=== PATIENT | female | born 1955 | race Caucasian/White ===

== ENCOUNTER 2023-04-08 14:35 | Outpatient (OUT) | payer MEDICARE, SELFPAY ==
--- NOTE | 2023-04-08 14:36 | MM_ITS ---
Patient Name: MARICEL GOODWIN MR#: [id number] : 1955 Exam Date: 04/08/2023 Ordering Doctor: DR FAZAL BONE D.O. RADIOLOGY REPORT PROCEDURE: MM TOMOSYNTHESIS SCREENING BI COMPARISON: MG MAMM SCREEN 3D WILLIE CAD, 03/31/2021. MG MAMM SCREEN 3D WILLIE CAD, 04/01/2022. INDICATIONS: Screening Calculator Name NCI Breast Cancer Risk Assessment Tool 5 Year Breast Cancer Risk 3.10% Lifetime Breast Cancer Risk 9.80% Personal Breast Cancer No Personal Ovarian Cancer No Treatments None Family Cancers Father with esophageal cancer at age 75; Mother with breast cancer at age 55. LOCATION: [facility] BREAST COMPOSITION: Heterogeneously dense,which may obscure small masses. FINDINGS: DIAGNOSTIC CATEGORY 2--BENIGN FINDING. NO CHANGE FROM COMPARISON. Scattered benign-appearing nodules are present. RIGHT BREAST: No significant suspicious finding. LEFT BREAST: No significant suspicious finding. RECOMMENDATIONS: ROUTINE MAMMOGRAM AND CLINICAL EVALUATION IN 12 MONTHS. PLEASE NOTE: A NORMAL MAMMOGRAM DOES NOT EXCLUDE THE POSSIBILITY OF BREAST CANCER. A CLINICALLY SUSPICIOUS PALPABLE LUMP SHOULD BE BIOPSIED. Dictated by: Samuel Emanuel MD on 04/08/2023 at 15:53 Approved by: Samuel Emanuel MD on 04/08/2023 at 15:56
--- OUTSIDE RECORDS SUMMARY | 2023-04-21 03:33 | XMS_ITS | CCD ---
Author Name Unknown Address [address] [place] [address] Organization [facility] Care Team Providers Care Industrial Painter Name Role Phone LIZANDRO, DR DIEHL Primary Care Unavailable LIZANDRO, DR DIEHL Admitting Unavailable LIZANDRO, DR DIEHL Attending Unavailable LIZANDRO, DR DIEHL Consulting Unavailable MEGAN, DR NESSA Stokes Consulting Unavailable LIZANDRO, DR DIEHL Primary Care Unavailable LIZANDRO, DR DIEHL Admitting Unavailable LIZANDRO, DR DIEHL Attending Unavailable Lavinia Moore Unavailable Allergies Allergy Classification Reported Allergen(s) Allergy Type Date of Onset Reaction(s) Facility (1 source) [facility] Drug allergy (disorder) 7 [facility] Repository (1 source) cyclobenzaprine Drug Allergy anaphylaxis [employer] Other Medications Current Medications Medication Drug Class(es) Dates Sig (Normalized) Sig (Original) aspirin 325 mg delayed release oral tablet (1 source) Platelet Aggregation Inhibitor, Nonsteroidal Anti-inflammatory Drug take 0.5 tablet by mouth once daily Aspirin 325 MG 1/2 tablet Orally Once a day Active doxycycline hyclate 100 mg oral capsule (1 source) Tetracycline-class Drug Start: 02-20-2023 take 1 capsule by mouth every twelve hours Doxycycline Hyclate 100 MG 1 capsule Orally Twice a day for 10 day(s) Jan, Active estradiol 0.1 mg/ml vaginal cream (1 source) Estrogen Estradiol 0.1 MG/GM _insert 1 (ONE) gram VAGINALLY weekly Vaginal for 90 Days Active levothyroxine sodium 0.025 mg oral tablet (1 source) l-Thyroxine Levothyroxine Sodium 25 MCG Oral for 90 Days Active methylPREDNISolone 4 mg oral tablet (1 source) Corticosteroid Start: 02-20-2023 Medrol (Sudheer) 4 MG as directed Orally for daily dose take half with breakfast half with dinner for 6 days Jan, Active metoprolol tartrate 25 mg oral tablet (1 source) beta-Adrenergic Twila take 1 tablet by mouth every twelve hours Metoprolol Tartrate 25 MG 1 tablet with food Orally Twice a day Active olmesartan medoxomil 20 mg oral tablet (1 source) Angiotensin 2 Receptor Twila take 1 tablet by mouth once daily Olmesartan Medoxomil 20 MG TAKE 1 TABLET BY MOUTH DAILY Oral for 90 Days Active ProAir HFA 108 (90 Base) MCG/ACT (1 source) Start: 02-20-2023 take 1 puff(s) by inhalation every four hours as needed ProAir HFA 108 (90 Base) MCG/ACT 1 puff as needed Inhalation every 4 hrs for 30 days Jan, Active Spacer/Aero-Holding Chambers - (1 source) Start: 02-20-2023 Spacer/Aero-Holdi ng Chambers - as directed for 30 days Jan, Active Problems Problem Classification Problem Date Documented Da te Episodic/Chronic Acute bronchitis (1 source) Acute bronchitis, unspecified Episodic Other lower respiratory disease (1 source) Other specified respiratory disorders Episodic Other screening for suspected conditions (not mental disorders or infectious disease) (4 sources) Encounter for screening mammogram for malignant neoplasm of breast; Translations: [ENC SCR MAMMO MALIG NEOPLASM BREAST] Onset: 04-01-2022 Episodic Other upper respiratory infections (1 source) Acute pansinusitis, unspecified Episodic Residual codes; unclassified (1 source) Family history of malignant neoplasm of digestive organs; Translations: [FAM HX MALIG NEOPLASM DIGESTIV ORGN] Onset: 04-04-2022 Episodic Residual codes; unclassified (1 source) Family history of malignant neoplasm of breast; Translations: [FAMILY HX MALIG NEOPLASM OF BREAST] Onset: 04-04-2022 Episodic Results Test Name Value Interpretation Reference Range Facil ity COVID + FLU Quick Testingon 02-20-2023 SARS-CoV-2 (COVID-19) RNA NA A+probe Ql (Unsp spec) Negative [employer] Other COVID + FLU Quick Testing Negative [employer] Other MG MAMM SCREEN 3D WILLIE CADon 04-01-2022 MG MAMM SCREEN 3D WILLIE CAD Patient: MARICEL GOODWIN Exam Date: 04/01/2022 : 1955 Gender:F Ordering : DR FAZAL BONE D.O. Admission #: [id number] Family : Order #: [id number] CLICK HERE TO VIEW EXAM RADIOLOGY REPORT PROCEDURE: MAMMOGRAM SCREENING 3D BILATERAL CAD COMPARISON: MG MAMM SCREEN 3D WILLIE CAD, 03/31/2021. MG MAMM SCREEN WILLIE W CAD, 03/27/2020. INDICATIONS: Screening mammography Calculator Name NCI Breast Cancer Risk Assessment Tool 5 Year Breast Cancer Risk 3.00% Lifetime Breast Cancer Risk 10.20% Personal Breast Cancer No Personal Ovarian Cancer No Treatments None Family Cancers Father with esophageal cancer at age 75; Mother with breast cancer at age 55. LOCATION: [facility] BREAST COMPOSITION: Heterogeneously dense,which may obscure small masses. FINDINGS: DIAGNOSTIC CATEGORY 1--NEGATIVE. RIGHT BREAST: No significant suspicious finding. No significant change has occurred. LEFT BREAST: No significant suspicious finding. No significant change has occurred. RECOMMENDATIONS: ROUTINE MAMMOGRAM AND CLINICAL EVALUATION IN 12 MONTHS. PLEASE NOTE: A NORMAL MAMMOGRAM DOES NOT EXCLUDE THE POSSIBILITY OF BREAST CANCER. A CLINICALLY SUSPICIOUS PALPABLE LUMP SHOULD BE BIOPSIED. Dictated by: Nessa Grove M.D. on 04/01/2022 at 15:36 Approved by: Nessa Grove M.D. 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 Note: Microscopic examination reveals a specimen that extends into the superficial dermis. There is a mild superficial interstitial lymphocytic infiltrate and there is mild basal layer melanin pigmentation. There is acantholysis in areas. Multiple step sections were performed. These findings could be seen in an acantholytic acanthoma if solitary or [place]'s disease. A lentigo cannot be excluded. Electronically Signed Out by DANYELL CHAN M.D. Electronically Signed Out By DANYELL CHAN MD/[facility] Clinical History: Morphology: 0.5cm pink papule DDX: Neoplasm of Uncertain Behavior vs. Basal Cell Carcinoma ([place]) ([id number]) Specimens Submitted As: A: SKIN, MIDDLE STERNUM, SHAVE BIOPSY ([id number]) Gross Description: Shave; 0.4x0.3x0.1 The gross evaluation was performed and the original slides were prepared at [facility] [address], [place] [address]. jks/07/03/2019 Normal [facility] Comment on above: Performed By: #### D #### Dermatopathology Vital Signs Date Time Vital Sign Value Performing Clinician Facility 02-20-2023 09:45-0400 Body height 172.72 cm Lavinia Moore Other [employer] Other 02-20-2023 09:45-0400 Body mass index (BMI) [Ratio] 22.44 kg/m2 Lavinia Moore Other [facility] Other 02-20-2023 09:45-0400 Body temperature 96.4 [degF] Lavinia Moore Other [facility] [employer] Other 02-20-2023 09:45-0400 Body weight 66.95 kg Lavinia Moore Other [facility] [employer] Other 02-20-2023 09:45-0400 Respiratory rate 18 /min Lavinia Moore Other [employer] Other 02-20-2023 09:45-0400 SaO2% (BldA) [Mass fraction] 91 % Lavinia Moore Other [facility] [employer] Other Encounters Encounter Date Encounter Type Care Provider Facility Start: 02-20-2023 End: 02-20-2023 ambulatory Lavinia Moore Other [facility] [employer] Other Start: 02-20-2023 Office outpatient ne w 20 minutes Lavinia Moore [facility] Start: 04-01-2022 End: 04-02-[address] FAZAL BONE Facility:[facility] Start: 09-01-[address] FAZAL BONE Facil ity:[facility] Start: 08-21-2021 End: 11-30-2021 Patient encounter procedure FAZAL BONE [facility] Payers Date Payer Category Payer Medicare [id number] 1960 Unknown [id number] 1955 Unknown [id number] 1955 Unknown [id number] Social History Date Type Detail Facility Tobacco smoking status No Smoking Status Entered [facility] Sex Assigned At Female [facility] Evaluation note 02-20-2023 Note Date & Type Note Facility 02-20-2023 Evaluation note Encounter Date Diagnosis Assessment Notes Jan, Acute pansinusitis (ICD-10 - J01.40) rx sent, take as directed. continue symptomatic tx as discussed. no NSAIDs while steroid therapy. advised pt to check with PCP regarding Aspirin for Afib prior to discontinuing. recommended hot steam baths and/or cool mist humidifier. push rest/fluids. continue otc meds prn. reinforced good hand and cough hygiene for infection control. immediate eval if warning s/s of respir distress, intractable fevers, or other emergent symptoms. otherwise f/u with PCP in 3-4 days if s/s persists or worsens despite treatment. Jan, Acute bronchitis (ICD-10 - J20.9) see above Jan, Congestion of respiratory tract (ICD-10 - J98.8) [place] [employer] Other Evaluation + Plan note Note Date & Type Note Facility Evaluation + Plan note No data available for this section [facility] History general Narrative - Reported Note Date & Type Note Facility History general Narrative - Reported Type Medical History HYPERTENSION Medical History HYPERTHYROIDISM [facility] Other Hospital Discharge instructions Note Date & Type Note Facility Hospital Discharge instructions No data available for this section [facility] Progress note Note Date & Type Note Facility Progress note No data available for this section [facility] Summary Purpose Family History No Family History Records FoundNo Family History Records Found Advance Directives No Advanced Directives Records FoundNo Advanced Directives Records Found Additional Source Comments INFORMATION SOURCE (unrecogn ized section and content) DATE CREATED AUTHOR 07/05/2019 [facility] [place] DATE CREATED AUTHOR AUTHOR'S ORGANIZ ATION 04/04/2022 [facility] REASON FOR VISIT (unrecogniz ed section and content) COUGH, CONGESTION FOR RECORDS PERTAINING TO PATIENTS WHO ARE OR HAVE BEEN ENROLLED IN A CHEMICAL DEPENDENCY/SUBSTANCEABUSE PROGRAM, SOME INFORMATION MAY BE OMITTED. This clinical summary was aggregated from multiple sources. Caution should be exercised in using it in the provision of clinical care. This summary normalizes information from multiple sources, and as a consequence, information in this document may materially change the coding, format and clinical context of patient data. In addition, data may be omitted in some cases. CLINICAL DECISIONS SHOULD BE BASED ON THE PRIMARY CLINICAL RECORDS. [employer] provides no warranty or guarantee of the accuracy or completeness of information in this document.
== END 2023-04-08 14:36 | disposition home or self-care (01) ==
LOC: MAMMO 14:35
PROVIDERS: PCP Internal Medicine; Visit Provider Internal Medicine
DX: Z12.31 Encounter for screening mammogram for malignant neoplasm of breast (principal); Z80.8 Family history of malignant neoplasm of other organs or systems; Z80.3 Family history of malignant neoplasm of breast
CPT/HCPCS: 77063; 77067

== ENCOUNTER 2023-04-12 13:30 | Outpatient (OUT) | payer MEDICARE, OTHER, SELFPAY ==
--- NOTE | 2023-04-12 13:33 | XR_ITS ---
[place] [id number] Patient Name: MARICEL GOODWIN MRN: [id number] date: 1955 Sex: F Assigned Patient Location: [facility] Current Patient Location: [facility] Accession/Order Number: [id number] Exam Date: 04/12/2023 13:38 Report Date: 04/12/2023 23:05 At the request of: FAZAL BONE Procedure: XR DEXA axial skeleton EXAMINATION: XR DEXA axial skeleton HISTORY: Asymptomatic Menopause COMPARISON: DEXA bone densitometry 03/31/2021 TECHNIQUE: Dual-energy X-ray absorptiometry (DXA) was performed. FINDINGS: SPINE ANALYSIS: Average bone mineral density is 1.255 g/cm2. T-score (standard deviation relative to young adult mean): 0.5 . +7.7% change since prior study. HIP ANALYSIS: Lowest bone mineral density is within the left femoral trochanter, 0.606 g/cm2. T-score (standard deviation relative to young adult mean): -2.1 . +7.5% change since prior study. XR/XR DEXA axial skeleton IMPRESSION: World [employer] Classification: Osteopenia - Moderate Fracture Risk Electronically authenticated by: NESSA GUZMAN Date: 04/12/2023 23:05
== END 2023-04-12 13:31 | disposition home or self-care (01) ==
LOC: RAD 13:30
PROVIDERS: PCP Internal Medicine; Visit Provider Internal Medicine
DX: M85.80 Other specified disorders of bone density and structure, unspecified site (principal); Z78.0 Asymptomatic menopausal state
CPT/HCPCS: 77080

== ENCOUNTER 2024-04-24 08:57 | Outpatient (OUT) | payer MEDICARE, OTHER, SELFPAY ==
--- NOTE | 2024-04-24 08:59 | MM_ITS ---
Patient Name: MARICEL GOODWIN MR#: [id number] : 1955 Exam Date: 04/24/2024 Ordering Doctor: DR FAZAL BONE D.O. RADIOLOGY REPORT PROCEDURE: MM TOMOSYNTHESIS SCREENING BI COMPARISON: MM TOMOSYNTHESIS SCREENING BI, 04/08/2023. MG MAMM SCREEN 3D WILLIE CAD, 04/01/2022. INDICATIONS: Screening Calculator Name NCI Breast Cancer Risk Assessment Tool 5 Year Breast Cancer Risk 3.10% Lifetime Breast Cancer Risk 9.30% Personal Breast Cancer No Personal Ovarian Cancer No Treatments None Family Cancers Father with esophageal cancer at age 75; Mother with breast cancer at age 55. LOCATION: [facility] BREAST COMPOSITION: The breasts are heterogeneously dense,which may obscure small masses. FINDINGS: DIAGNOSTIC CATEGORY 2--BENIGN FINDING. NO CHANGE FROM COMPARISON. Scattered benign-appearing calcifications are present. RIGHT BREAST: No significant suspicious finding. LEFT BREAST: No significant suspicious finding. RECOMMENDATIONS: ROUTINE MAMMOGRAM AND CLINICAL EVALUATION IN 12 MONTHS. PLEASE NOTE: A NORMAL MAMMOGRAM DOES NOT EXCLUDE THE POSSIBILITY OF BREAST CANCER. A CLINICALLY SUSPICIOUS PALPABLE LUMP SHOULD BE BIOPSIED. Dictated by: Samuel Emanuel MD on 04/24/2024 at 12:58 Approved by: Samuel Emanuel MD on 04/24/2024 at 13:00
--- OUTSIDE RECORDS SUMMARY | 2024-04-24 09:17 | XMS_ITS | CCD ---
Author Organization [facility] Care Team Providers Care Front Desk Receptionist Name Role Phone LIZANDRO, DR DIEHL Primary Care Unavailable VALONE, DR DIEHL Admitting Unavailable VALONE, DR DIEHL Attending Unavailable VALONE, DR DIEHL Consulting Unavailable ZIEBER, DR SANDIP Stokes Consulting Unavailable VALONE, DR DIEHL Primary Care Unavailable VALONE, DR DIEHL Admitting Unavailable VALONE, DR DIEHL Attending Unavailable Lavinia Moore Unavailable Unavailable Primary Care Provider Francisco Javier Mcintyre MD Primary Care Provider Lizandro Adler DO, Charles L Primary Care Provider FRANCISCO JAVIER BONE JR Referring Unavailable RFANCISCO JAVIER BONE JR Primary Care Unavailable ELMIRA NEFF JR Attending UnavailELMIRA Guerrero JR Referring UnavailFRANCISCO JAVIER Berrios JR Primary Care Unavailable FRANCISCO JAVIER BONE JR Referring Unavailable FRANCISCO JAVIER BONE JR Primary Care Unavailable ELMIRA NEFF JR Attending UnavailELMIRA Guerrero JR Referring Unavailabl FRANCISCO JAVIER Blum JR Primary Care Unavailable ELMIRA NEFF JR Attending UnavailFRANCISCO JAVIER Berrios JR Referring Unavailable FRANCISCO JAVIER BONE JR Primary Care Unavailable ELMIRA NEFF JR Admitting UnavailELMIRA Guerrero JR Attending UnavailELMIRA Guerrero JR Referring Unavailabl FRANCISCO JAVIER Blum JR Primary Care Unavailable Allergies Allergy Classification Reported Allergen(s) Allergy Type Date of Onset Reaction(s) Facility (1 source) [facility] [place] Drug allergy (disorder) 02-10-20 17 [facility] Repository (1 source) cyclobenzaprine Drug Allergy anaphylaxis opinions.h Other (18 sources) Other; Translations: [OTHER] Propensity to adverse reactions 04-16-20 21 Anaphylaxis [facility] (1 source) cyclobenzaprine; Translations: [CYCLOBENZAPRINE] Drug Allergy 03-28-20 24 [facility] Repository Medications Current Medications Medication Drug Class(es) Dates Sig (Normalized) Sig (Original) acetaminophen 325 mg oral tablet (1 source) take 2 tablets by mouth every six hours as needed for pain acetaminophen (TYLENOL) 325 mg tablet Take 2 tablets (650 mg total) by mouth every 6 (six) hours as needed for pain. Active acetaminophen 325 mg / oxyCODONE hydrochloride 5 mg oral tablet (3 sources) Opioid Agonist Start: 04-11-2024 End: 04-16-2024 take 1 tablet by mouth every six hours for pain oxyCODONE-acetamino phen (Percocet) 5-325 MG tablet Indications: Status post right knee replacement Take 1 tablet by mouth every 6 (six) hours if needed for severe pain for up to 5 days 20 tablet 04/11/2024 04/16/2024 Active Start: 03-27-2024 End: 04-01-2024 take 1 tablet by mouth every six hours for pain oxyCODONE-acetaminophen (Percocet) 5-325 MG tablet Indications: Post-operative pain Take 1 tablet by mouth every 6 (six) hours if needed for moderate pain for up to 5 days 20 tablet 03/27/2024 04/01/2024 Active ascorbic acid/collagen hydr (COLLAGEN SKIN RENEWAL ORAL) (1 source) ascorbic acid/co llagen hydr (COLLAGEN SKIN RENEWAL ORAL) Take by mouth daily. Active aspirin 325 mg delayed release oral tablet (1 source) Platelet Aggregation Inhibitor, Nonsteroidal Anti-inflammatory Drug take 0.5 tablet by mouth once daily Aspirin 325 MG 1/2 tablet Orally Once a day Active Biotin (14 sources) biotin 1 mg caps ule Take by mouth daily. Active BIOTIN PO Take b y mouth Active Calcium Carb-Cholecalciferol (CALTRATE BONE HEALTH PO) (13 sources) Calcium Carb-Cho lecalciferol (CALTRATE BONE HEALTH PO) Take by mouth Active calcium carbonate 1250 mg / cholecalciferol 200 unt oral tablet (1 source) Vitamin D take 1 tablet by mouth once daily in the morning calcium carbonate-vitamin D3 (CALCIUM 500 + D) 500 mg(1,250mg) -200 units per tablet Take 1 tablet by mouth in the morning. Active Chondroitin Sulfates / Glucosamine (14 sources) take 1 tablet by mouth three times daily glucosamine-chondroitin 500-400 mg tablet Take 1 tablet by mouth 3 (three) times a day. Active Glucosamine-Bassam droitin (GLUCOSAMINE CHONDR COMPLEX PO) Take by mouth Active Collagen (13 sources) COLLAGEN PO Take by mouth Active doxycycline hyclate 100 mg oral capsule (1 source) Tetracycline-class Drug Start: 02-20-2023 take 1 capsule by mouth every twelve hours Doxycycline Hyclate 100 MG 1 capsule Orally Twice a day for 10 day(s) Jan, Active estradiol 0.1 mg/ml vaginal cream (15 sources) Estrogen Start: 04-21-2023 estradioL (ESTRACE) 0.01 % (0.1 mg/gram) vaginal cream Indications: Vaginal atrophy Insert 1 g into the vagina once a week. 42.5 g 2 04/21/2023 Active Estradiol 0.1 MG /GM _insert 1 (ONE) gram VAGINALLY weekly Vaginal for 90 Days Active folic acid 1 mg / polysaccharide iron complex 150 mg / vitamin b12 0.025 mg oral capsule (10 sources) Vitamin B12 Start: 02-29-2024 End: 03-30-2024 take 1 tablet by mouth once daily Iron Polysacch Uyvll-P32-MY (Poly-Iron 150 Forte) 150-0.025-1 MG capsule Indications: Primary osteoarthritis of right knee , Pre-op examination Take 1 tablet by mouth Daily 30 capsule 1 02/29/2024 03/30/2024 Active ibuprofen 200 mg oral tablet (1 source) Nonsteroidal Anti-inflammatory Drug take 1 tablet by mouth every six hours as needed for pain ibuprofen (ADVIL,MOTRIN) 200 mg tablet Take 1 tablet (200 mg total) by mouth every 6 (six) hours as needed for pain. Active levothyroxine sodium 0.05 mg oral tablet (20 sources) l-Thyroxine Start: 05-03-2014 levothyroxine (Synthroid, Levoxyl) 50 MCG tablet 05/03/2014 Active take 2 tablets by mo ut in the morning levothyroxine (SYNTHROID, LEVOTHROID) 25 MCG tablet Take 2 tablets (50 mcg total) by mouth in the morning. Active End: 02-29-2024 take 1 tablet by mouth in the morning levothyroxine (Synthroid, Levoxyl) 25 MCG tablet Take 25 mcg by mouth in the morning. 02/29/2024 Discontinued Levothyroxine So dium 25 MCG Oral for 90 Days Active methylPREDNISolone 4 mg oral tablet (1 source) Corticosteroid Start: 02-20-2023 Medrol (Sudheer) 4 MG as directed Orally for daily dose take half with breakfast half with dinner for 6 days Jan, Active metoprolol tartrate 50 mg oral tablet (20 sources) beta-Adrenergic Twila Start: 10-02-2023 metoprolol tartrate (Lopressor) 50 MG tablet 10/02/2023 Active take 2 tablets by mo uth in the morning, then take 2 tablets by mouth at bedtime metoprolol tartrate (LOPRESSOR) 25 mg tablet Take 2 tablets (50 mg total) by mouth in the morning and 2 tablets (50 mg total) before bedtime. Active End: 02-29-2024 take 1 tablet by mouth in the morning metoprolol tartrate (Lopressor) 25 MG tablet Take 25 mg by mouth in the morning and 25 mg in the evening. 02/29/2024 Discontinued dejyrsqa-kaxu-DH-calcium &mins (THERAGRAN-M) 9 mg iron-400 mcg tablet (1 source) pewvccig-uhjr-UJ -calcium &mins (THERAGRAN-M) 9 mg iron-400 mcg tablet Take 1 tablet by mouth in the morning. Active ondansetron 4 mg oral tablet (1 source) Serotonin-3 Receptor Antagonist Sta rt: 4 End : 4 take 1 tablet by mouth every six hours as needed for nausea and vomiting and nausea and nausea ondansetron (Zofran) 4 MG tablet Indications: Nausea Take 1 tablet (4 mg) by mouth every 6 (six) hours if needed for nausea or vomiting for up to 5 days 20 tablet 03/27/2024 04/01/2024 Active ProAir HFA 108 (90 Base) MCG/ACT (1 source) Sta rt: 3 take 1 puff(s) by inhalation every four hours as needed ProAir HFA 108 (90 Base) MCG/ACT 1 puff as needed Inhalation every 4 hrs for 30 days Jan, Active Spacer/Aero-Holding Chambers - (1 source) Sta rt: 3 Spacer/Aero-Holding Chambers - as directed for 30 days Jan, Active valACYclovir 1000 mg oral tablet (1 source) Herpesvirus Nucleoside Analog DNA Polymerase Inhibitor, Herpes Simplex Virus Nucleoside Analog DNA Polymerase Inhibitor, Herpes Zoster Virus Nucleoside Analog DNA Polymerase Inhibitor valACYclovir (VALTRE X) 1000 mg tablet Take 1 tablet (1,000 mg total) by mouth in the morning and 1 tablet (1,000 mg total) before bedtime. One tablet by mouth for 5 days as needed . Active Completed/Discontinued Medications Medication Drug Class(es) Dates Sig (Normalized) Sig (Original) olmesartan medoxomil 20 mg oral tablet (2 sources) Angiotensin 2 Receptor Twila End: 02-29-2024 take 1 tablet by mouth in the morning olmesartan (BENICAR) 20 mg tablet Take 1 tablet (20 mg total) by mouth in the morning. 02/29/2024 Discontinued (Therapy completed) Problems Active Problems Problem Classification Problem Date Documented Date Episodic/Chronic Acute bronchitis (1 source) Acute bronchitis, unspecified Episodic Cardiac dysrhythmias (3 sources) Atrial fibrillation; Translations: [Unspecified atrial fibrillation] Onset: 02-29-2024 02-29-2024 Chronic Essential hypertension (3 sources) Hypertensive disorder; Translations: [Essential (primary) hypertension] Onset: 02-29-2024 02-29-2024 Chronic Genitourinary symptoms and ill-defined conditions (2 sources) Increased frequency of urination; Translations: [Frequency of micturition] Onset: 02-29-2024 02-24-2024 Episodic Nausea and vomiting (1 source) Nausea; Translations: [Nausea] 03-27-2024 Episodic Osteoarthritis (20 sources) Osteoarthritis of right knee joint; Translations: [Unilateral primary osteoarthritis, right knee] Onset: 03-14-2024 02-18-2024 Chronic Other connective tissue disease (4 sources) History of total knee arthroplasty; Translations: [Presence of right artificial knee joint] 03-14-2024 Chronic Other lower respiratory disease (1 source) Other specified respiratory disorders Episodic Other nervous system disorders (1 source) Postoperative pain ; Translations: [Other acute postprocedural pain] 03-27-2024 Episodic Other non-traumatic joint disorders (5 sources) Pain in right knee; Translations: [Pain in joint, lower leg] Onset: 03-27-2024 02-18-2024 Episodic Other screening for suspected conditions (not [...] MALIG NEOPLASM OF BREAST] Onset: 04-04-2022 Episodic Unclassified (1 source) Acute pain of right knee 03-14-2024 Unclassified (1 source) right knee degenerative joint disease Onset: 03-28-2024 Past or Other Problems Problem Classification Problem Date Documented Date Episodic/Chronic Mood disorders (1 source) Mood disorders Onset: 04-21-2023 04-21-2023 Unclassified (5 sources) Preprocedural examination done 02-29-2024 Results Test Name Value Interpretation Reference Range Facility XR KNEE RT 1 OR 2 VWSon 03-04 XR KNEE RT 1 OR 2 VWS XR KNEE RT 1 OR 2 VWS Clinical History: Status post knee arthroplasty. Right knee: 03/28/2024 Comparison: None Findings: Two views of the knee were obtained portably. The patient is status post total knee arthroplasty. Hardware components have expected configuration with no gross evidence of complication. Soft tissue gas and irregularity are compatible with the postoperative status. Impression: Status post total knee arthroplasty. 1 Finalized by Mesfin Reed MD on 03/28/2024 11:05 AM Normal [facility] Bacteria identified Cx Nom ( U)on 03-01-2024 Service comment (Unsp spec) [Interp] <10,000 ORGANISMS/ML NORMAL URO GENITAL PROSPER [facility] BASIC METABOLIC PANLon 02-28 Anion gap [Moles/Vol] 9 mmol/L Normal 5-15 [facility] Comment on above: Performed By: #### B MP, CBCA #### [facility] ([id number]) [address], [address] [place] [address] Calcium [Mass/Vol] 9.6 mg/dL Normal 8.5-10.5 [facility] Comment on above: Performed By: #### LEON Jones MP #### [facility] ([id number]) [address], [address] [place] [address] Chloride [Moles/Vol] 100 mmol/L Normal 98-109 [facility] Comment on above: Performed By: #### B MISTI, CBCA #### [facility] ([id number]) [address], [address] [place] [address] CO2 [Moles/Vol] 30 mmol/L Normal 22-32 [facility] Comment on above: Performed By: #### LEON Jones MP #### [facility] ([id number]) [address], [address] [place] [address] Creatinine [Mass/Vol] 0.95 mg/dL Normal 0.40-1.00 [facility] Comment on above: Result Comment: METH OD TRACEABLE TO IDMS STANDARD Performed By: #### B MISTI CBCMireya #### [facility] ([id number]) [address], [address] [place] [address] GFR/1.73 sq M.predicted among non-blacks MDRD (S/P/Bld) [Vol rate/Area] 65 mL/min/{1.73_m2} Normal >59 [facility] Comment on above: Result Comment: Reported eGFR is based on the CKD-EPI 2020 equation that does not use a race coefficient. Performed By: #### B MISTI CBCMireya #### [facility] ([id number]) [address], [address] [place] [address] Glucose [Mass/Vol] 84 mg/dL Normal 65-99 [facility] Comment on above: Performed By: #### Robert CHAPPELL, CBCA #### [facility] ([id number]) [address] [place] [address] Potassium [Moles/Vol] 3.7 mmol/L Normal 3.5-5.0 [facility] Comment on above: Performed By: #### B MISTI, CBCA #### [facility] ([id number]) [address], [address] [place] [address] Sodium [Moles/Vol] 139 mmol/L Normal 134-146 [facility] Comment on above: Performed By: #### B MISTI, CBCA #### [facility] ([id number]) [address], [address] [place] [address] Urea nitrogen [Mass/Vol] 24 mg/dL Normal 5-27 [facility] Comment on above: Performed By: #### B MISTI, CBCA #### [facility] ([id number]) [address], [address] [place] [address] Basic Metabolic Panelon 10-2 Anion gap [Moles/Vol] 9 mmol/L 5 - 15 mmol/L [facility] Calcium [Mass/Vol] 9.6 mg/dL 8.5 - 10. 5 mg/dL [facility] Chloride [Moles/Vol] 100 mmol/L 98 - 10 9 mmol/L [facility] CO2 [Moles/Vol] 30 mmol/L 22 - 32 mmol/L [facility] Creatinine [Mass/Vol] 0.95 mg/dL 0.40 - 1.00 mg/dL [facility] Comment on above: METHOD TRACEABLE TO IDMS STANDARD eGFR (CKD-EPI)non-race dependent 65 - PINF [facility] Comment on above: Reported eGFR is based on the CKD-EPI 2020 equation that does not use a race coefficient. Glucose [Mass/Vol] 84 mg/dL 65 - 99 mg/dL [facility] Potassium [Moles/Vol] 3.7 mmol/L 3.5 - 5.0 mmol/L [facility] Sodium [Moles/Vol] 139 mmol/L 134 - 146 mmol/L [facility] Urea nitrogen [Mass/Vol] 24 mg/dL 5 - 27 mg/dL [facility] CBC AND AUTO DIFFon 02-29-20 24 ABSOLUTE BASOPHIL 0.1 X10E9/L Normal 0.0-0.2 [facility] Comment on above: Performed By: #### B MISTI, CBCA #### [facility] ([id number]) [address], [address] [place] [address] ABSOLUTE NEUTROPHIL 2.6 X10E9/L Normal 1.5-6.6 [facility] Comment on above: Performed By: #### B MISTI, CBCA #### [facility] ([id number]) [address], [address] [place] [address] Basophils/100 WBC (Bld) 1.3 % Normal [facility] Comment on above: Performed By: #### B MISTI, CBCA #### [facility] ([id number]) [address], [address] [place] [address] Eosinophils (Bld) [#/Vol] 0.2 10*3/uL Normal 0.0-0.4 [facility] Comment on above: Performed By: #### B MISTI CBCA #### [facility] ([id number]) [address], [address] [place] [address] Eosinophils/100 WBC (Bld) 3.3 % Normal [facility] Comment on above: Performed By: #### B MISTI, CBCA #### [facility] ([id number]) [address], [address] [place] [address] Erythrocyte distribution width (RBC) [Ratio] 14.4 % Normal 11.5-15.0 [facility] Comment on above: Performed By: #### B MISTI, CBCA #### [facility] ([id number]) [address], [address] [place] [address] Hematocrit (Bld) [Volume fraction] 37.6 % Normal 35-47 [facility] Comment on above: Performed By: #### B MP, CBCA #### [facility] ([id number]) [address], [address] [place] [address] Hemoglobin (Bld) [Mass/Vol] 12.4 g/dL Normal 11.7-15.5 [facility] Comment on above: Performed By: #### B MP, CBCA #### [facility] ([id number]) [address], [address] [place] [address] Lymphocytes (Bld) [#/Vol] 1.2 10*3/uL Normal 1.0-3.5 [facility] Comment on above: Performed By: #### B MP, CBCA #### [facility] ([id number]) [address], [address] [place] [address] Lymphocytes/100 WBC (Bld) 24.2 % Normal [facility] Comment on above: Performed By: #### B MP, CBCA #### [facility] ([id number]) [address], [address] [place] [address] MCH (RBC) [Entitic mass] 29.2 pg Normal 27-34 [facility] Comment on above: Performed By: #### B MP, CBCA #### [facility] ([id number]) [address], [address] [place] [address] MCHC (RBC) [Mass/Vol] 32.9 g/dL Normal 32-36 [facility] Comment on above: Performed By: #### B MP, CBCA #### [facility] ([id number]) [address], [address] [place] [address] MCV (RBC) [Entitic vol] 89 fL Normal 80-100 [facility] Comment on above: Performed By: #### B MP, CBCA #### [facility] ([id number]) [address], [address] [place] [address] Monocytes (Bld) [#/Vol] 0.8 10*3/uL Normal 0-0.9 [facility] Comment on above: Performed By: #### B MP, CBCA #### [facility] ([id number]) [address], [address] [place] [address] Monocytes/100 WBC (Bld) 16.4 % Normal [facility] Comment on above: Performed By: #### B MP, CBCA #### [facility] ([id number]) [address], [facility] [address] [place] [address] Neutrophils/100 WBC (Bld) 54.8 % Normal [facility] Comment on above: Performed By: #### B MP, CBCA #### [facility] ([id number]) [address], [address] [place] [address] Platelet mean volume (Bld) [Entitic vol] 8.5 fL Normal 7-12 [facility] Comment on above: Performed By: #### B MP, CBCA #### [facility] ([id number]) [address] [place] [address] Platelets (Bld) [#/Vol] 225 10*3/uL Normal 150-450 [facility] Comment on above: Performed By: #### B MP, CBCA #### [facility] ([id number]) [address], [address] [place] [address] RBC COUNT 4.25 X10E12/L Normal 3.80-5.20 [facility] Comment on above: Performed By: #### B MP, CBCA #### [facility] ([id number]) [address] [place] [address] WBC (Bld) [#/Vol] 4.7 10*3/uL Normal 4.0-11.0 [facility] Comment on above: Performed By: #### B MP, CBCA #### [facility] [place] [facility] ([id number]) [address], [address] [place] [address] CBC W Auto Differential pane l (Bld)on 02-29-2024 ABSOLUTE BASOPHIL 0.1 [facility] Comment on above: PERFORMED AT [facility] [address],[place] [address] Basophils/100 WBC (Bld) 1.3 % [facility] Eosinophils (Bld) [#/Vol] 0.2 10*3/uL [facility] Eosinophils/100 WBC (Bld) 3.3 % [facility] Erythrocyte distribution width (RBC) [Ratio] 14.4 % 11.5 - 15.0 % [facility] Hematocrit (Bld) [Volume fraction] 37.6 % 35 - 47 % [facility] Hemoglobin (Bld) [Mass/Vol] 12.4 g/dL 11.7 - 15.5 g/dL [facility] Lymphocytes (Bld) [#/Vol] 1.2 10*3/uL [facility] Lymphocytes/100 WBC (Bld) 24.2 % [facility] MCH (RBC) [Entitic mass] 29.2 pg 27 - 34 pg [facility] MCHC (RBC) [Mass/Vol] 32.9 g/dL 32 - 36 g/dL [facility] MCV (RBC) [Entitic vol] 89 fL 80 - 100 fL [facility] Monocytes (Bld) [#/Vol] 0.8 10*3/uL [facility] Monocytes/100 WBC (Bld) 16.4 % [facility] Neutrophils (Bld) [#/Vol] 2.6 10*3/uL [facility] Neutrophils/100 WBC (Bld) 54.8 % [facility] Platelet mean volume (Bld) [Entitic vol] 8.5 fL 7 - 12 [facility]L [facility] ([facility]ld[facility] [#/Vol] 225 10*3/uL [facility] RBC (Bld) [#/Vol] 4.25 10*6/uL [facility] WBC corrected for nucl RBC Auto (Bld) [#/Vol] 4.7 [facility] CBC auto differentialon 02-01 Basophils (Bld) [#/Vol] 0.1 10*3/uL [facility] Basophils/100 WBC (Bld) 1.3 % [facility] Eosinophils (Bld) [#/Vol] 0.2 10*3/uL [facility] Eosinophils/100 WBC (Bld) 3.3 % [facility] Erythrocyte distribution width (RBC) [Ratio] 14.4 % 11.5 - 15.0 % [facility] Hematocrit (Bld) [Volume fraction] 37.6 % 35 - 47 % [facility] Hemoglobin (Bld) [Mass/Vol] 12.4 g/dL 11.7 - 15.5 g/dL [facility] Lymphocytes (Bld) [#/Vol] 1.2 10*3/uL [facility] Lymphocytes/100 WBC (Bld) 24.2 % [facility] MCH (RBC) [Entitic mass] 29.2 pg 27 - 34 pg [facility] MCHC (RBC) [Mass/Vol] 32.9 g/dL 32 - 36 g/dL [facility] MCV (RBC) [Entitic vol] 89 fL 80 - 100 fL [facility] Monocytes (Bld) [#/Vol] 0.8 10*3/uL [facility] Monocytes/100 WBC (Bld) 16.4 % [facility] Neutrophils (Bld) [#/Vol] 2.6 10*3/uL [facility] Neutrophils/100 WBC (Bld) 54.8 % [facility] Platelet mean volume (Bld) [Entitic vol] 8.5 fL 7 - 12 fL [facility] Platelets (Bld) [#/Vol] 225 10*3/uL [facility] RBC (Bld) [#/Vol] 4.25 10*6/uL [facility] WBC corrected for nucl RBC Auto (Bld) [#/Vol] 4.7 [facility] ECG 12 leadon 02-29-2024 TRACEMASTERVUE [facility] URINALYSISon 02-29-2024 Bilirubin Ql (U) Negative Normal [facility]G [facility] Comment on above: Performed By: #### U A #### [facility] ([id number]) [address], [address] [place] [address] BLOOD/HGB Negative Normal NEG [facility] Comment on above: Performed By: #### U A #### [facility] ([id number]) [address], [address] [place] [address] Color (U) YELLOW Normal YELLOW [facility] Comment on above: Performed By: #### U A #### [facility] ([id number]) [address], [address] [place] [address] Glucose Ql (U) Negative Normal NEG [facility] Comment on above: Performed By: #### U A #### [facility] ([id number]) [address], [address] [place] [address] Hyaline casts LM Ql (Urine sed) 10 /lpf High 0-2 [facility] Comment on above: Performed By: #### U A #### [facility] ([id number]) [address], [address] [place] [address] Ketones Ql (U) Negative Normal NEG [facility] Comment on above: Performed By: #### U A #### [facility] ([id number]) [address], [address] [place] [address] Leukocyte esterase Test strip Ql (U) MODERATE Abnormal NEG [facility] Comment on above: Performed By: #### U A #### [facility] ([id number]) [address], [address] [place] [address] MUCOUS PRESENT Abnormal NONE [facility] Comment on above: Performed By: #### U A #### [facility] ([id number]) [address], [address] [place] [address] Nitrite Ql (U) Negative Normal NEG [facility] Comment on above: Performed By: #### U A #### [facility] ([id number]) [address] [place] [address] pH (U) 6.0 [pH] Normal 5.0-8.5 [facility] Comment on above: Performed By: #### U A #### [facility] ([id number]) [address] [facility] [address] [place] [address] Protein Ql (U) Trace Abnormal NEG [facility] Comment on above: Performed By: #### U A #### [facility] ([id number]) [address] [facility] [address] [place] [address] R.B.CELLS 0 /hpf Normal 0-5 [facility] Comment on above: Performed By: #### U A #### [facility] ([id number]) [address] [facility] [address] [place] [address] Specific gravity (U) [Rel density] 1.017 Normal 1.003-1.035 [facility] Comment on above: Performed By: #### U A #### [facility] ([id number]) [address] [place] [address] [address] [place] [address] SQUAMOUS EPITHELIUM 14 /hpf High 0-5 [facility] Comment on above: Performed By: #### U A #### [facility] ([id number]) [address] [facility] [address] [place] [address] TURBIDITY CLOUDY Abnormal CLEAR [facility] Comment on above: Performed By: #### U A #### [facility] ([id number]) [address] [place] [address] [address] [place] [address] Urobilinogen (U) [Mass/Vol] mg/dL Normal <1.1 [facility] Comment on above: Performed By: #### U A #### [facility] ([id number]) [address] [facility] [address] [place] [address] W.B.CELLS 20 /hpf High 0-5 [facility] Comment on above: Performed By: #### U A #### [facility] ([id number]) [address] [place] [address] URINE CULTUREon 02-29-2024 Bacteria identified Cx Nom (U) CULTURE RESULTS <10,000 ORGANISMS/ML NORMAL URO GENITAL PROSPER Normal [facility] Comment on above: Performed By: #### 6 30-4 #### [facility] ([id number]) [address] [place] [address] Urinalysison 02-29-2024 Bilirubin Ql (U) Negative Negative^Ne g ative [facility] Color (U) YELLOW YELLOW^YELLO W [facility] Epithelial cells Auto (Urine sed) [#/Area] 14 High [facility] Glucose (U) [Mass/Vol] Negative Negat kayleigh^Neg ative mg/dL [facility] Hemoglobin Auto test strip Ql (U) Negative Negative^Neg ative [facility] Hyaline casts (Urine sed) [#/Area] 10 /[LPF] High [facility] Interpretation and review of laboratory results Abnormal [facility] Ketones (U) [Mass/Vol] Negative Negat kayleigh^Neg ative mg/dL [facility] Leukocyte esterase Auto test strip Ql (U) MODERATE Abnormal Negative^Neg ative [facility] Mucus Ql (Urine sed) PRESENT Abnormal NONE^NONE [facility] Nitrite Auto test strip Ql (U) Negative Negative^Neg ative [facility] pH (U) 6 [pH] 5.0 - 8.5 [facility] Protein (U) [Mass/Vol] Trace Abnormal Negat kayleigh^Neg ative mg/dL [facility] RBC Auto (Urine sed) [#/Area] 0 [facility] Specific gravity Refractometry automated (U) [Rel density] 1.017 1.003 - 1.035 [facility] Turbidity Ql (U) CLOUDY Abnormal CLEAR^CLEAR [facility] Urobilinogen Qn (U) NINF [facility] WBC Auto (Urine sed) [#/Area] 20 High [facility] XR CHEST 2 VWSon 02-29-2024 XR CHEST 2 VWS XR CHEST 2 VWS History: Preop. A. fib. Chest Xray Two-view study. Findings: Lungs are clear. Cardiac silhouette and pulmonary vasculature are unremarkable. No focal consolidative airspace disease, pneumothorax, or pleural effusion is appreciated. No free air beneath the diaphragm is noted. Scoliosis is appreciated. Tortuous descending aorta is appreciated. Impression: * No acute process. 8 Finalized by Kendal Dean MD on 02/29/2024 2:42 PM Normal [facility] XR Chest PA and Lateralon History: Preop. A. fib. Chest Xray Two-view study. Findings: Lungs are clear. Cardiac silhouette and pulmonary vasculature are unremarkable. No focal consolidative airspace disease, pneumothorax, or pleural effusion is appreciated. No free air beneath the diaphragm is noted. Scoliosis is appreciated. Tortuous descending aorta is appreciated. Impression: * No acute process. 8 Finalized by Kendal Dean MD on 02/29/2024 2:42 PM [facility]al Dean MD - 02/29/2024 History: Preop. A. fib. Chest Xray Two-view study. Findings: Lungs are clear. Cardiac silhouette and pulmonary vasculature are unremarkable. No focal consolidative airspace disease, pneumothorax, or pleural effusion is appreciated. No free air beneath the diaphragm is noted. Scoliosis is appreciated. Tortuous descending aorta is appreciated. Impression: * No acute process. 8 Finalized by Kendal Dean MD on 02/29/2024 2:42 PM [facility] Radiology Study observation (narrative) [facility] XR Chest PA and LateralOrder ed By: Kendal Dean on 02-29-2024 [facility] Work Phone: XR Femur and Tibia Views for leg lengthon 02-29-2024 Rory Huang MD - 02/29/2024 Bone length evaluation History: Osteoarthritis, limb length and alignment, knee pain Findings: Standing frontal view of the bilateral lower extremities obtained from the iliac crest through the feet for limb length and alignment without marker device. Impression: Severe Arthritis, osteophytes, joint space narrowing Right medial compartment narrowing with femoral tibial angle 1 degree of varus on the right and neutral alignment with 0 degrees of varus on the left 0 Finalized by Rory Huang MD on 02/29/2024 2:49 PM [facility] Study observation (narrative) [facility] XR Femur and Tibia Views for leg lengthOrdered By: Rory Huang on 02-29-2024 [employer] [facility] Work Phone: XR Knee - right 1 or 2 Views on 02-18-2024 Imaging Result: X-rays AP and lateral of right knee showed severe varus deformity with oxwo-ku-apfo articulation to the medial joint line. There is flattening of the articular surfaces medially to the tibia plateau and femoral condyle. There is marginal osteophytic formation and subchondral sclerosis noted medially and the patellofemoral joint. There is no evidence of fracture or dislocation. Bony structures viewed showed appropriate ossification. [employer] Radiology Study observation (narrative) [employer] COVID + FLU Quick Testingon 02-20-2023 SARS-CoV-2 (COVID-19) RNA EUGENIO+probe Ql (Unsp spec) Negative opinions.h Other COVID + FLU Quick Testing Negative opinions.h Other MG MAMM SCREEN 3D WILLIE CADon 04-01-2022 MG MAMM SCREEN 3D WILLIE CAD Patient: PERLA GOODWIN Exam Date: 04/01/2022 : 1955 Gender:F Ordering : DR FRANCISCO JAVIER BONE D.O. Admission #: [id number] Family : Order #: [id number] CLICK HERE TO VIEW EXAM RADIOLOGY REPORT [...] breast cancer at age 54. LOCATION: [facility] BREAST COMPOSITION: Heterogeneously dense,which may obscure small [...] PALPABLE LUMP SHOULD BE BIOPSIED. Dictated by: Sandip Grove M.D. on 04/01/2022 at 15:36 Approved by: Sandip Grove M.D. 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 Note: Microscopic examination reveals a specimen that extends into the superficial dermis. There is a mild superficial interstitial lymphocytic infiltrate and there is mild basal layer melanin pigmentation. There is acantholysis in areas. Multiple step sections were performed. These findings could be seen in an acantholytic acanthoma if solitary or Comins's disease. A lentigo cannot be excluded. Electronically Signed Out by DANYELL CHAN M.D. Electronically Signed Out By DANYELL CHAN MD/[facility] Clinical History: Morphology: 0.5cm pink papule DDX: Neoplasm of Uncertain Behavior vs. Basal Cell Carcinoma (Estelita) ([id number]) Specimens Submitted As: A: SKIN, MIDDLE STERNUM, SHAVE BIOPSY ([id number]) Gross Description: Shave; 0.4x0.3x0.1 The gross evaluation was performed and the original slides were prepared at [facility] [address], [place] [address]. jks/07/03/2019 Normal [facility] Comment on above: Performed By: #### D #### Dermatopathology Vital Signs Date Time Vital Sign Value Performing Clinician Facility 02-29-2024 10:24-0400 Body height 171.5 cm Pavel WARNER Work Phone: [facility] 02-29-2024 10:24-0400 Body mass index (BMI) [Ratio] 22.9 kg/m2 Pavel WARNER Work Phone: [facility] 02-29-2024 10:24-0400 Body weight 67.31 kg Pavel WARNER Work Phone: [facility] 02-29-2024 08:37-0400 Body height 172.7 cm Pmh 2 [facility] 02-29-2024 08:37-0400 Body mass index (BMI) [Ratio] 21.29 kg/m2 Pmh 2 [facility] 02-29-2024 08:37-0400 Body weight 63.5 kg Pmh 2 [facility] 02-18-2024 10:56-0400 Body height 171.5 cm Jr. Stepanic DO Work Phone: [facility] 02-18-2024 10:56-0400 Body mass index (BMI) [Ratio] 21.6 kg/m2 Jr. Stepanic DO Work Phone: [facility] 02-18-2024 10:56-0400 Body weight 63.5 kg Jr. Stepanic DO Work Phone: [facility] 02-20-2023 09:45-0400 Body height 172.72 cm Lavinia Moore Other opinions[facility]h Other 02-20-2023 09:45-0400 Body mass index (BMI) [Ratio] 22.44 kg/m2 [employer] Other opinions[facility]h Other 10-21-2023 09:45-0400 Body temperature 96.4 [degF] Lavinia Moore Other [facility] Other 02-20-2023 09:45-0400 Body weight 66.95 kg Lavinia Moore Other [facility] Other 02-20-2023 09:45-0400 Respiratory rate 18 /min Lavinia Moore Other [facility] Other 02-20-2023 09:45-0400 SaO2% (BldA) [Mass fraction] 91 % Lavinia Moore Other opinions[facility]h Other Encounters Encounter Date Encounter Type Care Provider Facility Start: 04-11-2024 End: 04-11-2024 Bamboo flowsheet Pavel WARNER Work Phone: [facility] Start: 04-11-2024 End: 04-11-2024 Bamboo flowsheet Pavel WARNER Work Phone: [facility] Start: 04-11-2024 End: 04-11-2024 Postop follow up visit related to original px Pavel WARNER Work Phone: [facility] Comment on above: Status post right kn ee replacement (Primary Dx) Start: 03-28-2024 End: 03-28-2024 ambulatory ELMIRA NEFF [facility] Start: 03-27-2024 End: 03-27-2024 Telephone encounter Jr. Elmira Neff DO Work Phone: [facility] Comment on above: surgery PO scripts Post-operative pain (Primary Dx); Nausea Start: 03-22-2024 End: 03-22-2024 ambulatory ELMIRA NEFF [facility] Start: 03-16-2024 End: 03-16-2024 Telephone encounter Pavel WARNER Work Phone: [facility] Start: 03-14-2024 End: 03-14-2024 Bamboo flowsheet Jordy Queen Eduard PT Work Phone: [facility] Start: 03-14-2024 End: 03-14-2024 Bamboo flowsheet Jordy Queen Eduard PT Work Phone: [facility] Start: 03-14-2024 End: 03-14-2024 Telephone encounter Pavel WARNER Work Phone: [facility] Start: 03-14-2024 End: 03-14-2024 ambulatory Jordy Queen Eduard PT Work Phone: [facility] Comment on above: Primary osteoarthrit is of right knee (Primary Dx) Start: 02-29-2024 End: 02-29-2024 Bamboo flowsheet Pavel WARNER Work Phone: [facility] Start: 02-29-2024 End: 02-29-2024 Bamboo flowsheet Pavel WARNER Work Phone: [facility] Start: 02-29-2024 End: 02-29-2024 External Result Encounter Jr. Elmira Neff DO Work Phone: [facility] External Department Unsolicited Start: 02-29-2024 End: 02-29-2024 Patient encounter procedure Pavel WARNER Work Phone: [facility] Comment on above: Primary osteoarthrit is of right knee (Primary Dx); Pre-op examination Start: 02-29-2024 End: 02-29-2024 Preprocedural examination done Pavel WARNER Work Phone: [facility] Healthcare Start: 02-29-2024 End: 02-29-2024 ambulatory ELMIRA NEFF [facility] Start: 02-29-2024 Encounter for other preprocedural examination FRANCISCO JAVIER BONE JR [facility] Start: 02-29-2024 End: 02-29-2024 Patient encounter procedure [facility] Pre-Admission Testing 2 [facility] - Pre Admit Comment on above: Preop examination (P rimary Dx); Atrial fibrillation, unspecified type ([facility]); Hypertension, unspecified type; Urinary frequency Start: 02-29-2024 End: 02-29-2024 Preprocedural examination done Pmh 2 [facility] Start: 02-18-2024 End: 02-18-2024 Bamboo flowsheet Jr. Elmira Neff DO Work Phone: [facility] Start: 02-18-2024 End: 02-18-2024 Bamboo flowsheet Jr. Elmira Monte Stepabelardo DO Work Phone: [facility] Start: 02-18-2024 End: 02-18-2024 Office outpatient new 45 minutes Jr. Elmira Neff DO Work Phone: [facility] Comment on above: Primary osteoarthrit is of right knee (Primary Dx); Acute pain of right knee Start: 02-20-2023 End: 02-20-2023 ambulatory Lavinia Moore Other opinions[facility]h Other Start: 02-20-2023 Office outpatient ne w 20 minutes Lavinia Moore [facility] Start: 04-01-2022 End: 04-02-[address] FRANCISCO JAVIER BONE Facility:[facility] Start: 09-01-[address] FRANCISCO JAVIER BONE Facil ity:[facility] Start: 08-21-2021 End: 11-30-2021 Patient encounter procedure FRANCISCO JAVIER BONE JR [facility] Procedures Date Procedure Procedure Detail Performing Clinician Start: 02-29-2024 Complete blood count with white cell differential, automated Jr. Elmira Neff DO Work Phone: Start: 02-18-2024 Radiologic examinati on knee 1/2 views Jr. Elmira Neff DO Work Phone: Start: 04-21-2023 Adult depression scr eening assessment Pmh 2 Plan of Treatment Date Care Activity Detail Author Start: 08-06-2031 DTaP,Tdap and Td Vaccines (2 - Td or Tdap) DTaP,Tdap and Td Vaccines (2 - Td or Tdap) [facility] Start: 02-28-2025 Adult BMI Screening Adult BMI Screen ing [facility] Start: 02-28-2025 Tobacco Screening Tobacco Screening [facility] Start: 05-09-2024 End: 05-09-2024 Patient encounter procedure 05/09/2024 1:15 PM EST Office Visit [facility] [address] [place] [address] Pavel Friend, PA [address] [place] [address] [facility] Start: 04-21-2024 [facility] Start: 04-11-2024 End: 04-11-2024 Patient encounter procedure [facility] Comment on above: Status post right kn ee replacement (Primary Dx) Start: 03-28-2024 End: 03-28-2024 Admission to same day surgery center 03/28/2024 7:45 AM EST - 03/28/2024 10:45 AM EST Surgery [facility] - Surgery [address] [place] [id number] Elmira Neff Jr., DO [address] [place] [address] REPLACEMENT TOTAL JOINT KNEE [81266 (CPT )] [facility] Comment on above: REPLACEMENT TOTAL CARIDAD INT KNEE [45514 (CPT )] Start: 03-28-2024 End: 03-28-2024 Arthrp kne condyle&platu medial&lat compartments REPLACEMENT TOTAL JOINT KNEE right knee degenerative joint disease 03/28/2024 7:45 AM EST [facility] Start: 03-28-2024 Subsequent hospital visit by physician 03/28/2024 7:45 AM EST Hospital Encounter [facility] - Surgery [address] [place] [address] Elmira Neff Jr., DO [address] [place] [address] [facility] Start: 03-20-2024 End: 02-23-2025 Crossmatch RBC Crossmatch RBC Blood Bank Routine Preop examination Atrial fibrillation, unspecified type (CMS-HCC) Hypertension, unspecified type Expected: 03/20/2024, Expires: 02/23/2025 [facility] Comment on above: Expected: 03/20/2024 , Expires: 02/23/2025 Start: 03-20-2024 End: 02-23-2025 Type and screen(includes indirect jesi) Type and screen(includes indirect jesi) Blood Bank Routine Preop examination Atrial fibrillation, unspecified type (CMS-HCC) Hypertension, unspecified type Expected: 03/20/2024, Expires: 02/23/2025 [facility] Work Phone: Comment on above: Expected: 03/20/2024 , Expires: 02/23/2025 Start: 01-02-2024 COVID-19 Vaccine ( season) COVID-19 Vaccine ( season) [facility] Start: 01-02-2024 Influenza vaccination Influenza Vacc ine (#1) [facility] Start: 2019 Fall Risk Screening Fall Risk Screen ing [facility] Start: 2019 Pneumococcal Vaccine : 65+ Years (1 of 1 - PCV) Pneumococcal Vaccine: 65+ Years (1 of 1 - PCV) [facility] Start: 2004 Administration of varicella zoster vaccine Zoster (Shingles) Vaccine (1 of 2) [facility] Start: 1994 Screening for malign ant neoplasm of breast Mammogram [facility] Start: 1955 Screening for malign ant neoplasm of colon [facility] Immunizations Immunization Date Immunization Notes Care Provider Fa cility 02-12-2024 influenza virus vacc ine, unspecified formulation Jr. Tawanda NGUYEN Work Phone: [facility] Payers Date Payer Category Payer Private Health Insurance [employer] [id number] 2020 Commercial Indemnity [employer] [id number] 2019 Medicare [id number] 1959 Medicare [id number] 1959 Unknown [id number] 1955 Unknown [id number] 593 1955 Unknown [id number] [id number]. 593 1954 Unknown [id number]. 1286 1954 Unknown [id number]. 1286 1954 Unknown [id number]. 1286 1954 Unknown [id number] [id number]. 1286 1954 Unknown [id number] [id number]. 1286 1954 Unknown [id number]. 1286 1954 Unknown [id number]. 1286 Social History Date Type Detail Facility Tobacco smoking status No Smokin g Status Entered [facility] Start: 02-18-2024 End: 04-11-2024 Sex Assigned At Female [facility] Tobacco smoking stat [facility] Tobacco smoking consumption unknown [facility] Start: 1955 Sex assigned at Not on file [facility] Start: 02-12-2024 Gender identity Identifies as female gender (finding) [facility] Start: 04-21-2023 End: 02-18-2024 Tobacco smoking status MEIS Never smoked tobacco [facility] Start: 04-21-2023 End: 02-18-2024 Tobacco use and exposure Smokeless tobacco non-user [facility] Start: 02-18-2024 End: 04-11-2024 History of Social function [facility] Start: 02-29-2024 Alcoholic beverage intake Current drinker of alcohol (finding) [facility] Adolescent depressio n screening assessment 0 [facility] Start: 04-16-2021 Alcohol Comment socially [facility] Start: 04-15-2021 Sex Female (finding) [facility] Clinical Notes 02-20-2023 to 04-11-2024 TIMMY Liu - 04/11/2024 9:00 AM ESTPatient InstructionsTelephone Encounter - Lila Ray - 03/27/2024 2:37 PM ESTTelephone Encounter - Lila Ray - 03/27/2024 2:37 PM ESTPatient Instructions Note Date & Type Note Facility 04-11-2024 History of Presen t illness Narrative Images from the original note were not included. HISTORY OF PRESENT ILLNESS: POST OP PT Perla Goodwin is an 68 y.o. @ female. 1ST PO 14 DAYS S/P RT TKA (03/28/24). PHYSICAL THERAPY @ [facility] [place] [facility] WELL WITH WALKER. PAIN DIFFUSE IN KNEE. TAKING TYL AND TAKES 1/2 PERCOCET WITH PHYSICAL THERAPY. DOING OP PT AT [facility]. USING ICE. ADMITS N/T IN THE AM. ADMITS SWELLING. NOT SLEEPING WELL, TAKING TYL PM. TAKING ASA 81MG. WEARING LIZETTE HOSE. DENIES DRAINAGE. DENIES FEVER. ISAMAR INTACT, REMOVED TODAY. INCISION HEALING WELL. STERI STRIPS APPLIED. REVIEW OF SYSTEMS: General: Denies fever, fatigue or weight loss Lungs: Denies SOB Cardio: Denies chest pain GI: Denies indigestion or abdominal pain Neuro: Denies numbness or tingling, denies new onset paralysis Musculoskeletal: ( see note) PHYSICAL EXAM: Right Ankle Exam Range of Motion Dorsiflexion: normal Plantar flexion: normal Muscle Strength Dorsiflexion: 5/5 Plantar flexion: 5/5 Right Knee Exam Muscle Strength The patient has normal right knee strength. Tenderness Right knee tenderness location: Compartments soft, expected soreness medial and lateral knee. Range of Motion Right knee extension: 13. Flexion: 100 (tightness on terminal flexion) Tests Varus: negative Valgus: negative Other Erythema: absent Scars: present ([place] present, removed, no dehiscence or drainage) Sensation: normal Pulse: present Swelling: mild Effusion: effusion (consistent with surgery) present Comments: Operative lower extremity was noted to be neurovascularly intact. Patient was able to motor feet, toes and ankles in all anatomic planes bilaterally with 5 out of 5 strength. Operative knee's patellar tracking was optimal and quad/ham strength was 5 out of 5 to operative lower extremity. There was no varus valgus, anterior-posterior, or rotatory instability noted to the operative knee. Swelling was well controlled, patella was not ballotable and compartments were soft to the operative lower extremity. Dorsalis pedis and posterior tibial pulses were present and equal bilaterally. There was no evidence of infection or ascending lymphangitis to operative lower extremity. Sensation to light touch was intact to all dermatomes to bilateral lower extremities. Negative Homans and negative Sacha were noted bilaterally to lower extremities. Incision was healing without evidence of infection Procedures No orders of the defined types were placed in this encounter. ASSESSMENT: ICD-10-CM 1. Status post right knee replacement Z96.651 oxyCODONE-acetaminophen (Percocet) 5-325 MG tablet Assessment & Plan 1. Post-operative status following right total knee arthroplasty. She expressed a desire to incorporate Motrin into her regimen. The potential benefits and risks of intermittent Motrin use were discussed, including the need to monitor for any signs of swelling or gastrointestinal discomfort. A refill for Percocet was provided, which she has been utilizing at a reduced dosage of half a tablet during therapy sessions. The primary objective is to enhance knee extension through a series of home exercises. Detailed instructions for static flexion and extension stretches were provided, with a recommendation for thrice-daily practice. Follow-up The patient will follow up in 4 weeks for x-rays. PROCEDURE The patient underwent a right total knee arthroplasty. Questions answered in laymen terms at the bedside. The diagnosis, home exercise plan and any ongoing restrictions/ recommendations reviewed. If unable to be reached in office, I recommend evaluation at nearest Emergency Room if any symptoms worsened or new symptoms develop for requiring urgent evaluation. documented in this encounter [facility] 04-11-2024 Instructions TIMMY Liu - 04/11/2024 9:00 AM EST Discussed Surgery: Cont Asprin 81 mg twice daily and lizette hose for additional 2 wks ( 4 wks post op) Discuss transition to outpatient therapy with your therapist. ( Bicycle Machine) Recommend static flexion and extension stretch for 10 minutes 3 times a day. Make time for ice and elevation after therapy and periods of increased activity. Follow up in 4 weeks with Xray's in office. No submerging wound pending recheck. documented in this encounter [facility] 03-27-2024 Telephone encounter Note I called patient to inform her of this [facility] 03-27-2024 Miscellaneous Notes I called patient to inform her of this Dr. Neff has to sign off on them but they should be sent in today Pt called and stated she is having RT TKA sx tmrw 03/28/24 and [facility] [place] and they do not have her scripts there for after sx. One is pain medication and Zofran for nauseas. If you could call these into [facility]. Allergies: muscle relaxers Her call back [phone] documented in this encounter [facility] 03-27-[address] Neff has to sign off on them but they should be sent in today [facility] Work Phone: 03-27-2024 Telephone encounter Note Pt called and stated she is having RT TKA sx tmrw 03/28/24 and [facility] [place] and they do not have her scripts there for after sx. One is pain medication and Zofran for nauseas. If you could call these into [facility]. Allergies: muscle relaxers Her call back [phone] [facility] 03-27-2024 Telephone encounter Note Spoke to patient and she stated she called insurance and she should be all set and good for her sx tmrw. Disregard this message. [facility] 03-27-2024 Miscellaneous Notes Spoke to patient and she stated she called insurance and she should be all set and good for her sx tmrw. Disregard this message. Pt called and stated she is having RT TKA sx tmrw and wanted to make sure her insurance approved this? I did inform her to call her insurance to verify with them if she does not hear back from anyone, she was in understanding. Her call back [phone] documented in this encounter [facility] 03-27-2024 Telephone encounter Note Pt called and stated she is having RT TKA sx tmrw and wanted to make sure her insurance approved this? I did inform her to call her insurance to verify with them if she does not hear back from anyone, she was in understanding. Her call back [phone] [facility] 03-27-2024 Telephone encounter Note Post op pain rx. PDMP reviewed [facility] 03-27-2024 Miscellaneous Notes Post op pain rx. PDMP reviewed documented in this encounter [facility] 03-16-2024 Telephone encounter Note Increased pain right knee requesting handicap placard before surgery [facility] 03-16-2024 Miscellaneous Notes Increased pain right knee requesting handicap placard before surgery documented in this encounter [facility] 03-14-2024 Telephone encounter Note Pt requesting Out therpay rx. For post op service. Pt has family that is director of therapy in [place]. [facility] 03-14-2024 Miscellaneous Notes Pt requesting Out therpay rx. For post op service. Pt has family that is director of therapy in [place]. documented in this encounter [facility] 03-14-2024 History of Presen t illness Narrative Images from the original note were not included. Physical Therapy Physical Therapy Evaluation Visit Patient Name: Perla Goodwin Today's Date: 03/14/2024 Encounter Diagnoses Name Primary? Primary osteoarthritis of right knee Yes Visit number: 1 Subjective Perla Goodwin 68 y.o. female presents to physical therapy w/ chief c/o R knee pain. Mechanism of Onset: deg, scheduled for TKA Current deficits: pain, decreased ROM, decreased strength, impaired gait Pain: mild pain entering mod to severe at times Location: R knee Aggravating Factors: prolonged standing/walking, ADLs/self care, squatting, steps Relieving factors: rest, ice Extracurricular/Leisure Activities: [employer] including aquatic classes Objective R knee ROM: 12-115 ERP with both R knee and hip strength grossly 4+ to 5/5 MMT Gait: mod antalgic like on R knee greatly lacking TKE in stance Min decreased HS flexibility R vs L. Treatment Interventions Education: Reviewed prehab TKA packet in total including additional HEP handout: precautions, gait/transfers with/without AD. Prehab HEP and importance, s/s of DVT/infection. Importance of early/often ROM work and phase 1 exercises. Expectations post-op as far as PT, in the home vs SNF stay and transition to OP when ready. Pt had no further questions and has my contact info should anything come up between today and surgery date. Pt to stay with sister who has nursing background and her that is a PT, also has a PT in [place] she would like to go to outpatient PT right away and skip in the home PT phase. Spoke with PA and gave her a script for outpatient PT to take with her today so she can make sure outpatient PT is lined up ahead of time. X 15 min self care Therapeutic Exercise: x 10 min sup Reviewed prehab and post-op phase 1 exercises in detail, HR/TR, marches, HS curls, LAQs, QS/HS 10 reps ea also discussed static ext and flexion stretches and she may try some prior to sx to try to improve ROM going in, advised to assess tolerance and proceed accordingly. Gait Training: x 10 min FWW fit to height, demo and verbal cues for correct technique, staying within FWW upright posture. Walker at max height ideally would be 1-2 clicks higher but she is hopeful to only need it that first week and we both agree this walker will work. Assessment/Plan R knee pain, decreased Rom, decreased strength, impaired gait 2nd to R knee OA One time visit only prehab for R TKA I hereby deem this POC medically necessary. Please sign below. Date: documented in this encounter [facility] 02-29-2024 Note Bone length evaluati on History: Osteoarthritis, limb length and alignment, knee pain Findings: Standing frontal view of the bilateral lower extremities obtained from the iliac crest through the feet for limb length and alignment without marker device. Impression: Severe Arthritis, osteophytes, joint space narrowing Right medial compartment narrowing with femoral tibial angle 1 degree of varus on the right and neutral alignment with 0 degrees of varus on the left Finalized by Rory Huang MD on 02/29/2024 2:49 PM [facility] 02-29-2024 Note XR BONE LENGTH STUDY Bone length evaluation History: Osteoarthritis, limb length and alignment, knee pain Findings: Standing frontal view of the bilateral lower extremities obtained from the iliac crest through the feet for limb length and alignment without marker device. Impression: Severe Arthritis, osteophytes, joint space narrowing Right medial compartment narrowing with femoral tibial angle 1 degree of varus on the right and neutral alignment with 0 degrees of varus on the left Finalized by Rory Huang MD on 02/29/2024 2:49 PM [facility] 02-29-2024 History of Presen t illness Narrative Images from the original note were not included. GENERAL HISTORY AND PHYSICAL: NAME: Perla Goodwin : 1955 HISTORY OF PRESENT ILLNESS: Perla Goodwin is an 68 y.o. @ female. Here for surgery instructions - (R) TKA 03/28/2024 @[facility] PAST MEDICAL HISTORY: Past Medical History: Diagnosis Date BCC (basal cell carcinoma of skin) H/O atrial fibrillation without current medication Hypothyroid (CMS/HCC) PAST SURGICAL HISTORY: Past Surgical History: Procedure Laterality Date VARICOSE VEIN SURGERY Left 2013 SOCIAL HISTORY: Social History Occupational History Not on file Tobacco Use Smoking status: Never Smokeless tobacco: Never Substance and Sexual Activity Alcohol use: Not on file Drug use: Not on file Sexual activity: Not on file ALLERGIES: Allergies Allergen Reactions Other Anaphylaxis 1. ALL MUSCLE RELAXERS 2. DENIES METAL ALLERGY MEDICATIONS: Current Outpatient Medications Medication Instructions BIOTIN PO Take by mouth Calcium Carb-Cholecalciferol (CALTRATE BONE HEALTH PO) Take by mouth COLLAGEN PO Take by mouth estradiol (Estrace) 0.1 MG/GM vaginal cream INSERT ONE GRAM VAGINALLY EVERY WEEK Glucosamine-Chondroitin (GLUCOSAMINE CHONDR COMPLEX PO) Oral levothyroxine (Synthroid, Levoxyl) 50 MCG tablet metoprolol tartrate (Lopressor) 50 MG tablet REVIEW OF SYSTEMS: Review of Systems Constitutional: Negative for fatigue, fever and unexpected weight change. Eyes: Negative for redness and visual disturbance. Gastrointestinal: Negative for abdominal pain. Denies Indigestion Musculoskeletal: See note: Skin: Negative for color change and rash. Neurological: Negative for light-headedness and numbness. Vitals: Body mass index is 22.9 kg/m . PHYSICAL EXAM: Physical Exam Constitutional: General: She is not in acute distress. Appearance: Normal appearance. HENT: Head: Normocephalic and atraumatic. Right Ear: External ear normal. Left Ear: External ear normal. Nose: Nose normal. No rhinorrhea. Mouth/Throat: Mouth: Mucous membranes are moist. Dentition: No gingival swelling or dental abscesses. Pharynx: Oropharynx is clear. No pharyngeal swelling or posterior oropharyngeal erythema. Eyes: Extraocular Movements: Extraocular movements intact. Conjunctiva/sclera: Conjunctivae normal. Cardiovascular: Rate and Rhythm: Normal rate and regular rhythm. Pulses: Normal pulses. Heart sounds: Normal heart sounds. No murmur heard. Pulmonary: Effort: Pulmonary effort is normal. No respiratory distress. Breath sounds: Normal breath sounds. No wheezing or rhonchi. Abdominal: Palpations: Abdomen is soft. Tenderness: There is no abdominal tenderness. Musculoskeletal: Cervical back: Normal range of motion and neck supple. Lymphadenopathy: Cervical: No cervical adenopathy. Skin: General: Skin is warm and dry. Findings: No erythema or rash. Neurological: General: No focal deficit present. Mental Status: She is alert and oriented to person, place, and time. Psychiatric: Mood and Affect: Mood normal. Behavior: Behavior normal. No orders of the defined types were placed in this encounter. ASSESSMENT: ICD-10-CM 1. Primary osteoarthritis of right knee M17.11 2. Pre-op examination Z01.818 PLAN: This patient presents for preadmission testing for upcoming surgery. Complete history with medical, surgery, and current allergy and medication list obtained. Consent for surgery signed and witnessed after verbal consent to perform surgery received. All questions answered and proposed surgery scheduled. (R) TKA 03/28 @[facility] SX INSTRUCTIONS GIVEN TODAY 02/28 @9:30AM - JUN HAWLEY 02/28 @8:15AM DR. BONE CLEARANCE 03/20 @11:45AM [facility] NOTIFIED NO PREOP PAYMENT / PRECERT ; MEDICARE Follow up for 04/11/24 @ 9:00AM - Jun w/ Storm. documented in this encounter [facility] 02-29-2024 Instructions Jennifer Webster RN - 02/29/2024 8:15 AM EDT Preoperative Education Checklist- Joints/Spine Surgery date: 03/28/24 Surgery time: 0745 a.m. Arrival time: 0610 a.m. Return between 03/20-03/27/24 Mon-Fri 7 a.m.-5 p.m. at [facility] for your last blood test. 1. Bring a photo ID and your insurance card with you the day of surgery. You will check in at the main lobby of the [facility]- registration desk is straight ahead as soon as you walk in. Tell them you are here for surgery. 2. If you have a Living Will/Durable Power of Hybrid Powert[employer] Engineer for Health Care that is not on file here, please bring a copy the day of surgery. 3. Please shower/tub bath the night before surgery and use wipes as directed. Do not shower the morning of surgery- you will again use wipes when you arrive here at the hospital before getting into your surgical gown. Do not shave the area of your procedure for 2 days prior to your surgery. 4. NO powder, lotion, perfume/cologne, aftershave, make-up, deodorant, or hair products after you have bathed. 5. No nail scottish/acrylic on at least one finger. If you are having a hand, wrist, foot, or leg surgery then ALL nail scottish and artificial/acrylic nails MUST be removed from that hand or foot. 6. Avoid ALL Aspirin and non-steroidal anti-inflammatory drugs (Ibuprofen, Advil, Aleve, Excedrin, Meloxicam, Celebrex, fish/krill oil, etc.) for 7 days prior to surgery as instructed by your surgeon and/or prescribing doctor. Tylenol IS ALLOWED. If you are on Ticlid, Xarelto, Eliquis, Pradaxa, Plavix or Coumadin, please check with your prescribing doctor for instructions for when to stop them. 7. If you use an inhaler, continue to use it routinely. 8. Nothing to eat or drink (not even water, gum, mints, or hard candy!) AFTER midnight prior to your surgery. 7. Take only medications that you are instructed to on the morning of surgery with a TINY SIP OF WATER. 9. Choose a responsible adult that will be able to drive you home when you are discharged from your hospital stay for your surgery- no driving or operating any machinery for 24 hours after surgery. 10. When you dress for your appointment, please wear loose fitting clothing that is appropriate to accommodate your surgical area procedure. BRING WITH YOU ANY DEVICES YOU MAY NEED: LIZETTE hose, ice machine, sling/swath, brace or special shoe, crutches, oversized sup-up or button up shirt, CPAP machine if staying overnight. 11. Do NOT wear jewelry, watches, or any piercings or metal for surgery. 12. Do NOT wear contact lenses for surgery- glasses are okay if needed. 13. The anesthesiologist will talk with you the day of surgery and will ask you to sign a Consent Form. 14. Refrain from smoking or any type of tobacco use for at least 8 hours or marijuana for 24 hours prior to arrival for your surgery. 15. If a GREEN BLOOD band is given to you, please bring it with you for the day of surgery. 16. Notify your surgeon if you develop any illness before your surgery. 17. If you are staying overnight, please DO NOT BRING your home medications with your. 18. If you have any questions prior to surgery, please call the Preadmission Testing office at [phone] Mon.-Fri. 7 a.m.-3 p.m. Leave a voicemail if needed. Pre-Surgery Instructions: Medication Instructions acetaminophen (TYLENOL) 325 mg tablet Stop taking 0 days prior to procedure ascorbic acid/collagen hydr (COLLAGEN SKIN RENEWAL ORAL) Stop taking 0 days prior to procedure biotin 1 mg capsule Stop taking 0 days prior to procedure calcium carbonate-vitamin D3 (CALCIUM 500 + D) 500 mg(1,250mg) -200 units per tablet Stop taking 0 days prior to procedure estradioL (ESTRACE) 0.01 % (0.1 mg/gram) vaginal cream Stop taking 0 days prior to procedure glucosamine-chondroitin 500-400 mg tablet Stop taking 0 days prior to procedure ibuprofen (ADVIL,MOTRIN) 200 mg tablet Stop taking 14 days prior to procedure levothyroxine (SYNTHROID, LEVOTHROID) 25 MCG tablet Take morning of procedure metoprolol tartrate (LOPRESSOR) 25 mg tablet Take morning of procedure voozlywc-qkrx-BV-calcium &mins (THERAGRAN-M) 9 mg iron-400 mcg tablet Stop taking 0 days prior to procedure valACYclovir (VALTREX) 1000 mg tablet Stop taking 0 days prior to procedure What to Expect Following Your Surgery After surgery you will be in the recovery room for approximately 1 hour before you are moved to your room. Please let your family and visitors know this. You may be in a bed that has a trapeze overhead to assist you with movement while in bed. After surgery you will have a Garcia catheter in place (it is usually removed the first day after surgery after your first round of physical therapy has been completed), foot pumps on for circulation and prevention of blood clots, an IV, and possibly a SPEED BELT SANDER TENDER pump and/or a NERVE BLOCK (both used for pain control). We will have you rate your pain on a scale from 0-10, with 10 being the highest possible pain level. We will NOT be able to get rid of ALL of your pain. We strive to keep you comfortable in the 3-5 range on the pain scale. PLEASE let your nurse know if your pain starts to creep up above a level of 5. We use a combination of IV medications, oral medications, ice, and elevation according to the doctor s orders in order to help keep your pain at a tolerable level. The first 24 hours after surgery are very busy! The doctor orders certain routine medications that are to be given up to every 4 hours along with breathing treatments and vital signs being assessed every 4 through the first night of your surgery in order to make sure that you are progressing as expected after surgery. This often makes it hard to sleep well the first night, but it is necessary to make sure that we are providing you the best care possible. We try to coordinate this care with each department in order to help you get as much uninterrupted sleep as possible. We also have earplugs and eye masks available by request to promote and enhance your sleep time. While here, you may see one of our Hospitalist physicians if your family doctor does not round on patients at [facility] to see you while you are here after surgery. Your orthopedic doctor will be directing all of your care and your discharge, but sometimes they need to consult with primary care/hospitalists in order to better serve you. Having the Hospitalists see you while in the hospital allows your primary care doctor to have more time in their offices, and the hospitalists will be in communication with your primary care doctor with updates on your care. Once discharged from the hospital, you will see your regular primary care physician as directed. While in the hospital you will receive physical therapy from [facility] physical therapists who work in the hospital and they will start seeing you the morning after surgery. Therapy from your orthopedic doctor s office will begin seeing you once you are discharged from the hospital- they are not contracted to provide your treatment while you are in the hospital. You may have spoken with a data recovery planner at your orthopedic doctor s office, but you will still review your discharge plan with our data recovery planner from here at the hospital in order to make sure that you understand all of your options prior to going home or to a facility. How to Avoid an Infection after Your Surgery Your doctor will give you specific instructions, but remember: -ALWAYS wash hands before caring for your incision. -No picking, scratching, or rubbing your incision. -No creams, lotion, powder, rubbing alcohol or hydrogen peroxide on the incision (can harm the tissue and slow healing). -Your doctor will give you specific instructions for what type of dressing you will need and how often it will need changed for infection purposes. -No tight clothing on incision. -Do not allow anyone to touch your incision unless they are cleaning, checking, or redressing it (be sure they wash their hands first). -No contact of your incision with pets; avoid sleeping with pets. -Take full course of antibiotic if prescribed for you after surgery- do not stop unless directed to by your physician. You may also be given an antibiotic prior to your surgery to help prevent surgical site infections. -Eat a healthy and varied diet including proteins, fruits, and vegetables to help promote wound healing and keep blood sugars under control if you are diabetic. -Smoking slows the healing process by decreasing the amount of oxygen in your blood that is needed for tissue healing. Try to avoid or stop smoking if possible. LOOK at your incision each morning and each night to check the progress of healing. Some soreness, numbness, itching and/or mild bruising around the incision is normal. Call your doctor if you notice any of the following: -Increased redness or hardening around the incision area. -Increased pain at the incision site. -Incision feels hot to the touch. -Swelling or pulling apart of the incision edges. -Yellow or green drainage or foul odor coming from the incision. -Bleeding from the incision (apply pressure as needed). -Fever higher than 101 degrees Fahrenheit for more than 4 hours. SHOWERING: Your doctor will give you specific instructions, but remember: -Be careful getting into and out of the shower. -Showers should be quick (5 minutes or less). -Use a clean washcloth to gently wash your incision with soap and water and pat the area dry with a clean towel. -No re-using wash cloths or towels; get a fresh one to clean your incision. -Do not soak in the bathtub, go swimming or use a hot tub (Jacuzzi), or perform activities where your incision is submerged in water or exposed to any fluids or substances until instructed by your doctor. -If your have the sticky strips (steri-strips) over the incision, it is OK to shower with them. Do not remove them. Let them fall off on their own. If you have a question, call your doctor s office. Go to the follow-up appointment with your doctor. documented in this encounter [facility] 02-29-2024 Miscellaneous Notes Patient called and email verified. QR code sheet emailed to her in order for her to watch her [employer] Total Knee Replacement video. Patient agreed to watch the video prior to her appointment to see us next week on 02/29/24. Preoperative Education Checklist- Joints/Spine Surgery date: 03/28/24 Surgery time: 0745 a.m. Arrival time: 0610 a.m. Return between 03/20-03/27/24 Mon-Fri 7 a.m.-5 p.m. at [facility] for your last blood test. 1. Bring a photo ID and your insurance card with you the day of surgery. You will check in at the main lobby of the [facility]- registration desk is straight ahead as soon as you walk in. Tell them you are here for surgery. 2. If you have a Living Will/Durable Power of Hybrid Powert[employer] Engineer for Health Care that is not on file here, please bring a copy the day of surgery. 3. Please shower/tub bath the night before surgery and use wipes as directed. Do not shower the morning of surgery- you will again use wipes when you arrive here at the hospital before getting into your surgical gown. Do not shave the area of your procedure for 2 days prior to your surgery. 4. NO powder, lotion, perfume/cologne, aftershave, make-up, deodorant, or hair products after you have bathed. 5. No nail scottish/acrylic on at least one finger. If you are having a hand, wrist, foot, or leg surgery then ALL nail scottish and artificial/acrylic nails MUST be removed from that hand or foot. 6. Avoid ALL Aspirin and non-steroidal anti-inflammatory drugs (Ibuprofen, Advil, Aleve, Excedrin, Meloxicam, Celebrex, fish/krill oil, etc.) for 7 days prior to surgery as instructed by your surgeon and/or prescribing doctor. Tylenol IS ALLOWED. If you are on Ticlid, Xarelto, Eliquis, Pradaxa, Plavix or Coumadin, please check with your prescribing doctor for instructions for when to stop them. 7. If you use an inhaler, continue to use it routinely. 8. Nothing to eat or drink (not even water, gum, mints, or hard candy!) AFTER midnight prior to your surgery. 7. Take only medications that you are instructed to on the morning of surgery with a TINY SIP OF WATER. 9. Choose a responsible adult that will be able to drive you home when you are discharged from your hospital stay for your surgery- no driving or operating any machinery for 24 hours after surgery. 10. When you dress for your appointment, please wear loose fitting clothing that is appropriate to accommodate your surgical area procedure. BRING WITH YOU ANY DEVICES YOU MAY NEED: LIZETTE hose, ice machine, sling/swath, brace or special shoe, crutches, oversized sup-up or button up shirt, CPAP machine if staying overnight. 11. Do NOT wear jewelry, watches, or any piercings or metal for surgery. 12. Do NOT wear contact lenses for surgery- glasses are okay if needed. 13. The anesthesiologist will talk with you the day of surgery and will ask you to sign a Consent Form. 14. Refrain from smoking or any type of tobacco use for at least 8 hours or marijuana for 24 hours prior to arrival for your surgery. 15. If a GREEN BLOOD band is given to you, please bring it with you for the day of surgery. 16. Notify your surgeon if you develop any illness before your surgery. 17. If you are staying overnight, please DO NOT BRING your home medications with your. 18. If you have any questions prior to surgery, please call the Preadmission Testing office at [phone] Mon.-Fri. 7 a.m.-3 p.m. Leave a voicemail if needed. Pre-Surgery Instructions: Medication Instructions acetaminophen (TYLENOL) 325 mg tablet Stop taking 0 days prior to procedure ascorbic acid/collagen hydr (COLLAGEN SKIN RENEWAL ORAL) Stop taking 0 days prior to procedure biotin 1 mg capsule Stop taking 0 days prior to procedure calcium carbonate-vitamin D3 (CALCIUM 500 + D) 500 mg(1,250mg) -200 units per tablet Stop taking 0 days prior to procedure estradioL (ESTRACE) 0.01 % (0.1 mg/gram) vaginal cream Stop taking 0 days prior to procedure glucosamine-chondroitin 500-400 mg tablet Stop taking 0 days prior to procedure ibuprofen (ADVIL,MOTRIN) 200 mg tablet Stop taking 14 days prior to procedure levothyroxine (SYNTHROID, LEVOTHROID) 25 MCG tablet Take morning of procedure metoprolol tartrate (LOPRESSOR) 25 mg tablet Take morning of procedure kzyinjvk-lddq-CN-calcium &mins (THERAGRAN-M) 9 mg iron-400 mcg tablet Stop taking 0 days prior to procedure valACYclovir (VALTREX) 1000 mg tablet Stop taking 0 days prior to procedure What to Expect Following Your Surgery After surgery you will be in the recovery room for approximately 1 hour before you are moved to your room. Please let your family and visitors know this. You may be in a bed that has a trapeze overhead to assist you with movement while in bed. After surgery you will have a Garcia catheter in place (it is usually removed the first day after surgery after your first round of physical therapy has been completed), foot pumps on for circulation and prevention of blood clots, an IV, and possibly a SPEED BELT SANDER TENDER pump and/or a NERVE BLOCK (both used for pain control). We will have you rate your pain on a scale from 0-10, with 10 being the highest possible pain level. We will NOT be able to get rid of ALL of your pain. We strive to keep you comfortable in the 3-5 range on the pain scale. PLEASE let your nurse know if your pain starts to creep up above a level of 5. We use a combination of IV medications, oral medications, ice, and elevation according to the doctor s orders in order to help keep your pain at a tolerable level. The first 24 hours after surgery are very busy! The doctor orders certain routine medications that are to be given up to every 4 hours along with breathing treatments and vital signs being assessed every 4 through the first night of your surgery in order to make sure that you are progressing as expected after surgery. This often makes it hard to sleep well the first night, but it is necessary to make sure that we are providing you the best care possible. We try to coordinate this care with each department in order to help you get as much uninterrupted sleep as possible. We also have earplugs and eye masks available by request to promote and enhance your sleep time. While here, you may see one of our Hospitalist physicians if your family doctor does not round on patients at [facility] to see you while you are here after surgery. Your orthopedic doctor will be directing all of your care and your discharge, but sometimes they need to consult with primary care/hospitalists in order to better serve you. Having the Hospitalists see you while in the hospital allows your primary care doctor to have more time in their offices, and the hospitalists will be in communication with your primary care doctor with updates on your care. Once discharged from the hospital, you will see your regular primary care physician as directed. While in the hospital you will receive physical therapy from [facility] physical therapists who work in the hospital and they will start seeing you the morning after surgery. Therapy from your orthopedic doctor s office will begin seeing you once you are discharged from the hospital- they are not contracted to provide your treatment while you are in the hospital. You may have spoken with a data recovery planner at your orthopedic doctor s office, but you will still review your discharge plan with our data recovery planner from here at the hospital in order to make sure that you understand all of your options prior to going home or to a facility. How to Avoid an Infection after Your Surgery Your doctor will give you specific instructions, but remember: -ALWAYS wash hands before caring for your incision. -No picking, scratching, or rubbing your incision. -No creams, lotion, powder, rubbing alcohol or hydrogen peroxide on the incision (can harm the tissue and slow healing). -Your doctor will give you specific instructions for what type of dressing you will need and how often it will need changed for infection purposes. -No tight clothing on incision. -Do not allow anyone to touch your incision unless they are cleaning, checking, or redressing it (be sure they wash their hands first). -No contact of your incision with pets; avoid sleeping with pets. -Take full course of antibiotic if prescribed for you after surgery- do not stop unless directed to by your physician. You may also be given an antibiotic prior to your surgery to help prevent surgical site infections. -Eat a healthy and varied diet including proteins, fruits, and vegetables to help promote wound healing and keep blood sugars under control if you are diabetic. -Smoking slows the healing process by decreasing the amount of oxygen in your blood that is needed for tissue healing. Try to avoid or stop smoking if possible. LOOK at your incision each morning and each night to check the progress of healing. Some soreness, numbness, itching and/or mild bruising around the incision is normal. Call your doctor if you notice any of the following: -Increased redness or hardening around the incision area. -Increased pain at the incision site. -Incision feels hot to the touch. -Swelling or pulling apart of the incision edges. -Yellow or green drainage or foul odor coming from the incision. -Bleeding from the incision (apply pressure as needed). -Fever higher than 101 degrees Fahrenheit for more than 4 hours. SHOWERING: Your doctor will give you specific instructions, but remember: -Be careful getting into and out of the shower. -Showers should be quick (5 minutes or less). -Use a clean washcloth to gently wash your incision with soap and water and pat the area dry with a clean towel. -No re-using wash cloths or towels; get a fresh one to clean your incision. -Do not soak in the bathtub, go swimming or use a hot tub (Jacuzzi), or perform activities where your incision is submerged in water or exposed to any fluids or substances until instructed by your doctor. -If your have the sticky strips (steri-strips) over the incision, it is OK to shower with them. Do not remove them. Let them fall off on their own. If you have a question, call your doctor s office. Go to the follow-up appointment with your doctor. CHG wipes and surgical instructions reviewed. Patient verbalized understanding. [facility] Patient called and email verified. QR code sheet emailed to her in order for her to watch her [facility] Total Knee Replacement video. Patient agreed to watch the video prior to her appointment to see us next week on 02/29/24. [facility] Nurse Note Preoperative Education Checklist- Joints/Spine Surgery date: 03/28/24 Surgery time: 0745 a.m. Arrival time: 0610 a.m. Return between 03/20-03/27/24 Mon-Fri 7 a.m.-5 p.m. at [facility] for your last blood test. 1. Bring a photo ID and your insurance card with you the day of surgery. You will check in at the main lobby of the [facility]- registration desk is straight ahead as soon as you walk in. Tell them you are here for surgery. 2. If you have a Living Will/Durable Power of [employer] for Health Care that is not on file here, please bring a copy the day of surgery. 3. Please shower/tub bath the night before surgery and use wipes as directed. Do not shower the morning of surgery- you will again use wipes when you arrive here at the hospital before getting into your surgical gown. Do not shave the area of your procedure for 2 days prior to your surgery. 4. NO powder, lotion, perfume/cologne, aftershave, make-up, deodorant, or hair products after you have bathed. 5. No nail scottish/acrylic on at least one finger. If you are having a hand, wrist, foot, or leg surgery then ALL nail scottish and artificial/acrylic nails MUST be removed from that hand or foot. 6. Avoid ALL Aspirin and non-steroidal anti-inflammatory drugs (Ibuprofen, Advil, Aleve, Excedrin, Meloxicam, Celebrex, fish/krill oil, etc.) for 7 days prior to surgery as instructed by your surgeon and/or prescribing doctor. Tylenol IS ALLOWED. If you are on Ticlid, Xarelto, Eliquis, Pradaxa, Plavix or Coumadin, please check with your prescribing doctor for instructions for when to stop them. 7. If you use an inhaler, continue to use it routinely. 8. Nothing to eat or drink (not even water, gum, mints, or hard candy!) AFTER midnight prior to your surgery. 7. Take only medications that you are instructed to on the morning of surgery with a TINY SIP OF WATER. 9. Choose a responsible adult that will be able to drive you home when you are discharged from your hospital stay for your surgery- no driving or operating any machinery for 24 hours after surgery. 10. When you dress for your appointment, please wear loose fitting clothing that is appropriate to accommodate your surgical area procedure. BRING WITH YOU ANY DEVICES YOU MAY NEED: LIZETTE hose, ice machine, sling/swath, brace or special shoe, crutches, oversized sup-up or button up shirt, CPAP machine if staying overnight. 11. Do NOT wear jewelry, watches, or any piercings or metal for surgery. 12. Do NOT wear contact lenses for surgery- glasses are okay if needed. 13. The anesthesiologist will talk with you the day of surgery and will ask you to sign a Consent Form. 14. Refrain from smoking or any type of tobacco use for at least 8 hours or marijuana for 24 hours prior to arrival for your surgery. 15. If a GREEN BLOOD band is given to you, please bring it with you for the day of surgery. 16. Notify your surgeon if you develop any illness before your surgery. 17. If you are staying overnight, please DO NOT BRING your home medications with your. 18. If you have any questions prior to surgery, please call the Preadmission Testing office at [phone] Mon.-Fri. 7 a.m.-3 p.m. Leave a voicemail if needed. Pre-Surgery Instructions: Medication Instructions acetaminophen (TYLENOL) 325 mg tablet Stop taking 0 days prior to procedure ascorbic acid/collagen hydr (COLLAGEN SKIN RENEWAL ORAL) Stop taking 0 days prior to procedure biotin 1 mg capsule Stop taking 0 days prior to procedure calcium carbonate-vitamin D3 (CALCIUM 500 + D) 500 mg(1,250mg) -200 units per tablet Stop taking 0 days prior to procedure estradioL (ESTRACE) 0.01 % (0.1 mg/gram) vaginal cream Stop taking 0 days prior to procedure glucosamine-chondroitin 500-400 mg tablet Stop taking 0 days prior to procedure ibuprofen (ADVIL,MOTRIN) 200 mg tablet Stop taking 14 days prior to procedure levothyroxine (SYNTHROID, LEVOTHROID) 25 MCG tablet Take morning of procedure metoprolol tartrate (LOPRESSOR) 25 mg tablet Take morning of procedure jkkqruis-kdrl-CY-calcium &mins (THERAGRAN-M) 9 mg iron-400 mcg tablet Stop taking 0 days prior to procedure valACYclovir (VALTREX) 1000 mg tablet Stop taking 0 days prior to procedure What to Expect Following Your Surgery After surgery you will be in the recovery room for approximately 1 hour before you are moved to your room. Please let your family and visitors know this. You may be in a bed that has a trapeze overhead to assist you with movement while in bed. After surgery you will have a Garcia catheter in place (it is usually removed the first day after surgery after your first round of physical therapy has been completed), foot pumps on for circulation and prevention of blood clots, an IV, and possibly a SPEED BELT SANDER TENDER pump and/or a NERVE BLOCK (both used for pain control). We will have you rate your pain on a scale from 0-10, with 10 being the highest possible pain level. We will NOT be able to get rid of ALL of your pain. We strive to keep you comfortable in the 3-5 range on the pain scale. PLEASE let your nurse know if your pain starts to creep up above a level of 5. We use a combination of IV medications, oral medications, ice, and elevation according to the doctor s orders in order to help keep your pain at a tolerable level. The first 24 hours after surgery are very busy! The doctor orders certain routine medications that are to be given up to every 4 hours along with breathing treatments and vital signs being assessed every 4 through the first night of your surgery in order to make sure that you are progressing as expected after surgery. This often makes it hard to sleep well the first night, but it is necessary to make sure that we are providing you the best care possible. We try to coordinate this care with each department in order to help you get as much uninterrupted sleep as possible. We also have earplugs and eye masks available by request to promote and enhance your sleep time. While here, you may see one of our Hospitalist physicians if your family doctor does not round on patients at [facility] to see you while you are here after surgery. Your orthopedic doctor will be directing all of your care and your discharge, but sometimes they need to consult with primary care/hospitalists in order to better serve you. Having the Hospitalists see you while in the hospital allows your primary care doctor to have more time in their offices, and the hospitalists will be in communication with your primary care doctor with updates on your care. Once discharged from the hospital, you will see your regular primary care physician as directed. While in the hospital you [facility] who work in the hospital and they will start seeing you the morning after surgery. Therapy from your orthopedic doctor s office will begin seeing you once you are discharged from the hospital- they are not contracted to provide your treatment while you are in the hospital. You may have spoken with a data recovery planner at your orthopedic doctor s office, but you will still review your discharge plan with our data recovery planner from here at the hospital in order to make sure that you understand all of your options prior to going home or to a facility. How to Avoid an Infection after Your Surgery Your doctor will give you specific instructions, but remember: -ALWAYS wash hands before caring for your incision. -No picking, scratching, or rubbing your incision. -No creams, lotion, powder, rubbing alcohol or hydrogen peroxide on the incision (can harm the tissue and slow healing). -Your doctor will give you specific instructions for what type of dressing you will need and how often it will need changed for infection purposes. -No tight clothing on incision. -Do not allow anyone to touch your incision unless they are cleaning, checking, or redressing it (be sure they wash their hands first). -No contact of your incision with pets; avoid sleeping with pets. -Take full course of antibiotic if prescribed for you after surgery- do not stop unless directed to by your physician. You may also be given an antibiotic prior to your surgery to help prevent surgical site infections. -Eat a healthy and varied diet including proteins, fruits, and vegetables to help promote wound healing and keep blood sugars under control if you are diabetic. -Smoking slows the healing process by decreasing the amount of oxygen in your blood that is needed for tissue healing. Try to avoid or stop smoking if possible. LOOK at your incision each morning and each night to check the progress of healing. Some soreness, numbness, itching and/or mild bruising around the incision is normal. Call your doctor if you notice any of the following: -Increased redness or hardening around the incision area. -Increased pain at the incision site. -Incision feels hot to the touch. -Swelling or pulling apart of the incision edges. -Yellow or green drainage or foul odor coming from the incision. -Bleeding from the incision (apply pressure as needed). -Fever higher than 101 degrees Fahrenheit for more than 4 hours. SHOWERING: Your doctor will give you specific instructions, but remember: -Be careful getting into and out of the shower. -Showers should be quick (5 minutes or less). -Use a clean washcloth to gently wash your incision with soap and water and pat the area dry with a clean towel. -No re-using wash cloths or towels; get a fresh one to clean your incision. -Do not soak in the bathtub, go swimming or use a hot tub (Jacuzzi), or perform activities where your incision is submerged in water or exposed to any fluids or substances until instructed by your doctor. -If your have the sticky strips (steri-strips) over the incision, it is OK to shower with them. Do not remove them. Let them fall off on their own. If you have a question, call your doctor s office. Go to the follow-up appointment with your doctor. [facility] 02-29-2024 Nurse Note G wipes and surgical instructions reviewed. Patient verbalized understanding. [facility] 02-18-2024 History of Presen t illness Narrative Images from the original note were not included. NAME: Perla Goodwin : 1955 HISTORY OF PRESENT ILLNESS: NEW PT Perla Goodwin is an 68 y.o. @ female. NEW PT PRESENTS WITH (R) KNEE DISCOMFORT. SYMPTOMS FOR MANY YEARS INCREASINGLY GETTING WORSE ; DENIES ANY INJURY XRAYS DONE TODAY, 02/17/24 IN EPIC NO MRI NO MDP / PREDNISONE S/P CORTISONE INJ ; 09/2023 S/P ZILRETTA INJ ; MINIMAL RELIEF S/P GELSYN SERIES 08/2023, 01/2023, 08/2022 NO PHYSICAL THERAPY NO PAIN MGMT PAIN IS BECOMING MORE CONSTANT ; WORSE WITH ACTIVITY / MOVEMENT / LAYING IN BED. PAIN IS MOSTLY ANTERIOR ; CAN BE DIFFUSE. NOTES LIMITED ROM ; SOME INSTABILITY / WEAKNESS ; WEARS ELASTIC KNEE SLEEVE. SOME SWELLING IN THIGH ; ICES / ELEVATES HS. TAKING IBUPROFEN / TYLENOL PRN - SOME RELIEF. 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 Tobacco Use: Low Risk (02/18/2024) Patient History Smoking Tobacco Use: Never Smokeless Tobacco Use: Never Passive Exposure: Not on file Alcohol Use: Not on file PHYSICAL EXAM: Knee Musculoskeletal Exam Gait Antalgic: right Limp: right Inspection Leg length disparity: no discrepancy Right Erythema: none Effusion: moderate Edema: mild Ecchymosis: none Deformity: mild Alignment: varus Previous incision: no previous incision Palpation Right Increased warmth: none Masses: none Crepitus: patellofemoral and medial Tenderness: present Medial joint line: moderate Patella: mild Range of Motion Right Active extension: 5 Active flexion: 120 Strength Right Extension: 5/5. Flexion: 5/5. Instability Right Instability signs: none - stable Varus stress grade: normal Valgus stress grade: normal Pivot shift: normal Anterior drawer: normal Posterior drawer: normal Dial test: normal Quad active test: normal Medial Loi test: negative Lateral Loi test: negative Jesus: negative Neurovascular Right Right knee neurovascular exam is normal. Patella reflex: 2/4 Pulses - DP: normal Dorsalis pedis: 2+ Pulses - PT: normal Posterior tibial: 2+ Capillary refill: brisk Special Signs Right Patellar compression: moderate Patellar apprehension: none IMAGING: XR knee 1 or 2 views right Imaging Result: X-rays AP and lateral of right knee showed severe varus deformity with plyr-tw-dpew articulation to the medial joint line. There is flattening of the articular surfaces medially to the tibia plateau and femoral condyle. There is marginal osteophytic formation and subchondral sclerosis noted medially and the patellofemoral joint. There is no evidence of fracture or dislocation. Bony structures viewed showed appropriate ossification. Procedures Orders Placed This Encounter Procedures XR knee 1 or 2 views right Order Specific Question: Reason for exam: Answer: PAIN ASSESSMENT: ICD-10-CM 1. Primary osteoarthritis of right knee M17.11 2. Acute pain of right knee M25.561 XR knee 1 or 2 views right PLAN: We have answered all the patients questions and explained the patients condition, decision making and plan including the risks and benefits associated with said plan in layman''s terms in a language the patient could understand easily. If patient''s symptoms significantly worsen and they cannot get a hold of us or their family physician, we have recommended that the patient proceed to the nearest emergency department (room). Dr. Neff obtained history and examined the patient, I am acting as scribe for Dr. Neff/lon, PLAN: We have discussed (R) knee xrays with patient at bedside. After examination of her right knee today we have discussed both surgical and nonusrgical intervention, with the risks and benefits of both. Patient is requesting a (R) TKA as the pain is affecting her ADL's - unable to ambulate prolong period of time. We have discussed her HEP and restrictions and will see her back on the day of sx. Surgery - (R) TKA We have discussed both surgical and nonsurgical treatment options with the patient at length and the risks and benefits associated with both. The patient is requesting surgical intervention because they have not responded to outpatient treatment options including but not limited to rest ice, and home exercise program. Pain and decreased range of motion are affecting the patient''s ability to sleep and activities of daily living and we have recommended surgical intervention. We recommended surgery in the form of a total knee arthroplasty. Factors, including the patient's age and longevity of prosthesis, usual postop course and possible need for revision in the future were discussed at length. We have discussed with the patient that this is a major orthopedic procedure. We discussed that the patient may require more than the average 30 MED limit and may require greater than 7 days narcotic treatment postoperatively. Therefore, patient's narcotic usage, will be tailored on an individual basis. If this patient at the time of surgery has any of the following comorbidities including but not limited to, history of falling, cognitive impairment, BMI greater than 30, end-stage renal disease, respiratory failure, heart failure, kidney failure, liver failure, diabetes, cardiac event in the last year, sleep apnea, bleeding disorder, excessive tobacco use, or if at the time of surgery the patient is greater than 80 years old, or requires discharged to a penitentiary facility, the patient may require to have additional inpatient hospital stay following the surgery. Physical therapy is contraindicated in this patient's case because of [id number] articulation of the patient's knee. Elmira Neff D.O. documented in this encounter [facility] 02-20-2023 Evaluation note Encounter Date Diagnosis Assessment [...] Congestion of respiratory tract (ICD-10 - J98.8) opinions.h Other Evaluation + Plan note No data available for this section [facility] Diagnosis Primary osteoarthritis of right knee- Primary Acute pain of right knee documented in this encounter [facility]* Diagnosis Primary osteoarthritis of right knee- Primary Pre-op examination documented in this encounter [facility]* Diagnosis Preop examination- Primary Unspecified pre-operative examination Atrial fibrillation, unspecified type ([facility]) Hypertension, unspecified type Urinary frequency Preop examination Unspecified pre-operative examination Atrial fibrillation, unspecified type ([facility]) Hypertension, unspecified type Preop examination Unspecified pre-operative examination Atrial fibrillation, unspecified type ([facility]) Hypertension, unspecified type Preop examination Unspecified pre-operative examination Atrial fibrillation, unspecified type ([facility]) Hypertension, unspecified type [facility] Diagnosis Primary osteoarthritis of right knee- Primary S/P TKR (total knee replacement), right Acute pain of right knee documented in this encounter [facility]* Diagnosis Primary osteoarthritis of right knee- Primary documented in this encounter [facility]* Diagnosis Arthralgia of right knee- Primary documented in this encounter [facility]* Diagnosis Post-operative pain- Primary Other acute postoperative pain Nausea Nausea alone documented in this encounter [facility]* Diagnosis Status post right knee replacement- Primary documented in this encounter [facility] HealthcareHistory general Narrative - Reported* Type Description Date Medical History HYPERTENSION Medical History HYPERTHYROIDISM opinions.h Other Hospital Discharge instructions No data available for this section [facility] No data available for this section [facility] N[facility]* Consultation (Routine) - Authorized Specialty Diagnoses / Procedures Referred By Contac t Referred To Contact Physical Therapy Diagnoses Primary osteoarthritis of right knee Pre-op examination Procedures AR OFFICE/OUTPATIENT [facility] 60 MINUTES Pavel Friend, PA [address] [place] [address] Phone: tel: fax: Jordy Chapa, PT [address] [place] [address] Phone: tel: fax: Referral ID Status Reason Start Date Expiration Date Visits Requested Visits Authorized [id number] Authorized Consult and Treat 02/29/2024 08/27/2024 30 30 [facility] Summary Purpose Family History No Family History Records FoundNo Family History Records FoundNo Family History Records Found Advance Directives No Advanced Directives Records FoundNo Advanced Directives Records FoundNo Advanced Directives Records Found Additional Source Comments INFORMATION SOURCE (unrecogn ized section and content) DATE CREATED AUTHOR 07/05/2019 [facility] [place] DATE CREATED AUTHOR AUTHOR'S ORGANIZ ATION 04/04/2022 [facility] DATE CREATED AUTHOR AUTHOR'S ORGANIZ ATION 03/30/2024 [facility] REASON FOR VISIT (unrecogniz ed section and content) Reason Comments Pain Reason Comments Pain Reason Onset Date Comments surgery 03/27/2024 Reason Onset Date Comments PO scripts 03/27/2024 Reason Comments Post-op Care Teams (unrecognized sec tion and content) Front Desk Receptionist Relationship Specialty Start Date End Date Francisco Javier Bone Jr., DO [address] [place] [address] [id number] PCP - General Internal Medicine 04/16/21 Front Desk Receptionist Relationship Specialty Start Date End Date Francisco Javier Bone MD [address] [place] [id number] PCP - General Internal Medicine 02/22/24 FOR RECORDS PERTAINING TO PATIENTS WHO ARE [...] BE BASED ON THE PRIMARY CLINICAL RECORDS. [facility] [employer] [facility]. provides no warranty or guarantee of the accuracy or completeness of information in this document.
== END 2024-04-24 08:58 | disposition home or self-care (01) ==
LOC: MAMMO 08:57
PROVIDERS: PCP Internal Medicine; Visit Provider Internal Medicine
DX: Z12.31 Encounter for screening mammogram for malignant neoplasm of breast (principal); Z80.8 Family history of malignant neoplasm of other organs or systems; Z80.3 Family history of malignant neoplasm of breast
CPT/HCPCS: 77063; 77067

== ENCOUNTER 2024-12-12 07:36 | Outpatient (OUT) | payer MEDICARE, OTHER, SELFPAY ==
--- OUTSIDE RECORDS SUMMARY | 2024-12-12 07:40 | XMS_ITS | Clinical Summary ---
Author Organization [facility] Address [address] 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 Name Role Phone Francisco Javier Mckeon DO Primary Care Provider + [phone] Social History Tobacco Use Types Packs/Day Years Used Date Smoking Tobacco: Never Assessed Comments Unknown Sex and Gender Information Value Date Recorded Sex Assigned at Not on file Legal Sex Female 5:05 AM EST Gender Identity Not on file Sexual Orientation Not on file Plan of Treatment Health Maintenance Due Date Last Done Comments CT Colonography 1954 Colonoscopy 1954 Colorectal Cancer Screening 1954 FIT-DNA (Cologuard) 1954 FIT 1954 Lipid Panel 1955 Medicare Annual Wellness Visit (AWV) 1954 Sigmoidoscopy 1954 MMR Vaccines (1 of 1 - Standard series) 1955 Hepatitis C Screening 1972 Mammogram 1994 Pneumococcal Vaccine (1 of 1 - PCV) 2004 Zoster Vaccines (1 of 2) 2004 Bone Density Scan 2019 COVID-19 Vaccine ( season) 2024 03/02/2024, 08/27/2023, 02/27/2022, Additional history exists Influenza Vaccine (#1) 2025 , 03/09/2023, 02/10/2022, Additional history exists DTaP/Tdap/Td Vaccines (2 - Td or Tdap) 08/06/2031 08/05/2021 Hepatitis A Vaccines Aged Out 02/04/2022, 09/03/2021, 08/05/2021 No longer eligible based on patient's age to complete this topic Hepatitis B Vaccines Completed 02/04/2022, 09/03/2021, 08/05/2021 RSV High Risk: (Elderly (60+) or Population) Completed 04/02/2023 HIB Vaccines Aged Out No longer eligi ble based on patient's age to complete this topic HPV Vaccines Aged Out No longer eligi ble based on patient's age to complete this topic IPV Vaccines Aged Out No longer eligi ble based on patient's age to complete this topic Meningococcal Vaccine Aged Out No kelby jamel eligible based on patient's age to complete this topic Rotavirus Vaccines Aged Out No longer eligible based on patient's age to complete this topic Insurance [facility] MEDICARE SUPPLEMENT MEDICARE PART A AND B [employer] [place] MEDICARE SUPPLEMENT Member Subscriber Plan / Payer (Ef fective 2021-Present) Name:Perla Torres Relation to Subscriber:Self Name:Perla Torres Payer ID:Not on file Type:Not on file Address: [address] [place] [id number] MEDICARE PART A AND B MEDICARE PART A AND B Member Subscriber Plan / Payer (Ef fective 2020-Present) Name:Perla Torres Member ID:[id number] Relation to Subscriber:Self Name:Perla Torres Subscriber ID:[id number] Payer ID:Not on file Group ID:Not on file Type:Not on file Address: [address] MEDICARE SUPPLEMENT Member Subscriber Plan / Payer (Ef fective 2021-Present) Name:Perla Torres Relation to Subscriber:Self Name:Perla Torres Payer ID:Not on file Type:Not on file Address: [address] [place] [phone] MEDICARE PART A AND B [facility] MEDICARE SUPPLEMENT Care Teams Dressing Machine Operator Relationship Specialty Start Date End Date Francisco Javier Mckeon DO [facility] [place] [address] PCP - General Internal Medicine 08/05/24
--- OUTSIDE RECORDS SUMMARY | 2024-12-12 07:40 | XMS_ITS | Clinical Summary ---
Author Organization [facility] Address [id number] [address] [place] [address] Care Team Providers Care Figurine Maker Name Role Phone Linda Adler DO, Charles L Primary Care Provider Allergies Active Allergy Reactions Criticality Noted Date Comments Cyclobenzaprine Anaphylaxis High 03/28/2024 Other Anaphylaxis High 04/16/2021 Muscle Relaxers Medications levothyroxine (SYNTHROID, LEVOTHROID) 25 MCG tablet Take 2 tablets (50 mcg total) by mouth in the morning. Active valACYclovir (VALTREX) 1000 mg tablet Take 1 tablet (1,000 mg total) by mouth in the morning and 1 tablet (1,000 mg total) before bedtime. One tablet by mouth for 5 days as needed . Active calcium carbonate-vitam in D3 (CALCIUM 500 + D) 500 mg(1,250mg) -200 units per tablet Take 1 tablet by mouth in the morning. Active metoprolol tartrate (LOPRESSOR) 25 mg tablet Take 2 tablets (50 mg total) by mouth in the morning and 2 tablets (50 mg total) before bedtime. Active estradioL (ESTRACE) 0.01 % (0.1 mg/gram) vaginal creamIndication s:Vaginal atrophy Insert 1 g into the vagina once a week. 42.5 g 2 04/21/2023 Active ytadjhlf-mklf-O A-calcium &mins (THERAGRAN-M) 9 mg iron-400 mcg tablet Take 1 tablet by mouth in the morning. Active Active Problems Problem Noted Date Diagnosed Date Right knee pain 03/27/2024 Immunizations Immunization Administration Dates Next Due H1N1 Inj Preservative Free 05/14/2009 Hep A / Hep B 02/04/2022,09/03/2021,08/05/2021 Influenza High Dose Preservative Free IM 024 Influenza Vaccine, Quadrivalent, Adjuvanted 10/2022 Influenza, High-dose, Quadrivalent 02/10/2022, RSV, recombinant, protein ceja bunit RSVpreF, adjuvant reconstituted, 0.5 mL, PF 04/02/2023 Tdap 08/05/2021 Typhoid, ViCPS 08/05/2021 Family History Medical History Relation Name Comments Esophageal cancer Father Breast cancer Mother Linda Torres N/A Colon cancer Mother Linda Torres Relation Name Status Comments Father Mother Linda Torres Social History Tobacco Use Types Packs/Day Years Used Date Smoking Tobacco: Never Smokeless Tobacco: Never Tobacco Cessation:Counseling Given: Not Answered Alcohol Use Standard Drinks/Week Comments Yes 2 (1 standard drink = 0.6 oz pur e alcohol) socially PHQ-2 Answer Date Recorded Total Score 0 04/21/2023 Hunger Screening Answer Date Recorded Within the past 12 months we worried whether our food would run out before we got money to buy more. Never True 08/16/2024 Within the past 12 months th e food we bought just didn't last and we didn't have money to get more. Never True 08/16/2024 Comments No Sex and Gender Information Value Date Recorded Sex Assigned at Not on file Legal Sex Female 1:08 PM EST Gender Identity Not on file Sexual Orientation Not on file Last Filed Vital Signs Vital Sign Reading Time Taken Comments Blood Pressure 156/84 08/16/2024 10:44 AM EDT Pulse 69 03/28/2024 11:36 AM EST Temperature 36.9 C (98.4 F) 03/28/2024 11:36 AM EST Respiratory Rate 16 03/28/2024 11:36 AM EST Oxygen Saturation 97% 03/28/2024 11:36 AM EST Inhaled Oxygen Concentration - - Weight 67.6 kg (149 lb) 08/16/2024 10:44 AM EDT Height 171.5 cm (5' 7.5 ) 08/16/2024 10:44 AM ED T Body Mass Index 22.99 08/16/2024 10:44 AM EDT Plan of Treatment Health Maintenance Due Date Last Done Comments Mammogram 1994 Zoster (Shingles) Vaccine (1 of 2) 2004 Fall Risk Screening 2019 Depression Screening 04/21/2024 04/21/2023 COVID-19 Vaccine (2023-2 5 season) 2024 03/02/2024, 08/27/2023, 02/27/2022, Additional history exists Influenza Vaccine 01/01/2025 02/12/2024, , 02/10/2022, Additional history exists Adult BMI Screening 08/16/2025 08/16/2024 Tobacco Screening 08/16/2025 08/16/2024 DTaP,Tdap and Td Vaccines (2 - Td or Tdap) 08/06/2031 08/05/2021 Goals Goal Patient Goal Type Associated Problems Recent Progress Patient-Stated? Author home General Yes Nataliia Winston LSW Note: Evaluation of progress towards goal: going to [facility] today Medical Devices Implanted Type Area Fire Protection Specialist Device Identifier Shelf Expiration Date Model / Serial / Lot Cement Bn Bio 40gm Rpl [id number] - Sn/A - [id number] Implanted:Qty : 2 on 03/28/2024 by Jake Neff Jr., DO at [facility] Cement Right: Knee Whit Biomet 06/02/2026 [id number] / N/A / [id number] Component Fem F Kn Rt Lpsflx Gndr Edelmira? Nxgn Cocr Rpl [id number] - Sn/A - [id number] Implanted:Qty : 1 on 03/28/2024 by Jake Neff Jr., DO at [facility] Orthopedic Implant Right: Knee Whit [employer] [id number] 08/17/2033 00-5764-016 -52 / N/A / [id number] Component Ptlr 35mm Persona Alply Kn Strl Lf - Sn/A - [id number] Implanted:Qty : 1 on 03/28/2024 by Jake Neff Jr., DO at [facility] Orthopedic Implant Right: Knee Whit [employer]omet [id number] 06/07/2028 42-5400-000 -35 / N/A / [id number] Nexgen Complete Knee Solution Legacy. Knee Posterior Stabilized Prolong. Size E F 100mm Height Lps-Flex Articular Surface Implanted:Qty : 1 on 03/28/2024 by Jake Neff Jr., DO at [facility] Other Implant Right: Knee Whit [employer]omet [id number] 12/21/2028 / N/A / [id number] Plate Tib [id number] Nxgn Kn Cmnt Mdlr Stm Prect 6 Tiv Pmma Rpl [id number] + [id number] - Sn/A - [id number] Implanted:Qty : 1 on 03/28/2024 by Jake Neff Jr., DO at [facility] Plate Right: Knee Whit [employer] [id number] 08/30/2026 [id number] -02 / N/A / [id number] Explanted Type Area Fire Protection Specialist Device Identifier Shelf Expiration Date Model / Serial / Lot Screw Gd 48mm Qd-Spr Hex Hd Mis Strl - Sn/A - [id number] Explanted:Qty: 1 on 03/28/2024 by Jake Neff Jr., DO at [facility] Screw Whit Biomet [id number] 11/14/203383 - 0-48 / N/A / [id number] Screw Gd 48mm Qd-Spr Hex Hd Mis Strl - Sn/A - [id number] Explanted:Qty: 1 on 03/28/2024 by Jake Neff Jr., DO at [facility] Screw Right: Knee Whit [employer]omet [id number] 10/11/203383-04 0-48 / N/A / [id number] Screw Bn 35mm 6.5mm St Hip Actb Trlg Strl Rpl [id number] [id number]+32 - Sn/A - [id number] Explanted:Qty: 1 on 03/28/2024 by Jake Neff Jr., DO at [facility] Screw Right: Knee Whit [employer]omet [id number] 04/07/2033 5-35 / N/A / [id number] Screw Bn 35mm 6.5mm St Hip Actb Trlg [facility] [id number]+32 - Sn/A - [id number] Explanted:Qty: 1 on 03/28/2024 by Jake Neff Jr., DO at [facility] Screw Right: Knee Whit [employer]omet [id number] 04/06/2033 5-35 / N/A / [id number] Insurance [employer] MEDICARE Advance Directives * Full Code (Latest Code Status on File) Date Activated Date Inactivated Comments 03/27/2024 9:00 PM 03/28/2024 5:14 PM Care Teams Figurine Maker Relationship Specialty Start Date End Date Francisco Javier Mckeon Jr., DO [address] [place] [id number] PCP - General Internal Medicine 04/16/21
--- OUTSIDE RECORDS SUMMARY | 2024-12-12 07:40 | XMS_ITS | Clinical Summary ---
Author Organization [facility] Address [address] [place] [address] Care Team Providers Care Nuclear Equipment Research Engineer Name Role Phone Francisco Javier Mckeon MD Primary Care Provider Allergies Active Allergy Reactions Criticality Noted Date Comments Cyclobenzaprine Anaphylaxis High 03/28/2024 Other Anaphylaxis High 02/18/2024 1. ALL MUSCLE RELAXERS 2. DENIES METAL ALLERGY Medications levothyroxine (Synthroid, Levoxyl) 50 MCG tablet 5 Active metoprolol tartrate (Lopressor) 50 MG tablet 4 Active estradiol (Estrace) 0.1 MG/GM vaginal cream INSERT ONE GRAM VAGINALLY EVERY WEEK Active Calcium Carb-Cholecalcif omar (CALTRATE BONE HEALTH PO) Take by mouth Active BIOTIN PO Take by mouth Active COLLAGEN PO Take by mouth Acti ve Glucosamine-Bassam droitin (GLUCOSAMINE CHONDR COMPLEX PO) Take by mouth Active amoxicillin (Amoxil) 500 MG tabletIndication s:Status post right knee replacement 4 tabs PO once 30-60 mins before procedure with food 4 tablet 3 5 Active Active Problems Problem Noted Date Diagnosed Date Primary osteoarthritis of right knee 03/14/2024 A-fib 05/03/2022 Encounters Date Type Department Care Team Description 10/04/2024 Telephone [facility] [address] [address] [place] [address] Pavel Friend PA antibiotic for dental appt from Last 3 Months Immunizations Immunization Administration Dates Next Due Hep A / Hep B 02/04/2022,09/03/2021,08/05/2021 Influenza, High Dose Seasona l, Preservative Free 02/12/2024 Influenza, High-dose Seasona l, Quadrivalent, Preservative Free 02/10/2022,01/28/2021 Influenza, Seasonal, Quadriv alent, Adjuvanted 03/09/2023 Novel [id number], preservative-free 05/14 RSV, recombinant, protein ceja bunit RSVpreF, adjuvant reconstitu, 120mcg/0.5mL, PF (Arexvy) 04/02/2023 Tdap 08/05/2021 Typhoid, ViCPs 08/05/2021 Social History Tobacco Use Types Packs/Day Years Used Date Smoking Tobacco: Never Smokeless Tobacco: Never Tobacco Cessation:Counseling Given: Not Answered Alcohol Use Standard Drinks/Week Comments Yes 2 (1 standard drink = 0.6 oz pur e alcohol) Comments Unknown Sex and Gender Information Value Date Recorded Sex Assigned at Not on file Legal Sex Female 9:23 AM EDT Gender Identity Female 02/12/2024 9:27 AM EDT Sexual Orientation Not on file Last Filed Vital Signs Vital Sign Reading Time Taken Comments Blood Pressure - - Pulse - - Temperature - - Respiratory Rate - - Oxygen Saturation - - Inhaled Oxygen Concentration - - Weight 67.3 kg (148 lb 6.4 oz) 02/29/2024 10:24 AM EDT Height 171.5 cm (5' 7.5 ) 02/29/2024 10:24 AM ED T Body Mass Index 22.9 02/29/2024 10:24 AM EDT Plan of Treatment Upcoming Encounters Date Type Department Care Team (Late st Contact Info) Description 06/13/2025 1:00 PM EST Office Visit [facility] [address] [place] [address] Pavel Friend PA [address] [place] [address] Health Maintenance Due Date Last Done Comments CT Colonography 1954 Colonoscopy 1954 Colorectal Cancer Screening 1954 FIT-DNA 1954 FIT 1954 FOBT 1954 Sigmoidoscopy 1954 Mammogram 1994 Pneumococcal Vaccine: 65+ Ye ars (1 of 1 - PCV) 2004 Influenza Vaccine (#1) 2025 , 03/09/2023, 02/10/2022, Additional history exists Insurance [employer] [place] Care Teams Nuclear Equipment Research Engineer Relationship Specialty Start Date End Date Francisco Javier Mckeon MD [facility] [place] [address] PCP - General Internal Medicine 02/22/24
[2024-12-12] MEDS: REGADENOSON 0.4 MG/5 ML SYRINGE IV (09:33)
--- NOTE | 2024-12-12 09:34 | PC.NURSE ---
Nursing Note Cardiac Stress Test Reviewed: Medication, allergies and patient history reviewed. Stress Test: [x ] Patient tolerated stress test well. [ ] Patient unable to tolerate walking on treadmill. Switched to Lexiscan stress test. [x ] No chest pain noted per patient [ ] Chest pain that resolved prior to leaving stress lab. [x ] No dyspnea noted. [ ] Dyspnea that resolved prior to leaving stress lab. [x ] Patient left stress lab asymptomatic and hemodynamically stable. [ ] Patient taken to the Emergency Room due to non-resolving symptoms following stress test. [ ] Patient achieved target heart rate. [ ] Patient unable to achieve target heart rate. [ ] Aminophylline administered as reversal agent to Lexiscan (Regadenoson). [ ] Nitro administered. Nursing Comments:Pt had some nausea and abdominal pain after test but no CP or SOB. Pt was given a Mt. Dew and states she started to feel better within a few minutes of drinking the caffeine. Pt left stress lab with no complaints and was taken to cafeteria for breakfast prior to second set of images.
--- NOTE | 2024-12-12 16:57 | PM.STRESS ---
Stress Test Stress Test Requesting physician: FAZAL BONE Procedure: Lexiscan stress test General Information: Reason for Stress Test: [Chest Pain] Cardiac History and Risk Factors: [HTN, Afib, Family h/o CAD] Resting 12 - Lead Electrocardiogram: Baseline EKG reveals sinus rhythm normal R wave progression presence of T wave inversion in the septal leads Stress Test: Patient underwent a Lexiscan protocol as she was unable to walk on the treadmill. The heart rate was 67 beats a minute with a resting blood pressure of 146/89 mmHg. Following infusion of vasodilator peak heart rate of 99 was achieved with a blood pressure increased to 151/81 mmHg. No evidence of any AV block or arrythmia seen. Minimal ST depression noted in Lead II but not in other contiguous lead to meet criteria for ischemia. Patient reported some abdominal pain which resolved after some fluids were given. Interpretation: 1. Normal baseline EKG 2. No EKG criteria met for ischemia although there was some ST depression seen on lead II alone. 3. Nuclear perfusion study to be dictated separately.
== END 2024-12-12 07:37 | disposition home or self-care (01) ==
PROVIDERS: PCP Internal Medicine; Visit Provider Internal Medicine
DX: R07.89 Other chest pain (principal); I48.0 Paroxysmal atrial fibrillation
CPT/HCPCS: 78452; 93017; A9500; J2785

== ENCOUNTER 2025-01-15 13:45 | Outpatient (OUT) | payer MEDICARE, OTHER, SELFPAY ==
--- OUTSIDE RECORDS SUMMARY | 2025-01-15 13:48 | XMS_ITS | Clinical Summary ---
Author Organization [facility] Address [address] [place] [address] Care Team Providers Care Major Donor Coordinator Name Role Phone Francisco Javier Mckeon MD [...] osteoarthritis of right knee 03/14/2024 A-fib 05/03/2022 Immunizations Immunization Administration Dates Next Due Hep A / Hep B 02/04/2022,09/03/2021,08/05/2021 Influenza, High Dose Seasona l, Preservative Free 02/12/2024 Influenza, High-dose Seasona l, Quadrivalent, Preservative Free 02/10/2022,01/28/2021 Influenza, Seasonal, Quadriv alent, Adjuvanted 03/09/2023 Novel [id number], preservative-free 05/14 RSV, recombinant, protein ceja bunit [...] 06/13/2025 1:00 PM EST Office Visit [facility] [address] [place] [address] Pavel Friend PA [address] [place] [address] Health Maintenance Due Date Last Done Comments CT Colonography 1954 Colonoscopy 1954 Colorectal Cancer Screening 1954 FIT-DNA 1954 FIT 1954 FOBT 1954 Sigmoidoscopy 1954 Mammogram 1994 Pneumococcal Vaccine: 65+ Ye ars (1 of 1 - PCV) 2004 Influenza Vaccine (#1) 2025 4, 03/09/2023, 02/10/2022, Additional history exists Insurance [employer] Care Teams Major Donor Coordinator Relationship Specialty Start Date End Date Francisco Javier Mckeon MD [facility] [place] [address] PCP - General Internal Medicine 02/22/24
--- OUTSIDE RECORDS SUMMARY | 2025-01-15 13:48 | XMS_ITS | Clinical Summary ---
Author Organization [facility] Address [address] [place] [address] Phone Care Team Providers Care Raw Stock Machine Feeder Name Role Phone Francisco Javier Mckeon DO Primary Care Provider + [phone] Encounters Date Type Department Care Team Description 12/25/2024 Scanned Document [facility] [address] [place] [id number] Scanning, Generic Provider from Last 3 Months Social History Tobacco Use Types Packs/Day Years [...] 2004 Bone Density Scan 2019 COVID-19 Vaccine (5 - season) 2025 03/02/2024, 08/27/2023, 02/27/2022, Additional history exists Influenza [...] patient's age to complete this topic Insurance [facility] MEDICARE SUPPLEMENT MEDICARE PART A AND B [facility] MEDICARE SUPPLEMENT MEDICARE PART A AND B MEDICARE PART A AND B Member Subscriber Plan / Payer (Ef fective 2020-Present) Name:Perla Torres Member ID:[id number] Relation to Subscriber:Self Name:Perla Torres Subscriber ID:[id number] Payer ID:Not on file Group ID:Not on file Type:Not on file Address: [address] MEDICARE SUPPLEMENT MEDICARE PART A AND B [facility] MEDICARE SUPPLEMENT Care Teams Raw Stock Machine Feeder Relationship Specialty Start Date End Date Francisco Javier Mckeon DO [address] [place] [address] PCP - General Internal Medicine 08/05/24
--- OUTSIDE RECORDS SUMMARY | 2025-01-15 13:48 | XMS_ITS | Encounter Summary ---
Author Organization [facility] Address [address] [facility] [place] [address] Phone Care Team Providers Care Potash Flaker Name Role Phone Generic Provider, No Assigned Pcp MD Primary Car e Provider Unavailable Francisco Javier Bone DO Primary Care Provider + [phone] Reason for Referral * Imaging (Routine) - Authorized Specialty Diagnoses / Procedures Referred By Contac t Referred To Contact Radiology Diagnoses Pure hypercholesterolemia, unspecified Procedures CT cardiac scoring wo IV contrast Francisco Javier Bone DO [address] [place] [address] Phone: tel: fax: Referral ID Status Reason Start Date Expiration Date Visits Requested Visits Authorized [id number] Authorized Perform Procedure 06/09/2024 06/09/2025 1 1 Encounter Details Date Type Department Care Team (Latest Contact Info) Description 06/09/2024 Transcribe Orders [facility] [id number] [place] [place] [address] Francisco Javier Bone DO [address] [place] [address] Pure hypercholesterolemia , unspecified (Primary Dx) Social History Tobacco Use Types Packs/Day Years Used Date Smoking Tobacco: Never Assessed Comments Unknown Sex and Gender Information Value Date Recorded Sex Assigned at Not on file Legal Sex Female 5:05 AM EST Gender Identity Not on file Sexual Orientation Not on file documented as of this encounter Plan of Treatment Not on file documented as of this encounter Results * CT cardiac scoring wo IV contrast (08/05/2024 11:11 AM EDT) Anatomical Region Laterality Modality Thoracic, Chest Computed Tomogra phy 08/05/2024 11:1 8 AM EDT 08/05/2024 11:21 AM EDT Addenda Addendum by Juan Sandoval MD on 08/05/2024 11:20 AM EDT Interpreted By: Juan Sandoval, ADDENDUM: NON-CARDIOVASCULAR FINDINGS INCLUDED LUNGS, AIRWAYS AND PLEURA Endotracheal / endobronchial lesion: Negative Nodule: Negative Airspace disease: Negative Pleural effusion: Negative Pneumothorax: Negative Other: No acute or contributory unanticipated findings INCLUDED NON-CARDIOVASCULAR BERTHA AND MEDIASTINUM Adenopathy: Negative Included esophagus: Unremarkable Other: No acute or contributory unanticipated findings INCLUDED BONES: No acute skeletal findings, noting less sensitivity and specificity without dedicated sagittal and coronal reformatted series. INCLUDED CHEST WALL No acute or contributory unanticipated findings INCLUDED UPPER ABDOMEN No acute or contributory unanticipated findings ------- NON-CARDIOVASCULAR IMPRESSION NO ACUTE OR CONTRIBUTORY UNEXPECTED FINDINGS OF THE INCLUDED NON-CARDIOVASCULAR STRUCTURES NOTE THIS ADDENDUM IS SOLELY FOR INTERPRETATION OF ANATOMY OUTSIDE THE CARDIOVASCULAR SYSTEM. INTERPRETATION OF AND REPORTING OF THE CARDIOVASCULAR STRUCTURES ARE THE SOLE RESPONSIBILITY OF THE DIRECTOR OF HOSPITALITY SUBMITTING THE ORIGINAL REPORT (NOT THIS ADDENDUM) Signed by: Juan Sandoval 08/05/2024 11:20 AM -------- ORIGINAL REPORT -------- Dictation workstation: [id number] Impressions 08/05/2024 11:17 AM EDT 1. Coronary artery calcium score of 41*. 2. BANGURA 61st percentile for age, gender, and race in asymptomatic patients. *Coronary Artery Agatston score Score risk Very low 1-99 Mildly increased 100-299 Moderately increased >300 Moderate to severely increased >800 Kam et al. JCCT 2016 (http://dx.doi.org/10.1016/j.jcct.2016.11.003) BANGURA Percentile In general, greater than 75th percentile for age, gender, and race is considered to be a higher relative risk and higher lifetime risk condition. Greater than 75th percentile=moderate to severely increased relative risk irrespective of the score. Advise using BANGURA 10 year CHD risk calculator below for better discrimination of risk. BANGURA 10-Year CHD Risk with Coronary Artery Calcification can be calcuate using link below [email or web address]://[email or web address]/[email or web address]/RiskScore.aspx Maryanne. JACC 2015 (http://dx.doi.org/10.1016/j.j acc.2015.08.035) Reading Family Consumer Science Teacher: Dr. Eben Garcia, Date: 08/05/2024 11:16 am Signed by: Eben Garcia 08/05/2024 11:17 AM Dictation workstation: [id number] Narrative 08/05/2024 11:17 AM EDT Interpreted By: Eben Garcia, STUDY: CT CARDIAC SCORING WO IV CONTRAST; 08/05/2024 11:11 am INDICATION: Signs/Symptoms:.. COMPARISON: None. ACCESSION NUMBER(S): [id number] ORDERING CLINICIAN: FRANCISCO JAVIER BONE TECHNIQUE: Using prospective ECG gating, CT scan of the coronary arteries was performed without intravenous contrast. Coronary calcium scoring was performed according to the method of Agatston. CT Dose-Length Product (DLP): 55.8 mGy*cm CT Dose Reduction Employed: Yes, prospective gating, iterative reconstruction. FINDINGS: The score and distribution of calcium in the coronary arteries is as follows: LM 0 LAD 23 LCx 17 RCA 1 Total 41 The visualized ascending thoracic aorta measures 3.5 cm in diameter. The heart is normal in size. No pericardial effusion is present. The main pulmonary artery, right and left pulmonary artery are normal in size. Procedure Note Eben Garcia DO / Juan Sandoval MD - 08/05/2024 Interpreted By: Eben Garcia, STUDY: CT CARDIAC SCORING WO IV CONTRAST; 08/05/2024 11:11 am INDICATION: Signs/Symptoms:.. COMPARISON: None. ACCESSION NUMBER(S): [id number] ORDERING CLINICIAN: FRANCISCO JAVIER BONE TECHNIQUE: Using prospective ECG gating, CT scan of the coronary arteries was performed without intravenous contrast. Coronary calcium scoring was performed according to the method of Agatston. CT Dose-Length Product (DLP): 55.8 mGy*cm CT Dose Reduction Employed: Yes, prospective gating, iterative reconstruction. FINDINGS: The score and distribution of calcium in the coronary arteries is as follows: LM 0 LAD 23 LCx 17 RCA 1 Total 41 The visualized ascending thoracic aorta measures 3.5 cm in diameter. The heart is normal in size. No pericardial effusion is present. The main pulmonary artery, right and left pulmonary artery are normal in size. IMPRESSION: 1. Coronary artery calcium score of 41*. 2. BNAGURA 61st percentile for age, gender, and race in asymptomatic patients. *Coronary Artery Agatston score Score risk Very low 1-99 Mildly increased 100-299 Moderately increased >300 Moderate to severely increased >800 Kam et al. JCCT 2016 (http://dx.doi.org/10.1016/j.jcct.2016.11.003) BANGURA Percentile In general, greater than 75th percentile for age, gender, and race is considered to be a higher relative risk and higher lifetime risk condition. Greater than 75th percentile=moderate to severely increased relative risk irrespective of the score. Advise using BANGURA 10 year CHD risk calculator below for better discrimination of risk. BAGNURA 10-Year CHD Risk with Coronary Artery Calcification can be calcuate using link below https://www.bangura-[email or web address]/MESACHDRisk/MesaRiskScore/RiskScore.aspx Ada warner al. JACC 2014 (http://dx.doi.org/10.1016/j.j acc.2015.08.035) Reading Family Consumer Science Teacher: Dr. Eben Garcia, Date: 08/05/2024 11:16 am Signed by: Eben Garcia 08/05/2024 11:17 AM Dictation workstation: [id number] Francisco Javier Bone DO IMG CT PROCEDURES Edited Res ult - Final documented in this encounter Visit Diagnoses Diagnosis Pure hypercholesterolemia, unspecified- Primary Pure hypercholesterolemia, unspecified documented in this encounter Care Teams Potash Flaker Relationship Specialty Start Date End Date Generic Provider, No [place] [id number] PCP - General [employer] Crm Developer 07/23/24 08/04/24 Francisco Javier Bone DO [address] [place] [id number] PCP - General Internal Medicine 08/05/24 documented as of this encounter
--- OUTSIDE RECORDS SUMMARY | 2025-01-15 13:48 | XMS_ITS | Clinical Summary ---
Author Organization [facility] Address [id number] [address] 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 42.5 g 2 04/21/2023 Active otuczwva-btxh-Q A-calcium &mins (THERAGRAN-M) 9 mg iron-400 mcg [...] 04/21/2024 04/21/2023 COVID-19 Vaccine (2023-2 5 season) 2025 03/02/2024, 08/27/2023, 02/27/2022, Additional history exists Influenza Vaccine 01/01/2025 02/12/2024, , 02/10/2022, Additional history exists Adult BMI Screening 08/16/2025 08/16/2024 Tobacco Screening 08/16/2025 08/16/2024 DTaP,Tdap and Td Vaccines (2 - Td or Tdap) 08/06/2031 08/05/2021 Goals Goal Patient Goal Type Associated Problems Recent Progress Patient-Stated? Author home General Yes Nataliia Winston LSW Note: Evaluation of progress towards goal: going to [facility] today Medical Devices Implanted Type Area Extractor Filler Device Identifier Shelf Expiration Date Model / Serial / Lot Cement Bn Bio 40gm Rpl [id number] - Sn/A - [id number] Implanted:Qty : 2 on 03/28/2024 by Jake Neff Jr., DO at [facility] Cement Right: Knee [employer] 06/02/2026 [id number] / N/A / [id number] Component Fem F Kn Rt Lpsflx Gndr Edelmira? Nxgn Cocr Rpl 91570 - Sn/A - [id number] Implanted:Qty : 1 on 03/28/2024 by Jake Neff Jr., DO at [facility] Orthopedic Implant Right: Knee Whit [employer] [id number] 08/17/2033 00-5764-016 -52 / N/A / [id number] Component Ptlr 35mm Persona Alply Kn Strl Lf - Sn/A - [id number] Implanted:Qty : 1 on 03/28/2024 by Jake Neff Jr., DO at [facility] Orthopedic Implant Right: Knee [employer] [id number] 06/07/2028 42-5400-000 -35 / N/A / [id number] Nexgen Complete Knee Solution Legacy. Knee Posterior Stabilized Prolong. Size E F 100mm Height Lps-Flex Articular Surface Implanted:Qty : 1 on 03/28/2024 by Jake Neff Jr., DO at [facility] Other Implant Right: Knee Whit [employer] [id number] 12/21/2028 / N/A / [id number] Plate Tib 77s14vw Nxgn Kn Cmnt Mdlr Stm Prect 6 Tiv Pmma Rpl [id number] + [id number] - Sn/A - [id number] Implanted:Qty : 1 on 03/28/2024 by Jake Neff Jr., DO at [facility] Plate Right: Knee [employer] [id number] 08/30/2026 00-5980-047 -02 / N/A / [id number] Explanted Type Area Extractor Filler Device Identifier Shelf Expiration Date Model / Serial / Lot Screw Gd 48mm Qd-Spr Hex Hd Mis Strl - Sn/A - [id number] Explanted:Qty: 1 on 03/28/2024 by Jake Neff Jr., DO at [facility] Screw Whit [employer]omet [id number] 11/14/203383 - 0-48 / N/A / [id number] Screw Gd 48mm Qd-Spr Hex Hd Mis Strl - Sn/A - [id number] Explanted:Qty: 1 on 03/28/2024 by Jake Neff Jr., DO at [facility] Screw Right: Knee [employer] [id number] 10/11/203383-04 0-48 / N/A / [id number] Screw Bn 35mm 6.5mm St Hip Actb Trlg Strl Rpl [id number] 32064+32 - Sn/A - [id number] Explanted:Qty: 1 on 03/28/2024 by Jake Neff Jr., DO at [facility] Screw Right: Knee [employer] [id number] 04/07/2033 5-35 / N/A / [id number] Screw Bn 35mm 6.5mm St Hip Actb Trlg Rustl [facility] [id number] 06730+32 - Sn/A - [id number] Explanted:Qty: 1 on 03/28/2024 by Jake Neff Jr., DO at [facility] Screw Right: Knee [employer] [id number] 04/06/2033 5-35 / N/A / [id number] Insurance [employer] [employer] Advance Directives * Full Code (Latest Code Status on File) Date Activated Date Inactivated Comments 03/27/2024 9:00 PM 03/28/2024 5:14 PM Care Teams Profile Mill Operator Tape Control Relationship Specialty Start Date End Date Francisco Javier Mckeon Jr., DO [address] [place] [id number] PCP - General Internal Medicine 04/16/21
--- OUTSIDE RECORDS SUMMARY | 2025-01-15 18:03 | XMS_ITS | CCD ---
Author Organization [facility] CliniSyms Care Team Providers Care Mortgage Loan Funder Name Role Phone LIZANDRO, DR DIEHL Primary Care Unavailable LIZANDRO, DR DIEHL Admitting Unavailable LIZANDRO, DR DIEHL Attending Unavailable VALLAVONNE, DR DIEHL Consulting Unavailable ZIEBER, DR NESSA Stokes Consulting Unavailable LIZANDRO, DR DIEHL Primary Care Unavailable VALONE, DR DIEHL Admitting Unavailable VALONE, DR DIEHL Attending Unavailable Lavinia Moore Unavailable Unavailable Primary Care Provider UnavailFrancisco Javier Uriarte MD Primary Care Provider [phone] FRANCISCO JAVIER BONE JR Referring Unavailable FRANCISCO JAVIER BONE JR Primary Care Unavailable ELMIRA NEFF JR Attending UnavailELMIRA Guerrero JR Referring UnavailFRANCISCO JAVIER Uriarte JR Primary Care Unavailable FRANCISCO JAVIER BONE JR Referring Unavailable FRANCISCO JAVIER BONE JR Primary Care Unavailable ELMIRA NEFF JR Attending UnavailELMIRA Guerrero JR Referring UnavailFRANCISCO JAVIER Uriarte JR Primary Care Unavailable ELMIRA NEFF JR Attending UnavailFRANCISCO JAVIER Uriarte JR Referring Unavailable FRANCISCO JAVIER BONE JR Primary Care Unavailable ELMIRA NEFF JR Admitting UnavailELMIRA Guerrero JR Attending UnavailELMIRA Guerrero JR Referring UnavailFRANCISCO JAVIER Uriarte JR Primary Care Unavailable Lizandro Adler DO, Charles L Primary Care Provider Lizandro Adler DO, Charles L Primary Care Provider Francisco Javier Bone DO Primary Care Provider FRANCISCO JAVIER BONE Referring Unavailable FRANCISCO JAVIER BONE Primary Care Unavailable KENNEDI PEÑA Attending Unavailable FRANCISCO JAVIER BONE JR Referring Unavailable FRANCISCO JAVIER BONE JR Primary Care Unavailable KENNEDI PEÑA Attending Unavailable FRANCISCO JAVIER BONE JR Referring Unavailable VALONE JR, FRANCISCO JAVIER L Primary Care Unavailable NATALIA SANCHEZ Attending Unavailable VALONE JR, FRANCISCO JAVIER L Referring Unavailable VALONE JR, FRANCISCO JAVIER L Primary Care Unavailable KROTZER, KENNEDI M Referring Unavailable VALONE JR, FRANCISCO JAVIER L Primary Care Unavailable KRCLAUDIAZER, KENNEDI M Referring Unavailable VALONE JR, FRANCISCO JAVIER L Primary Care Unavailable NATALIA SANCHEZ Referring Unavailable MARGARITOONE , FRANCISCO JAVIER L Primary Care Unavailable MD Juan Jose Marie Attending Unavailable NONE, XXXX Referring Unavailable MD Juan Jose Marie Admitting Unavailable MD Juan Jose Marie Attending Unavailable MD Juan Jose Marie Admitting Unavailable MD Juan Jose Marie Admitting Unavailable NONE, XXXX Referring Unavailable MD Juan Jose Marie Attending Unavailable MD Juan Jose Marie Admitting Unavailable MD Juan Jose Marie Referring Unavailable MD Juan Jose Marie Attending Unavailable MD Juan Jose Marie Admitting Unavailable MD Juan Jose Marie Attending Unavailable Allergies Allergy Classification Reported Allergen(s) Allergy Type Date of Onset Reaction(s) Facility (1 source) [facility] Drug allergy (disorder) 02-10-20 17 [facility]ository (1 source) cyclobenzaprine Drug Allergy anaphylaxis [facility] Other (20 sources) Other; Translations: [OTHER] Propensity to adverse reactions 04-16-20 21 Anaphylaxis [facility] (18 sources) cyclobenzaprine; Translations: [CYCLOBENZAPRINE] Drug Allergy 03-28-20 24 Anaphylaxis [facility] Repository (1 source) ALLERGIES NOT ON FILE; Translations: [ALLERGIES NOT ON FILE] Propensity to adverse reactions (disorder) [facility] Repository Medications Current Medications Medication Drug Class(es) [...] 5 days 20 tablet 03/27/2024 04/01/2024 Active amoxicillin 500 mg oral tablet (1 source) Penicillin-class Antibacterial Start: 10-04-2024 take 4 tablets by mouth once at mealtime amoxicillin (Amoxil) 500 MG tablet Indications: Status post right knee replacement 4 tabs PO once 30-60 mins before procedure with food 4 tablet 3 10/04/2024 Active Start: 10-04-2024 take 4 tablets by mo ut once at mealtime amoxicillin (Amoxil) 500 MG tablet Indications: Status post right knee replacement 4 tabs PO once 30-60 mins before procedure with food 4 tablet 3 10/04/2024 Active ascorbic acid/collagen hydr (COLLAGEN SKIN RENEWAL ORAL) (1 source) ascorbic acid/co llagen hydr (COLLAGEN SKIN RENEWAL ORAL) Take by mouth daily. Active Biotin (20 sources) biotin 1 mg caps ule Take by mouth daily. Active BIOTIN PO Take b y mouth Active Calcium Carb-Cholecalciferol (CALTRATE BONE HEALTH PO) (20 sources) Calcium Carb-Cho lecalciferol (CALTRATE BONE HEALTH PO) Take by mouth Active calcium carbonate 1250 mg / cholecalciferol 200 unt oral tablet (7 sources) Vitamin D take 1 tablet by mouth once daily in the morning calcium carbonate-vitamin D3 (CALCIUM 500 + D) 500 mg(1,250mg) -200 units per tablet Take 1 tablet by mouth in the morning. Active Chondroitin Sulfates / Glucosamine (20 sources) take 1 tablet by mouth three times daily glucosamine-chondroitin 500-400 mg tablet Take 1 tablet by mouth 3 (three) times a day. Active Glucosamine-Bassam droitin (GLUCOSAMINE CHONDR COMPLEX PO) Take by mouth Active clindamycin 300 mg oral capsule (1 source) Lincosamide Antibacterial Start: 08-17-2024 End: 08-24-2024 take 1 capsule by mouth in the morning, then take 1 capsule by mouth at bedtime clindamycin (CLEOCIN) 300 mg capsule Indications: BV (bacterial vaginosis) Take 1 capsule (300 mg total) by mouth in the morning and 1 capsule (300 mg total) before bedtime. Do all this for 7 days. 14 capsule 08/17/2024 08/24/2024 Active Collagen (20 sources) COLLAGEN PO Take by mouth Active doxycycline hyclate 100 mg oral capsule (1 source) Tetracycline-class Drug Start: 02-20-2023 take 1 capsule by mouth every twelve hours Doxycycline Hyclate 100 MG 1 capsule Orally Twice a day for 10 day(s) Jan, Active estradiol 0.1 mg/ml vaginal cream (20 sources) Estrogen Start: 04-21-2023 estradioL (ESTRACE) 0.01 [...] tablet by mouth once daily Iron Polysacch Ryras-Q89-GF (Poly-Iron 150 Forte) 150-0.025-1 MG capsule Indications: [...] tablet 05/03/2014 Active take 2 tablets by [facility] in the morning levothyroxine (SYNTHROID, LEVOTHROID) 25 MCG tablet Take 2 tablets (50 mcg total) by mouth in the morning. Active End: 02-29-2024 take 1 tablet by mouth in the morning levothyroxine (Synthroid, Levoxyl) 25 MCG tablet Take 25 mcg by mouth in the morning. 02/29/2024 Discontinued Levothyroxine So dium 25 MCG Oral for 90 Days Active metoprolol tartrate 50 mg oral tablet (20 sources) beta-Adrenergic Daxa Start: 10-02-2023 metopr olol tartrate (Lopressor) 50 MG tablet 10/02/2023 Active [...] 25 mg in the evening. 02/29/2024 Discontinued metroNIDAZOLE 500 mg oral tablet (2 sources) Nitroimidazole Antimicrobial Start: 07-28-2024 End: 08-04-2024 take 1 tablet by mouth in the morning, then take 1 tablet by mouth at bedtime metroNIDAZOLE (FLAGYL) 500 mg tablet Indications: BV (bacterial vaginosis) Take 1 tablet (500 mg total) by mouth in the morning and 1 tablet (500 mg total) before bedtime. Do all this for 7 days. 14 tablet 07/28/2024 08/04/2024 Active Start: 07-07-2024 End: 07-14-2024 take 1 tablet by mouth in the morning, then take 1 tablet by mouth at bedtime metroNIDAZOLE (FLAGYL) 500 mg tablet Indications: BV (bacterial vaginosis) Take 1 tablet (500 mg total) by mouth in the morning and 1 tablet (500 mg total) before bedtime. Do all this for 7 days. 14 tablet 07/07/2024 07/14/2024 Active bivugatq-jhoy-EM-calcium &mins (THERAGRAN-M) 9 mg iron-400 mcg tablet (7 sources) yjggmeyr-vyxt-ZW -calcium &mins (THERAGRAN-M) 9 mg iron-400 mcg [...] Jan, Active valACYclovir 1000 mg oral tablet (7 sources) Herpesvirus Nucleoside Analog DNA Polymerase Inhibitor, Herpes [...] Class(es) Dates Sig (Normalized) Sig (Original) aspirin 81 mg delayed release oral tablet (2 sources) Platelet Aggregation Inhibitor, Nonsteroidal Anti-inflammatory Drug Start: 03-28-2024 End: 07-06-2024 take 1 tablet by mouth in the morning, then take 1 tablet by mouth at bedtime aspirin 81 mg Take 1 tablet (81 mg total) by mouth in the morning and 1 tablet (81 mg total) before bedtime. 60 tablet 03/28/2024 07/06/2024 Discontinued (Therapy completed) take 0.5 tablet by mouth once da ezekiel Aspirin 325 MG 1/2 tablet Orally Once a day Active 1 ml methylPREDNISolone acetate 40 mg/ml injection (5 sources) Corticosteroid Start: 08-16-2024 End: 08-16-2024 methylPREDNISolone acetate (DEPO-Medrol) injection 40 mg Start: 08-16-2024 End: 08-16-2024 40 mg, Intra-articular, Once PRN Procedure, Starting on Wed08/16/24 at 1342, For 1 dose Start: 02-20-2023 Medrol (Sudheer) 4 MG as directed Orally for daily dose take half with breakfast half with dinner for 6 days Jan, Active olmesartan medoxomil 20 mg oral tablet (2 sources) Angiotensin 2 Receptor Daxa End: 02-29-2024 take 1 tablet by mouth in the morning olmesartan (BENICAR) 20 mg tablet Take 1 tablet (20 mg total) by mouth in the morning. 02/29/2024 Discontinued (Therapy completed) Problems Active Problems Problem Classification Problem Date Documented Date Episodic/Chronic Acute bronchitis (1 source) Acute bronchitis, unspecified Episodic Cardiac dysrhythmias (10 sources) Unspecified atrial fibrillation; Translations: [Atrial fibrillation] Onset: 05-03-2022 02-29-2024 Chronic Disorders of lipid metabolism (4 sources) Pure hypercholesterolemia; Translations: [Pure hypercholesterolemia, unspecified] Onset: 08-05-2024 08-05-2024 Chronic Essential hypertension (3 sources) Essential (primary) hypertension; Translations: [Hypertensive disorder] Onset: 02-29-2024 02-29-2024 Chronic Genitourinary symptoms and ill-defined conditions (2 sources) Frequency of micturition; Translations: [Increased frequency of urination] Onset: 02-29-2024 02-24-2024 Episodic Inflammatory diseases of female pelvic organs (3 sources) Bacterial vaginosis; Translations: [Acute vaginitis] 07-07-2024 Episodic Nausea and vomiting (1 source) Nausea; Translations: [Nausea] 03-27-2024 Episodic Osteoarthritis (20 sources) Osteoarthritis of right knee joint; Translations: [Unilateral primary osteoarthritis, right knee] Onset: 03-14-2024 02-18-2024 Chronic Other connective tissue disease (9 sources) History of total knee arthroplasty; Translations: [Presence of right artificial knee joint] 03-14-2024 Chronic Other female genital disorders (4 sources) Vaginal discharge; Translations: [Other specified noninflammatory disorders of vagina] Onset: 07-06-2024 07-06-2024 Episodic Other female genital disorders (3 sources) Vaginal odor; Translations: [Other specified noninflammatory disorders of vagina] 07-06-2024 Episodic Other female genital disorders (2 sources) Other specified noninflammatory disorders of vagina; Translations: [Other specified noninflammatory disorders of vagina] Onset: 07-06-2024 Episodic Other lower respiratory disease (1 source) Other specified respiratory disorders Episodic Other nervous system disorders (1 source) Postoperative pain ; Translations: [Other acute postprocedural pain] 03-27-2024 Episodic Other non-traumatic joint disorders (2 sources) Arthritis of left knee 08-16-2024 Chronic Other screening for suspected conditions (not mental [...] NEOPLASM OF BREAST] Onset: 04-04-2022 Episodic Unclassified (3 sources) Acute pain of right knee 03-14-2024 Unclassified (1 source) right knee degenerative joint disease Onset: 03-28-2024 Past or Other Problems Problem Classification Problem Date Documented Date Episodic/Chronic Mood disorders (7 sources) Mood disorders Onset: 04-21-2023 04-21-2023 Other non-traumatic joint disorders (17 sources) Pain in right knee; Translations: [Pain in joint, lower leg] Onset: 03-27-2024 02-18-2024 Episodic Unclassified (5 sources) Preprocedural examination done 02-29-2024 Results Test Name Value Interpretation Reference Range Facility [facility] Office/Cl inic Noteon 01-12-2025 Heart and Vascular Office/Clinic Note [facility]/Clinic Note Chief Complaint 2 week F/U The patient presents for follow-up after LAD angioplasty and to address hypertension management. History of Present Illness - The patient is a 69-year-old female presenting with follow-up post LAD angioplasty and hypertension management. - Essential Hypertension: The patient's blood pressure remains marginal in the office but shows improvement at home. She is currently on a high dose of beta daxa, metoprolol, which is being adjusted to 50 mg once daily. Additionally, losartan hydrochlorothiazide is being added to her regimen. - Post LAD Angioplasty: The patient is following up after undergoing an angioplasty of the left anterior descending artery. There are no current complications reported from the procedure. - Right Radial Artery Knot: A pea-sized knot is noted at the right radial artery, where a bounding pulse is present. A radial ultrasound is planned to rule out an aneurysm. Review of Systems PHQ Score Initial Depression Screen Score: 0 SCORE Constitutional: no fever, no sweats, no weakness Skin: no rash, no lesions, nobruising/petechiae ENMT: no sore throat, no congestion, no hoarseness Respiratory: no shortness of breath, no cough, no orthopnea, no wheezing Cardiovascular: no chest pain, no palpitations, no edema Gastrointestinal: no nausea, no vomiting, no diarrhea, no GI bleeding Genitourinary: no anuria/oliguria no hematuria Musculoskeletal: no back pain, no trauma Neurologic: no headache, no dizziness, no numbness, no weakness Psychiatric: no sleeping problems, no irritability, no anxiety/depression. Heme/Lymph: no bleeding tendency, no bruising tendency Allergy/Immunologic: no recurrent infections, no impaired immunity Additional ROS info: Except as noted in the above Review of Systems and in the History of Present Illness all other systems have been reviewed and are negative or noncontributory. Physical Exam Vitals & Measurements HR: 62(Peripheral) RR: 18 BP: 147/85 SpO2: 99% HT: 67 in HT: 170 cm WT: 146.387 lb WT: 66.4 kg BMI: 22.98 - Cardiovascular: Bounding pulse in right radial artery, pea-sized knot noted General: alert, no acute distress Neck: Supple, noJVD nocarotid bruit Cardiovascular: regular rate and rhythm, no murmur normal peripheral perfusion Respiratory: Lungs CTA, respirations non labored Extremities: no edema Neurological: oriented x 4, LOC appropriate for age, sensation equal & normal bilaterally, speech normal Skin: Warm, dry, intact- no rash or concerning lesions Assessment/Plan 1. Status post insertion of drug-eluting stent into left anterior descending (LAD) artery (Z95.5: Presence of coronary angioplasty implant and graft) Continue guideline directed medical therapy stop Eliquis no evidence of atrial fibrillation in the past that I can find 2. Hyperlipidemia (E78.5: Hyperlipidemia, unspecified) Ordered: Comprehensive Metabolic Panel Lipid Panel 3. Hypertension (I10: Essential (primary) hypertension) - Adjust metoprolol to 50 mg once daily and add losartan hydrochlorothiazide 100/12.5 mg. - Monitor blood pressure at home and follow up in six months. Ordered: metoprolol, 50 mg = 1 tab(s), Tab, Oral, BID, Routine, Start date 01/12/25 21:00:00 EDT Comprehensive Metabolic Panel Lipid Panel Orders: hydrochlorothiazide-l osartan, 1 tab(s), Oral, Daily, 90 tab(s), Refill(s) 0, [facility], 170, cm, 01/12/25 13:40:00 EDT, Height/Length Dosing, 66.4, kg, 01/12/25 13:40:00 EDT, Weight Dosing US Upper Extremity Arterial Duplex Unilatera Post Lad Angioplasty - Continue routine follow-up to monitor for any complications. Right Radial Artery Knot - Perform radial ultrasound to rule out aneurysm. Follow-up No qualifying data available Problem List/Past Medical History Ongoing Abnormal cardiovascular stress test Arrhythmia Status post insertion of drug-eluting stent into left anterior descending (LAD) artery Historical No qualifying data Procedure/Surgical History Cardiac catheterization, left heart (12/29/2024), PCI (percutaneous coronary intervention) of left anterior descending branch of coronary artery (12/29/2024), Knee replacement (2023), Basal cell carcinoma. Medications aspirin 81 mg Chew Tab, 81 mg= 1 tab(s), Oral, Daily clopidogrel 75 mg Tab, 75 mg= 1 tab(s), Oral, Daily Crestor 20 mg Tab, 20 mg= 1 tab(s), Oral, Daily hydrochlorothiazide-l osartan 12.5 mg-100 mg oral tablet, 1 tab(s), Oral, Daily levothyroxine 50 mcg (0.05 mg) Tab, 50 mcg= 1 tab(s), Oral, Daily metoprolol tartrate 100 mg Tab, 100 mg= 1 tab(s), Oral, BID Metoprolol tartrate 50 mg Tab, 50 mg= 1 tab(s), Oral, BID Allergies cyclobenzaprine (Anaphylactic reaction) Social History Alcohol Current. Wine. 1-2 times per week., 12/28/2024 Substance Abuse Never., 12/28/2024 Tobacco - Denies Tobacco Use, 12/27/2024 Never (less than 100 in lifetime) Tobacco Use:. Never Smok (more content not included)... Normal [facility] Comment on above: Result Comment: Elec tronically Signed By: Cynthia SUGGS, Juan Jose Padron\.br\Date and Time Signed: 01/12/25 14:14 EDT Discharge Instructionson Discharge Instructions Discharge Instructions PERLA GOODWIN :1955 Visit Date:12/29/2024 Inpatient Discharge Instructions Your Care Team Admitting Physician - Juan Jose Marie MD Referring Physician - Juan Jose Marie MD Reason for Your Visit R94.39, R07.9 Your Diagnosis Mixed hyperlipidemia Status post insertion of drug-eluting stent into left anterior descending (LAD) artery for coronary artery disease Stenosis of mid portion of left anterior descending (LAD) coronary artery Vitamin D deficiency This Is Your Medications List apixaban (Eliquis 5 mg oral tablet) aspirin (aspirin 81 mg Chew Tab) clopidogrel (clopidogrel 75 mg Tab) levothyroxine (levothyroxine 50 mcg (0.05 mg) Tab) metoprolol (metoprolol tartrate 100 mg Tab) rosuvastatin (Crestor 20 mg Tab) Procedure History Cardiac catheterization, left heart (12/29/2024), PCI (percutaneous coronary intervention) of left anterior descending branch of coronary artery (12/29/2024), Knee replacement (2023), Basal cell carcinoma. Discharge Vitals Heart Rate (Peripheral) 62 Respiratory Rate 20 Blood Pressure 147/83 Height 170 cm Height 170 cm Weight 67 kg Weight 67 kg BMI 23.18 What to do next New Follow Up Appointments after Discharge Follow Up with Juan Jose Marie When: 01/12/2025 01:15 PM EDT Comments: Please call if you need to reschedule Appointment has already been scheduled [place] [phone] Business (1) Medications What How Much When Instructions Next Dose New aspirin (aspirin 81 mg Chew Tab) 1 Tablets By Mouth Every day Pickup at [facility] New clopidogrel (clopidogrel 75 mg Tab) 1 Tablets By Mouth Every day Pickup at [facility] New rosuvastatin (Crestor 20 mg Tab) 1 Tablets By Mouth Every day Pickup at [facility] Unchanged apixaban (Eliquis 5 mg oral tablet) 1 Tablets By Mouth 2 times a day Unchanged levothyroxine (levothyroxine 50 mcg (0.05 mg) Tab) 1 Tablets By Mouth Every day Unchanged metoprolol (metoprolol tartrate 100 mg Tab) 1 Tablets By Mouth 2 times a day Pharmacy Information [facility]: [address] [place], [place] [id number] [phone] Allergies cyclobenzaprine (Anaphylactic reaction) Problems Ongoing - Any problem that you are currently receiving treatment for. Abnormal cardiovascular stress test Arrhythmia Devices Implanted/Removed This Visit Notice: You have devices implanted this visit that may not be MRI compatible. Implanted [facility] Left Anterior Descending Coronary Artery Xience [employer] 2.75x18 12/29/2024, MR [employer] [place], [place] Cardiovascular PCI DISCHARGE INSTRUCTIONS Diet: ??? Resume pre-procedure diet. ??? Increase water intake the next 2 days to flush dye out of the body. Activity: If groin access: ??? Limit activity today. Do not operate a vehicle, machinery or power tools. ??? NO LIFTING OVER 10 POUNDS (a gallon of milk weighs 8 pounds) for 3 days. ??? Limit climbing stairs, bending, squatting and stooping for 3 days. ??? May resume driving in 24 hours. ??? Let pain/discomfort guide your activity. If you are having pain, stop. ??? No sexual activity for 1 week. ??? Return to the Emergency Room if you have trouble breathing, walking or nausea and vomiting. If radial access: ??? Limit your activity today. Do not operate a vehicle, machinery or power tools. ??? NO LIFTING OVER 3 POUNDS for 3 days. ??? Do not bend your wrist for 24 hours. ??? May resume driving in 24 hours. ??? Let pain/discomfort guide your activity. If you are having pain, stop. ??? No sexual activity for 1 week. ??? Return to the Emergency Room if you have trouble breathing, walking or nausea and vomiting. Medications: ??? Resume pre-procedure medication, unless otherwise directed. ??? Hold the following medications for 48 hours post procedure: Actoplus Met Glucophage Glucophage XR Glucovance Avandamet Fortamet Apo-metformin Glycon [place]-metformin Glumetza Janumet Metaglip Riomet Glycomet ??? Minimal pain, soreness and/or discomfort is expected. ??? If you are prescribed an aspirin and/or antiplatelet (such as Plavix, Brilinta or Effient) do NOT stop taking these medications for any reason without talking to your evp managing director Site Care: ??? Do not remove dressing for 24 hours unless it becomes saturated, then replace. ??? Keep site clean and dry; inspect site daily. ??? Do not use any lotions, powders, or ointments at the groin or wrist site for 1 week. ??? May shower 24 hours after the procedure. Clean site with soap and water. Pat dry and apply band aid. No tub baths, swimming or hot tubs for 3 days. Post Procedure: ??? Soreness and tenderness to the site can last up to one week. (more content not included)... Normal [facility] Comment on above: Result Comment: Elec tronically Signed By: Angel RUSSELL, Tari Colmenares\.br\Date and Time Signed: 12/29/24 13:00 EDT Lipid Panelon 12-29-2024 Cholesterol [Mass/Vol] 202 mg/dL High 120-200 [facility] Comment on above: Performed By: #### [id number] #### [facility] [address] [place] [address] Cholesterol in HDL [Mass/Vol] 48 mg/dL Invalid Interpretation Code [facility] Comment on above: Result Comment: '>= 60 LOW RISK' '<= 40 HIGH RISK' Performed By: #### 2 [id number] #### [facility] [address] [place] [address] Cholesterol in LDL [Mass/Vol] 145 mg/dL High <=129 [facility] Comment on above: Performed By: #### 2 [id number] #### [facility] [address] [place] [address] Cholesterol in VLDL [Mass/Vol] 26 mg/dL Normal 7-40 [facility] Comment on above: Performed By: #### 2 [id number] #### [facility] [address] [place] [address] Triglyceride [Mass/Vol] 131 mg/dL Normal <=149 [facility] Comment on above: Performed By: #### 2 [id number] #### [facility] [address] [place] [address] Vitamin D 25 Hydroxyon 12-29 Vitamin D 25 Hydroxy 85.6 ng/mL Normal 30.0-100.0 [facility] Comment on above: Performed By: #### [id number] #### [facility] [address] [place] [address] BMPon 12-27-2024 Anion gap [Moles/Vol] 8 mmol/L Normal 6-16 [facility] Comment on above: Performed By: #### 2 [id number] #### [facility] [address] [place] [address] BUN/Creat Ratio 25 No Units High 10-20 [facility] Comment on above: Performed By: #### 2 [id number] #### [facility] [address] [place] [address] Calcium [Mass/Vol] 9.7 mg/dL Normal 8.9-11.1 [facility] Comment on above: Performed By: #### 2 [id number] #### [facility] [address] [place] [address] Chloride [Moles/Vol] 105 mmol/L Normal 101-111 [facility] Comment on above: Performed By: #### 2 [id number] #### [facility] [address] [place] [address] CO2 [Moles/Vol] 30 mmol/L Normal 21-31 [facility] Comment on above: Performed By: #### 2 [id number] #### [facility] [address] [place] [address] Creatinine [Mass/Vol] 0.8 mg/dL Normal 0.5-1.3 [facility] Comment on above: Performed By: #### 2 [id number] #### [facility] [address] [place] [address] Glucose [Mass/Vol] 106 mg/dL Normal 55-199 [facility] Comment on above: Performed By: #### 2 [id number] #### [facility] [address] [place] [address] Potassium [Moles/Vol] 3.9 mmol/L Normal 3.5-5.3 [facility] Comment on above: Performed By: #### 2 829213 #### [facility] [address] [place] [address] Sodium [Moles/Vol] 139 mmol/L Normal 135-145 [facility] Comment on above: Performed By: #### 2 [id number] #### [facility] [address] [place] [address] Urea nitrogen [Mass/Vol] 20 mg/dL Normal 5-21 [facility] Comment on above: Performed By: #### 2 [id number] #### [facility] [address] [place] [address] CBC w/ Auto Diffon 5 Basophil Absolute 0.0 E9/L Normal 0.0-0.2 [facility] Comment on above: Performed By: #### 2 [id number] #### [facility] [address] [place] [address] Basophils/100 WBC (Bld) 0.4 % Normal 0.0-2.0 [facility] Comment on above: Performed By: #### 2 119373 #### [facility] [address] [place] [address] Eos Absolute 0.1 E9/L Normal 0.0-0.5 [facility] Comment on above: Performed By: #### 2 254014 #### [facility] [address] [place] [address] Eosinophils/100 WBC (Bld) 2.3 % Normal 0.0-8.0 [facility] Comment on above: Performed By: #### 2 037206 #### [facility] [address] [place] [address] Erythrocyte distribution width (RBC) [Ratio] 13.8 % Normal 10.9-14.2 [facility] Comment on above: Performed By: #### 2 675994 #### [facility] [address] [place] [address] Hematocrit (Bld) [Volume fraction] 41.4 % Normal 34.0-46.0 [facility] Comment on above: Performed By: #### 2 447712 #### [facility] [address] [place] [address] Hemoglobin (Bld) [Mass/Vol] 13.8 g/dL Normal 12.0-16.0 [facility] Comment on above: Performed By: #### 2 676850 #### [facility] [address] [place] [address] Lymph Absolute 1.0 E9/L Normal 1.0-4.0 [facility] Comment on above: Performed By: #### 2 758941 #### [facility] [address] [place] [address] Lymphocytes/100 WBC (Bld) 19.2 % Normal 14.0-50.0 [facility] Comment on above: Performed By: #### 2 465757 #### [facility] [address] [place] [address] MCH (RBC) [Entitic mass] 29.7 pg Normal 27.0-34.0 [facility] Comment on above: Performed By: #### 2 615138 #### [facility] [address] [place] [address] MCHC (RBC) [Mass/Vol] 33.3 g/dL Normal 31.4-36.0 [facility] Comment on above: Performed By: #### 2 612693 #### [facility] [address] [place] [address] MCV (RBC) [Entitic vol] 89.4 fL Normal 80.0-100.0 [facility] Comment on above: Performed By: #### 2 245495 #### [facility] [address] [place] [address] [place] Absolute 0.7 E9/L Normal 0.2-1.0 [facility] Comment on above: Performed By: #### 2 443613 #### [facility] [address] [place] [address] Monocytes/100 WBC (Bld) 13.4 % Normal 4.0-14.0 [facility] Comment on above: Performed By: #### 2 662412 #### [facility] [address] [place] [address] Neutro Absolute 3.2 E9/L Normal 2.0-7.5 [facility] Comment on above: Performed By: #### 2 399779 #### [facility] [address] [place] [address] Neutro Auto 64.7 % Normal 36.0-75.0 [facility] Comment on above: Performed By: #### 2 [id number] #### [facility] [address] [place] [address] Platelet 187.0 E9/L Normal 150.0-500.0 [facility] Comment on above: Performed By: #### 2 289479 #### [facility] [address] [place] [address] Platelet mean volume (Bld) [Entitic vol] 8.4 fL Normal 6.4-10.8 [facility] Comment on above: Performed By: #### 2 175662 #### [facility] [address] [place] [address] RBC 4.6 E12/L Normal 4.3-5.9 [facility] Comment on above: Performed By: #### 2 856279 #### [facility] [address] [place] [address] WBC 5.0 E9/L Normal 4.0-11.0 [facility] Comment on above: Performed By: #### 2 559228 #### [facility] [address] [place] [address] Heart and Vascular Office/Cl inic Noteon 12-27-2024 Heart and Vascular Office/Clinic Note Heart and Vascular Office/Clinic Note Chief Complaint New Patient- Abn Stress test The patient presents with concerns regarding an abnormal stress test result. History of Present Illness - The patient is a 69-year-old female presenting with follow-up of an abnormal stress test. - The patient underwent a nuclear stress test on December 12 at [facility], which revealed an abnormal result with a moderate-sized defect in the anterior wall of the heart. - A cardiac CT scoring in August showed a low calcium score of 41, indicating minimal calcification in the coronary arteries. - The patient experienced two episodes of chest discomfort, described as a pressure-like sensation rated 6-7/10 in severity, occurring while at rest in October and early December. - The episodes were associated with sweating and fear, lasting approximately 10 minutes each. - The patient has knee pain, which prevented her from performing an exercise stress test, leading to the use of a pharmacological stress test instead. Review of Systems PHQ Score Initial Depression Screen Score: 0 SCORE - Cardiovascular: Reports chest pressure at rest, denies pain waking her from sleep. - Musculoskeletal: Reports knee pain. Constitutional: no fever, no sweats, no weakness Skin: no rash, no lesions, nobruising/petechiae ENMT: no sore throat, no congestion, no hoarseness Respiratory: no shortness of breath, no cough, no orthopnea, no wheezing Cardiovascular: no chest pain, no palpitations, no edema Gastrointestinal: no nausea, no vomiting, no diarrhea, no GI bleeding Genitourinary: no anuria/oliguria no hematuria Musculoskeletal: no back pain, no trauma Neurologic: no headache, no dizziness, no numbness, no weakness Psychiatric: no sleeping problems, no irritability, no anxiety/depression. Heme/Lymph: no bleeding tendency, no bruising tendency Allergy/Immunologic: no recurrent infections, no impaired immunity Additional ROS info: Except as noted in the above Review of Systems and in the History of Present Illness all other systems have been reviewed and are negative or noncontributory. Physical Exam Vitals & Measurements HR: 62(Peripheral) RR: 18 BP: 148/82 SpO2: 100% HT: 170 cm HT: 67 in WT: 148.591 lb WT: 67.4 kg BMI: 23.32 - Cardiovascular: Pulse palpation performed, normal findings noted. General: alert, no acute distress Skin: warm, dry intact Head: atraumatic, normocephalic Neck: Trachea midline, no JVD, no bruit Eye: normal conjunctiva, sclera clear ENMT: oral mucosa moist Cardiovascular: regular rate and rhythm, nomurmur normal peripheral perfusion Respiratory: Lungs CTA, respirations non labored Chest wall: no deformity. Gastrointestinal: soft, non distended, no tenderness, no guarding. Back: No tenderness, Normal ROM, Normal alignment. Extremities: no edema, no deformity, no trauma Neurological: oriented x 4, LOC appropriate for agesensation equal & normal bilaterally, speech normal Psychiatric: cooperative, affect appropriate for age, normal judgement, normal psychiatric thoughts. Assessment/Plan 1. Abnormal cardiovascular stress test (R94.39: Abnormal result of other cardiovascular function study) Airway Assessment: Class II: Visualization of the soft palate, fauces, uvula Airway Abnormalities: none ASA Classification: ASA 2: A patient with mild systemic disease Risks/Benefits of IV Sedation: Have been explained IV Sedation Plan: _Patient agrees to IV sedation plan 2. Arrhythmia (I49.9: Cardiac arrhythmia, unspecified) Orders: ECG 12 Lead Adult Abnormal Nuclear Stress Test - Plan to perform a coronary angiogram to assess for coronary artery disease and potential intervention if blockages are found. - Discussed risks of the procedure including stroke, myocardial infarction, and contrast-induced nephropathy, with benefits outweighing the risks. Moderate-Sized Defect In The Anterior Wall Of The Heart - The defect noted on the nuclear stress test suggests ischemia, warranting further investigation with angiography. Knee Pain - Knee pain noted as a factor preventing exercise stress testing, managed with pharmacological stress testing instead. Follow-up No qualifying data available Problem List/Past Medical History Ongoing Abnormal cardiovascular stress test Arrhythmia Historical No qualifying data Procedure/Surgical History Knee replacement (2023), Basal cell carcinoma. Medications Eliquis 5 mg oral tablet, 5 mg= 1 tab(s), Oral, BID levothyroxine 50 mcg (0.05 mg) Tab, 50 mcg= 1 tab(s), Oral, Daily metoprolol tartrate 100 mg Tab, 100 mg= 1 tab(s), Oral, BID Allergies cyclobenzaprine (Anaphylactic reaction) Social History Tobacco - Denies Tobacco Use, 12/27/2024 Never (less than 100 in lifetime) Tobacco Use:. Never Smokeless Tobacco Use:., 12/27/2024 Family History Bypass: Father. Open heart surgery: Father. Primary malignant neoplasm of female breast: Mother. Normal [facility] Comment on above: Result Comment: Elec tronically Signed By: Cynthia SUGGS, Juan Jose Padron\.br\Date and Time Signed: 12/27/24 15:10 EDT eGFRon 12-27-2024 eGFR 79 mL/min/1.73 m2 Normal >=59 [facility] Comment on above: Performed By: #### 1 [id number] #### [facility] [address] [place] [address] GRAM STAINon 08-16-2024 Microscopic observation Gram stain Nom (Unsp spec) GRAM STAIN INTERMEDIATE FOR BACTERIAL VAGINOSIS, ALTERED VAGINAL PROSPER (Based on Eder scoring, validated for vaginal specimens) NO YEAST SEEN THIS METHOD HAS ONLY BEEN EVALUATED FOR WOMEN OF CHILDBEARING AGE AND POSTMENOPAUSAL WOMEN ON ESTROGEN REPLACEMENT THERAPY. Normal [facility] Comment on above: Performed By: #### 6 64-3 #### [facility] ([id number]) [address] [place] [address], [address] [place] [address] No Panel Informationon 08-16 TIMMY Liu 08/16/2024 2:06 PM L Inj/Asp: L knee on 08/16/2024 1:42 PM Indications: pain Details: 22 G needle, anterolateral approach Medications: 40 mg methylPREDNISolone acetate 40 MG/ML Outcome: tolerated well, no immediate complications UTILIZING ASEPTIC TECHNIQUE PT GIVEN INJECTION IN LEFT KNEE, NEUROVASC INTACT S/P INJ, TOLERATED WELL Procedure, treatment alternatives, risks and benefits explained, specific risks discussed. Consent was given by the patient. [facility] YEAST CULTUREon 08-16-2024 Yeast Org specific cx Ql (Unsp spec) FUNGAL SMEAR NO FUNGAL ELEMENTS SEEN ON DIRECT SMEAR CULTURE RESULTS NO YEAST ISOLATED AT 5 DAYS Normal [facility] Comment on above: Performed By: #### 1 8482-0 #### [facility] ([id number]) [address] [place] [address] CT CARDIAC SCORING WO IV CON TRASTon 08-05-2024 CT CARDIAC SCORING WO IV CONTRAST Interpreted By: Juan Sandoval, ADDENDUM: NON-CARDIOVASCULAR FINDINGS [...] STRUCTURES ARE THE SOLE RESPONSIBILITY OF THE NUT AND BOLT ASSEMBLER SUBMITTING THE ORIGINAL REPORT (NOT THIS ADDENDUM) Signed by: Juan Sandoval 08/05/2024 11:20 AM -------- ORIGINAL REPORT -------- Dictation workstation: [id number] Interpreted By: Eben Garcia, STUDY: CT CARDIAC SCORING WO IV CONTRAST; 08/05/2024 11:11 am INDICATION: Signs/Symptoms:.. COMPARISON: None. ACCESSION NUMBER(S): [id number] ORDERING CLINICIAN: FRANCISCO JAVIER BONE TECHNIQUE: Using [...] increased >800 Kam et al. JCCT 2016 (http://dx.doi.org/10 .1016/j.jcct.2016.11. 003) [place] Percentile In general, greater than 75th [...] Calcification can be calcuate using link below [email or web address]://[email or web address] [email or web address]/Mes aRiskScore/RiskScore. aspx Ada warner al. JACC 2015 (http://dx.doi.org/10 .1016/j.j acc.2015.08.035) [employer] Adviser: Dr. Eben Garcia, Date: 08/05/2024 11:16 am Signed by: Eben Garcia 08/05/2024 11:17 AM Dictation workstation: [id number] [facility] CT for calcium scoring WO co ntrast and CTA W contrast IV Heart and coronary arterieson 08-05-2024 Addendum by Juan Sandoval MD on 08/05/2024 [...] STRUCTURES ARE THE SOLE RESPONSIBILITY OF THE NUT AND BOLT ASSEMBLER SUBMITTING THE ORIGINAL REPORT (NOT THIS ADDENDUM) Signed by: Juan Sandoval 08/05/2024 11:20 AM -------- ORIGINAL REPORT -------- Dictation workstation: [id number] [facility] Work Phone: 1. Coronary artery calcium score of 41*. 2. BANGURA 61st percentile for age, gender, and race in asymptomatic patients. *Coronary Artery Agatston score Score risk Very low 1-99 Mildly increased 100-299 Moderately increased >300 Moderate to severely increased >800 Kam et al. JCCT 2016 (http://dx.doi.org/10 .1016/j.jcct.2016.11. 003) [place] Percentile In general, greater than 75th [...] Calcification can be calcuate using link below [email or web address]://[email or web address] [email or web address]/MESACHDRisk/Mes aRiskScore/RiskScore. aspx Ada et al. JACC 2015 (http://dx.doi.org/10 .1016/j.j acc.2015.08.035) [employer] Adviser: Dr. Eben Garcia, Date: 08/05/2024 11:16 am Signed by: Eben Garcia 08/05/2024 11:17 AM Dictation workstation: [id number] [facility] MMODAL Interpreted By: Eben Garcia, STUDY: CT CARDIAC SCORING WO IV CONTRAST; 08/05/2024 11:11 am INDICATION: Signs/Symptoms:.. COMPARISON: None. ACCESSION NUMBER(S): [id number] ORDERING CLINICIAN: FRANCISCO JAVIER BONE TECHNIQUE: Using [...] left pulmonary artery are normal in size. MMODAL Eben Garcia D O / Juan Sandoval MD - 08/05/2024 Interpreted By: Eben Garcia, STUDY: CT CARDIAC SCORING WO IV CONTRAST; 08/05/2024 11:11 am INDICATION: Signs/Symptoms:.. COMPARISON: None. ACCESSION NUMBER(S): [id number] ORDERING CLINICIAN: FRANCISCO JAVIER BONE TECHNIQUE: Using [...] increased >800 Kam et al. JCCT 2016 (http://dx.doi.org/10 .1016/j.jcct.2016.11. 003) [place] Percentile In general, greater than 75th [...] Calcification can be calcuate using link below [email or web address]://www.[email or web address] [email or web address]/MESACHDRisk/Mes aRiskScore/RiskScore. aspx Maryanne. JACC 2015 (http://dx.doi.org/10 .1016/j.j acc.2015.08.035) [place] [employer] Adviser: Dr. Eben Garcia, Date: 08/05/2024 11:16 am Signed by: Eben Garcia 08/05/2024 11:17 AM Dictation workstation: [id number] [facility] Work Phone: Radiology Study observation (narrative) [facility] Work Phone: CT for calcium scoring WO co ntrast and CTA W contrast IV Heart and coronary arteriesOrdered By: Eben Garcia on 08-05-2024 [facility] Work Phone: GRAM STAINon 07-27-2024 Microscopic observation Gram stain Nom (Unsp spec) GRAM STAIN POSITIVE FOR BACTERIAL VAGINOSIS (Based on Eder scoring, validated for vaginal specimens) NO YEAST SEEN Normal [facility] Comment on above: Performed By: #### 6 64-3 #### [facility] ([id number]) [address], [address] [place] [address] YEAST CULTUREon 07-27-2024 Yeast Org specific cx Ql (Unsp spec) FUNGAL SMEAR NO FUNGAL ELEMENTS SEEN ON DIRECT SMEAR CULTURE RESULTS NO YEAST ISOLATED AT 5 DAYS Normal [facility] Comment on above: Performed By: #### 1 8482-0 #### [facility] ([id number]) [address] [place] [address] XR Knee - left 3 [facility] Result: AP and Lateral left knee with sunrise view: No acute fracture or dislocation. Right knee arthroplasty well aligned Left knee weight bearing slight varus deformity. Pt is bone on bone medial joint line Subchondral sclerosis and cystic changes noted. Enthesophyte to medial femoral condyle. Impression: tricompartmental arthritic changes [facility]. [facility] (narrative[facility] GRAM STAINon 07-06-2024 Microscopic observation Gram stain Nom (Unsp spec) GRAM STAIN POSITIVE FOR BACTERIAL VAGINOSIS (Based on Eder scoring, validated for vaginal specimens) NO YEAST SEEN Normal [facility] Comment on above: Performed By: #### 6 64-3 #### [facility] ([id number]) [address], [address] [place] [address] YEAST CULTUREon 07-06-2024 Yeast Org specific cx Ql (Unsp spec) FUNGAL SMEAR NO FUNGAL ELEMENTS SEEN ON DIRECT SMEAR CULTURE RESULTS NO YEAST ISOLATED AT 5 DAYS Normal [facility] Comment on above: Performed By: #### 1 8482-0 #### [facility] ([id number]) [address], [address] [place] [address] XR Knee - right 1 or 2 Views on 05-09-2024 Imaging Result: AP and Lateral of right knee: Surgical position and alignment of prosthetic components without evidence of loosening or wear to femora, tibial or patellar components, The alignment appears to be anatomic. No evidence of accelerated or asymmetric wear to tibial tray or patella button. No evidence of fracture or dislocation. Impression: Unremarkable right total knee arthroplasty [facility] Radiology Study observation (narrative) [facility] XR KNEE RT 1 OR 2 VWSon [...] status. Impression: Status post total knee arthroplasty. Finalized by Mesfin Reed MD on 03/28/2024 11:05 AM Normal [facility] Bacteria identified Cx Nom ( U)on 03-01-2024 Service comment (Unsp spec) [Interp] <10,000 ORGANISMS/ML NORMAL URO GENITAL PROSPER [facility] BASIC METABOLIC PANLon 02-28 Anion gap [Moles/Vol] 9 mmol/L Normal 5-15 [facility] Comment on above: Performed By: #### B LEON CHAPPELL #### [facility] ([id number]) [address], [address] [place] [address] Calcium [Mass/Vol] 9.6 mg/dL Normal 8.5-10.5 [facility] Comment on above: Performed By: #### B LEON CHAPPELL #### [facility] ([id number]) [address], [address] [place] [address] Chloride [Moles/Vol] 100 mmol/L Normal 98-109 [facility] Comment on above: Performed By: #### B LEON CHAPPELL #### [facility] ([id number]) [address], [address] [place] [address] CO2 [Moles/Vol] 30 mmol/L Normal 22-32 [facility] Comment on above: Performed By: #### LEON Jones MP #### [facility] ([id number]) [address], [address] [place] [address] Creatinine [Mass/Vol] 0.95 mg/dL Normal 0.40-1.00 [facility] Comment on above: Result Comment: METH OD TRACEABLE TO IDMS STANDARD Performed By: #### B LEON CHAPPELL #### [facility] ([id number]) [address], [address] [place] [address] GFR/1.73 sq M.predicted among non-blacks MDRD (S/P/Bld) [Vol rate/Area] 65 mL/min/{1.73_m2} Normal >59 [facility] Comment on above: Result Comment: Reported eGFR is based on the CKD-EPI 2020 equation that does not use a race coefficient. Performed By: #### B MISTI CBCA #### [facility] ([id number]) [address], [address] [place] [address] Glucose [Mass/Vol] 84 mg/dL Normal 65-99 [facility] Comment on above: Performed By: #### B MISTI, CBCA #### [facility] ([id number]) [address], [address] [place] [address] Potassium [Moles/Vol] 3.7 mmol/L Normal 3.5-5.0 [facility] Comment on above: Performed By: #### B MISTI CBCA #### [facility] ([id number]) [address], [address] [place] [address] Sodium [Moles/Vol] 139 mmol/L Normal 134-146 [facility] Comment on above: Performed By: #### Robert CHAPPELL CBCA #### [facility] ([id number]) [address], [address] [place] [address] Urea nitrogen [Mass/Vol] 24 mg/dL Normal 5-27 [facility] Comment on above: Performed By: #### Robert CHAPPELL CBCA #### [facility] ([id number]) [address], [address] [place] [address] Basic Metabolic Panelon 10-2 Anion gap [Moles/Vol] 9 mmol/L 5 - 15 mmol/L [facility] Calcium [Mass/Vol] 9.6 mg/dL 8.5 - 10. 5 mg/dL [facility] Chloride [Moles/Vol] 100 mmol/L 98 - 10 9 mmol/L [facility] CO2 [Moles/Vol] 30 mmol/L 22 - 32 mmol/L [facility] Creatinine [Mass/Vol] 0.95 mg/dL 0.40 - 1.00 mg/dL [facility] Comment on above: METHOD TRACEABLE TO IDMS STANDARD eGFR (CKD-EPI)non-race dependent 65 - PINF [facility] Comment on above: Reported eGFR is based on the CKD-EPI 2020 equation that does not use a race coefficient. Glucose [Mass/Vol] 84 mg/dL 65 - 99 mg/dL [facility] Potassium [Moles/Vol] 3.7 mmol/L 3.5 - 5.0 mmol/L [facility] Sodium [Moles/Vol] 139 mmol/L 134 - 146 mmol/L [facility] Urea nitrogen [Mass/Vol] 24 mg/dL 5 - 27 mg/dL [facility] CBC AND AUTO DIFFon 02-29-20 ABSOLUTE BASOPHIL 0.1 X10E9/L Normal 0.0-0.2 [facility] Comment on above: Performed By: #### B MISTI CBCA #### [facility] ([id number]) [address] [facility] [address] [place] [address] ABSOLUTE NEUTROPHIL 2.6 X10E9/L Normal 1.5-6.6 [facility] Comment on above: Performed By: #### B MISTI CBCA #### [facility] ([id number]) [address] [place] [address] Basophils/100 WBC (Bld) 1.3 % Normal [facility] Comment on above: Performed By: #### B MISTI, CBCA #### [facility] ([id number]) [address], [address] [place] [address] Eosinophils (Bld) [#/Vol] 0.2 10*3/uL Normal 0.0-0.4 [facility] Comment on above: Performed By: #### B MISTI, CBCA #### [facility] ([id number]) [address] [address] Eosinophils/100 WBC (Bld) 3.3 % Normal [facility] Comment on above: Performed By: #### B MP, CBCA #### [facility] ([id number]) [address] [place] [address] Erythrocyte distribution width (RBC) [Ratio] 14.4 % Normal 11.5-15.0 [facility] Comment on above: Performed By: #### B MISTI, CBCA #### [facility] ([id number]) [address], [address] [place] [address] Hematocrit (Bld) [Volume fraction] 37.6 % Normal 35-47 [facility] Comment on above: Performed By: #### B MP, CBCA #### [facility] ([id number]) [address] [place] [address] Hemoglobin (Bld) [Mass/Vol] 12.4 g/dL Normal 11.7-15.5 [facility] Comment on above: Performed By: #### B MISTI, CBCA #### [facility] ([id number]) [address] [place] [address] Lymphocytes (Bld) [#/Vol] 1.2 10*3/uL Normal 1.0-3.5 [facility] Comment on above: Performed By: #### B MISTI, CBCA #### [facility] ([id number]) [address] [facility] [address] [place] [address] Lymphocytes/100 WBC (Bld) 24.2 % Normal [facility] Comment on above: Performed By: #### B MISTI, CBCA #### [facility] ([id number]) [address] [facility] [address] [place] [address] MCH (RBC) [Entitic mass] 29.2 pg Normal 27-34 [facility] Comment on above: Performed By: #### B MP, CBCA #### [facility] ([id number]) [address] [facility] [address] [place] [address] MCHC (RBC) [Mass/Vol] 32.9 g/dL Normal 32-36 [facility] Comment on above: Performed By: #### B MP, CBCA #### [facility] ([id number]) [address], [address] [place] [address] MCV (RBC) [Entitic vol] 89 fL Normal 80-100 [facility] Comment on above: Performed By: #### B MP, CBCA #### [facility] ([id number]) [address], [address] [place] [address] Monocytes (Bld) [#/Vol] 0.8 10*3/uL Normal 0-0.9 [facility] Comment on above: Performed By: #### B MP, CBCA #### [facility] ([id number]) [address] [place] [address] Monocytes/100 WBC (Bld) 16.4 % Normal [facility] Comment on above: Performed By: #### B MP, CBCA #### [facility] ([id number]) [address] [place] [address] Neutrophils/100 WBC (Bld) 54.8 % Normal [facility] Comment on above: Performed By: #### B MP, CBCA #### [facility] ([id number]) [address] [place] [address] Platelet mean volume (Bld) [Entitic vol] 8.5 fL Normal 7-12 [facility] Comment on above: Performed By: #### B MP, CBCA #### [facility] ([id number]) [address], [address] [place] [address] Platelets (Bld) [#/Vol] 225 10*3/uL Normal 150-450 [facility] Comment on above: Performed By: #### B MP, CBCA #### [facility] ([id number]) [address], [address] [place] [address] RBC COUNT 4.25 X10E12/L Normal 3.80-5.20 [facility] Comment on above: Performed By: #### B MP, CBCA #### [facility] ([id number]) [address] [place] [address] WBC (Bld) [#/Vol] 4.7 10*3/uL Normal 4.0-11.0 [facility] Comment on above: Performed By: #### B MP, CBCA #### [facility] ([id number]) [address] [place] [address] CBC W Auto Differential pane l (Bld)on 02-29-2024 ABSOLUTE BASOPHIL 0.1 [facility] Comment on above: PERFORMED AT [facility] [address],[place] [address] Basophils/100 WBC (Bld) 1.3 % [facility] Eosinophils (Bld) [#/Vol] 0.2 10*3/uL [facility] Eosinophils/100 WBC (Bld) 3.3 % [facility] Erythrocyte distribution width (RBC) [Ratio] 14.4 % 11.5 - 15.0 % [facility] Hematocrit (Bld) [Volume fraction] 37.6 % 35 - 47 % [facility] Hem[facility] (Bld) [Mass/Vol] 12.4 g/dL 11.7 - 15.5 g/dL [facility] Lymphocytes (Bld) [#/Vol] 1.2 10*3/uL [facility] Lymphocytes/100 WBC (Bld) 24.2 % [facility] MCH (RBC) [Entitic mass] 29.2 pg 27 - 34 pg [facility] MCHC (RBC) [Mass/Vol] 32.9 g/dL 32 - 3 6 g/dL [facility] MCV (RBC) [Entitic vol] 89 fL 80 - 100 fL [facility] Monocytes (Bld) [#/Vol] 0.8 10*3/uL [facility] Monocytes/100 WBC (Bld) 16.4 % [facility] Neutrophils (Bld) [#/Vol] 2.6 10*3/uL [facility] Neutrophils/100 WBC (Bld) 54.8 % [facility] Platelet mean volume (Bld) [Entitic vol] 8.5 fL 7 - 12 fL [facility] Platelets (Bld) [#/Vol] 225 10*3/uL [facility] RBC (Bld) [#/Vol] 4.25 10*6/uL [facility] WBC corrected for nucl RBC Auto (Bld) [#/Vol] 4.7 [facility] auto differentialon 02-01 Basophils (Bld) [#/Vol] 0.1 10*3/uL [facility] Basophils/100 WBC (Bld) 1.3 % [facility] Eosinophils (Bld) [#/Vol] 0.2 10*3/uL [facility] Eosinophils/100 WBC (Bld) 3.3 % [facility] Erythrocyte distribution width (RBC) [Ratio] 14.4 % 11.5 - 15.0 % [facility] Hematocrit (Bld) [Volume fraction] 37.6 % 35 - 47 % [facility] Hemoglobin (Bld) [Mass/Vol] 12.4 g/dL 11.7 - 15.5 g/dL [facility] Lymphocytes (Bld) [#/Vol] 1.2 10*3/uL [facility] Lymphocytes/100 WBC (Bld) 24.2 % [facility] MCH (RBC) [Entitic mass] 29.2 pg 27 - 34 pg [facility] MCHC (RBC) [Mass/Vol] 32.9 g/dL 32 - 3 6 g/dL [facility] MCV (RBC) [Entitic vol] 89 fL 80 - 100 fL [facility] Monocytes (Bld) [#/Vol] 0.8 10*3/uL [facility] Monocytes/100 WBC (Bld) 16.4 % [facility] Neutrophils (Bld) [#/Vol] 2.6 10*3/uL [facility] Neutrophils/100 WBC (Bld) 54.8 % [facility] Platelet mean volume (Bld) [Entitic vol] 8.5 fL 7 - 12 fL [facility] Platelets (Bld) [#/Vol] 225 10*3/uL [facility] RBC (Bld) [#/Vol] 4.25 10*6/uL [facility] WBC corrected for nucl RBC Auto (Bld) [#/Vol] 4.7 [facility] ECG 12 leadon 02-29-2024 TRACEMASTERVUE [facility] URINALYSISon 02-29-2024 Bilirubin Ql (U) Negative Normal NEG [facility] Comment on above: Performed By: #### U A #### [facility] ([id number]) [address] [place] [address] BLOOD/HGB Negative Normal NEG [facility] Comment on above: Performed By: #### U A #### [facility] ([id number]) [address] [place] [address] Color (U) YELLOW Normal YELLOW [facility] Comment on above: Performed By: #### U A #### [facility] ([id number]) [address], [address] [place] [address] Glucose Ql (U) Negative Normal NEG [facility] Comment on above: Performed By: #### U A #### [facility] ([id number]) [address], [address] [place] [address] Hyaline casts LM Ql (Urine sed) 10 /lpf High 0-2 [facility] Comment on above: Performed By: #### U A #### [facility] ([id number]) [address], [address] [place] [address] Ketones Ql (U) Negative Normal NEG [facility] Comment on above: Performed By: #### U A #### [facility] ([id number]) [address], [address] [place] [address] Leukocyte esterase Test strip Ql (U) MODERATE Abnormal NEG [facility] Comment on above: Performed By: #### U A #### [facility] ([id number]) [address] [place] [address] MUCOUS PRESENT Abnormal NONE [facility] Comment on above: Performed By: #### U A #### [facility] ([id number]) [address] [place] [address] Nitrite Ql (U) Negative Normal NEG [facility] Comment on above: Performed By: #### U A #### [facility] ([id number]) [address] [place] [address] pH (U) 6.0 [pH] Normal 5.0-8.5 [facility] Comment on above: Performed By: #### U A #### [facility] ([id number]) [address] [facility] [address] [place] [address] Protein Ql (U) Trace Abnormal NEG [facility] Comment on above: Performed By: #### U A #### [facility] ([id number]) [address], [address] [place] [address] R.B.CELLS 0 /hpf Normal 0-5 [facility] Comment on above: Performed By: #### U A #### [facility] ([id number]) [address] [place] [address] Specific gravity (U) [Rel density] 1.017 Normal 1.003-1.035 [facility] Comment on above: Performed By: #### U A #### [facility] ([id number]) [address] [place] [address] SQUAMOUS EPITHELIUM 14 /hpf High 0-5 [facility] Comment on above: Performed By: #### U A #### [facility] ([id number]) [address] [place] [address] TURBIDITY CLOUDY Abnormal CLEAR [facility] Comment on above: Performed By: #### U A #### [facility] ([id number]) [address] [place] [address] Urobilinogen (U) [Mass/Vol] mg/dL Normal <1.1 [facility] Comment on above: Performed By: #### U A #### [facility] ([id number]) [address] [place] [address] W.B.CELLS 20 /hpf High 0-5 [facility] Comment on above: Performed By: #### U A #### [facility] ([id number]) [address] [place] [address] URINE CULTUREon 02-29-2024 Bacteria identified Cx Nom (U) CULTURE RESULTS <10,000 ORGANISMS/ML NORMAL URO GENITAL PROSPER Normal [facility] Comment on above: Performed By: #### 6 30-4 #### [facility] ([id number]) [address] [place] [address] Urinalysison 02-29-2024 Bilirubin Ql (U) Negative Negative^Ne gative [facility] Color (U) YELLOW YELLOW^YELL OW [facility] Epithelial cells Auto (Urine sed) [#/Area] 14 High [facility] ealt System Glucose (U) [Mass/Vol] Negative Negative^Ne gative mg/dL [facility] Hemoglobin Auto test strip Ql (U) Negative Negative^Ne gative [facility] Hyaline casts (Urine sed) [#/Area] 10 /[LPF] High [facility] Interpretation and review of laboratory results Abnormal [facility] Ketones (U) [Mass/Vol] Negative Negative^Ne gative mg/dL [facility] Leukocyte esterase Auto test strip Ql (U) MODERATE Abnormal Negative^Ne gative [facility] Mucus Ql (Urine sed) PRESENT Abnormal NONE^NONE [facility] Nitrite Auto test strip Ql (U) Negative Negative^Ne gative [facility] pH (U) 6 [pH] 5.0 - 8.5 [facility] Protein (U) [Mass/Vol] Trace Abnormal Negative^Ne gative mg/dL [facility] RBC Auto (Urine sed) [#/Area] 0 [facility] Specific gravity Refractometry automated (U) [Rel density] 1.017 1.003 - 1.035 [facility] Turbidity Ql (U) CLOUDY Abnormal CLEAR^CLEAR [facility] Urobilinogen Qn (U) NINF [facility] WBC Auto (Urine sed) [#/Area] 20 High [facility] XR CHEST 2 VWSon 02-29-2024 [...] is appreciated. Impression: * No acute process. Finalized by Kendal Dean MD on 02/29/2024 2:42 PM Normal [facility] XR Chest PA and Lateralon History: Preop. A. fib. Chest Xray Two-view study. Findings: Lungs are clear. Cardiac silhouette and pulmonary vasculature are unremarkable. No focal consolidative airspace disease, pneumothorax, or pleural effusion is appreciated. No free air beneath the diaphragm is noted. Scoliosis is appreciated. Tortuous descending aorta is appreciated. Impression: * No acute process. Finalized by Kendal Dean MD on 02/29/2024 2:42 PM [employer] Kendal Dean MD - 02/29/2024 History: Preop. A. fib. Chest Xray Two-view study. Findings: Lungs are clear. Cardiac silhouette and pulmonary vasculature are unremarkable. No focal consolidative airspace disease, pneumothorax, or pleural effusion is appreciated. No free air beneath the diaphragm is noted. Scoliosis is appreciated. Tortuous descending aorta is appreciated. Impression: * No acute process. Finalized by Kendal Dean MD on 02/29/2024 2:42 PM [facility] observation (narrative) [facility] XR Chest PA and LateralOrder ed By: Kendal Dean on 02-29-2024 [employer] Work Phone: XR Femur and Tibia Views [...] Rory Huang MD on 02/29/2024 2:49 PM [facility] observation (narrative) [facility] XR Femur and Tibia Views for leg lengthOrdered By: Rory Huang on 02-29-2024 [employer] Work Phone: XR Knee - right 1 or 2 Views on 02-18-2024 Imaging Result: X-rays AP and lateral of right knee showed severe varus deformity with [id number] articulation to the medial joint line. There is flattening of the articular surfaces medially to the tibia plateau and femoral condyle. There is marginal osteophytic formation and subchondral sclerosis noted medially and the patellofemoral joint. There is no evidence of fracture or dislocation. Bony structures viewed showed appropriate ossification. [facility] Radiology Study observation (narrative) [facility] COVID + FLU Quick Testingon 02-20-2023 SARS-CoV-2 (COVID-19) RNA EUGENIO+probe Ql (Unsp spec) Negative [employer] Other COVID + FLU Quick Testing Negative [employer] Other MG MAMM SCREEN 3D WILLIE CADon 04-01-2022 MG MAMM SCREEN 3D WILLIE CAD Patient: PERLA GOODWIN Exam Date: 04/01/2022 : 1955 Gender:F Ordering : DR FRANCISCO JAVIER BONE D.O. Admission #: [id number] Family : Order #: [id number] CLICK HERE TO VIEW EXAM RADIOLOGY REPORT [...] breast cancer at age 54. LOCATION: [facility] BREAST COMPOSITION: Heterogeneously dense,which may obscure [...] M.D. 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 Note: Microscopic examination reveals a specimen that extends into the superficial dermis. There is a mild superficial interstitial lymphocytic infiltrate and there is mild basal layer melanin pigmentation. There is acantholysis in areas. Multiple step sections were performed. These findings could be seen in an acantholytic acanthoma if solitary or Alfonso's disease. A lentigo cannot be excluded. Electronically Signed Out by DANYELL CHAN M.D. Electronically Signed Out By DANYELL CHAN MD/ANNI Clinical History: Morphology: 0.5cm pink papule DDX: Neoplasm of Uncertain Behavior vs. Basal Cell Carcinoma ([place]) ([id number]) Specimens Submitted As: A: SKIN, MIDDLE STERNUM, SHAVE BIOPSY ([id number]) Gross Description: Shave; 0.4x0.3x0.1 The gross evaluation was performed and the original slides were prepared at [facility], [facility] [address], [place] [address]. jks/07/03/2019 Normal [facility] Comment on above: Performed By: #### D #### Dermatopathology Vital Signs Date Time Vital Sign Value Performing Clinician Facility 08-16-2024 10:44-0400 Body height 171.5 cm Natalia Camacholey LITIGATION SPECIALIST-CNM Work Phone: [facility] 08-16-2024 10:44-0400 Body mass index (BMI) [Ratio] 22.99 kg/m2 Nataliajhon Camacholey LITIGATION SPECIALIST-CNM Work Phone: [facility] 08-16-2024 10:44-0400 Body weight 67.59 kg Natalia Sholey LITIGATION SPECIALIST-CNM Work Phone: [facility] 08-16-2024 10:44-0400 Diastolic blood pressure 84 mm[Hg] Natalia Sholey LITIGATION SPECIALIST-CNM Work Phone: [facility] 08-16-2024 10:44-0400 Systolic blood pressure 156 mm[Hg] Natalia Sholey LITIGATION SPECIALIST-CNM Work Phone: [facility] 07-27-2024 09:36-0400 Body height 171.5 cm Kennedi Skyzer LITIGATION SPECIALIST-SHAREPOINT ADMINISTRATOR Work Phone: [facility] 07-27-2024 09:36-0400 Body mass index (BMI) [Ratio] 23.02 kg/m2 Kennedi Krotzer LITIGATION SPECIALIST-SHAREPOINT ADMINISTRATOR Work Phone: [facility] 07-27-2024 09:36-0400 Body weight 67.68 kg Kennedi Krotzer LITIGATION SPECIALIST-SHAREPOINT ADMINISTRATOR Work Phone: [facility] [employer] [facility] 07-27-2024 09:36-0400 Diastolic blood pressure 78 mm[Hg] Kennedi Krotzer LITIGATION SPECIALIST-SHAREPOINT ADMINISTRATOR Work Phone: [facility] [employer] [facility] 07-27-2024 09:36-0400 Systolic blood pressure 190 mm[Hg] Kennedi Krotzer LITIGATION SPECIALIST-SHAREPOINT ADMINISTRATOR Work Phone: [facility] 07-06-2024 13:09-0500 Body height 171.5 cm Kennedi Krotzer LITIGATION SPECIALIST-SHAREPOINT ADMINISTRATOR Work Phone: [facility] [employer] [facility] 07-06-2024 13:09-0500 Body mass index (BMI) [Ratio] 22.75 kg/m2 Kennedi Krotzer LITIGATION SPECIALIST-SHAREPOINT ADMINISTRATOR Work Phone: [facility] [employer] [facility] 07-06-2024 13:09-0500 Body weight 66.86 kg Kennedi Krotzer LITIGATION SPECIALIST-SHAREPOINT ADMINISTRATOR Work Phone: [facility] [employer] [facility] 07-06-2024 13:09-0500 Diastolic blood pressure 78 mm[Hg] Kennedi Krotzer LITIGATION SPECIALIST-SHAREPOINT ADMINISTRATOR Work Phone: [facility] [employer] [facility] 07-06-2024 13:09-0500 Systolic blood pressure 130 mm[Hg] Kennedi Krotzer LITIGATION SPECIALIST-SHAREPOINT ADMINISTRATOR Work Phone: [facility] 02-29-2024 10:24-0400 Body height 171.5 cm Pavel WARNER Work Phone: [facility] 02-29-2024 10:24-0400 Body mass index (BMI) [Ratio] 22.9 kg/m2 Pavel WARNER Work Phone: [facility] 02-29-2024 10:24-0400 Body weight 67.31 kg Pavel WARNER Work Phone: [facility] 02-29-2024 08:37-0400 Body height 172.7 cm [facility] 2 [facility] 02-29-2024 08:37-0400 Body mass index (BMI) [Ratio] 21.29 kg/m2 Pm 2 [facility] 02-29-2024 08:37-0400 Body weight 63.5 kg Pm 2 [facility] 02-18-2024 10:56-0400 Body height 171.5 cm Jr. Stepanic DO Work Phone: [facility] 02-18-2024 10:56-0400 Body mass index (BMI) [Ratio] 21.6 kg/m2 Jr. Stepanic DO Work Phone: [facility] 02-18-2024 10:56-0400 Body weight 63.5 kg Jr. Stepanic DO Work Phone: [facility] 02-20-2023 09:45-0400 Body height 172.72 cm Lavinia Moore Other [employer] Other 02-20-2023 09:45-0400 Body mass index (BMI) [Ratio] 22.44 kg/m2 Lavinia Moore Other [employer] Other 02-20-2023 09:45-0400 Body temperature 96.4 [degF] Lavinia Moore Other [employer] Other 02-20-2023 09:45-0400 Body weight 66.95 kg Lavinia Moore Other [employer] Other 02-20-2023 09:45-0400 Respiratory rate 18 /min Lavinia Moore Other [employer] Other 02-20-2023 09:45-0400 SaO2% (BldA) [Mass fraction] 91 % Lavinia Moore Other [employer] Other Encounters Encounter Date Encounter Type Care Provider Facility Start: 01-12-2025 End: 01-12-2025 ambulatory MD Juan Jose Marie Facility:[facility] Start: 12-29-2024 End: 12-29-2024 ambulatory MD Juan Jose Marie Facility:[facility] Start: 12-27-2024 End: 12-27-2024 ambulatory MD Juan Jose Marie Facility:[facility] Start: 12-27-2024 End: 12-27-2024 ambulatory MD Juan Jose Marie Facility:[facility] Start: 10-04-2024 End: 10-04-2024 Telephone encounter Pavel WARNER Work Phone: [facility] Comment on above: antibiotic for denta l appt Start: 08-17-2024 End: 08-17-2024 Orders Only Kennedi Peña LITIGATION SPECIALIST-SHAREPOINT ADMINISTRATOR Work Phone: [facility] Comment on above: BV (bacterial vagino sis) (Primary Dx) Start: 08-16-2024 End: 08-16-2024 ambulatory [facility] Start: 08-16-2024 End: 08-16-2024 Bamboo flowsheet Pavel WARNER Work Phone: [facility] Start: 08-16-2024 End: 08-16-2024 Bamboo flowsheet Pavel WARNER Work Phone: [facility] Start: 08-16-2024 End: 08-16-2024 Office outpatient visit 15 minutes Pavel WARNER Work Phone: [facility] Comment on above: Acute pain of left k nee (Primary Dx); Arthritis of left knee Start: 08-16-2024 End: 08-16-2024 [facility] Work Phone: [facility] Comment on above: Vaginal odor (Primar y Dx); Vaginal discharge Start: 08-16-2024 End: 08-16-2024 ambulatory [facility] Start: 08-05-2024 End: 08-05-2024 Subsequent hospital visit by physician Sruthi [id number] [facility] Comment on above: Pure hypercholestero lemia, unspecified Start: 08-05-2024 End: 08-05-2024 ambulatory [facility] Start: 07-28-2024 End: 07-28-2024 Orders Only Kennedi Peña LITIGATION SPECIALIST-SHAREPOINT ADMINISTRATOR Work Phone: [facility] Comment on above: BV (bacterial vagino sis) (Primary Dx) Start: 07-27-2024 End: 07-27-2024 ambulatory [facility] Start: 07-27-2024 End: 07-27-2024 Office outpatient visit 15 minutes Kennedi Peña LITIGATION SPECIALIST-SHAREPOINT ADMINISTRATOR Work Phone: [facility] Comment on above: Vaginal discharge (P rimary Dx); Vaginal odor Start: 07-27-2024 End: 07-27-[address] [facility] Start: 07-26-2024 End: 07-26-2024 Bamboo flowsheet Pavel WARNER Work Phone: [facility] Start: 07-26-2024 End: 07-26-2024 Bamboo flowsheet Pavel WARNER Work Phone: [facility] Start: 07-26-2024 End: 07-26-2024 Office outpatient visit 15 minutes Pavel WARNER Work Phone: [facility] Comment on above: Arthritis of left kn ee (Primary Dx); Acute pain of left knee Start: 07-07-2024 End: 07-07-2024 Orders Only Kennedisegundo Swansonadam LITIGATION SPECIALIST-SHAREPOINT ADMINISTRATOR Work Phone: [facility] Comment on above: BV (bacterial vagino sis) (Primary Dx) Start: 07-06-2024 End: 07-06-2024 ambulatory [facility] Start: 07-06-2024 End: 07-06-2024 Office outpatient visit 15 minutes Kennedi Peña LITIGATION SPECIALIST-SHAREPOINT ADMINISTRATOR Work Phone: [facility] Comment on above: Vaginal discharge (P rimary Dx); Vaginal odor Start: 07-06-2024 End: 07-06-2024 ambulatory KENNEDI PEÑA [facility] Start: 06-13-2024 End: 06-13-2024 Bamboo flowsheet Pavel WARNER Work Phone: [facility] Start: 06-13-2024 End: 06-13-2024 Bamboo flowsheet Pavel WARNER Work Phone: [facility] Start: 06-13-2024 End: 06-13-2024 Postop follow up visit related to original px Pavel WARNER Work Phone: [facility] Comment on above: Status post right kn ee replacement (Primary Dx) Start: 05-09-2024 End: 05-09-2024 Bamboo flowsheet Pavel WARNER Work Phone: [facility] Start: 05-09-2024 End: 05-09-2024 Bamboo flowsheet Pavel WARNER Work Phone: [facility] Start: 05-09-2024 End: 05-09-2024 Postop follow up visit related to original px Pvael WARNER Work Phone: [facility] Comment on above: Status post right kn ee replacement; Acute pain of right knee Start: 04-11-2024 End: 04-11-2024 Bamboo flowsheet Pavel WARNER Work Phone: [facility] Start: 04-11-2024 End: 04-11-2024 Bamboo flowsheet Pavel WARNER Work Phone: [facility] Start: 04-11-2024 End: 04-11-2024 Postop follow up visit related to original px Pavel WARNER Work Phone: [facility] Comment on above: Status post right kn ee replacement (Primary Dx) Start: 03-28-2024 End: 03-28-2024 ambulatory [facility] NE[facility] Start: 03-27-2024 End: 03-27-2024 Telephone encounter Jr. Elmira Monte Tawanda DO Work Phone: [facility] Comment on above: surgery PO scripts Post-operative pain (Primary Dx); Nausea Start: 03-22-2024 End: 03-22-2024 ambulatory [facility] NEFF [facility] Start: 03-16-2024 End: 03-16-2024 Telephone encounter Pavel WARNER Work Phone: [facility] Start: 03-14-2024 End: 03-14-2024 Bamboo flowsheet Jordy Chapa PT Work Phone: [facility] Start: 03-14-2024 End: 03-14-2024 Bamboo flowsheet Jordy Chapa PT Work Phone: [facility] Start: 03-14-2024 End: 03-14-2024 Telephone encounter Pavel WARNER Work Phone: [facility] Start: 03-14-2024 End: 03-14-2024 ambulatory Jordy Chapa PT Work Phone: [facility] Comment on above: Primary osteoarthrit is of right knee (Primary Dx) Start: 02-29-2024 End: 02-29-2024 Bamboo flowsheet Pavel WARNER Work Phone: [facility] Start: 02-29-2024 End: 02-29-2024 Bamboo flowsheet Pavel WARNER Work Phone: [facility] Start: 02-29-2024 End: 02-29-2024 External Result Encounter Elmira Monte Tawanda DO Work Phone: [facility] Unsolicited Start: 02-29-2024 End: 02-29-2024 Patient encounter procedure Pavel WARNER Work Phone: [facility] Comment on above: Primary osteoarthrit is of right knee (Primary Dx); Pre-op examination Start: 02-29-2024 End: 02-29-2024 Preprocedural examination done Pavel WARNER Work Phone: [facility] Start: 02-29-2024 End: 02-29-2024 ambulatory [facility] NEFF [facility] Start: 02-29-2024 Encounter for other preprocedural examination FRANCISCO JAVIER BONE [facility] Start: 02-29-2024 End: 02-29-2024 Patient encounter procedure [facility] Pre-Admission Testing 2 [facility] - Pre Admit Comment on above: Preop examination (P rimary Dx); Atrial fibrillation, unspecified type ([facility]); Hypertension, unspecified type; Urinary frequency Start: 02-29-2024 End: 02-29-2024 Preprocedural examination done Pm 2 [facility] Start: 02-18-2024 End: 02-18-2024 BamBrammoo SnappyTVheet Jr. Elmira Neff DO Work Phone: [facility] Start: 02-18-2024 End: 02-18-2024 Bamboo SnappyTVheet Jr. Elmira Monte Stepabelardo DO Work Phone: [facility] Start: 02-18-2024 End: 02-18-2024 Office outpatient new 45 minutes Jr. Elmira Monte Stepabelardo DO Work Phone: [facility] Comment on above: Primary osteoarthrit is of right knee (Primary Dx); Acute pain of right knee Start: 02-20-2023 End: 02-20-2023 ambulatory Lavinia Moore Other [employer] Other Start: 02-20-2023 Office outpatient ne w 20 minutes Lavinia Moore [facility] Start: 04-01-2022 End: 12-01-[address] FRANCISCO JAVIER BONE Facility:[facility] Start: 09-01-[address] FRANCISCO JAVIER BONE [facility] ity:[facility] Start: 08-21-2021 End: 11-30-2021 Patient encounter procedure FRANCISCO JAVIER BONE [facility] Procedures Date Procedure Procedure Detail Performing Clinician Start: 08-16-2024 Arthrocentesis aspir &/inj major jt/bursa w/o us Pavel WARNER Work Phone: Start: 08-05-2024 Ct heart no contrast quant eval coronry calcium Francisco Javier Finn Lizandro DO Work Phone: Start: 07-26-2024 Radiologic examinati on knee 3 views Pavel WARNER Work Phone: Start: 05-09-2024 Radiologic examinati on knee 1/2 views Pavel WARNER Work Phone: Start: 02-29-2024 Complete blood count with white [...] Td Vaccines (2 - Td or Tdap) [facility] Start: 08-06-2031 DTaP/Tdap/Td Vaccine s (2 - Td or Tdap) DTaP/Tdap/Td Vaccines (2 - Td or Tdap) [facility] Start: 08-16-2025 Adult BMI Screening Adult BMI Screen ing [facility] Start: 08-16-2025 Tobacco Screening Tobacco Screening [facility] Start: 07-27-2025 Adult BMI Screening Adult BMI Screen ing [facility] Start: 07-27-2025 Tobacco Screening Tobacco Screening [facility] Start: 07-06-2025 Adult BMI Screening Adult BMI Screen ing [facility] Start: 07-06-2025 Tobacco Screening Tobacco Screening [facility] Start: 06-13-2025 End: 06-13-2025 Patient encounter procedure 06/13/2025 1:00 PM EST Office Visit [facility] [address] [place] [id number] Pavel Friend PA [address] [facility] [address] [place] [address] [facility] Start: 03-28-2025 Adult BMI Screening Adult BMI Screen ing [facility] Start: 03-28-2025 Tobacco Screening Tobacco Screening [facility] Start: 02-28-2025 Adult BMI Screening Adult BMI Screen ing [facility] Start: 02-28-2025 Tobacco Screening Tobacco Screening [facility] Start: 01-01-2025 Influenza vaccination Influenza Vacc ine [facility] Start: 08-30-2024 COVID-19 Vaccine ( season) COVID-19 Vaccine ( season) [facility] Start: 08-16-2024 End: 08-16-2025 Microscopic observation [Identifier] in Unspecified specimen by Gram stain [facility] Work Phone: Comment on above: Expected: 08/16/2024 (Approximate), Expires: 08/16/2025 Start: 08-16-2024 End: 08-16-2025 Yeast Culture Yeast Culture Microbiology Routine Vaginal odor Vaginal discharge Expected: 08/16/2024 (Approximate), Expires: 08/16/2025 [facility] Comment on above: Expected: 08/16/2024 (Approximate), Expires: 08/16/2025 Start: 08-16-2024 End: 08-16-2024 Patient encounter procedure [facility] Comment on above: Acute pain of left k nee (Primary Dx) Start: 07-27-2024 End: 07-27-2025 Microscopic observation [Identifier] in Unspecified specimen by Gram stain Gram stain Microbiology Routine Vaginal discharge Vaginal odor Expected: 07/27/2024 (Approximate), Expires: 07/27/2025 [facility] Comment on above: Expected: 07/27/2024 (Approximate), Expires: 07/27/2025 Start: 07-27-2024 End: 07-27-2025 Yeast Culture Yeast Culture Microbiology Routine Vaginal discharge Vaginal odor Expected: 07/27/2024 (Approximate), Expires: 07/27/2025 [facility] Work Phone: Comment on above: Expected: 07/27/2024 (Approximate), Expires: 07/27/2025 Start: 07-26-2024 End: 07-26-2024 Patient encounter procedure 07/26/2024 11:15 AM EDT Office Visit [facility] [address] [place] [address] Pavel Friend, TIMMY [address] [facility] [address] [place] [address] Acute pain of left knee [facility] Comment on above: Acute pain of left k nee Start: 07-06-2024 End: 07-06-2025 Microscopic observation [Identifier] in Unspecified specimen by Gram stain Gram stain Microbiology Routine Vaginal discharge Vaginal odor Expected: 07/06/2024 (Approximate), Expires: 07/06/2025 [facility] Comment on above: Expected: 07/06/2024 (Approximate), Expires: 07/06/2025 Start: 07-06-2024 End: 07-06-2025 Yeast Culture Yeast Culture Microbiology Routine Vaginal discharge Vaginal odor Expected: 07/06/2024 (Approximate), Expires: 07/06/2025 [facility] Work Phone: Comment on above: Expected: 07/06/2024 (Approximate), Expires: 07/06/2025 Start: 06-13-2024 End: 06-13-2024 Patient encounter procedure [facility] Comment on above: Status post right kn ee replacement (Primary Dx) Start: 05-09-2024 End: 05-09-2024 Patient encounter procedure 05/09/2024 1:15 PM EST Office Visit [facility] [address] [place] [address] Pavel Friend PA [address] [place] [address] [facility] Start: 04-21-2024 Depression Screening Depression Scre [facility] Start: 04-11-2024 End: 04-11-2024 Patient encounter procedure [facility] Comment on above: Status post right kn ee replacement (Primary Dx) Start: 03-28-2024 End: 03-28-2024 Admission to same day surgery center 03/28/2024 7:45 AM EST - 03/28/2024 10:45 AM EST Surgery [facility] - Surgery [address] [place] [phone] Elmira Neff Jr., DO [address] [place] [address] REPLACEMENT TOTAL JOINT KNEE [89567 (CPT )] [facility] Comment on above: REPLACEMENT TOTAL CARIDAD INT KNEE [71642 (CPT )] Start: 03-28-2024 End: 03-28-2024 Arthrp kne condyle&platu medial&lat compartments REPLACEMENT TOTAL JOINT KNEE right knee degenerative joint disease 03/28/2024 7:45 AM [facility] Start: 03-28-2024 Subsequent hospital visit by physician 03/28/2024 7:45 AM EST Hospital Encounter [facility] Surgery [address] [place] [phone] Elmira Neff Jr., DO [address] [place] [address] [facility] Start: 03-20-2024 End: 02-23-2025 Crossmatch RBC Crossmatch RBC Blood Bank Routine Preop examination Atrial fibrillation, unspecified type ([facility]) Hypertension, unspecified type Expected: 03/20/2024, Expires: 02/23/2025 [facility] Comment on above: Expected: 03/20/2024 , Expires: 02/23/2025 Start: 03-20-2024 End: 02-23-2025 Type and screen(includes indirect jesi) Type and screen(includes indirect jesi) Blood Bank Routine Preop examination Atrial fibrillation, unspecified type ([facility]) Hypertension, unspecified type Expected: 03/20/2024, Expires: 02/23/2025 [facility] Work Phone: Comment on above: Expected: 03/20/2024 , Expires: 02/23/2025 Start: 01-02-2024 COVID-19 Vaccine ( season) COVID-19 Vaccine ( season) [facility] Start: 01-02-2024 Influenza vaccination Influenza Vacc ine (#1) [facility] Start: 2019 Fall Risk Screening Fall Risk Screen ing [facility] Start: 2019 Pneumococcal Vaccine : 65+ Years (1 of 1 - PCV) Pneumococcal Vaccine: 65+ Years (1 of 1 - PCV) [facility] Start: 2004 Administration of varicella zoster vaccine Zoster (Shingles) Vaccine (1 of 2) [facility] Start: 2004 Pneumococcal vaccination Pneum ococcal Vaccine (1 of 1 - PCV) [facility] Start: 2004 Pneumococcal Vaccine : 65+ Years (1 of 1 - PCV) Pneumococcal Vaccine: 65+ Years (1 of 1 - PCV) [facility] Start: 2004 Zoster Vaccines (1 of 2) Zoste r Vaccines (1 of 2) [facility] Start: 1994 Screening for malign ant neoplasm of breast Mammogram [facility] Start: 1972 Hepatitis C screening Hepatitis C Sc reening [facility] Start: 1954 Lipid panel Lipid Panel [facility] Start: 1954 Medicare Annual Well ness Visit Medicare Annual Wellness Visit (AWV) [facility] Start: 1954 Screening for malign ant neoplasm of colon [facility] Start: 1954 Screening for osteoporosis Bone Density Scan [facility] Yeast [Presence] in Unspecified specimen by Organism specific culture Yeast Culture Microbiology Routine Vaginal odor Vaginal discharge 08/16/2024 7:40 PM EDT [facility] Immunizations Immunization Date Immunization Notes Care Provider Fa cili 02-12-2024 influenza, high dose seasonal, preservative-free Kennedi Krotzer LITIGATION SPECIALIST-SHAREPOINT ADMINISTRATOR Work Phone: [facility] 02-12-2024 influenza virus vacc ine, unspecified formulation Jr. Stepanic DO Work Phone: [facility] 04-02-2023 RSV, recombinant, protein subunit RSVpreF, adjuvant reconstituted, 0.5 mL, PF Kennedi Krotzer LITIGATION SPECIALIST-SHAREPOINT ADMINISTRATOR Work Phone: [facility] 03-09-2023 Influenza Vaccine, Quadrivalent, Adjuvanted Kennedi Krotzer LITIGATION SPECIALIST-SHAREPOINT ADMINISTRATOR Work Phone: [facility] 02-10-2022 Influenza, High-dose , Quadrivalent Kennedi Krotzer LITIGATION SPECIALIST-SHAREPOINT ADMINISTRATOR Work Phone: [facility] 02-04-2022 hepatitis A and hepatitis B vaccine Kennedi Krotzer LITIGATION SPECIALIST-SHAREPOINT ADMINISTRATOR Work Phone: [facility] 09-03-2021 hepatitis A and hepatitis B vaccine Kennedi Krotzer LITIGATION SPECIALIST-SHAREPOINT ADMINISTRATOR Work Phone: [facility] 08-05-2021 hepatitis A and hepatitis B vaccine Kennedi Krotzer LITIGATION SPECIALIST-SHAREPOINT ADMINISTRATOR Work Phone: [facility] 08-05-2021 tetanus toxoid, redu anton diphtheria toxoid, and acellular pertussis vaccine, adsorbed Kennedi Krotzer LITIGATION SPECIALIST-SHAREPOINT ADMINISTRATOR Work Phone: [facility] 08-05-2021 typhoid capsular polysaccharide vaccine Kennedi Krotzer LITIGATION SPECIALIST-SHAREPOINT ADMINISTRATOR Work Phone: [facility] 01-28-2021 Influenza, High-dose , Quadrivalent Kennedi Krotzer LITIGATION SPECIALIST-SHAREPOINT ADMINISTRATOR Work Phone: [facility] 05-14-2009 novel influenza-H1N1 -09, preservative-free, injectable Kennedi Krotzer LITIGATION SPECIALIST-SHAREPOINT ADMINISTRATOR Work Phone: [facility] [employer] Payers Date Payer Category Payer Private Health Insurance [employer] [id number] 2020 Commercial Indemnity [employer] [id number] 2019 Medicare [id number] 1959 Medicare [id number] 1959 Unknown [id number] 1954 Unknown [id number] 2.16.840.1.649510.3.579.2. 593 1954 Unknown [id number] 2.16.840.1.454648.3.579.2. 593 1954 Unknown [id number] 2.16.840.1.170906.3.579.2. 1286 1954 Unknown [id number] 2.16.840.1.477720.3.579.2. 1286 1954 Unknown [id number] 2.16.840.1.672496.3.579.2. 1286 1954 Unknown [id number] 2.16.840.1.225171.3.579.2. 1286 1954 Unknown [id number] 2.16.840.1.698108.3.579.2. 1286 1954 Unknown [id number] 2.16.840.1.549531.3.579.2. 1286 1954 Unknown [id number] 2.16.840.1.720672.3.579.2. 128 1954 Unknown [id number] 2.16.840.1.154943.3.579.2. 1246 1954 Unknown [id number] 2.16840.1.291184.3.579.2. 128 1954 Unknown [id number] 2.16840.1.842075.3.579.2. 128 1954 Unknown [id number] 2.840.1.804688.3.579.2. 128 1954 Unknown [id number] 2.16.840.1.627085.3.579.2. 128 1954 Unknown [id number] 2.840.1.014158.3.579.2. 1286 1954 Unknown [id number] 2.16.840.1.021264.3.579.2. 1286 1954 Unknown [id number] 2.16.840.1.973433.3.579.2. 727 1954 Unknown [id number] 2.16.840.1.599147.3.579.2. 727 1954 Unknown [id number] 2.16.840.1.877605.3.579.2. 727 1954 Unknown [id number] 2.16.840.1.940139.3.579.2. 727 Social History Date Type Detail Facility Tobacco smoking status No Smokin g Status Entered [facility] Start: 02-18-2024 End: 08-16-2024 Sex Assigned At Female [facility] Tobacco smoking stat us NHIS Tobacco smoking consumption unknown [facility] Start: 1955 Sex assigned at Not on file [facility] Start: 02-12-2024 Gender identity Identifies as female gender (finding) [facility] Start: 04-21-2023 End: 02-18-2024 Tobacco smoking status NHIS Never smoked tobacco [facility] Start: 04-21-2023 End: 02-18-2024 Tobacco use and exposure Smokeless tobacco non-user [facility] Start: 02-18-2024 End: 08-16-2024 History of Social function [facility] Start: 02-29-2024 End: 08-16-2024 Alcoholic beverage intake Current drinker of alcohol (finding) [facility] Adolescent depressio n screening assessment 0 [facility] Start: 04-16-2021 Alcohol Comment socially [facility] Start: 04-15-2021 Sex Female (finding) [place] Start: 07-26-2024 End: 08-05-2024 Exposure to SARS-CoV-2 (event) Not sure [facility] Medical Equipment Procedure Code Equipment Code Equipment Origin al Text Equipment Identifier Dates Cement Bn Bio 40 gm Rpl [id number] - Sn/A - [id number] Start: 03-28-2024 Component Fem F Kn Rt Lpsflx Gndr Edelmira? Nxgn Cocr Rpl 50071 - Sn/A - [id number] ()[id number] [id number] (21)N/A, [id number] FDA Start: 03-28-2024 Component Ptlr 3 5mm Persona Alply Kn Strl Lf - Sn/A - [id number] ()[id number] [id number] (21)N/A, [id number] FDA Start: 03-28-2024 Nexgen Complete Knee Solution Legacy. Knee Posterior Stabilized Prolong. Size E F 100mm Height Lps-Flex Articular Surface ()[id number] [id number] (21)N/A, [id number] FDA Start: 03-28-2024 Plate Tib 74x50m m Nxgn Kn Cmnt Mdlr Stm Prect 6 Tiv Pmma Rpl [id number] + [id number] - Sn/A - [id number] ()[id number] [id number] (21)N/A, [id number] FDA Start: 03-28-2024 Goals Date Patient Goal Desired Activity /State Personal health goal Comment on above: Formatting of this n ote might be different from the original. Evaluation of progress towards goal: going to [facility] Clinical Notes 02-20-2023 to 01-01-2025 Telephone Encounter - TIMMY Liu - 10/04/2024 11:17 AM EDTTelephone Encounter - TIMMY Liu - 10/04/2024 11:17 AM EDTTelephone Encounter - Brandi Reis - 10/04/2024 11:00 AM EDT Note Date & Type Note Facility 01-01-2025 Note Operative Report Left heart catheterization procedure report DATE OF PROCEDURE: December 29, 2024 LOAN FUNDER Juan Jose Marie MD [facility] INDICATION: Markedly abnormal stress test indicating mid LAD ischemia BRIEF HISTORY: 69-year-old female with history of mixed hyperlipidemia perhaps hypertension with stress evaluation which showed mid anterior ischemia this was ordered on the basis of rest angina. PROCEDURE(S) PERFORMED: Left Heart Catheterization Selective Coronary Angiography Moderate Sedation PRE-PROCEDURAL INFORMED CONSENT: The procedure and conscious sedation were discussed in detail with the patient/next of kin/durable power of including the indications, expected outcomes, potential treatment options based upon the results, alternative treatment options and benefits, risks and possible complications associated with the procedure. The patient/next of kin/durable power of expressed an understanding of the information provided and willingness to proceed. Signed, informed consent for the procedure was obtained for all of the above. DESCRIPTION OF THE PROCEDURE: In the postabsorptive state, the patient was brought to the Adult Cardiac Ply Splicer and placed on the table. The planned puncture sites/areas were prepped and draped in usual sterile fashion and a safety time-out was performed. Moderate Sedation was given by the Cardiac Ply Splicer RN. RIGHT RADIAL ARTERY ACCESS: The puncture site was infiltrated with 1% lidocaine. The modified Seldinger technique was performed to access the right radial artery using a 21G needle radial access kit. A wire was threaded into the radial artery followed by upsizing to a 5/6F slender 10cm sheath. Verapamil 2.5 mg was administered into the sheath. The sheath was then flushed with heparinized saline and IV UFH was administered via peripheral IV by the farm laborer RN after the catheter crossed into the ascending aorta. Selective left and right coronary artery angiography : Under fluoroscopic guidance, a 5 azeri delaney diagnostic catheter was then advanced over the 0.035 260cm J-tipped guidewire to the level of the aortic valve to engage the left coronary artery. Multiple orthogonal images were obtained. The JR4 diagnostic catheter was then be used to selectively engage the RCA ostium and angiographic images under multiple projections were obtained. 5 F pigtail diagnostic catheter was advanced over the guidewire across the Aortic valve and into the left ventricle. Hemodynamic measurements were then obtained. Left ventriculography was performed. The pigtail catheter was then pulled back into the ascending aorta for assessment of LV-Ao gradient. The procedure was concluded by removal of all the catheters, wires and sheaths. Accesses were managed as outlined below. No immediate complications COMPLICATIONS: None ESTIMATED BLOOD LOSS: <50cc CONTRAST ADMINISTERED: Please see Adult Cardiac Ply Splicer Log for further details FINDINGS: SELECTIVE CORONARY ANGIOGRAPHY: Right dominant System Left Main: Angiographically normal LAD: Left anterior descending takes a 270 degree turn from its ostium off the distal left main coronary artery. The mid left anterior descending is 99% subtotal occlusion D1: Angiographically normal LCx: 10% proximal left circumflex atherosclerosis OM1: Angiographically normal RCA: 10% proximal right coronary atherosclerosis rPDA: Angiographically normal rPLB: 20% proximal posterolateral atherosclerosis LEFT HEART CATHETERIZATION: LVEDP: 17 mmHg, consistent with noncompliant left ventricle LV EJECTION FRACTION and WALL MOTION: In the RAI projection estimated left ventricular ejection fraction reveals mid anterior wall hypokinesis. Estimated left trickle ejection fraction is 50 to 55%. There is no aortic stenosis today plug pullback from left ventricle to aorta. There is no mitral regurgitation noted ACCESS MANAGEMENT: Primary: Right Radial Artery: Vasc Band; successful hemostasis achieved. CONCLUSIONS: 1. subtotally occluded mid left anterior descending coronary artery 2. Elevated left ventricular end-diastolic pressure consistent with noncompliant left ventricle 3. Mid anterior wall hypokinesis of left ventricle estimated left ventricular ejection fraction 50 to 55%. RECOMMENDATIONS: Proceed to intervention of mid LAD or attempt of intervention of mid LAD. Intervention report: The left coronary artery was engaged with a 6 Burmese EBU 3.5 guiding catheter and 182 cm whisper wire was placed in the distal LAD with some difficulty. ACT was maintained above 250 ms at all times. The patient received full dose aspirin 6 mL and p.o. Plavix. Next a 2.75 x 15 mm Emerge balloon was used to dilate the mid LAD at 10 ramirez for 20 seconds. The balloon was then removed and a 2.75 x 18 mm Xience stent was deployed to the mid LAD stenosis with no real difficulty. This was inflated at 12 insertion at 30 seconds. This was postdilated in the usual fashion. Conclusions: 1 suc (more content not included)... [facility] Comment on above: Result Comment: Elec tronically Signed By: Cynthia SUGGS, Juan Jose Padron\.br\Date and Time Signed: 01/01/25 16:35 EDT 10-04-2024 Telephone encounter Note Rx was sent [facility] 10-04-2024 Miscellaneous Notes Rx was sent Patient called and said that she is has a dental appt next Wed and needs her antibiotic for pre med she is using [facility] [place]. documented in this encounter [facility] 10-04-2024 Telephone encounter Note Patient called and said that she is has a dental appt next Wed and needs her antibiotic for pre med she is using [facility] [place]. T [facility] 08-16-2024 History of Present illness Narrative Associated Order(s): L Inj/Asp: L knee Post-Procedure Diagnose(s): Acute pain of left knee; Arthritis of left knee Images from the original note were not included. Orthopedic Office note: NAME: Perla Goodwin : 1955 (EST PT) LT KNEE PAIN - LEAVING FOR VACATION August. DISCUSS POSS INJ TODAY XRAY 07/26/24 EPIC HX LT KNEE CORTISONE INJ ~09/2023 NOTES INTERMITTENT PAIN WITH PROLONG STANDING AND AMBULATING RT TKA BY DR NEFF 03/28/24 Physical Exam General Appearance: Normal. Respiratory: No acute distress Musculoskeletal: The left knee is unremarkable upon inspection. No joint warmth or erythema. No significant effusion. Mild patellofemoral crepitus is present. Pain is noted in the medial joint line on exertion, but no pain is present at rest. The pes anserine bursa is nontender. The calf is nontender. Compartments are soft. Full motion at the ankle and knee is demonstrated without any significant pain. The right knee has been replaced with an anterior scar. There is no evidence of effusion. Some swelling is present in the distal quad tendon, which is nontender and was present even before surgery. Painless rom bilateral hips Skin: No skin rash. Neurological: Normal. Orders Placed This Encounter Procedures L Inj/Asp: L knee This order was created via procedure documentation L Inj/Asp: L knee on 08/16/2024 1:42 PM Indications: pain Details: 22 G needle, anterolateral approach Medications: 40 mg methylPREDNISolone acetate 40 MG/ML Outcome: tolerated well, no immediate complications UTILIZING ASEPTIC TECHNIQUE PT GIVEN INJECTION IN LEFT KNEE, NEUROVASC INTACT S/P INJ, TOLERATED WELL Procedure, treatment alternatives, risks and benefits explained, specific risks discussed. Consent was given by the patient. Results ICD-10-CM 1. Acute pain of left knee M25.562 L Inj/Asp: L knee 2. Arthritis of left knee M17.12 L Inj/Asp: L knee Assessment & Plan Left knee arthritis. She is planning to go out of the country on vacation with increased steps and walking. She is requesting a cortisone injection in the left knee given pain with standing and on activity. She is functioning too well to consider replacement of her left knee, but is happy with the progress in her right knee. Treatment plan: She will follow up on a p.r.n. basis with verbal consent to receive injection today in the left knee for knee arthritis treatment and optimization before her travels. PROCEDURE Procedure Performed Cortisone injection in the left knee for knee arthritis treatment and optimization before her travels. Questions answered in laymen terms at the bedside. The diagnosis, home exercise plan and any ongoing restrictions/ recommendations reviewed. If unable to be reached in office, I recommend evaluation at nearest Emergency Room if any symptoms worsened or new symptoms develop for requiring urgent evaluation. Visit was preformed using [employer] speech recognition. documented in this encounter [facility] 08-16-2024 History of Present illness Narrative HPI: Vaginitis Patient presents for evaluation of an abnormal vaginal discharge. Symptoms have been present for several weeks. Vaginal symptoms: discharge described as white and creamy and odor. Contraception: none. very low risk of STD exposure. Menstrual flow: postmenopausal. Pt. Is not sexually active. She used an ovule for yeast, Monistat on Wednesday and she took a diflucan that she had on hand. She relates she felt she got a yeast infection after taking the antibiotic for BV. Pt. States she is going to [place] soon and does not want to have issues while she is away, so she wants to get them resolved now. Current contraception: post menopausal status Relationship status: Sexually active: No retired non-smoker The following portions of the patient's history were reviewed and updated as appropriate: allergies, current medications, past family history, past medical history, past social history, past surgical history and problem list. ROS: as noted in HPI Objective: Vitals: 08/16/24 1044 BP: 156/84 Body mass index is 22.99 kg/m . No LMP recorded. Patient is postmenopausal Physical Exam Constitutional: the patient was observed to be alert and in no acute distress. Neck: the appearance of the neck was normal. Pulmonary: no respiratory distress. Vascular:. there was no peripheral edema. Skin: normal skin color and pigmentation. Neurological: the patient was oriented to person, place, and time and mood and affect were appropriate Vulva: WNL Vagina: age appropriate vaginal atrophy noted Cervix: no lesions, no discharge Perla was seen today for vaginal discharge. Diagnoses and all orders for this visit: Vaginal odor - Gram stain; Future - Yeast Culture; Future Vaginal discharge - Gram stain; Future - Yeast Culture; Future Will await cultures prior to tx. Discussed sleeping w/out underwear, use of cotton underwear, etc. - DANIEL ESPAÑA CMA 08/16/24 9:02 AM JOESPH Mckinley APRN, APRN-CNM 08/16/24 1828 documented in this encounter [facility] 07-27-2024 History of Present illness Narrative Perla Goodwin is a 69 y.o.female. No LMP recorded. Patient is postmenopausal.. She presents for vaginal discharge and odor that started a few weeks ago. Patient also wants to discuss occasional leaking of urine. OB History 0 Para 0 Term 0 0 AB 0 Living 0 SAB 0 IAB 0 Ectopic 0 Multiple 0 Live Births 0 MEDICAL HX Past Medical History: Diagnosis Date A-fib ([facility]) Allergic Arthritis Cold sore Disease of thyroid gland Hypothyroidism Hypertension Osteoporosis Scoliosis Skin cancer Urinary frequency Visual impairment SURGICAL HX Past Surgical History: Procedure Laterality Date COLONOSCOPY x2 DENTAL SURGERY gum disease JOINT REPLACEMENT 03/28/25 REPLACEMENT TOTAL JOINT KNEE Right 03/28/2024 Performed by Elmira Neff Jr., DO at [facility] SURGERY SKIN BIOPSY VARICOSE VEIN SURGERY FAMILY HX Family History Problem Relation Age of Onset Esophageal cancer Father Colon cancer Mother Breast cancer Mother 50 N/A MEDS Current Outpatient Medications Medication Sig Dispense Refill calcium carbonate-vitamin D3 (CALCIUM 500 + D) 500 mg(1,250mg) -200 units per tablet Take 1 tablet by mouth in the morning. estradioL (ESTRACE) 0.01 % (0.1 mg/gram) vaginal cream Insert 1 g into the vagina once a week. 42.5 g 2 levothyroxine (SYNTHROID, LEVOTHROID) 25 MCG tablet Take 2 tablets (50 mcg total) by mouth in the morning. metoprolol tartrate (LOPRESSOR) 25 mg tablet Take 2 tablets (50 mg total) by mouth in the morning and 2 tablets (50 mg total) before bedtime. yehdowva-waxj-UP-calcium &mins (THERAGRAN-M) 9 mg iron-400 mcg tablet Take 1 tablet by mouth in the morning. valACYclovir (VALTREX) 1000 mg tablet Take 1 tablet (1,000 mg total) by mouth in the morning and 1 tablet (1,000 mg total) before bedtime. One tablet by mouth for 5 days as needed . No current facility-administered medications for this visit. ALLERGIES Allergies Allergen Reactions Flexeril [Cyclobenzaprine] Anaphylaxis Other Anaphylaxis Muscle Relaxers Review of Systems Constitutional: Negative. Genitourinary: Positive for vaginal discharge. Neurological: Negative. Psychiatric/Behavioral: Negative. Objective BP 190/78 Ht 171.5 cm (5' 7.5 ) Wt 67.7 kg (149 lb 3.2 oz) BMI 23.02 kg/m Physical Exam Vitals and nursing note reviewed. Constitutional: Appearance: Normal appearance. Pulmonary: Effort: Pulmonary effort is normal. Genitourinary: General: Normal vulva. Labia: Right: No rash or lesion. Left: No rash or lesion. Vagina: Normal. Cervix: Normal. Comments: Age appropriate atrophy noted Musculoskeletal: General: Normal range of motion. Skin: General: Skin is warm and dry. Neurological: Mental Status: She is alert and oriented to person, place, and time. Psychiatric: Mood and Affect: Mood normal. Behavior: Behavior normal. Thought Content: Thought content normal. Judgment: Judgment normal. Assessment/Plan: Perla was seen today for vaginal discharge. Diagnoses and all orders for this visit: Vaginal discharge - Yeast Culture; Future - Gram stain; Future Vaginal odor - Yeast Culture; Future - Gram stain; Future Discussed kegel exercises and the option of pelvic floor therapy. Await culture and treat as indicated. All questions answered. RTO for Medicare Breast and Pelvic (due in April) or sooner as needed. ELVIN URBINA, FRANCISCO Peña APRN-HEMALATHA Jewell 07/27/24 1002 documented [facility] encounter [email or web address] 07-27-2024 Instructions HEMALATHA Arteaga - 07/27/2024 9:45 AM EDT Vaginal boric acid regimen: Insert one capsule vaginally 2-3 times per week. Boric acid can cause if consumed orally. It should be stored in a secure place that is inaccessible to children. Boric acid should not be used by individuals who are or attempting conception. Sexual partners of patients treated with vaginal boric acid have reported skin irritation after exposure. The duration of risk for skin irritation from the time of boric acid use is not known. Boric acid capsules can be bought locally at [employer], and [employer]. They can also be ordered on [employer]. The following attachments cannot be sent through Care Everywhere.How to Do Kegel Exercises (Sol[place] Islander)[facility] 07-26-2024 History of Present illness Narrative Images from the original note were not included. HISTORY OF PRESENT ILLNESS: EST PT Perla Goodwin is an 69 y.o. @ female. EST PT, NEW PROBLEM; LT KNEE PAIN - LEAVING FOR VACATION August. XRAY TODAY 07/26/24 EPIC CORTISONE INJECTIONS HAVE ONLY LASTED ABOUT A WEEK IN THE PAST. PAIN ANTERIOR KNEE. DENIES RADIATION. +IBU PRN. +CRACKING, GRINDING. DENIES N/T, SWELLING. WEARS COMPRESSION SLEEVES. RIDES STATIONARY BIKE AND SWIMS. DOES NOT WAKE AT HS. DENIES GIVING OUT. RT TKA BY DR NEFF 03/28/24 ALLERGIES: Allergies Allergen Reactions Cyclobenzaprine Anaphylaxis Other Anaphylaxis 1. ALL MUSCLE RELAXERS 2. DENIES METAL ALLERGY HOME MEDICATIONS: Current Outpatient Medications Medication Instructions BIOTIN PO Take by mouth Calcium Carb-Cholecalciferol (CALTRATE BONE HEALTH PO) Take by mouth COLLAGEN PO Take by mouth estradiol (Estrace) 0.1 MG/GM vaginal cream INSERT ONE GRAM VAGINALLY EVERY WEEK Glucosamine-Chondroitin (GLUCOSAMINE CHONDR COMPLEX PO) Oral levothyroxine (Synthroid, Levoxyl) 50 MCG tablet metoprolol tartrate (Lopressor) 50 MG tablet PHYSICAL EXAM: Knee Musculoskeletal Exam Gait Antalgic: left Inspection Leg length disparity: no discrepancy Left Erythema: none Effusion: mild Edema: none Ecchymosis: none Deformity: mild Alignment: varus Palpation Left Left knee palpation is unremarkable. Increased warmth: none Masses: none Crepitus: patellofemoral and medial Tenderness: present Medial joint line: moderate Patella: mild Range of Motion Left Left knee range of motion is normal and full. Active extension: 5 Passive extension: 5 Active flexion: 120 Passive flexion: 125 Strength Left Left knee strength is normal. Extension: 5/5. Flexion: 5/5. Instability Left Instability signs: none - stable Anterior drawer: normal Neurovascular Left Left knee neurovascular exam is normal. Pulses - PT: normal Posterior tibial: 2+ Capillary refill: warm and well-perfused Special Signs Left Left knee special signs are normal. General Constitutional: appears stated age Labored breathing: no Psychiatric: normal mood and affect Neurological: alert Skin: intact Lymphadenopathy: none Vitals: There is no height or weight on file to calculate BMI. Tobacco Use: Low Risk (07/26/2024) Patient History Smoking Tobacco Use: Never Smokeless Tobacco Use: Never Passive Exposure: Not on file Alcohol Use: Not on file IMAGING: XR knee 3 views left Imaging Result: AP and Lateral left knee with sunrise view: No acute fracture or dislocation. Right knee arthroplasty well aligned Left knee weight bearing slight varus deformity. Pt is bone on bone medial joint line Subchondral sclerosis and cystic changes noted. Enthesophyte to medial femoral condyle. Impression: tricompartmental arthritic changes left knee. Procedures Orders Placed This Encounter Procedures XR knee 3 views left Order Specific Question: Reason for exam: Answer: pain ASSESSMENT: ICD-10-CM 1. Arthritis of left knee M17.12 2. Acute pain of left knee M25.562 XR knee 3 views left CANCELED: XR knee 1 or 2 views left Assessment & Plan 1. Left knee pain. She expresses satisfaction with the outcome of her right knee replacement but reports some residual stiffness and limited range of motion but overall better than before surgery. Her primary concern is the development of arthritis in her left knee, which she perceives as being in a [id number]-[id number] state, particularly along the medial joint line. The majority of her discomfort arises post-activity. She has been managing the pain with intermittent use of Motrin. She has an upcoming international trip and is considering a cortisone injection prior to her departure. If her symptoms persist or worsen, she is open to the possibility of a knee replacement, potentially in the fall, as she has another trip planned for 01/2025. She has been utilizing knee sleeves for compression and expresses gratitude for the time spent discussing her treatment options. Given the ndzr-zf-otpo articulation, viscosupplementation, which she has received in the past, will be deferred at this time. She will return a week before her overseas travel for a potential cortisone injection. The use of anti-inflammatory medication and activity modification for knee arthritic symptoms were discussed. PROCEDURE The patient underwent a right knee replacement procedure. We discussed AAOS guidlines for initial treatment of symptomatic osteoarthritis: We have recommended Self-Management programs for strengthening, low-impact aerobic exercises, and physical activity maintenance and modifications to symptom tolerance. Questions answered in laymen terms at the bedside. The diagnosis, home exercise plan and any ongoing restrictions/ recommendations reviewed. If unable to be reached in office, I recommend evaluation at nearest Emergency Room if any symptoms worsened or new symptoms develop for requiring urgent evaluation. documented in this encounter [facility] 07-06-2024 History of Present illness Narrative Perla Goodwin is a 69 y.o.female. No LMP recorded. Patient is postmenopausal.. She presents with concerns regarding vaginal discharge over the last 2 to 3 weeks. Pt denies any itching or irritation, but does have a slight odor. No vaginal bleeding or pelvic pain. OB History 0 Para 0 Term 0 0 AB 0 Living 0 SAB 0 IAB 0 Ectopic 0 Multiple 0 Live Births 0 MEDICAL HX Past Medical History: Diagnosis Date A-fib ([facility]) Allergic Arthritis Cold sore Disease of thyroid gland Hypothyroidism Hypertension Osteoporosis Scoliosis Skin cancer Urinary frequency Visual impairment SURGICAL HX Past Surgical History: Procedure Laterality Date COLONOSCOPY x2 DENTAL SURGERY gum disease JOINT REPLACEMENT 03/28/25 REPLACEMENT TOTAL JOINT KNEE Right 03/28/2024 Performed by Elmira Neff Jr., DO at [facility] SURGERY SKIN BIOPSY VARICOSE VEIN SURGERY FAMILY HX Family History Problem Relation Age of Onset Esophageal cancer Father Colon cancer Mother Breast cancer Mother 50 N/A MEDS Current Outpatient Medications Medication Sig Dispense Refill calcium carbonate-vitamin D3 (CALCIUM 500 + D) 500 mg(1,250mg) -200 units per tablet Take 1 tablet by mouth in the morning. estradioL (ESTRACE) 0.01 % (0.1 mg/gram) vaginal cream Insert 1 g into the vagina once a week. 42.5 g 2 levothyroxine (SYNTHROID, LEVOTHROID) 25 MCG tablet Take 2 tablets (50 mcg total) by mouth in the morning. metoprolol tartrate (LOPRESSOR) 25 mg tablet Take 2 tablets (50 mg total) by mouth in the morning and 2 tablets (50 mg total) before bedtime. pddzqvvm-yiqd-VN-calcium &mins (THERAGRAN-M) 9 mg iron-400 mcg tablet Take 1 tablet by mouth in the morning. valACYclovir (VALTREX) 1000 mg tablet Take 1 tablet (1,000 mg total) by mouth in the morning and 1 tablet (1,000 mg total) before bedtime. One tablet by mouth for 5 days as needed . No current facility-administered medications for this visit. ALLERGIES Allergies Allergen Reactions Flexeril [Cyclobenzaprine] Anaphylaxis Other Anaphylaxis Muscle Relaxers Review of Systems Review of Systems Constitutional: Negative. Genitourinary: Positive for vaginal discharge. Negative for pelvic pain and vaginal bleeding. Neurological: Negative. Psychiatric/Behavioral: Negative. Objective BP 130/78 Ht 171.5 cm (5' 7.5 ) Wt 66.9 kg (147 lb 6.4 oz) BMI 22.75 kg/m Physical Exam Vitals and nursing note reviewed. Constitutional: Appearance: Normal appearance. Pulmonary: Effort: Pulmonary effort is normal. Genitourinary: General: Normal vulva. Labia: Right: No rash or lesion. Left: No rash or lesion. Vagina: Normal. Cervix: Normal. Comments: Age appropriate vulvovaginal atrophy noted Musculoskeletal: General: Normal range of motion. Skin: General: Skin is warm and dry. Neurological: Mental Status: She is alert and oriented to person, place, and time. Psychiatric: Mood and Affect: Mood normal. Behavior: Behavior normal. Thought Content: Thought content normal. Judgment: Judgment normal. Assessment/Plan: Perla was seen today for vaginal discharge. Diagnoses and all orders for this visit: Vaginal discharge - Yeast Culture; Future - Gram stain; Future Vaginal odor - Yeast Culture; Future - Gram stain; Future Await cultures and treat accordingly. Discussed symptomatic care. All questions answered. Educational material provided. RTO for next Medicare breast and pelvic (due April 2025) or sooner as needed. FRANCISCO BAUGH APRN-CNP Lisa M Krotzer, APRN-CNP 07/06/24 1326 documented in this encounter [facility] [email or web address] 06-13-2024 History of Present illness Narrative Images from the original note were not included. HISTORY OF PRESENT ILLNESS: POST OP PT Perla Goodwin is an 69 y.o. @ female. (EST PT) S/P RT TKA (03/28/24), 11 WKS. XRAY 05/09/24 EPIC PHYSICAL THERAPY @ PROGRESSIVE THERAPY IN [place] WALKING WELL UNASSISTED. HAS ONE PT VISIT LEFT. DOING HEP. SORENESS AFTER EXERCISES. +IBU AND 1/2 PERCOCET WITH EXERCISE. +STIFFNESS. DIFFICULTY WITH EXTENSION. +SWELLING. +ICE AFTER EXERCISE. GOING BACK TO [place] AGAIN 3X WEEK. WALKING ON TREADMILL. DENIES N/T. HAS NERVE SENSITIVITY. +GIVING OUT SENSATION AFTER WORKING OUT AND GETTING TIRED. DOES NOT WAKE AT HS. REVIEW OF SYSTEMS: General: Denies fever, fatigue or weight loss Lungs: Denies SOB Cardio: Denies chest pain GI: Denies indigestion or abdominal pain Neuro: Denies numbness or tingling, denies new onset paralysis Musculoskeletal: ( see note) PHYSICAL EXAM: Right Knee Exam Right knee exam is normal. Muscle Strength The patient has normal right knee strength. Range of Motion Extension: 5 Right knee flexion: tightness on terminal flexion 125. Tests Varus: negative Valgus: negative Other Erythema: absent Scars: present (Well healed, no drainage, no erythema) Sensation: normal Pulse: present Swelling: mild Effusion: [...] 1. Status post right knee replacement Z96.651 Assessment & Plan 1. Postoperative status following right total knee arthroplasty. She is demonstrating satisfactory progress post-surgery, expressing contentment with the outcome. She is actively working towards achieving full extension, currently at 5 degrees of extension with ease, and has attained full flexion. Her mobility is unimpaired, and she reports a significant improvement in her knee condition compared to the preoperative state. A follow-up appointment is scheduled for 1 year from now, which will include x-ray surveillance. The necessity of dental prophylaxis with antibiotics was discussed and she expressed gratitude for the information. PROCEDURE The patient underwent a right total knee arthroplasty. Questions answered in laymen terms at the bedside. The diagnosis, home exercise plan and any ongoing restrictions/ recommendations reviewed. If unable to be reached in office, I recommend evaluation at nearest Emergency Room if any symptoms worsened or new symptoms develop for requiring urgent evaluation. documented in this encounter [facility] 05-09-2024 History of Present illness Narrative Images from the original note were not included. HISTORY OF PRESENT ILLNESS: POST OP PT Perla Goodwin is an 68 y.o. @ female. PO (6WKS) S/P RT TKA (03/28/24). XRAY TODAY 05/09/24 EPIC PHYSICAL THERAPY @ PROGRESSIVE THERAPY IN [place] USING A CANE, MOSTLY DUE TO WEATHER. DENIES PAIN IN KNEE. STATES IT CAN BE SORE AFTER THERAPY. DIFFICULTY WITH FULL EXTENSION. TAKING 1/2 PERCOCET FOR THERAPY. TAKING IBU PRN. USING ICE. STIFFNESS. SLEEPING BETTER. REVIEW OF SYSTEMS: General: Denies fever, fatigue or weight loss Lungs: Denies SOB Cardio: Denies chest pain GI: Denies indigestion or abdominal pain Neuro: Denies numbness or tingling, denies new onset paralysis Musculoskeletal: ( see note) PHYSICAL EXAM: Right Knee Exam Right knee exam is normal. Muscle Strength The patient has normal right knee strength. Range of Motion Extension: 5 Flexion: 120 (tightness on terminal flexion) Tests Varus: negative Valgus: negative Other Erythema: absent Scars: present (Well healed, no drainage, no erythema) Sensation: normal Pulse: present Swelling: mild Effusion: [...] Incision was healing without evidence of infection XR knee 1 or 2 views right Imaging Result: AP and Lateral of right knee: Surgical position and alignment of prosthetic components without evidence of loosening or wear to femora, tibial or patellar components, The alignment appears to be anatomic. No evidence of accelerated or asymmetric wear to tibial tray or patella button. No evidence of fracture or dislocation. Impression: Unremarkable right total knee arthroplasty Procedures Orders Placed This Encounter Procedures XR knee 1 or 2 views right Order Specific Question: Reason for exam: Answer: total ASSESSMENT: ICD-10-CM 1. Status post right knee replacement Z96.651 2. Acute pain of right knee M25.561 XR knee 1 or 2 views right Assessment & Plan 1. Postoperative status following right total knee arthroplasty. Her recovery trajectory is satisfactory, with significant improvement noted in her terminal extension compared to the preoperative state. She expresses gratitude for the care received. She has been advised to discontinue her twice-daily aspirin regimen. For pain management and inflammation control, she may utilize Motrin as previously discussed during the bedside consultation. Radiographic images were reviewed at the bedside, revealing no complications. She is currently using a cane solely for balance support. Physical therapy will be continued to achieve full terminal extension. Follow-up A follow-up appointment is scheduled in 5 weeks to assess her gait progression. PROCEDURE The patient underwent a right total knee arthroplasty. Questions answered in laymen terms at the bedside. The diagnosis, home exercise plan and any ongoing restrictions/ recommendations reviewed. If unable to be reached in office, I recommend evaluation at nearest Emergency Room if any symptoms worsened or new symptoms develop for requiring urgent evaluation. documented in this encounter [facility] 04-11-2024 History of Present illness Narrative Images from the original note [...] TAKING TYL PM. TAKING ASA 81MG. WEARING ELYSSA HOSE. DENIES DRAINAGE. DENIES FEVER. ISAMAR INTACT, [...] Valgus: negative Other Erythema: absent Scars: present ([place] present, removed, no dehiscence or drainage) Sensation: [...] requiring urgent evaluation. documented in this encounter [facility] 04-11-2024 Instructions TIMMY Liu - 04/11/2024 9:00 AM EST Discussed Surgery: Cont Asprin 81 mg twice daily and elyssa hose for additional 2 wks ( 4 [...] wound pending recheck. documented in this encounter [facility] 03-27-2024 Telephone encounter Note I called patient to inform her of this [facility] 03-27-2024 Miscellaneous Notes I called patient to inform her of this Dr. Neff has to sign off on them but they should be sent in today Pt called and stated she is having RT TKA sx tmrw 03/28/24 and [facility] [place] and they do not have her scripts there for after sx. One is pain medication and Zofran for nauseas. If you could call these into [facility]. Allergies: muscle relaxers Her call back [phone] documented in this encounter [facility] 03-27-[address] Neff has to sign off on them but they should be sent in today [facility] Work Phone: 03-27-2024 Telephone encounter Note Pt called and stated she is having RT TKA sx tmrw 03/28/24 and [facility] [place] and they do not have her scripts there for after sx. One is pain medication and Zofran for nauseas. If you could call these into [facility]. Allergies: muscle relaxers Her call back [phone] [facility] 03-27-2024 Telephone encounter Note Spoke to patient and she stated she called insurance and she should be all set and good for her sx tmrw. Disregard this message. [facility] 03-27-2024 Miscellaneous Notes Spoke to patient and [...] she was in understanding. Her call back [phone] documented in this encounter [facility] 03-27-2024 Telephone encounter Note Pt called and stated she is having RT TKA sx tmrw and wanted to make sure her insurance approved this? I did inform her to call her insurance to verify with them if she does not hear back from anyone, she was in understanding. Her call back [phone] [facility] 03-27-2024 Telephone encounter Note Post op pain rx. PDMP reviewed [facility] 03-27-2024 Miscellaneous Notes Post op pain rx. PDMP reviewed documented in this encounter [facility] 03-16-2024 Telephone encounter Note Increased pain right knee requesting handicap placard before surgery [facility] 03-16-2024 Miscellaneous Notes Increased pain right knee requesting handicap placard before surgery documented in this encounter [facility] 03-14-2024 Telephone encounter Note Pt requesting Out therpay rx. For post op service. Pt has family that is director of therapy in [place]. [facility] 03-14-2024 Miscellaneous Notes Pt requesting Out therpay rx. For post op service. Pt has family that is director of therapy in [place]. documented in this encounter [facility] 03-14-2024 History of Present illness Narrative Images from the original note [...] a PT, also has a PT in [place] she would like to go to outpatient [...] sign below. Date: documented in this encounter [facility] 02-29-2024 Note XR BONE LENGTH STUDY Bone [...] Rory Huang MD on 02/29/2024 2:49 PM [facility] 02-29-2024 Note Bone length evaluati on History: [...] Rory Huang MD on 02/29/2024 2:49 PM [facility] 02-29-2024 History of Present illness Narrative Images from the original note were not included. GENERAL HISTORY AND PHYSICAL: NAME: Perla Goodwin : 1955 HISTORY OF PRESENT ILLNESS: Perla Goodwin is an 68 y.o. @ female. Here for surgery instructions - (R) TKA 03/28/2024 @[facility] PAST MEDICAL HISTORY: Past Medical History: Diagnosis [...] and proposed surgery scheduled. (R) TKA 03/28 @[facility] SX INSTRUCTIONS GIVEN TODAY 02/28 @9:30AM - JUN PAT 02/28 @8:15AM DR. BONE CLEARANCE 03/20 @11:45AM [facility] NOTIFIED NO PREOP PAYMENT / PRECERT ; MEDICARE Follow up for 04/11/24 @ 9:00AM - Jun w/ Storm. documented in this encounter [facility] 02-29-2024 Instructions Jennifer Webster RN - 02/29/2024 8:15 AM EDT Preoperative Education Checklist- Joints/Spine Surgery date: 03/28/24 Surgery time: 0745 a.m. Arrival time: 0610 a.m. Return between 03/20-03/27/24 Mon-Fri 7 a.m.-5 p.m. at [facility] for your last blood test. 1. Bring a photo ID and your insurance card with you the day of surgery. You will check in at the main lobby of the [facility]- registration desk is straight ahead as soon as you walk in. Tell them you are here for surgery. 2. If you have a Living Will/Durable Power of Industrial Photographer for Health Care that is not on [...] after you have bathed. 5. No nail cymraes/acrylic on at least one finger. If you are having a hand, wrist, foot, or leg surgery then ALL nail cymraes and artificial/acrylic nails MUST be removed from [...] WITH YOU ANY DEVICES YOU MAY NEED: ELYSSA hose, ice machine, sling/swath, brace or special [...] please call the Preadmission Testing office at [phone] Mon.-Fri. 7 a.m.-3 p.m. Leave a voicemail [...] 25 mg tablet Take morning of procedure rkqlvgiz-ghfk-YE-calcium &mins (THERAGRAN-M) 9 mg iron-400 mcg tablet [...] blood clots, an IV, and possibly a RADIO BOARD OPERATOR ANNOUNCER pump and/or a NERVE BLOCK (both used [...] doctor does not round on patients at [facility] to see you while you are [...] hospital you [facility] who work in the hospital and they will start seeing you the morning after surgery. Therapy from your orthopedic doctor s office will begin seeing you once you are discharged from the hospital- they are not contracted to provide your treatment while you are in the hospital. You may have spoken with a store planner at your orthopedic doctor s office, but you will still review your discharge plan with our store planner from here at the hospital in [...] go swimming or use a hot tub ([email or web address]), or perform activities where your incision is [...] with your doctor. documented in this encounter [facility] 02-29-2024 Miscellaneous Notes Patient called and email [...] between 03/20-03/27/24 Mon-Fri 7 a.m.-5 p.m. at [facility] for your last blood test. 1. Bring a photo ID and your insurance card with you the day of surgery. You will check in at the main lobby of the [facility]- registration desk is straight ahead as soon as you walk in. Tell them you are here for surgery. 2. If you have a Living Will/Durable Power of Industrial Photographer for Health Care that is not on [...] after you have bathed. 5. No nail cymraes/acrylic on at least one finger. If you are having a hand, wrist, foot, or leg surgery then ALL nail cymraes and artificial/acrylic nails MUST be removed from [...] WITH YOU ANY DEVICES YOU MAY NEED: ELYSSA hose, ice machine, sling/swath, brace or special [...] please call the Preadmission Testing office at [phone] Mon.-Fri. 7 a.m.-3 p.m. Leave a voicemail [...] 25 mg tablet Take morning of procedure hgghjbcr-baad-YW-calcium &mins (THERAGRAN-M) 9 mg iron-400 mcg tablet [...] blood clots, an IV, and possibly a RADIO BOARD OPERATOR ANNOUNCER pump and/or a NERVE BLOCK (both used [...] doctor does not round on patients at [facility] to see you while you are [...] hospital you will receive physical [facility] who work in the hospital and they will start seeing you the morning after surgery. Therapy from your orthopedic doctor s office will begin seeing you once you are discharged from the hospital- they are not contracted to provide your treatment while you are in the hospital. You may have spoken with a store planner at your orthopedic doctor s office, but you will still review your discharge plan with our store planner from here at the hospital in [...] Patient verbalized understanding. [facility] Note Patient called and email verified. QR code sheet emailed to her in order for her to watch her Preop [employer] Total Knee Replacement video. Patient agreed to watch the video prior to her appointment to see us next week on 02/29/24. [facility] Nurse Note Preoperative Education Checklist- Joints/Spine Surgery date: 03/28/24 Surgery time: 0745 a.m. Arrival time: 0610 a.m. Return between 03/20-03/27/24 Mon-Fri 7 a.m.-5 p.m. at [facility] for your last blood test. 1. Bring a photo ID and your insurance card with you the day of surgery. You will check in at the main lobby of the [facility]- registration desk is straight ahead as soon as you walk in. Tell them you are here for surgery. 2. If you have a Living Will/Durable Power of Industrial Photographer for Health Care that is not on [...] after you have bathed. 5. No nail cymraes/acrylic on at least one finger. If you are having a hand, wrist, foot, or leg surgery then ALL nail cymraes and artificial/acrylic nails MUST be removed from [...] WITH YOU ANY DEVICES YOU MAY NEED: ELYSSA hose, ice machine, sling/swath, brace or special [...] please call the Preadmission Testing office at [phone] Mon.-Fri. 7 a.m.-3 p.m. Leave a voicemail [...] 25 mg tablet Take morning of procedure epdgvhzt-qhbi-TA-calcium &mins (THERAGRAN-M) 9 mg iron-400 mcg tablet [...] blood clots, an IV, and possibly a RADIO BOARD OPERATOR ANNOUNCER pump and/or a NERVE BLOCK (both used [...] doctor does not round on patients at [facility] to see you while you are [...] hospital you will receive physical [facility] therapists who work in the hospital and they will start seeing you the morning after surgery. Therapy from your orthopedic doctor s office will begin seeing you once you are discharged from the hospital- they are not contracted to provide your treatment while you are in the hospital. You may have spoken with a store planner at your orthopedic doctor s office, but you will still review your discharge plan with our store planner from here at the hospital in [...] to the follow-up appointment with your doctor. [facility] 02-29-2024 Nurse Note CHG wipes and surgical instructions reviewed. Patient verbalized understanding. [facility] 02-18-2024 History of Present illness Narrative Images from the original note [...] right knee showed severe varus deformity with kcwt-iw-pwdt articulation to the medial joint line. There [...] years old, or requires discharged to a fci facility, the patient may require to have additional inpatient hospital stay following the surgery. Physical therapy is contraindicated in this patient's case because of fyyn-up-ttdm articulation of the patient's knee. Elmira Neff D.O. documented in this encounter [facility] 02-20-2023 Evaluation note Encounter Date Diagnosis Assessment [...] Congestion of respiratory tract (ICD-10 - J98.8) [facility] Other Evaluation + Plan note No data available for this section [facility] Diagnosis Primary osteoarthritis of right knee- Primary Acute pain of right knee documented in this encounter [facility]* Diagnosis Primary osteoarthritis of right knee- Primary Pre-op examination [facility] Diagnosis Primary osteoarthritis of right knee- Primary S/P TKR (total knee replacement), right Acute pain of right knee [facility] Diagnosis Primary osteoarthritis of right knee- Primary documented in this encounter [facility]* Diagnosis Arthralgia of right knee- Primary documented in this encounter [facility]* Diagnosis Post-operative pain- Primary Other acute postoperative pain Nausea Nausea alone documented in this encounter [facility] Healthcare[facility]* Diagnosis Status post right knee replacement- Primary documented in this encounter [facility]* Diagnosis Status post right knee replacement Acute pain of right knee documented in [facility] encounter [facility]* Diagnosis Status post right knee replacement- Primary documented in this encounter [facility] Healthcare[facility] note* Diagnosis Preop examination- Primary Unspecified pre-operative examination Atrial fibrillation, unspecified type ([facility] Hypertension, unspecified type Urinary frequency Preop examination Unspecified pre-operative examination Atrial fibrillation, unspecified type ([facility]) Hypertension, unspecified type Preop examination Unspecified pre-operative examination Atrial fibrillation, unspecified type ([facility]) Hypertension, unspecified type Preop examination Unspecified pre-operative examination Atrial fibrillation, unspecified type ([facility]) Hypertension, unspecified type [facility] Diagnosis Vaginal discharge- Primary Leukorrhea, not specified as infective Vaginal odor Unspecified symptom associated with female genital organs [facility] Diagnosis BV (bacterial vaginosis)- Primary Unspecified vaginitis and vulvovaginitis [facility] Diagnosis Arthritis of left knee- Primary Acute pain of left knee documented in this encounter [facility]* Diagnosis Vaginal discharge- Primary Leukorrhea, not specified as infective Vaginal odor Unspecified symptom associated with female genital organs [facility] Diagnosis BV (bacterial vaginosis)- Primary Unspecified vaginitis and vulvovaginitis [facility] Diagnosis Pure hypercholesterolemia, unspecified documented in this encounter [facility] Work Phone: Evaluation note* Diagnosis Acute pain of left knee- Primary Arthritis of left knee documented in this encounter [facility] Healthcare[facility] note* Diagnosis Vaginal odor- Primary Unspecified symptom associated with female genital organs Vaginal discharge Leukorrhea, not specified as infective [facility] Diagnosis Status post right knee replacement- Primary [facility] - [facility]orted* Type Description Date Medical History HYPERTENSION Medical History HYPERTHYROIDISM [facility] Other Hospital Discharge instructions No data available for this section [facility]* Attachments The following attachments cannot be sent through Care Everywhere. * Vaginal discharge (Sol[place] Islander) * Vaginitis ([place] Islander) documented in this [facility] System[facility]ructionsNot on file documented in this [facility]Pro[facility] SystemInstructionsNot on file documented in this [facility]ProLuther[facility] SystemProgress note No data available for this section [facility] for visit Narrative* Consultation (Routine) - Authorized Specialty Diagnoses / Procedures Referred By Contac t Referred To Contact Physical Therapy Diagnoses Primary osteoarthritis of right knee Pre-op examination Procedures TX OFFICE/OUTPATIENT NEW HIGH MDM 60 MINUTES Pavel Friend PA [address] [facility] [address] [place] [address] Phone: tel: fax: Jordy Chapa, PT [address] [place] [address] Phone: tel: fax: Referral ID Status Reason Start Date Expiration Date Visits Requested Visits Authorized [id number] Authorized Consult and Treat 02/29/2024 08/27/2024 30 30 [facility] for visit Narrative* Imaging (Routine) - Authorized Specialty Diagnoses / Procedures Referred By Contac t Referred To Contact Radiology Diagnoses Pure hypercholesterolemia, unspecified Procedures CT cardiac scoring wo IV contrast Francisco Javier Bone DO [address] [place] [address] Phone: tel: fax: Referral ID Status Reason Start Date Expiration Date Visits Requested Visits Authorized [id number] Authorized Perform Procedure 06/09/2024 06/09/2025 1 1 [facility] Work Phone: Summary Purpose Family History No Family History Records FoundNo Family History Records FoundNo Family History Records FoundNo Family History Records FoundNo Family History Records FoundNo Family History Records FoundNo Family History Records FoundNo Family History Records FoundNo Family History Records FoundNo Family History Records FoundNo Family History Records FoundNo Family History Records Found Advance Directives No Advanced Directives Records Found Date Activated Date Inactivated Comments 03/27/2024 9:00 PM 03/28/2024 5:14 PM Additional Source Comments INFORMATION SOURCE (unrecogn ized section and content) DATE CREATED AUTHOR 07/05/2019 [facility] DATE CREATED AUTHOR AUTHOR'S ORGANIZ ATION 04/04/2022 [facility] DATE CREATED AUTHOR AUTHOR'S ORGANIZ ATION 03/30/2024 [facility] DATE CREATED AUTHOR AUTHOR'S ORGANIZ ATION 08/12/2024 [facility] DATE CREATED AUTHOR AUTHOR'S ORGANIZ ATION 08/18/2024 [facility] DATE CREATED AUTHOR AUTHOR'S ORGANIZ ATION 08/21/2024 [facility] DATE CREATED AUTHOR AUTHOR'S ORGANIZ ATION 12/29/2024 [facility] DATE CREATED AUTHOR AUTHOR'S ORGANIZ ATION 12/31/2024 [facility] DATE CREATED AUTHOR AUTHOR'S ORGANIZ ATION 01/02/2025 [facility] DATE CREATED AUTHOR AUTHOR'S ORGANIZ ATION 01/14/2025 [facility] REASON FOR VISIT (unrecogniz ed section and content) Reason Comments Pain Reason Comments Pain Reason Onset Date Comments surgery 03/27/2024 Reason Onset Date Comments PO scripts 03/27/2024 Reason Comments Post-op Reason Comments Follow-up Reason Comments Vaginal Discharge Reason Comments Pain Reason Comments Vaginal Discharge With an odor Reason Onset Date Comments antibiotic for dental appt 10/04/2024 Care Teams (unrecognized sec tion and content) Mortgage Loan Funder Relationship Specialty Start Date End Date Francisco Javier Bone DO [address] [place] [address] [phone] PCP - General Internal Medicine 08/05/24 Mortgage Loan Funder Relationship Specialty Start Date End Date Francisco Javier Bone Jr., DO [address] [place] [address] [phone] PCP - General Internal Medicine 04/16/21 Mortgage Loan Funder Relationship Specialty Start Date End Date Francisco Javier Bone MD [address] [place] [address] [phone] PCP - General Internal Medicine 02/22/24 FOR [...] BE BASED ON THE PRIMARY CLINICAL RECORDS. [facility]. provides no warranty or guarantee of the accuracy or completeness of information in this document.
== END 2025-01-15 13:46 | disposition home or self-care (01) ==
LOC: US 13:45
PROVIDERS: PCP Internal Medicine
DX: I72.1 Aneurysm of artery of upper extremity (principal)
CPT/HCPCS: 93931

== ENCOUNTER 2025-03-22 08:48 | Outpatient (OUT) | payer MEDICARE, OTHER, SELFPAY ==
--- OUTSIDE RECORDS SUMMARY | 2025-03-15 09:30 | XMS_ITS | Encounter Summary ---
Author Organization [facility] tem Address [id number] [place] [address] Care Team Providers Care Carpenter Prototype Name Role Phone Linda Adler DO, Charles L Primary Care Provider Reason for Visit * ReasonCommentsCirculatory ProblemRadial aneurysm- testing done Encounter Details DateTypeDepartmentCare Team (Latest Contact Info)Xugxeszeygf87/13/2025 9:30 AM ESTOffice Visit [facility] [place] [address] [place] [address] Jazz Morales MD [address], [address] [address] Radial artery aneurysm, right (Primary Dx) Social History Tobacco UseTypesPacks/DayYears UsedDateSmoking Tobacco: NeverSmokeless Tobacco: Never Tobacco Cessation:Counseling Given: Not Answered Alcohol UseStandard Drinks/WeekCommentsYes2 (1 standard drink = 0.6 oz pure alcohol)sociallyPHQ-2AnswerDate RecordedTotal Gconr99506/22/2022Hunger Screening AnswerDate RecordedWithin the past 12 months we worried whether our food would run out before we got money to buy more.Never True08/16/2024Within the past 12 months the food we bought just didn't last and we didn't have money to get more. Never True08/16/2024CommentsNoSex and Gender InformationValueDate RecordedSex Assigned at BirthNot on fileLegal CpuEvyltz44/14/2021 1:08 PM EST Gender IdentityNot on fileSexual OrientationNot on filedocumented as of this encounter Last Filed Vital Signs Vital SignReadingTime TakenCommentsBlood Qctfjcuv066/7803/15/2025 9:29 AM EST Cqweo95014/13/2025 9:29 AM ESTTemperature--Respiratory Rate--Oxygen Saturation-- Inhaled Oxygen Concentration--Weight--Height--Body Mass Index--documented in this encounter Progress Notes * Jazz Morales MD - 03/15/2025 9:30 AM EST Vascular surgery progress note This is a pleasant 69-year-old lady 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 She comes in with duplex ultrasound that shows thrombosis of the pseudoaneurysms with no arterial occlusive disease or any other issues. She does not need endovascular intervention. Recommended follow up as needed. Jazz Morales MD documented in this encounter Plan of Treatment Not on file documented as of this encounter Goals GoalPatient Goal TypeAssociated ProblemsRecent ProgressPatient-Stated?Author home Nataliia Wagner LSW Note: Evaluation of progress towards goal: going to sisters home today Autogenerated Goal Care PlanAutogenerated ProblemNoPotts, Elizabethdocumented as of this encounter Visit Diagnoses Diagnosis Radial artery aneurysm, right- Primary Aneurysm of other specified artery documented in this encounter Additional Health Concerns Active ProblemsNoted DateDiagnosed DateAutogenerated Phhinay53/22/2025Assessment Noted TimePHQ-9 Depression Total Score: 2:30 PM ESTdocumented as of this encounter Care Teams Team MemberRelationshipSpecialtyStart DateEnd Date Francisco Javier Mckeon Jr., DO [facility] [place] [address] PCP - GeneralInternal Kxurgoso01/15/21documented as of this encounter
--- OUTSIDE RECORDS SUMMARY | 2025-03-16 08:30 | XMS_ITS | Encounter Summary ---
Author Organization [facility] Address [address] [place] [address] Care Team Providers Care Industrial Seamstress Name Role Phone Francisco Javier Mckeon MD Primary Care Provider [phone] Reason for Visit * ReasonCommentsPain Encounter Details DateTypeDepartmentCare Team (Latest Contact Info)Ennhanuzisq38/14/2025 8:30 AM ESTOffice Visit [facility] [address] [place] [address] Pavel Friend PA [address] [place] [address] Acute pain of right knee (Primary Dx); History of total knee replacement, right; Tendonitis, Achilles, right Social History Tobacco UseTypesPacks/DayYears UsedDateSmoking Tobacco: NeverSmokeless Tobacco: NeverAlcohol UseStandard Drinks/WeekCommentsYes2 (1 standard drink = 0.6 oz pure alcohol)CommentsUnknownSex and Gender InformationValueDate RecordedSex Assigned at BirthNot on fileLegal FnnLfdyax50/11/2024 9:23 AM EDTGender Identity Lkpyxg9902/12/2024 9:27 AM EDTSexual OrientationNot on filedocumented as of this encounter Progress Notes * TIMMY Liu - 03/16/2025 8:30 AM EST Images from the original note were not included. Orthopedic Office note: NAME: Perla Torres : 1955 (EST PT) FLARE UP RT KNEE PAIN- RT TKA (03/28/24) ~1YR - FLARE UP ~1MO- DENIES INJURY - PT STATES SHE DOES HAVE SOME TENDONITIS IN RT ANKLE AND WONDERING IF SHE IS WALKING DIFFERENTLY RECENT HEART STENT 12/29/24; ON PLAVIX/ASA 81MG XRAY RT KNEE TODAY EPIC 03/16/25 XRAY 05/09/24 EPIC PHYSICAL THERAPY @ PROGRESSIVE THERAPY IN [place] PAIN LATERAL KNEE- INTERMITTENT SWELLING- SOME INSTABILITY- +STIFFNESS WITH PROLONG SITTING- DENIESWAKE HS- SOME TIGHTNESS WITH ROM -+VOLAREN GEL/IBUPROFEN Physical Exam General Appearance: Normal. Respiratory: No acute distress. Musculoskeletal: Right ankle appears normal with trace swelling to the mid distal Achilles. Hernandez's test is intact. No pain at the retrocalcaneal bursa or tendon insertion on the calcaneus. Compartments are soft. Calf is nontender. No warmth or erythema. No palpable nodularity. Pain with palpation, but not with active ankle dorsiflexion and plantar flexion, which is 5 out of 5. No pain in the distal ankle. Mild soreness along the posterior tibial tendon. Arch support present in the foot. No pain with calcaneal heel squeeze. Skin: Warm and dry, no rash. Neurological: Normal. Knee Musculoskeletal Exam Gait Gait is normal. Inspection Leg length disparity: no discrepancy Right Erythema: none Effusion: none Edema: none Ecchymosis: none Deformity: none Alignment: normal Previous incision: anterolateral Incision: well-healed Palpation Right Right knee palpation is unremarkable. Increased warmth: none Masses: none Tenderness: present Tenderness comment: distal lateral IT band, lateral femoral condyle to gerdys tubercle. no pain with LCL stress. no instability . Range of Motion Right Right knee range of motion is normal and full. Active extension: 0 Passive extension: 0 Active flexion: 125 Passive flexion: 130 Strength Right Right knee strength is normal. Extension: 5/5. Flexion: 5/5. Instability Right Instability signs: none - stable Varus stress grade: normal Valgus stress grade: normal Neurovascular Right Right knee neurovascular exam is normal. Pulses - PT: normal Posterior tibial: 2+ Capillary refill: warm and well-perfused Special Signs Right Right knee special signs are normal. Patellar apprehension: none General Constitutional: appears stated age Labored breathing: no Psychiatric: normal mood and affect Neurological: alert Skin: intact Lymphadenopathy: none Orders Placed This Encounter Procedures XR knee 1 or 2 views right Reason for exam:: PAIN Procedures Results ICD-10-CM 1. Acute pain of right knee M25.561 XR knee 1 or 2 views right predniSONE (Deltasone) 20 MG tablet 2. History of total knee replacement, right Z96.651 3. Tendonitis, Achilles, right M76.61 predniSONE (Deltasone) 20 MG tablet Assessment & Plan Right Achilles tenderness Pain is present with palpation but no pain with active ankle dorsiflexion and plantar flexion. Mildsoreness is noted along the posterior tibial tendon. Treatment plan: A jelly heel lift has been recommended for the Achilles. A home exercise plan has been provided. Given the symptoms of tendinitis and the current use of Plavix, which contraindicates the use of Motrin, a steroid will be administered. Clinical decision making: The risks and benefits of medication, including steroids and certain antibiotics to avoid due to the potential for spontaneous rupture in the setting of acute tendinitis symptoms, were discussed. She expressed understanding of these risks and had no further concerns or questions. Right lateral knee pain The symptoms suggest a likely case of IT band syndrome. Treatment plan: Topical treatments, gentle massage if tolerated, and an oral steroid have been discussed as potential interventions. If symptoms persist, formal physical therapy will be considered. Follow-up: Follow up in 1 month. Questions answered in laymen terms at the bedside. The diagnosis, home exercise plan and any ongoing restrictions/ recommendations reviewed. If unable to be reached in office, I recommend evaluation at nearest Emergency Room if any symptoms worsened or new symptoms develop for requiring urgent evaluation. Visit was preformed using [employer]-test pilot speech recognition. documented in this encounter Plan of Treatment DateTypeDepartmentCare Team (Latest Contact Info)Cqqtrocipsm96/12/2025 10:45 AM ESTOffice Visit [facility] [address] [place] [address] Pavel Friend PA [address] [place] [address] 06/13/2025 1:00 PM ESTOffice Visit [facility] [address] [facility] [place] [address] Pavel Friend PA [address] [place] [address] documented as of this encounter Procedures Procedure NamePriorityDate/TimeAssociated DiagnosisCommentsXR KNEE 1-2 VIEWS BPNULTytfhjo60/14/2025 8:41 AM EST Acute pain of right knee documented in this encounter Results * XR knee 1 or 2 views right (03/16/2025 8:41 AM EST)Anatomical RegionLaterality ModalityLower Extremities, KneeRightRadiographic ImagingSpecimen (Source) Anatomical Location / LateralityCollection Method / VolumeCollection Time Received Time Narrative 03/16/2025 8:47 AM EST Imaging Result: AP and Lateral of right knee: Surgical position and alignment of prosthetic components without evidence of loosening or wear to femora, tibial or patellar components, The alignment appears to be anatomic. No evidence of accelerated or asymmetric wear to tibial tray or patella button. No evidence of fracture or dislocation. Impression: Unremarkable right total knee arthroplasty Authorizing ProviderResult TypeResult StatusMatthesurinder Friend PAI XR PROCEDURES Final Result documented in this encounter Visit Diagnoses Diagnosis Acute pain of right knee- Primary History of total knee replacement, right Tendonitis, Achilles, right documented in this encounter Care Teams Team MemberRelationshipSpecialtyStart DateEnd Date Francisco Javier Mckeon MD [address] [place] [address] PCP - GeneralInternal Lmdyqujy83/22/24documented as of this encounter
--- OUTSIDE RECORDS SUMMARY | 2025-03-16 08:45 | XMS_ITS | Encounter Summary ---
Author Organization [facility] Address [address] [place] [address] Care Team Providers Care Asphalt Heater Operator Name Role Phone Francisco Javier Mckeon MD Primary Care Provider [phone] Encounter Details DateTypeDepartmentCare Team (Latest Contact Info)Xtvckgyajhd64/14/2025 8:45 AM ESTAncillary Procedure [facility] [address] [place] [address] Social History Tobacco UseTypesPacks/DayYears UsedDateSmoking Tobacco: NeverSmokeless Tobacco: NeverAlcohol UseStandard Drinks/WeekCommentsYes2 (1 standard drink = 0.6 oz pure alcohol)CommentsUnknownSex and Gender InformationValueDate RecordedSex Assigned at BirthNot on fileLegal VyyItyrtr13/11/2024 9:23 AM EDTGender Identity Qwnyxi5502/12/2024 9:27 AM EDTSexual OrientationNot on filedocumented as of this encounter Plan of Treatment DateTypeDepartmentCare Team (Latest Contact Info)Xqaurqkwghu17/12/2025 10:45 AM ESTOffice Visit [facility] [address] [place] [address] Pavel Friend PA [address] [place] [address] 06/13/2025 1:00 PM ESTOffice Visit [facility] [address] [place] [address] Pavel Friend PA [address] [place] [address] documented as of this encounter Procedures Procedure NamePriorityDate/TimeAssociated DiagnosisCommentsXR KNEE 1-2 VIEWS GTIIAEtjtwgh43/14/2025 8:41 AM EST Acute pain of right [...] right total knee arthroplasty Authorizing ProviderResult TypeResult StatusMattmike Friend PAIMG XR PROCEDURES Final Result documented in this encounter Visit Diagnoses Not on filedocumented in this encounter Care Teams Team MemberRelationshipSpecialtyStart DateEnd Date Francisco Javier Mckeon MD [facility] [place] [address] PCP - GeneralInternal Icifuwec86/22/24documented as of this encounter
--- OUTSIDE RECORDS SUMMARY | 2025-03-22 08:53 | XMS_ITS | Encounter Summary ---
Author Organization [facility] Address [address] [place] [address] Care Team Providers Care Division Service Manager Name Role Phone Francisco Javier Mckeon MD Primary Care Provider [phone] Encounter Details DateTypeDepartmentCare Team (Latest Contact Info)Pbtjuyaranh21/14/2025amboo flowsheet [facility] [address] [address] Pavel Friend PA [address] [place] [address] Social History Tobacco UseTypesPacks/DayYears UsedDateSmoking Tobacco: NeverSmokeless Tobacco: NeverAlcohol UseStandard Drinks/WeekCommentsYes2 (1 standard drink = 0.6 oz pure alcohol)CommentsUnknownSex and Gender InformationValueDate RecordedSex Assigned at BirthNot on fileLegal OhvZuafnq82/11/2024 9:23 AM EDTGender Identity Edofnt5802/12/2024 9:27 AM EDTSexual OrientationNot on filedocumented as of this encounter Plan of Treatment DateTypeDepartmentCare Team (Latest Contact Info)Xvoiuaybamd46/12/2025 10:45 AM ESTOffice Visit [facility] [address] [address] Pavel Friend PA [address] [place] [address] 06/13/2025 1:00 PM ESTOffice Visit [facility] [address] [place] [address] Pavel Friend PA [address] [place] [address] documented as of this encounter Visit Diagnoses Not on filedocumented in this encounter Care Teams Team MemberRelationshipSpecialtyStart DateEnd Date Francisco Javier Mckeon MD [address] [place], [place] [id number] PCP - GeneralInternal Cvywbbal22/22/24documented as of this encounter
--- OUTSIDE RECORDS SUMMARY | 2025-03-22 08:53 | XMS_ITS | Clinical Summary ---
Author Organization [facility] Address [address] [place] [address] Phone Care Team Providers Care Bank Vault Custodian Name Role Phone JacquelynFrancisco Javier ellis Primary Care Provider + [phone] Encounters DateTypeDepartmentCare GttlUbawfhpwkcb34/25/2025Scanned Document [facility] [address] [place] [address] Scanning, Generic Provider from Last 3 Months Social History Tobacco UseTypesPacks/DayYears UsedDateSmoking Tobacco: Never Assessed CommentsUnknownSex and Gender InformationValueDate RecordedSex Assigned at Not on fileLegal SzyGuuflq92/26/2022 5:05 AM ESTGender IdentityNot on fileSexual OrientationNot on file Plan of Treatment Health MaintenanceDue DateLast DoneCommentsCT Zxwdjduwomar17/08/1955Colonoscopy 5Colorectal Cancer Qnhnawnrg48/08/1955FIT-DNA (Cologuard)1954FIT 1954Lipid Panel1954Medicare Annual Wellness Visit (AWV)1955 Tctvxfffhisly55/08/1955MMR Vaccines (1 of 1 - Standard series)1956 Hepatitis C Olecbzzfv59/08/4424Xkgxdddxu03/08/1995Pneumococcal Vaccine (1 of 1 - PCV)2004Zoster Vaccines (1 of 2)2004Bone Density Scan2019 Influenza Vaccine (#1), 03/09/2023, 02/10/2022, Additional history existsCOVID-19 Vaccine ( season), 08/27/2023, 02/27/2022, Additional history existsDTaP/Tdap/Td Vaccines (2 - Td or Tdap)/08/2021Hepatitis A VaccinesAged Out02/04/2022, 09/03/2021, 08/05/2021No longer eligible based on patient's age to complete this topic Hepatitis B QrwsouxyQfulrqltc30/05/2022, 09/03/2021, 2RSV High Risk: (Elderly (60+) or Population)Iwsdgqznm30/01/2023HIB VaccinesAged OutNo longer eligible based on patient's age to complete this topicHPV VaccinesAged OutNo longer eligible based on patient's age to complete this topicIPV Vaccines Aged OutNo longer eligible based on patient's age to complete this topic Meningococcal VaccineAged OutNo longer eligible based on patient's age to complete this topicRotavirus VaccinesAged OutNo longer eligible based on patient's age to complete this topic Insurance * Guarantor: INSTITUTIONAL,BILLING PARAccount TypeRelation to PatientDate of BirthPhoneBilling AddressPersonal/FamilyOther [address] [place] [address] * Guarantor: INSTITUTIONAL,BILLING PARAccount TypeRelation to PatientDate of BirthPhoneBilling AddressPersonal/FamilyOther [address] [place] [address] Care Teams Team MemberRelationshipSpecialtyStart DateEnd Francisco Javier Mckeon DO [employer] [place] [address] PCP - GeneralInternal Medicine08/05/24
--- OUTSIDE RECORDS SUMMARY | 2025-03-22 08:53 | XMS_ITS | Clinical Summary ---
Author Organization [facility] Address [address] [place] [address] Care Team Providers Care Arm Rest Builder Name Role Phone Francisco Javier Mckeon MD Primary Care Provider [phone] Allergies Active AllergyReactionsCriticalityNoted DateCommentsCyclobenzaprineAnaphylaxis High03/28/20242117WpkazCdqkiepfhalDpdn14/18/2024 1. ALL MUSCLE RELAXERS 2. DENIES METAL ALLERGY Medications MedicationSigDispense QuantityRefillsLast FilledStart DateEnd DateStatus levothyroxine (Synthroid, Levoxyl) 50 MCG tablet 05/03/2014ctive estradiol (Estrace) 0.1 MG/GM vaginal cream INSERT ONE GRAM VAGINALLY EVERY WEEKActive Calcium Carb-Cholecalciferol (CALTRATE BONE HEALTH PO) Take by mouthActive BIOTIN PO Take by mouthActive COLLAGEN PO Take by mouthActive amoxicillin (Amoxil) 500 MG tablet Indications:Status post right knee replacement4 tabs PO once 30-60 mins before procedure with food 4 tablet 5Active losartan (Cozaar) 50 MG tablet Take 100 mg by mouthActive clopidogrel (Plavix) 75 MG tablet Take by mouth DailyActive rosuvastatin (Crestor) 20 MG tablet Take 20 mg by mouth DailyActive aspirin 81 MG EC tablet Take 81 mg by mouth DailyActive predniSONE (Deltasone) 20 MG tablet Indications:Acute pain of right knee,Tendonitis, Achilles, rightTake 2 tablets (40 mg) by mouth Daily for 5 days, THEN 1 tablet (20 mg) Daily for 5 days. Take withfood. 15 tablet 5Active metoprolol tartrate (Lopressor) 50 MG tablet 4105/16/2024Discontinued(Therapy completed) Glucosamine-Chondroitin (GLUCOSAMINE CHONDR COMPLEX PO) Take by mouth03/16/2025Discontinued(Therapy completed) Active Problems ProblemNoted DateDiagnosed DatePrimary osteoarthritis of right knee03/14/2024 A-fib05/03/2022 Encounters DateTypeDepartmentCare QjvuGnexajkvvpb99/14/2025 8:45 AM ESTAncillary Procedure [facility] [place] [address] 03/16/2025 8:30 AM ESTOffice Visit [place] [address] [place] [address] Pavel Friend PA Acute pain of right knee (Primary Dx); History of total knee replacement, right; Tendonitis, Achilles, right03/16/2025amboo flowsheet [place] [address] [place] [address] Pavel Friend PA 03/16/20250792Rqseeb66/12/2025Travelfrom Last 3 Months Immunizations ImmunizationAdministration DatesNext DueHep A / Hep B1,09/03/2021, 08/05/2021Influenza, High Dose Seasonal, Preservative Free02/12/2024Influenza, High-dose Seasonal, Quadrivalent, Preservative Free02/10/2022,01/28/2021 Influenza, Seasonal, Quadrivalent, Yzzopsopwi28/07/2023Novel lyfnjxqkg-Y9G2-09, preservative-free05/14/2009RSV, recombinant, protein subunit RSVpreF, adjuvant reconstitu, 120mcg/0.5mL, PF (Arexvy)04/02/2023Tdap08/05/2021Typhoid, ViCPs 08/05/2021 Social History Tobacco UseTypesPacks/DayYears UsedDateSmoking Tobacco: NeverSmokeless Tobacco: Never Tobacco Cessation:Counseling Given: Not Answered Alcohol UseStandard Drinks/WeekCommentsYes2 (1 standard drink = 0.6 oz pure alcohol)CommentsUnknownSex and Gender InformationValueDate RecordedSex Assigned at BirthNot on fileLegal HrwBcwnhg26/11/2024 9:23 AM EDTGender Identity Kpvvvz9802/12/2024 9:27 AM EDTSexual OrientationNot on file Last Filed Vital Signs Vital SignReadingTime TakenCommentsBlood Pressure--Pulse--Temperature-- Respiratory Rate--Oxygen Saturation--Inhaled Oxygen Concentration--Qrigjy10.3 kg (148 lb 6.4 oz)02/29/2024 10:24 AM QCCSgeute112.5 cm (5' 7.5 )02/29/2024 10:24 AM EDTBody Mass Index22.91 10:24 AM EDT Plan of Treatment DateTypeDepartmentCare Team (Latest Contact Info)Rtlrmorfljj03/12/2025 10:45 AM ESTOffice Visit [facility] [address] [facility] [place] [place] [address] Pavel Friend PA [address] [facility] [place] [address] 06/13/2025 1:00 PM ESTOffice Visit [facility] [address] [place] [address] Pavel Friend PA [address] [place] [address] Health MaintenanceDue DateLast DoneCommentsCT Jrizmwwvgfbn97/08/1955Colonoscopy 5Colorectal Cancer Abheerrur05/08/1955FIT-DNA1954FIT1955 FOBT1955 8263Dtjyjprxqofis48/08/6413Wqjnwbxmo89/08/1995Pneumococcal Vaccine: 65+ Years (2 of 2 - PPSV23)/Influenza Vaccine (#1)2025 02/12/2024, 03/09/2023, 02/10/2022, Additional history existsCOVID-19 Vaccine ( season)509/, 03/02/2024, 08/19/2021, Additional history exists Procedures Procedure NamePriorityDate/TimeAssociated DiagnosisCommentsXR KNEE 1-2 VIEWS DHPCSKfuoatn56/14/2025 8:41 AM EST Acute pain of right knee from Last 3 Months Results * XR knee 1 or 2 [...] right total knee arthroplasty Authorizing ProviderResult TypeResult StatusMatthew Bret Friend PAIMG XR PROCEDURES Final Result from Last 3 Months Insurance Care Teams Team MemberRelationshipSpecialtyStart DateEnd Date Francisco Javier Mckeon MD [facility] [place] [id number] PCP - GeneralInternal Npkguarm38/22/24
--- OUTSIDE RECORDS SUMMARY | 2025-03-22 08:53 | XMS_ITS | Encounter Summary ---
Author Organization [facility] Address [address] [place] [address] Care Team Providers Care Legal Services Manager Name Role Phone Francisco Javier Mckeon MD Primary Care Provider [phone] Encounter Details DateTypeDepartmentCare Team (Latest Contact Info)Qwcvenoiyka56/14/2025Travel Social History Tobacco UseTypesPacks/DayYears UsedDateSmoking Tobacco: NeverSmokeless Tobacco: NeverAlcohol UseStandard Drinks/WeekCommentsYes2 (1 standard drink = 0.6 oz pure alcohol)CommentsUnknownSex and Gender InformationValueDate RecordedSex Assigned at BirthNot on fileLegal VzyHmqrgl81/11/2024 9:23 AM EDTGender Identity Rmwjhu8002/12/2024 9:27 AM EDTSexual OrientationNot on filedocumented as of this encounter Plan of Treatment DateTypeDepartmentCare Team (Latest Contact Info)Hutligejkjj96/12/2025 10:45 AM ESTOffice Visit [facility] [address] [place] [address] Pavel Friend PA [address] [place] [address] 06/13/2025 1:00 PM ESTOffice Visit [facility] [address] [place] [address] Pavel Friend PA [address] [place] [address] documented as of this encounter Visit Diagnoses Not on filedocumented in this encounter Care Teams Team MemberRelationshipSpecialtyStart DateEnd Date Francisco Javier Mckeon MD [address] [place] [address] PCP - GeneralInternal Guyslzsc59/22/24documented as of this encounter
--- OUTSIDE RECORDS SUMMARY | 2025-03-22 08:53 | XMS_ITS | Encounter Summary ---
Author Organization [employer] [facility] Address [id number] [address] [place] [address] Care Team Providers Care Color Control Operator Name Role Phone Linda Adler DO, Charles L Primary Care Provider Encounter Details DateTypeDepartmentCare Team (Latest Contact Info)Uuuvimnlirb86/11/2025Travel Social History Tobacco UseTypesPacks/DayYears UsedDateSmoking Tobacco: NeverSmokeless Tobacco: NeverAlcohol UseStandard Drinks/WeekCommentsYes2 (1 standard drink = 0.6 oz pure alcohol)sociallyPHQ-2AnswerDate RecordedTotal Actrq26106/22/2022Hunger Screening AnswerDate RecordedWithin the past 12 months we worried whether our food would run out before we got money to buy more.Never True08/16/2024Within the past 12 months the food we bought just didn't last and we didn't have money to get more. Never True08/16/2024CommentsNoSex and Gender InformationValueDate RecordedSex Assigned at BirthNot on fileLegal NzeJwqnkr50/14/2021 1:08 PM EST Gender IdentityNot on fileSexual OrientationNot on filedocumented as of this encounter Plan of Treatment Not on file documented as of this encounter Goals GoalPatient Goal TypeAssociated ProblemsRecent ProgressPatient-Stated?Author home Nataliia Wagner LSW Note: Evaluation of progress towards goal: going to sisters home today Autogenerated Goal Care PlanAutogenerated ProblemNoPotts, Elizabethdocumented as of this encounter Visit Diagnoses Not on filedocumented in this encounter Additional Health Concerns Active ProblemsNoted DateDiagnosed DateAutogenerated Zrxjkfm97/22/2025Assessment Noted TimePHQ-9 Depression Total Score: 2:30 PM ESTdocumented as of this encounter Care Teams Team MemberRelationshipSpecialtyStart DateEnd Date Francisco Javier Mckeon Jr., [facility] [place] [address] PCP - GeneralInternal Oimvjtda57/15/21documented as of this encounter
--- OUTSIDE RECORDS SUMMARY | 2025-03-22 08:53 | XMS_ITS | Clinical Summary ---
Author Organization [facility] tem Address [id number] [address] [place] [address] Care Team Providers Care Director Oracle Database Name Role Phone Linda Adler DO, Charles L Primary Care Provider Allergies Active AllergyReactionsCriticalityNoted DateCommentsCyclobenzaprineAnaphylaxis High03/28/20248496PgggvWctxlmgqsmcZgpx51/15/2021 Muscle Relaxers Medications MedicationSigDispense QuantityRefillsLast FilledStart DateEnd DateStatus levothyroxine (SYNTHROID, LEVOTHROID) 25 MCG tablet Take 2 tablets (50 mcg total) by mouth in the morning.Active valACYclovir (VALTREX) 1000 mg tablet Take 1 tablet (1,000 mg total) by mouth in the morning and 1 tablet (1,000 mg total) before bedtime. One tablet by mouth for 5 days as needed .Active calcium carbonate-vitamin D3 (CALCIUM 500 + D) 500 mg(1,250mg) -200 units per tablet Take 1 tablet by mouth in the morning.Active metoprolol tartrate (LOPRESSOR) 25 mg tablet Take 2 tablets (50 mg total) by mouth in the morning and 2 tablets (50 mg total) before bedtime.Active estradioL (ESTRACE) 0.01 % (0.1 mg/gram) vaginal cream Indications:Vaginal atrophyInsert 1 g into the vagina once a week. 42.5 g 3Active mckprryf-xcqv-OP-calcium &mins (THERAGRAN-M) 9 mg iron-400 mcg tablet Take 1 tablet by mouth in the morning.Active aspirin 81 mg chewable tablet Chew 1 tablet (81 mg total) and swallow.5Active clopidogreL (PLAVIX) 75 mg tablet Take 1 tablet (75 mg total) by mouth.Active losartan-hydroCHLOROthiazide (HYZAAR) 100-12.5 mg per tablet Take 1 tablet by mouth.Active nitroglycerin (NITROSTAT) 0.4 MG SL tablet DISSOLVE 1 TABLET UNDER THE TONGUE NEEDED FOR CHEST PAIN- MAY REPEAT EVERY 5 MINUTES IF NEEDED (MAX 3 DOSES.- IF NO RELIEF CALL 911)5Active rosuvastatin (CRESTOR) 20 mg tablet Take 1 tablet (20 mg total) by mouth.Active Active Problems ProblemNoted DateDiagnosed DateRadial artery aneurysm, right03/01/2025 Assessment & Plan (03/01/2025 8:49 AM EDT): Duplex US to evaluate and see if it is persistent Right knee pain03/27/2024 Encounters DateTypeDepartmentCare DkheDglealqrkyl94/13/2025 9:30 AM ESTOffice [address] [facility] [address] [place] [address] Jazz Morales MD Radial artery aneurysm, right (Primary Dx)03/13/20256259Roxjhh59/04/2025 8:49 AM EST - 03/06/2025 11:59 PM ESTHospital Encounter [facility] [address] [place] [id number] Jazz Morales MD Radial artery aneurysm, right Discharge Disposition: Home03/05/20253997Duuofk68/30/2025 8:40 AM EDTOffice Visit [facility] [address] [place] [address] Jazz Morales MD Radial artery aneurysm, right (Primary Dx)02/27/20258060Zdsvfe37/16/2025Telephone [facility] [address] [place] [address] Jazz Morales MD 01/23/2025Orders Only [facility] [address] [place] [address] Kennedi Burr, [employer] (bacterial vaginosis) (Primary Dx)01/23/2025Telephone [facility] [address] [place] [address] Dorota Paredes RN from Last 3 Months Immunizations ImmunizationAdministration DatesNext WscQ8L0 Inj Preservative Free05/14/2009Hep A / Hep B1,09/03/2021,08/05/2021Influenza High Dose Preservative Free IM02/12/2024Influenza Vaccine, Quadrivalent, Uccqjnewgt63/07/2023Influenza, High-dose, Smgrcukqobdp60/11/2022,01/28/2021SV, recombinant, protein subunit RSVpreF, adjuvant reconstituted, 0.5 mL, PF04/02/2023Tdap08/05/2021Typhoid, ViCPS08/05/2021 Family History Medical HistoryRelationNameCommentsEsophageal cancerFatherBreast cancerMother Linda ShelleyN/AColon cancerMotherKate ShelleyRelationNameStatusCommentsFather DeceasedMotherKate ShelleyDeceased Social History Tobacco UseTypesPacks/DayYears UsedDateSmoking Tobacco: NeverSmokeless Tobacco: Never Tobacco Cessation:Counseling Given: Not Answered Alcohol UseStandard Drinks/WeekCommentsYes2 (1 standard drink = 0.6 oz pure alcohol)sociallyPHQ-2AnswerDate RecordedTotal Pjzab440Hunger Screening AnswerDate RecordedWithin the past 12 months we worried whether our food would run out before we got money to buy more.Never True08/16/2024Within the past 12 months the food we bought just didn't last and we didn't have money to get more. Never True08/16/2024CommentsNoSex and Gender InformationValueDate RecordedSex Assigned at BirthNot on fileLegal XqiObsara81/14/2021 1:08 PM EST Gender IdentityNot on fileSexual OrientationNot on file Last Filed Vital Signs Vital SignReadingTime TakenCommentsBlood Eimcfhzt371/7811/ 9:29 AM EST Czsoe03355/13/2025 9:29 AM MGBCaksuvbohvz11.9 ??C (98.4 ??F)03/28/2024 11:36 AM ESTRespiratory Pcli852805/28/2023 11:36 AM ESTOxygen Npjgarwlzn71%03/28/2024 11:36 AM ESTInhaled Oxygen Concentration--Ergjpu87.8 kg (147 lb 3.2 oz)03/01/2025 8:27 AM JKQAmbzch447.5 cm (5' 7.5 )03/01/2025 8:27 AM EDTBody Mass Index22.71 03/01/2025 8:27 AM EDT Plan of Treatment Health MaintenanceDue DateLast OazhEftpjmngZupxmvcsk39/08/1995Fall Risk Pfqqdgmlj23/08/2020Zoster (Shingles) Vaccine (2 of 2)/ Depression Wxcpxqixf22/Influenza Kyfgopa30/04/2024, 03/09/2023, 02/10/2022, Additional history existsCOVID-19 Vaccine ( season)/, 03/02/2024, 08/27/2023, Additional history exists Adult BMI Jmkpmqhsq26/Tobacco Bhbwkgbbw27/ DTaP,Tdap and Td Vaccines (2 - Td or Tdap)/2RSV ( or age 60+ yrs)Kancwslcx64/01/2023 Goals GoalPatient Goal TypeAssociated ProblemsRecent ProgressPatient-Stated?Author home Nataliia Wagner LSW Note: Evaluation of progress towards goal: going to sisters home today Autogenerated Goal Care PlanAutogenerated ProblemNoPotts, [employer]i [employer] ImplantedTypeAreaManufacturerDevice IdentifierShelf Expiration DateModel / Serial / LotCement Bn Bio 40gm Rpl [id number] - Sn/A - [id number] Implanted:Qty: 2 on 03/28/2024 by Jake Neff Jr., DO [facility]ONementRight: KneeZimmer [id number] / N/A / [id number] Fem F Kn Rt Lpsflx Gndr Edelmira? Nxgn Cocr Rpl 23086 - Sn/A - [id number] Implanted:Qty: 1 on 03/28/2024 by Jake Neff Jr., DO at [facility] ImplantRight: KneeZimmer [employer] [id number] / N/A / [id number] Ptlr 35mm Persona Alply Kn Strl Lf - Sn/A - [id number] Implanted:Qty: 1 on 03/28/2024 by Jake Neff Jr., DO at [facility] ImplantRight: [employer] [id number] / N/A / [id number] Complete Knee Solution Legacy. Knee Posterior Stabilized Prolong. Size E F 100mm Height Lps-Flex Articular Surface Implanted:Qty: 1 on 03/28/2024 by Jake Neff Jr., DO at [facility] ImplantRight: KneeZimmer [id number] / N/A / [id number] Tib [id number] Nxgn Kn Cmnt Mdlr Stm Prect 6 Tiv Pmma Rpl [id number] + [id number] - Sn/A - [id number] Implanted:Qty: 1 on 03/28/2024 by [facility] Jr[facility] KneeZimmer [id number]/30/2027 28-1822-892-02 / N/A / [id number]urxarMxoonh IdentifierShelf Expiration DateModel / Serial / LotScrew Gd 48mm Qd-Spr Hex Hd Mis Strl - Sn/A - [id number] Explanted:Qty: 1 on 03/28/2024 by Jake Neff Jr., DO at [facility] [id number]/5983-040-48 / N/A / [id number] Gd 48mm Qd-Spr Hex Hd Mis Strl - Sn/A - [id number] Explanted:Qty: 1 on 03/28/2024 [facility] [id number]/03/20345983-040-48 / N/A / [id number] Bn 35mm 6.5mm St Hip Actb Trlg Strl Rpl [id number]+32 - Sn/A - [id number] Explanted:Qty: 1 on 03/28/2024 [facility] [id number]/10/20326250-065-35 / N/A / [id number] Bn 35mm 6.5mm St Hip Actb Trlg Strl Rpl [id number] - Sn/A - [id number] Explanted:Qty: 1 on 03/28/2024 by [facility] [id number]/08/20326250-065-35 / N/A / [id number] Procedures Procedure NamePriorityDate/TimeAssociated DiagnosisCommentsVASC ARTERIAL DUPLEX UPPER SINGLE MMSAYMqutjcd37/04/2025 9:20 AM EST Radial artery aneurysm, right from Last 3 Months Results * Vas art duplex upr single right (03/06/2025 9:20 AM EST)Anatomical Region LateralityModalityVascularRightUltrasoundSpecimen (Source)Anatomical Location / LateralityCollection Method / VolumeCollection TimeReceived Time03/06/2025 10:07 AM EST Narrative 03/06/2025 1:03 PM EST Previous: History of cardiac catheterization on 12/29/2024. Right: Spectral waveforms with diastolic flow reversal noted in the subclavian, axillary, brachial,radial and ulnar artery without significant color flow disturbance. No evidence of encapsulated vascularized mass with feeder connection to makah arteries. Hypoechoic encapsulated area without color flow at the distal forearm/wrist (near site ofcardiac catheterization) measuring 1.5 x 3.2 x 5.8 mm. Conclusions: RIGHT: ??No evidence of occlusion, stenosis or flow disturbance in the arteries of theright upper extremity. 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 ??Clinical correlation is advised Procedure Note Cesar Parikh MD - 03/06/2025 Previous: History of cardiac catheterization on 12/29/2024. Right: Spectral waveforms with diastolic flow reversal noted in thesubclavian, axillary, brachial, radial and ulnar artery withoutsignificant color flow disturbance. No evidence of encapsulatedvascularized mass with feeder connection to makah arteries. Hypoechoic encapsulated area without color flow at the distal forearm/wrist (near site of cardiac catheterization) measuring 1.5 x 3.2 x5.8 mm. Conclusions: RIGHT: No evidence of occlusion, stenosis or flowdisturbance in the arteries of the right upper extremity. 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, resolving pseudoaneurysm.Clinical correlation is advised Authorizing ProviderResult TypeResult StatusMohamed F Andrew [facility] VASCULAR ORDERABLESFinal Result from Last 3 Months Additional Health Concerns Active ProblemsNoted DateDiagnosed DateAutogenerated Vrqshcl8401/22/2025 Insurance Advance Directives * Full Code (Latest Code Status on File) Date ActivatedDate VrfjboljiiqXcsznffm84/25/2024 9:00 PM03/28/2024 5:14 PM Care Teams Team MemberRelationshipSpecialtyStart DateEnd Date Francisco Javier Mckeon Jr., DO [address] [place] [address] PCP - GeneralInternal Duiwwvzz79/15/21
--- OUTSIDE RECORDS SUMMARY | 2025-03-22 08:53 | XMS_ITS | Encounter Summary ---
Author Organization [facility] Address [address] [place] [address] Care Team Providers Care Despatching And Receiving Clerk Name Role Phone Francisco Javier Mckeon MD Primary Care Provider [phone] Encounter Details DateTypeDepartmentCare Team (Latest Contact Info)Fgfducpsqkd78/12/2025Travel Social History Tobacco UseTypesPacks/DayYears UsedDateSmoking Tobacco: NeverSmokeless Tobacco: NeverAlcohol UseStandard Drinks/WeekCommentsYes2 (1 standard drink = 0.6 oz pure alcohol)CommentsUnknownSex and Gender InformationValueDate RecordedSex Assigned at BirthNot on fileLegal DeoOjkykf55/11/2024 9:23 AM EDTGender Identity Mgijct2902/12/2024 9:27 AM EDTSexual OrientationNot on filedocumented as of this encounter Plan of Treatment DateTypeDepartmentCare Team (Latest Contact Info)Mpwwpbysnon67/12/2025 10:45 AM ESTOffice Visit [facility] [address] [place] [address] Pavel Friend PA [address] [place] [address] 06/13/2025 1:00 PM ESTOffice Visit [facility] [address] [place] [address] Pavel Friend PA [address] [place] [address] documented as of this encounter Visit Diagnoses Not on filedocumented in this encounter Care Teams Team MemberRelationshipSpecialtyStart DateEnd Date Francisco Javier Mckeon MD [address] [place] [address] PCP - GeneralInternal Oxtervxi76/22/24documented as of this encounter
--- OUTSIDE RECORDS SUMMARY | 2025-03-22 08:55 | XMS_ITS | CCD ---
Author Organization [facility] Care Team Providers Care Screen Printing Supervisor Name Role Phone LIZANDRO, DR DIEHL Primary Care Unavailable LIZANDRO, DR DIEHL Admitting Unavailable LIZANDRO, DR DIEHL Attending Unavailable VALONE, DR DIEHL Consulting Unavailable ZIEBER, DR NESSA Stokes Consulting Unavailable LIZANDRO, DR DIEHL Primary Care Unavailable VALONE, DR DIEHL Admitting Unavailable LIZANDRO, DR DIEHL Attending Unavailable Lavinia Moore Unavailable Unavailable Primary Care Provider UnavailFrancisco Javier Uriarte MD Primary Care Provider Lizandro Adler DO, Charles L Primary Care Provider Lizandro Adler DO, Charles L Primary Care Provider Francisco Javier Bone DO Primary Care Provider FRANCISCO JAVIER BONE Referring Unavailable FRANCISCO JAVIER BONE Primary Care Unavailable KENNEDI PEÑA Referring Unavailable FRANCISCO JAVIER BONE JR Primary Care Unavailable KENNEDI PEÑA Referring Unavailable FRANCISCO JAVIER BONE JR Primary Care Unavailable NATALIA SANCHEZ Referring Unavailable FRANCISCO JAVIER BONE JR Primary Care Unavailable MD Angel Marie Attending Unavailable NONE, XXXX Referring Unavailable MD Angel Marie Admitting Unavailable MD Angel Marie Attending Unavailable MD Angel Marie Admitting Unavailable MD Angel Marie Admitting Unavailable MD Angel Marie Attending Unavailable NONE, XXXX Referring Unavailable MD Angel Marie Admitting Unavailable MD Angel Marie Attending Unavailable MD Angel Marie Referring Unavailable MD Angel Marie Admitting Unavailable MD Angel Marie Attending Unavailable Lizandro Adler DO, Charles L Primary Care Provider KENNEDI PEÑA Attending Unavailable VALONE JR, FRANCISCO JAVIER L Referring Unavailable VALONE JR, FRANCISCO JAVIER L Primary Care Unavailable KENNEDI PEÑA Attending Unavailable VALONE JR, FRANCISCO JAVIER L Referring Unavailable VALONE JR, FRANCISCO JAVIER L Primary Care Unavailable NATALIA SANCHEZ Attending Unavailable VALONE JR, FRANCISCO JAVIER L Referring Unavailable VALONE JR, FRANCISCO JAVIER L Primary Care Unavailable JAZZ MORALES F Attending Unavailable ANGEL MARIE Referring Unavailable VALONE JR, FRANCISCO JAVIER L Primary Care Unavailable ELMIRA NEFF JR Attending Unavailabl e VALONE JR, FRANCISCO JAVIER Finn Referring Unavailable VALONE JR, FRANCISCO JAVIER L Primary Care Unavailable ELMIRA NEFF JR Admitting UnavailELMIRA Guerrero JR Attending UnavailELMIRA Guerrero JR Referring Unavailabl e VALONE JR, FRANCISCO JAVIER Aakash Primary Care Unavailable JOSE, JAZZ F Attending Unavailable JAZZ MORALES F Referring Unavailable MARGARITOONE JR, FRANCISCO JAVIER L Primary Care Unavailable Allergies Allergy ClassificationReported Allergen(s)Allergy TypeDate of OnsetReaction(s) Facility (1 source)Misc-DrugDrug allergy (disorder)54-70-0765[facility] (1 source)cyclobenzaprineDrug Allergycentral [facility]allaC[facility] [employer] Other (20 sources)Other; Translations: [OTHER]Propensity to adverse reactions 36-71-7079UowiciyowkrJUBJ Healthcare (20 sources)cyclobenzaprine; Translations: [CYCLOBENZAPRINE]Drug Allergy 72-00-0045NodizlzjlubZwpYhwnzc [facility] (1 source)ALLERGIES NOT ON FILE; Translations: [ALLERGIES NOT ON FILE]Propensity to adverse reactions (disorder)[facility] Repository Medications Current Medications MedicationDrug Class(es)DatesSig (Normalized)Sig (Original)acetaminophen 325 mg oral tablet (1 source)take 2 tablets by mouth every six hours as needed for pain acetaminophen (TYLENOL) 325 mg tablet Take 2 tablets (650 mg total) by mouth every 6 (six) hours asneeded for pain. Activeacetaminophen 325 mg / oxyCODONE hydrochloride 5 mg oral tablet (3 sources)Opioid AgonistStart: 04-11-2024 End: 19-81-2321oeij 1 tablet by mouth every six hours for painoxyCODONE- acetaminophen (Percocet) 5-325 MG tablet Indications: Status post right knee replacement Take 1 tablet by mouth every 6 (six) hours if needed for severe pain for up to 5 days 20 tablet 04/11/2024 04/16/2024 ActiveStart: 03-27-2024 End: 84-16-4853numv 1 tablet by mouth every six hours for painoxyCODONE- acetaminophen (Percocet) 5-325 MG tablet Indications: Post-operative pain Take 1 tablet by mouth every 6 (six) hours if needed for moderate pain for up to 5 days 20 tablet 03/27/2024 04/01/2024 Activeamoxicillin 500 mg oral tablet (1 source)Penicillin-class AntibacterialStart: 87-89-4993swqx 4 tablets by mouth once at mealtimeamoxicillin (Amoxil) 500 MG tablet Indications: Status post right knee replacement 4 tabs PO once 30-60 mins before procedure with food 4 tablet 3 10/04/2024 ActiveStart: 52-33-6753fwxj 4 tablets by mouth once at mealtimeamoxicillin (Amoxil) 500 MG tablet Indications: Status post right knee replacement 4 tabs PO once 30-60 mins before procedure with food 4 tablet 3 10/04/2024 Activeascorbic acid/collagen hydr (COLLAGEN SKIN RENEWAL ORAL) (1 source)ascorbic acid/collagen hydr (COLLAGEN SKIN RENEWAL ORAL) Take by mouth daily. Activeaspirin 81 mg chewable tablet (3 sources)Platelet Aggregation Inhibitor, Nonsteroidal Anti-inflammatory Drug Start: 59-64-2305csffakt 81 mg chewable tablet Chew 1 tablet (81 mg total) and swallow. 12/29/2024 ActiveStart: 03-28-2024 End: 15-18-6155mjtt 1 tablet by mouth in the morning, then take 1 tablet by mouth at bedtimeaspirin 81 mg Take 1 tablet (81 mg total) by mouth in the morning and 1 tablet (81 mg total) beforebedtime. 60 tablet 03/28/2024 07/06/2024 Discontinued (Therapy completed)take 0.5 tablet by mouth once daily Aspirin 325 MG 1/2 tablet Orally Once a day ActiveBiotin (20 sources)biotin 1 mg capsule Take by mouth daily. ActiveBIOTIN PO Take by mouth ActiveCalcium Carb-Cholecalciferol (CALTRATE BONE HEALTH PO) (20 sources)Calcium Carb-Cholecalciferol (CALTRATE BONE HEALTH PO) Take by mouth Activecalcium carbonate 1250 mg / cholecalciferol 200 unt oral tablet (11 sources)Vitamin Dtake 1 tablet by mouth once daily in the morningcalcium carbonate-vitamin D3 (CALCIUM 500 + D) 500 mg(1,250mg) -200 units per tablet Take 1 tablet by mouth in the morning. ActiveChondroitin Sulfates / Glucosamine (20 sources)take 1 tablet by mouth three times dailyglucosamine-chondroitin 500- 400 mg tablet Take 1 tablet by mouth 3 (three) times a day. ActiveGlucosamine- Chondroitin (GLUCOSAMINE CHONDR COMPLEX PO) Take by mouth Activeclindamycin 300 mg oral capsule (3 sources)Lincosamide AntibacterialStart: 01-23-2025 End: 89-96-9620xdfh 1 capsule by mouth in the morning, then take 1 capsule by mouth at bedtimeclindamycin (CLEOCIN) 300 mg capsule Indications: BV (bacterial vaginosis) Take 1 capsule (300 mg total) by mouth in the morning and 1 capsule (300 mg total) before bedtime. Do all this for 7 days. 14 capsule 01/23/2025 01/30/2025 ActiveStart: 08-17-2024 End: 06-65-2872yfre 1 capsule by mouth in the morning, then take 1 capsule by mouth at bedtimeclindamycin (CLEOCIN) 300 mg capsule Indications: BV (bacterial vaginosis) Take 1 capsule (300 mg total) by mouth in the morning and 1 capsule (300 mg total) before bedtime. Do all this for 7 days. 14 capsule 08/17/2024 08/24/2024 Activeclopidogrel 75 mg oral tablet (1 source)P2Y12 Platelet InhibitorclopidogreL (PLAVIX) 75 mg tablet Take 1 tablet (75 mg total) by mouth. ActiveCollagen (20 sources)COLLAGEN PO Take by mouth Activedoxycycline hyclate 100 mg oral capsule (1 source)Tetracycline-class DrugStart: 33-75-2687sxms 1 capsule by mouth every twelve hoursDoxycycline Hyclate 100 MG 1 capsule Orally Twice a day for 10 day(s) Jan, Activeestradiol 0.1 mg/ml vaginal cream (20 sources)EstrogenStart: 31-88-4646nzsnvwprP (ESTRACE) 0.01 % (0.1 mg/gram) vaginal cream Indications: Vaginal atrophy Insert 1 g intothe vagina once a week. 42.5 g 2 04/21/2023 ActiveEstradiol 0.1 MG/GM _insert 1 (ONE) gram VAGINALLY weekly Vaginal for 90 Days Activefolic acid 1 mg / polysaccharide iron complex 150 mg / vitamin b12 0.025 mg oral capsule (10 sources)Vitamin B41Ijosu: 02-29-2024 End: 59-81-9686torc 1 tablet by mouth once dailyIron Polysacch Pnxcz-F05-SX (Poly-Iron 150 Forte) 150-0.025-1 MG capsule Indications: Primary osteoarthritis of right knee , Pre-op examination Take 1 tablet by mouth Daily 30 capsule 1 02/29/2024 03/30/2024 ActivehydroCHLOROthiazide 12.5 mg / losartan potassium 100 mg oral tablet (1 source)Thiazide Diuretic, Angiotensin 2 Receptor Blockertake 1 tablet by mouth oncelosartan-hydroCHLOROthiazide (HYZAAR) 100-12.5 mg per tablet Take 1 tablet by mouth. Activeibuprofen 200 mg oral tablet (1 source)Nonsteroidal Anti-inflammatory Drugtake 1 tablet by mouth every six hours as needed for painibuprofen (ADVIL,MOTRIN) 200 mg tablet Take 1 tablet (200 mg total) by mouth every 6 (six) hours asneeded for pain. Active levothyroxine sodium 0.05 mg oral tablet (20 sources)l-ThyroxineStart: 16-13-1981muabeusfvuwkk (Synthroid, Levoxyl) 50 MCG tablet 05/03/2014 Activetake 2 tablets by mouth in the morninglevothyroxine (SYNTHROID, LEVOTHROID) 25 MCG tablet Take 2 tablets (50 mcg total) by mouth in the morning. Active End: 21-87-5086vpau 1 tablet by mouth in the morninglevothyroxine (Synthroid, Levoxyl) 25 MCG tablet Take 25 mcg by mouth in the morning. 02/29/2024 Dis continuedLevothyroxine Sodium 25 MCG Oral for 90 Days Activemetoprolol tartrate 50 mg oral tablet (20 sources)beta-Adrenergic BlockerStart: 38-75-2216yfmgequuwu tartrate (Lopressor) 50 MG tablet 10/02/2023 Activetake 2 tablets by mouth in the morning, then take 2 tablets by mouth at bedtimemetoprolol tartrate (LOPRESSOR) 25 mg tablet Take 2 tablets (50 mg total) by mouth in the morning and 2 tablets (50 mg total) before bedtime. Active End: 10-28-7782zosf 1 tablet by mouth in the morningmetoprolol tartrate (Lopressor) 25 MG tablet Take 25 mg by mouth in the morning and 25 mg in the aime juventino. 02/29/2024 DiscontinuedmetroNIDAZOLE 500 mg oral tablet (2 sources)Nitroimidazole AntimicrobialStart: 07-28-2024 End: 88-10-7692syvd 1 tablet by mouth in the morning, then take 1 tablet by mouth at bedtimemetroNIDAZOLE (FLAGYL) 500 mg tablet Indications: BV (bacterial vaginosis) Take 1 tablet (500 mg total) by mouth in the morning and 1 tablet (500 mg total) before bedtime. Do all this for 7 days. 14 tablet 07/28/2024 08/04/2024 ActiveStart: 07-07-2024 End: 60-62-9801fwkr 1 tablet by mouth in the morning, then take 1 tablet by mouth at bedtimemetroNIDAZOLE (FLAGYL) 500 mg tablet Indications: BV (bacterial vaginosis) Take 1 tablet (500 mg total) by mouth in the morning and 1 tablet (500 mg total) before bedtime. Do all this for 7 days. 14 tablet 07/07/2024 07/14/2024 Ysjsunbeuohxjk-mlxc-IX-calcium &mins (THERAGRAN-M) 9 mg iron-400 mcg tablet (11 sources)pygzuhat-kvvv-FS-calcium &mins (THERAGRAN-M) 9 mg iron-400 mcg tablet Take 1 tablet by mouth inthe morning. Activenitroglycerin 0.4 mg sublingual tablet (1 source)Nitrate VasodilatorStart: 75-53-5566lxhpkvujxzhbx (NITROSTAT) 0.4 MG SL tablet DISSOLVE 1 TABLET UNDER THE TONGUE NEEDED FOR CHEST PAIN- MAY REPEAT EVERY 5 MINUTES IF NEEDED ( MAX 3 DOSES.- IF NO RELIEF CALL 911) 12/27/2024 Activeondansetron 4 mg oral tablet (1 source)Serotonin-3 Receptor AntagonistStart: 03-27-2024 End: 74-62-4834xezc 1 tablet by mouth every six hours as needed for nausea and vomiting and nausea and nauseaondansetron (Zofran) 4 MG tablet Indications: Nausea Take 1 tablet (4 mg) by mouth every 6 (six) hours if needed for nausea or vomiting for up to 5 days 20 tablet 03/27/2024 04/01/2024 ActiveProAir HFA 108 (90 Base) MCG/ACT (1 source)Start: 54-30-5870wmtm 1 puff(s) by inhalation every four hours as neededProAir HFA 108 (90 Base) MCG/ACT 1 puff as needed Inhalation every 4 hrs for 30 days Jan, Activerosuvastatin calcium 20 mg oral tablet (1 source)HMG-CoA Reductase Inhibitorrosuvastatin (CRESTOR) 20 mg tablet Take 1 tablet (20 mg total) by mouth. ActiveSpacer/Aero-Holding Chambers - (1 source)Start: 43-75-7785Cvafwf/Aero-Holding Chambers - as directed for 30 days Jan, ActivevalACYclovir 1000 mg oral tablet (11 sources)Herpesvirus Nucleoside Analog DNA Polymerase Inhibitor, Herpes Simplex Virus Nucleoside Analog DNA Polymerase Inhibitor, Herpes Zoster Virus Nucleoside Analog DNA Polymerase InhibitorvalACYclovir (VALTREX) 1000 mg tablet Take 1 tablet (1,000 mg total) by mouth in the morning and 1 tablet (1,000 mg total) before bedtime. One tablet by mouth for 5 days as needed . Active Completed/Discontinued Medications MedicationDrug Class(es)DatesSig (Normalized)Sig (Original)1 ml methylPREDNISolone acetate 40 mg/ml injection (5 sources)CorticosteroidStart: 08-16-2024 End: 94-18-1421xuftlmMPSCGYDklpqv acetate (DEPO-Medrol) injection 40 mgStart: 08-16-2024 End: 45-64-710015 mg, Intra-articular, Once PRN Procedure, Starting on Wed08/16/24 at 1342, For 1 doseStart: 46-22-9516Xpteff (Sudheer) 4 MG as directed Orally for daily dose take half with breakfast half with dinner for 6days Jan, Activeolmesartan medoxomil 20 mg oral tablet (2 sources)Angiotensin 2 Receptor Daxa End: 62-60-2391pbhp 1 tablet by mouth in the morningolmesartan (BENICAR) 20 mg tablet Take 1 tablet (20 mg total) by mouth in the morning. 02/29/2024 Di scontinued (Therapy completed) Problems Active Problems Problem ClassificationProblemDateDocumented DateEpisodic/ChronicAcute bronchitis (1 source)Acute bronchitis, unspecifiedEpisodicAortic; peripheral; and visceral artery aneurysms (5 sources)Aneurysm of right radial artery; Translations: [Aneurysm of artery of upper extremity]Onset: 179705-97-4489UxkcmrbViatsoj dysrhythmias (10 sources)Atrial fibrillation; Translations: [Unspecified atrial fibrillation] Onset: 109983-46-1444XebcfcxQhaubsyzv of lipid metabolism (4 sources)Pure hypercholesterolemia; Translations: [Pure hypercholesterolemia, unspecified]Onset: 307470-52-0794AnsuovxMpxxkqfpn hypertension (3 sources)Hypertensive disorder; Translations: [Essential (primary) hypertension]Onset: 515302-10-0176GzlefloAcpyvnphlmvo diseases of female pelvic organs (4 sources)Bacterial vaginosis; Translations: [Acute vaginitis]07-07-2024 EpisodicNausea and vomiting (1 source)Nausea; Translations: [Nausea]44-36-3048UuamjdcgCjbowhkdrlxldj (20 sources)Osteoarthritis of right knee joint; Translations: [Unilateral primary osteoarthritis, right knee]Onset: 586354-29-3690ZizalkiJplyr connective tissue disease (9 sources)History of total knee arthroplasty; Translations: [Presence of right artificial knee joint]33-09-7408KhtnijuDjcja female genital disorders (3 sources)Vaginal odor; Translations: [Other specified noninflammatory disorders of vagina]13-89-6348QtquuwocFknyf lower respiratory disease (1 source)Other specified respiratory disordersEpisodicOther nervous system disorders (1 source)Postoperative pain ; Translations: [Other acute postprocedural pain] 39-04-8431MyyngazwTbdvs non-traumatic joint disorders (2 sources)Arthritis of left dahu81-47-0005LsakmeuAulwy screening for suspected conditions (not mental disorders or infectious disease) (4 sources)Encounter for screening mammogram for malignant neoplasm of breast; Translations: [ENC SCR MAMMO MALIG NEOPLASM BREAST]Onset: 46-52-6952Gdscyyuw Other upper respiratory infections (1 source)Acute pansinusitis, unspecifiedEpisodicResidual codes; unclassified (1 source)Family history of malignant neoplasm of digestive organs; Translations: [FAM HX MALIG NEOPLASM DIGESTIV ORGN]Onset: 06-83-0554Vyzkygfk Residual codes; unclassified (1 source)Family history of malignant neoplasm of breast; Translations: [FAMILY HX MALIG NEOPLASM OF BREAST]Onset: 19-44-0004YbsdagwtVsldseffbdyu (3 sources)Acute pain of right ilqz26-73-8104Rjmhgtnzcrzs (4 sources)Autogenerated ProblemOnset: 514035-66-1796Beosrgueszsd (1 source)New PatientOnset: 50-62-7450Yumpggqesshv (1 source)right knee degenerative joint diseaseOnset: 03-28-2024 Past or Other Problems Problem ClassificationProblemDateDocumented DateEpisodic/ChronicGenitourinary symptoms and ill-defined conditions (1 source)Increased frequency of urination; Translations: [Frequency of micturition]21-72-5719CjyvxreiQfkh disorders (11 sources)Mood disordersOnset: 951534-77-5271Zrgfl female genital disorders (4 sources)Vaginal discharge; Translations: [Other specified noninflammatory disorders of vagina]Onset: 799314-82-8270NzordhwyJnbns female genital disorders (2 sources)Other specified noninflammatory disorders of vagina; Translations: [Other specified noninflammatorydisorders of vagina]Onset: 28-89-0279Rihjrpqx Other non-traumatic joint disorders (20 sources)Pain in right knee; Translations: [Pain in joint, lower leg]Onset: 493397-41-6296QsffgrceGaqjzgwzikfy (5 sources)Preprocedural examination gxlb82-85-8353 Results Test NameValueInterpretationReference RangeFacilityHeart and Vascular Office/Clinic Noteon 18-99-1403Wajyl and Vascular Office/Clinic NoteHeart and Vascular Office/Clinic Note Chief Complaint 2 [...] EDT Comprehensive Metabolic Panel Lipid Panel Orders: hydrochlorothiazide-losartan, 1 tab(s), Oral, Daily, 90 tab(s), Refill(s) 0, [facility], 170, cm, 01/12/25 13:40:00 EDT, Height/Length Dosing, [...] Tab, 20 mg= 1 tab(s), Oral, Daily hydrochlorothiazide-losartan 12.5 mg-100 mg oral tablet, 1 tab(s), [...] Tobacco Use:. Never Smok (more content not included)...[facility] HospitalComment on above:Result Comment: Electronically Signed By: Cynthia SUGGS, Angel Padron\.br\Date and Time Signed: 01/12/25 14:14 EDTDischarge Instructionson 83-24-1821Lwecvysec Instructions Discharge Instructions PERLA GOODWIN :1955 Visit Date:12/29/2024 Inpatient Discharge Instructions Your Care Team Admitting Physician - Angel Marie MD Referring Physician - Angel Marie MD Reason for Your Visit R94.39, R07.9 Your Diagnosis Mixed hyperlipidemia Status post insertion of drug-eluting stent into left anterior descending (LAD) artery for coronaryartery disease Stenosis of mid portion of left [...] Up Appointments after Discharge Follow Up with Angel Marie When: 01/12/2025 01:15 PM EDT Comments: Please call if you need to reschedule Appointment has already been scheduled Where: [place] [phone] Business (1) Medications What How Much When Instructions Next Dose New aspirin (aspirin 81 mg Chew Tab) 1 Tablets By Mouth Every day Pickup at [facility] New clopidogrel (clopidogrel 75 mg Tab) 1 Tablets By Mouth Every day Pickup at [facility] New rosuvastatin (Crestor 20 mg Tab) 1 Tablets By Mouth Every day Pickup at [facility] Unchanged apixaban (Eliquis 5 mg oral tablet) 1 Tablets By Mouth 2 times a day Unchanged levothyroxine (levothyroxine 50 mcg (0.05 mg) Tab) 1 Tablets By Mouth Every day Unchanged metoprolol (metoprolol tartrate 100 mg Tab) 1 Tablets By Mouth 2 times a day Pharmacy Information [facility]: [address] [place], [place] [id number] [phone] Allergies cyclobenzaprine (Anaphylactic reaction) Problems Ongoing - Any problem that you are currently receiving treatment for. Abnormal cardiovascular stress test Arrhythmia Devices Implanted/Removed This Visit Notice: You have devices implanted this visit that may not be MRI compatible. Implanted [facility] Left Anterior Descending Coronary Artery Xience Skypoint 2.75x18 12/29/2024, MR [employer] [place], [place] Cardiovascular PCI DISCHARGE INSTRUCTIONS Diet: ??? [...] for any reason without talking to your produce team member Site Care: ??? Do not remove dressing [...] up to one week. (more content not included)...NormalOhio Valley Surgical HospitalComment on above:Result Comment: Electronically Signed By: Angel RUSSELL, Tari Colmenares\.br\Date and Time Signed: 12/29/24 13:00 EDTLipid Panelon 24-91-4486Yaohuocpctp [Mass/Vol]202 mg/cOOsim859-556 [facility] HospitalComment on above:Performed By: #### [id number] #### [facility] [address], [place] [address]Sbqqpdbfyuu in HDL [Mass/Vol]48 mg/dLInvalid Interpretation CodeOhio Valley Surgical HospitalComment on above:Result Comment: '>= 60 LOW RISK' '<= 40 HIGH RISK'Performed By: #### [id number] #### [facility] [address], [place] [address]Fvktdowdxht in LDL [Mass/Vol]145 mg/dLHigh<=129[facility] Surgical HospitalComment on above:Performed By: #### [id number] #### [facility] [address], [place] [address]Dzhifaiaonp in VLDL [Mass/Vol]26 mg/dLNormal7-40[facility] HospitalComment on above:Performed By: #### [id number] #### [facility] [address], [place] [address]Cuzguztlhlhr [Mass/Vol]131 mg/dLNormal<=149[facility] HospitalComment on above:Performed By: #### [id number] #### [facility] [address], [place] [address]Sqtawhw D 25 Hydroxyon 24-91-2375Bamywae D 25 Xgkvgqi45.6 ng/mL Fkyven90.0-100.0[facility] Surgical HospitalComment on above:Performed By: #### [id number] #### [facility] [address], [place] [address]VEQiu 58-45-6461Hlbns gap [Moles/Vol]8 mmol/LNormal6-16[facility] HospitalComment on above:Performed By: #### [id number] #### [facility] [address], [place] [address]NDC/Creat Ratio25 No YuscfLdbt99-41TakbxnOhio Valley Surgical Hospital Comment on above:Performed By: #### [id number] #### [facility] [address], [place] [address]Vuasknv [Mass/Vol]9.7 mg/dLNormal8.9-11.1FHolzer HospitalComment on above:Performed By: #### [id number] #### [facility] [address], [place] [address]Gtdkfzvg [Moles/Vol]105 mmol/FCjzxkh580-588MqezsvOhio Valley Surgical HospitalComment on above:Performed By: #### [id number] #### [facility] [address], [place] [address]KE9 [Moles/Vol]30 mmol/GFozewn24-10YymyveOhio Valley Surgical Hospital Comment on above:Performed By: #### [id number] #### [facility] [address], [place] [address]Btryqntolt [Mass/Vol]0.8 mg/dLNormal0.5-1.3FHolzer HospitalComment on above:Performed By: #### [id number] #### [facility] [address] [place] [address]Udanmji [Mass/Vol]106 mg/vYEbwjeq70-324MwtlrwOhio Valley Surgical HospitalComment on above:Performed By: #### [id number] #### [facility] [address], [place] [address]Xcdvsitbz [Moles/Vol]3.9 mmol/LNormal3.5-5.3FHolzer HospitalComment on above:Performed By: #### [id number] #### [facility] [address] [place] [address]Pczzki [Moles/Vol]139 mmol/NLafsnx895-595WllzgiOhio Valley Surgical HospitalComment on above:Performed By: #### [id number] #### [facility] [address], [place] [address]Fbnd nitrogen [Mass/Vol]20 mg/dLNormal5-21[facility] HospitalComment on above:Performed By: #### [id number] #### [facility] [address], [place] [address]EVW w/ Auto Diffon 54-76-9942Zkjtntaf Absolute0.0 E9/LNormal 0.0-0.2FHolzer HospitalComment on above:Performed By: #### [id number] #### [facility] [address], [place] [address]Bykdocsxq/100 WBC (Bld)0.4 %Normal0.0-2.0[facility] Surgical HospitalComment on above:Performed By: #### [id number] #### [facility] [address], [place] [address]Llx Absolute0.1 E9/LNormal0.0-0.5FHolzer Hospital Comment on above:Performed By: #### [id number] #### [facility] [address], [place] [address]Uqdrdndcokm/100 WBC (Bld)2.3 %Normal0.0-8.0[facility] HospitalComment on above:Performed By: #### [id number] #### [facility] [address] [place] [address]Zhsgewkeuto distribution width (RBC) [Ratio]13.8 %Normal 10.9-14.2FHolzer HospitalComment on above:Performed By: #### [id number] #### [facility] [address] [place] [address]Oinfnhjwwn (Bld) [Volume fraction]41.4 %Vccqvo53.0-46.0[facility] HospitalComment on above:Performed By: #### [id number] #### [facility] [address], [place] [address]Mhbwqwastv (Bld) [Mass/Vol]13.8 g/oXRvlprr65.0-16.0[facility] HospitalComment on above:Performed By: #### [id number] #### [facility] [address], [place] [address]Kmuaa Absolute1.0 E9/LNormal1.0-4.0[facility] Comment on above:Performed By: #### [id number] #### [facility] [address], [place] [address]Nlbxmjjahxw/100 WBC (Bld)19.2 %Ubhxco31.0-50.0[facility] HospitalComment on above:Performed By: #### [id number] #### [facility] [address] [place] [address] 15613FHL (RBC) [Entitic mass]29.7 ieUpxxvl38.0-34.0[facility] HospitalComment on above:Performed By: #### [id number] #### [facility] [address] [place] [address]FFOZ (RBC) [Mass/Vol]33.3 g/gCHdppat97.4-36.0[facility] HospitalComment on above:Performed By: #### [id number] #### [facility] [address] [place] [address] 61849LDR (RBC) [Entitic vol]89.4 eRSjtips28.0-100.0[facility] HospitalComment on above:Performed By: #### [id number] #### [facility] [address] [place] [address]Iape Absolute0.7 E9/LNormal0.2-1.0[facility] Comment on above:Performed By: #### [id number] #### [facility] [address] [place] [address]100Lkgmltfoo/100 WBC (Bld)13.4 %Normal4.0-14.0[facility] HospitalComment on above:Performed By: #### [id number] #### [facility] [address] [place] [address]Apsogp Absolute3.2 E9/LNormal2.0-7.5FHolzer Hospital Comment on above:Performed By: #### [id number] #### [facility] [address] [place] [address]Ihrtbe Auto64.7 %Ztntrz47.0-75.0[facility] Comment on above:Performed By: #### [id number] #### [facility] [address] [place] [address]Xztjdyqz453.0 E9/SSzmvjo390.0-500.0[facility] Comment on above:Performed By: #### [id number] #### [facility] [address], [place] [address]Idkdmxuc mean volume (Bld) [Entitic vol]8.4 fLNormal6.4-10.8 [facility] HospitalComment on above:Performed By: #### [id number] #### [facility] [address], [place] [address]LOZ1.6 E12/LNormal4.3-5.9[facility] HospitalComment on above:Performed By: #### [id number] #### [facility] [address], [place] [address]OON0.0 E9/LNormal4.0-11.0[facility] HospitalComment on above:Performed By: #### [id number] #### [facility] [address], [place] [address]K[facility]ar and Vascular Office/Clinic Noteon 56-47-3335Boycw and Vascular Office/Clinic NoteHeart and Vascular Office/Clinic Note Chief Complaint New Patient- Abn Stress test The patient presents with concerns regarding an abnormal stress test result. History of Present Illness - The patient is a 69-year-old female presenting with follow-up of an abnormal stress test. - The patient underwent a nuclear stress test on December 12 at [facility], which revealed an abnormal result with a [...] appropriate for agesensation equal & normal bilaterally, speechnormal Psychiatric: cooperative, affect appropriate for age, normal [...] Father. Primary malignant neoplasm of female breast: Mother.[facility] HospitalComment on above:Result Comment: Electronically Signed By: Cynthia SUGGS, Angel Padron\.br\Date and Time Signed: 12/27/24 15:10 EDTeGFRon 13-09-9041fNPN15 mL/min/1.73 m1Dbgscv>=59[facility] HospitalComment on above:Performed By: #### [id number] #### [facility] [address], [place] [address]MGDO STAINon 88-92-5599Kghjvewmsai observation Gram stain Nom (Unsp spec)GRAM STAIN INTERMEDIATE FOR BACTERIAL VAGINOSIS, ALTERED VAGINAL PROSPER (Based on Eder scoring, validated forvaginal specimens) NO YEAST SEEN THIS METHOD HAS ONLY BEEN EVALUATED FOR WOMEN OF CHILDBEARING AGE AND POSTMENOPAUSAL WOMEN ON ESTROGEN REPLACEMENT THERAPY.White HospitalComment on above:Performed By: #### 664-3 #### [facility] ([id number]) [address], [address] [place], [place] [address]Fd Panel Informationon 25-43-4092IyyowmxTIMMY Liu 08/16/2024 2:06 PM L Inj/Asp: L [...] discussed. Consent was given by the patient. [facility]combe HospitalYEAST CULTUREon 97-17-2397Ogpcj Org specific cx Ql (Unsp spec)FUNGAL SMEAR NO FUNGAL ELEMENTS SEEN ON DIRECT SMEAR CULTURE RESULTS NO YEAST ISOLATED AT 5 DAYSNormalProMedica Cherrington HospitalComment on above: Performed By: #### [id number] #### [facility] ([id number]) [address], [address] [place], [place] [address]PQ CARDIAC SCORING WO IV CONTRASTon 19-18-6684OV CARDIAC SCORING WO IV CONTRASTInterpreted By: Juan Sandoval, ADDENDUM: NON-CARDIOVASCULAR FINDINGS INCLUDED [...] STRUCTURES ARE THE SOLE RESPONSIBILITY OF THE INPATIENT SERVICES RN SUBMITTING THE ORIGINAL REPORT (NOT THIS ADDENDUM) Signed by: Juan Sandoval 08/05/2024 11:20 AM -------- ORIGINAL REPORT -------- Dictation workstation: [id number] Interpreted By: Eben Garcia, STUDY: CT CARDIAC SCORING WO IV CONTRAST; 08/05/2024 11:11 am INDICATION: Signs/Symptoms:.. COMPARISON: None. ACCESSION NUMBER(S): [id number] ORDERING CLINICIAN: FRANCISCO JAVIER BONE TECHNIQUE: Using [...] risk irrespective of the score. Advise using BANGUAR 10 year CHD risk calculator below for better discrimination of risk. BANGURA 10-Year CHD Risk with Coronary Artery Calcification can be calcuate using link below https://www.bangura-nhlbi.org/MESACHDRisk/MesaRiskScore/RiskScore.aspx Ada warner al. JACC 2015 (http://dx.doi.org/10.1016/j.j acc.2015.08.035) Reading Construction Sales Manager: Dr. Eben Garcia, Date: 08/05/2024 11:16 am Signed by: Eben Garcia 08/05/2024 11:17 AM Dictation workstation: [id number]h Good Samaritan HospitalCT for calcium scoring WO contrast and CTA W contrast IV Heart and coronary arterieson 24-46-5993Uqdzmeyf by Juan Sandoval MD on 08/05/2024 11:20 [...] STRUCTURES ARE THE SOLE RESPONSIBILITY OF THE INPATIENT SERVICES RN SUBMITTING THE ORIGINAL REPORT (NOT THIS ADDENDUM) Signed by: Juan Sandoval 08/05/2024 11:20 AM -------- ORIGINAL REPORT -------- Dictation workstation: [id number] Health Preble Work Phone: [phone]. Coronary artery calcium score of 41*. 2. [...] calcuate using link below https://www.bangura-nhlbi.org/MESACHDRisk/MesaRiskScore/RiskScore.aspx Maryanne. JACC 2014 (http://dx.doi.org/10.1016/j.j acc.2015.08.035) [employer] Sales Manager: Dr. Eben Garcia, Date: 08/05/2024 11:16 am Signed by: Eben Garcia 08/05/2024 11:17 AM Dictation workstation: [id number] By: Eben Garcia, STUDY: CT CARDIAC SCORING WO IV CONTRAST; 08/05/2024 11:11 am INDICATION: Signs/Symptoms:.. COMPARISON: None. ACCESSION NUMBER(S): [id number] ORDERING CLINICIAN: FRANCISCO JAVIER BONE TECHNIQUE: Using [...] left pulmonary artery are normal in size. MMEben Martins DO / Juan Sandoval MD - 08/05/2024 Interpreted By: Eben Garcia, STUDY: CT CARDIAC SCORING WO IV CONTRAST; 08/05/2024 11:11 am INDICATION: Signs/Symptoms:.. COMPARISON: None. ACCESSION NUMBER(S): [id number] ORDERING CLINICIAN: FRANCISCO JAVIER BONE TECHNIQUE: Using [...] be calcuate using link below https://www.bangura-nhlbi.org/MESACHDRisk/MesaRiskScore/RiskScore.aspx Ada et al. JACC 2015 (http://dx.doi.org/10.1016/j.j acc.2015.08.035) Reading [employer] Sales Manager: Dr. Eben Garcia, Date: 08/05/2024 11:16 am Signed by: Eben Garcia 08/05/2024 11:17 AM Dictation workstation: [id number] [facility] Work Phone: Radiology Study observation (narrative)[facility] Work Phone: CT for calcium scoring WO contrast and CTA W contrast IV Heart and coronary arteriesOrdered By: Eben Garcia on 25-64-4159WisnrekqtqMartins Ferry Hospital Work Phone: GRAM STAINon 05-85-3980Fevuplzokis observation Gram stain Nom (Unsp spec)GRAM STAIN POSITIVE FOR BACTERIAL VAGINOSIS (Based on Eder scoring, validated for vaginal specimens) NO YEAST SEENNormalProMedica De Oliveira HospitalComment on above:Performed By: #### 664-3 #### [facility] ([id number]) [address], [address] [place], [place] [address]TCELO CULTUREon 54-81-4107Pzzua Org specific cx Ql (Unsp spec) FUNGAL SMEAR NO FUNGAL ELEMENTS SEEN ON DIRECT SMEAR CULTURE RESULTS NO YEAST ISOLATED AT 5 DAYSNormalProMedica De Oliveira HospitalComment on above: Performed By: #### [id number] #### [facility] ([id number]) [address], [address] [place], [place] [address]FR Knee - left 3 Viewson 08-93-6280Qvhlasq Result: AP and Lateral left knee with sunrise view: No acute fracture or dislocation. Right knee arthroplasty well aligned Left knee weight bearing slight varus deformity. Pt is bone on bone medial joint line Subchondral sclerosis and cystic changes noted. Enthesophyte to medial femoral condyle. Impression: tricompartmental arthritic changes left knee.[facility] HealthcareRadiology Study observation (narrative)NOMS HealthcareGRAM STAINon 50-29-2349Rzlklztoqjt observation Gram stain Nom (Unsp spec)GRAM STAIN POSITIVE FOR BACTERIAL VAGINOSIS (Based on Eder scoring, validated for vaginal specimens) NO YEAST SEENNormalMorrow County Hospitalca Beltrami HospitalComment on above:Performed By: #### 664-3 #### [facility] ([id number]) [address], [address] [place], [place] [address]DMKUA CULTUREon 03-38-3524Fqbin Org specific cx Ql (Unsp spec) FUNGAL SMEAR NO FUNGAL ELEMENTS SEEN ON DIRECT SMEAR CULTURE RESULTS NO YEAST ISOLATED AT 5 DAYSNormalProMedica Beltrami HospitalComment on above: Performed By: #### 62250-4 #### [facility] ([id number]) [address], [address] [place], [place] [address]XM Knee - right 1 or 2 Viewson 67-83-8288Chvnghu Result: AP and Lateral of right knee: Surgical position and alignment of prosthetic components without evidence of loosening or wear to femora, tibial or patellar components, The alignment appears to be anatomic. No evidence of accelerated or asymmetric wear to tibial tray or patella button. No evidence of fracture or dislocation. Impression: Unremarkable right total knee arthroplastyCox Walnut Lawn HealthcareRadiology Study observation (narrative)NOMS HealthcareXR KNEE RT 1 OR 2 VWSon 34-96-4452FY KNEE RT 1 OR 2 VWSXR KNEE RT 1 OR 2 VWS Clinical [...] by Mesfin Reed MD on 03/28/2024 11:05 [facility] HospitalBacteria identified Cx Nom (U)on 84-53-4227Cftqcvd comment (Unsp spec) [Interp]<10,000 ORGANISMS/ML NORMAL URO GENITAL FLORAPremier Health System A[facility] Healthcare SystemBasic Metabolic Panelon 45-70-8114Epeyy gap [Moles/Vol]9 mmol/L5 - 15 mmol/LProMedmedical center enterprise Health SystemCalcium [Mass/Vol]9.6 mg/dL8.5 - 10.5 mg/dLACMC Healthcare SystemChloride [Moles/Vol]100 mmol/L98 - 109 mmol/L [facility] SystemCO2 [Moles/Vol]30 mmol/L22 - 32 mmol/[facility] SystemCreatinine [Mass/Vol]0.95 mg/dL0.40 - 1.00 mg/dLACMC Healthcare System Comment on above:METHOD TRACEABLE TO IDIN STANDARDeGFR (CKD-EPI)non-race ywhmonmfa32- [facility] Mt. View HospitalComment on above: Reported eGFR is based on the CKD-EPI 2020 equation that does not use a race coefficient. Glucose [Mass/Vol]84 mg/dL65 - 99 mg/dLACMC Healthcare SystemPotassium [Moles/Vol]3.7 mmol/L3.5 - 5.0 mmol/LProMedica Health SystemSodium [Moles/Vol] 139 mmol/L134 - 146 mmol/LProMedica Health SystemUrea nitrogen [Mass/Vol]24 mg/dL5 - 27 mg/dLACMC Healthcare SystemMercy Health Anderson Hospital W Auto Differential panel (Bld)on 45-53-2306HNQKUTGM BASOPHIL0.1NOMS HealthcareComment on above:PERFORMED [facility] [address],[place], [place] [address]Xffvnvtbv/100 WBC (Bld)1.3 %NOMS HealthcareEosinophils (Bld) [#/Vol]0.2 10*3/uLNOMS HealthcareEosinophils/100 WBC (Bld)3.3 %NOMS HealthcareErythrocyte distribution width (RBC) [Ratio]14.4 %11.5 - 15.0 %NOMS HealthcareHematocrit (Bld) [Volume fraction]37.6 %35 - 47 %NOMS HealthcareHemoglobin (Bld) [Mass/Vol] 12.4 g/dL11.7 - 15.5 g/dLNOMS HealthcareLymphocytes (Bld) [#/Vol]1.2 10*3/uLNOMS HealthcareLymphocytes/100 WBC (Bld)24.2 %NOMS HealthcareMCH (RBC) [Entitic mass]29.2 pg27 - 34 pgNOMS HealthcareMCHC (RBC) [Mass/Vol]32.9 g/dL32 - 36 g/dL NOM HealthcareMCV (RBC) [Entitic vol]89 fL80 - 100 fLNOMS HealthcareMonocytes (Bld) [#/Vol]0.8 10*3/uLNOMS HealthcareMonocytes/100 WBC (Bld)16.4 %NOMS HealthcareNeutrophils (Bld) [#/Vol]2.6 10*3/uLNOMS HealthcareNeutrophils/100 WBC (Bld)54.8 %NOMS HealthcarePlatelet mean volume (Bld) [Entitic vol]8.5 fL7 - 12 fLNOMS HealthcarePlatelets (Bld) [#/Vol]225 10*3/uLNOMS HealthcareRBC (Bld) [#/Vol]4.25 10*6/uLNOMS HealthcareWBC corrected for nucl RBC Auto (Bld) [#/Vol] 4.7NOHayward Area Memorial Hospital - HaywardCBC auto differentialon 54-63-3603Lfavpdknl (Bld) [#/Vol]0.1 10*3/[facility] HospitalBasophils/100 WBC (Bld)1.3 % [facility] Healthcare SystemEosinophils (Bld) [#/Vol]0.2 10*3/[facility] HospitalEosinophils/100 WBC (Bld)3.3 %[facility] Healthcare SystemErythrocyte distribution width (RBC) [Ratio]14.4 %11.5 - 15.0 %[facility] Hematocrit (Bld) [Volume fraction]37.6 %35 - 47 %[facility] Hemoglobin (Bld) [Mass/Vol]12.4 g/dL11.7 - 15.5 g/dLACMC Healthcare System Lymphocytes (Bld) [#/Vol]1.2 10*3/[facility] Community HospitalLymphocytes/100 WBC (Bld)24.2 %[facility] Healthcare SystemMCH (RBC) [Entitic mass]29.2 pg27 - 34 pg [facility] Healthcare SystemMCHC (RBC) [Mass/Vol]32.9 g/dL32 - 36 g/dLACMC Healthcare SystemMCV (RBC) [Entitic vol]89 fL80 - 100 [facility] Monocytes (Bld) [#/Vol]0.8 10*3/[facility] HospitalMonocytes/100 WBC (Bld) 16.4 %[facility] Healthcare SystemNeutrophils (Bld) [#/Vol]2.6 10*3/[facility] Community HospitalNeutrophils/100 WBC (Bld)54.8 %[facility] Healthcare SystemPlatelet mean volume (Bld) [Entitic vol]8.5 fL7 - 12 Kindred HospitalPlatelets (Bld) [#/Vol]225 10*3/[facility] HospitalRBC (Bld) [#/Vol]4.25 10*6/[facility] HospitalWBC corrected for nucl RBC Auto (Bld) [#/Vol]4.7[facility]red HealthcareECG 12 leadon 46-58-0082FULXNDABHLASOBYppLvfvex Health SystemUrinalysison 12-79-3996Uegdlcdjq Ql (U)NegativeNegative^Negative [facility] SystemColor (U)YELLOWYELLOW^YELLOWACMC Healthcare System Epithelial cells Auto (Urine sed) [#/Area]14HighACMC Healthcare SystemGlucose (U) [Mass/Vol]NegativeNegative^Negative mg/dLACMC Healthcare SystemHemoglobin Auto test strip Ql (U)NegativeNegative^NegativeACMC Healthcare SystemHyaline casts (Urine sed) [#/Area]10 /[LPF]HighACMC Healthcare SystemInterpretation and review of laboratory resultsAbnormalACMC Healthcare SystemKetones (U) [Mass/Vol]NegativeNegative^Negative mg/dLACMC Healthcare SystemLeukocyte esterase Auto test strip Ql (U)MODERATEAbnormalNegative^NegativeACMC Healthcare SystemMucus Ql (Urine sed)PRESENTAbnormalNONE^NONEACMC Healthcare System Nitrite Auto test strip Ql (U)NegativeNegative^NegativeACMC Healthcare SystempH (U)6 [pH]5.0 - 8.5POhio State Health System SystemProtein (U) [Mass/Vol]TraceAbnormal Negative^Negative mg/dLACMC Healthcare SystemRBC Auto (Urine sed) [#/Area]0 [facility] Carolina Hospitalpecific gravity Refractometry automated (U) [Rel density]1.0171.003 - 1.035ACMC Healthcare SystemTurbidity Ql (U)CLOUDYAbnormal CLEAR^CLEARACMC Healthcare SystemUrobilinogen Qn (U)NINFPPremier Health [facility] WBC Auto (Urine sed) [#/Area]20[facility] HospitalXR Chest PA and Lateralon 13-12-1211Twbirsg: Preop. A. fib. Chest Xray Two-view study. Findings: Lungs are clear. Cardiac silhouette and pulmonary vasculature are unremarkable. No focal consolidative airspace disease, pneumothorax, or pleural effusion is appreciated. No free air beneath the diaphragm is noted. Scoliosis is appreciated. Tortuous descending aorta is appreciated. Impression: * No acute process. Finalized by Kendal Dean MD on 02/29/2024 2:42 [facility] TULSAECTRAKendal Reynoso MD - 02/29/2024 History: Preop. A. fib. Chest Xray Two-view study. Findings: Lungs are clear. Cardiac silhouette and pulmonary vasculature are unremarkable. No focal consolidative airspace disease, pneumothorax, or pleural effusion is appreciated. No free air beneath the diaphragm is noted. Scoliosis is appreciated. Tortuous descending aorta is appreciated. Impression: * No acute process. Finalized by Kendal Dean MD on 02/29/2024 2:42 PM [facility] SystemRadiology Study observation (narrative)[facility] [employer] [facility] HospitalXR Chest PA and LateralOrdered By: Kendal Dean on 23-19-6611HdiNobxlePremier Health [facility] Work Phone: XR Femur and Tibia Views [...] Rory Huang MD on 02/29/2024 2:49 PM [facility] [employer] [facility]wn HospitalRadiology Study observation (narrative)[facility] Oaklawn HospitalXR Femur and Tibia Views for leg lengthOrdered By: Rory Huang on 84-83-8082LleZpvddrPremier Health [facility] Work Phone: XR Knee - right 1 or 2 Viewson 49-48-7238Vqeaizi Result: X-rays AP and lateral of right knee showed severe varus deformity with ufio-cd-oeei articulation to the medial joint line. There is flattening of the articular surfaces medially to the tibia plateau and femoral condyle. There is marginal osteophytic formation and subchondral sclerosis noted medially and the patellofemoral joint. There is no evidence of fracture or dislocation. Bony structures viewed showed appropriate ossification. [facility] HospitalRadiology Study observation (narrative)[facility] HospitalCOVID + FLU Quick Testingon 28-04-6031HTPN-CoV-2 (COVID-19) RNA EUGENIO+probe Ql (Unsp spec)NegativeNort [employer] Other COVID + FLU Quick TestingNegativeNort [employer] Other mg MAMM SCREEN 3D WILLIE CADon 37-48-9810UT MAMM SCREEN 3D WILLIE CADPatient: PERLA GOODWIN Exam Date: 04/01/2022 : 1955 Gender:F Ordering : DR FRANCISCO JAVIER BONE D.O. Admission #: [id number] Family : Order #: [id number] CLICK HERE TO VIEW EXAM RADIOLOGY REPORT [...] at age 54. LOCATION: [facility] BREAST COMPOSITION: Heterogeneously dense,which may [...] by: Nessa Grove M.D. 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 Basal Cell Carcinoma ([place]) ([id number]) Specimens Submitted As: A: SKIN, MIDDLE STERNUM, SHAVE BIOPSY ([id number]) Gross Description: Shave; 0.4x0.3x0.1 The gross evaluation was performed and the original slides were prepared at [facility] [address], [place] [address]. jks/07/03/2019Cass Lake HospitalComment on above:Performed By: #### D #### Dermatopathology Vital Signs Date TimeVital SignValuePerforming AyoxutpzsQlintcfe39-91-4602 08:27-0400Body yjgayk713.5 cmJazz Morales MD Work Phone: [phone]10-30-2025 08:27-0400Body mass index (BMI) [Ratio]22.71 kg/y8AoeerbhJazz Morales MD Work Phone: [phone]10-30-2025 08:27-0400Body pjuisn32.77 kgMoramsey Morales MD Work Phone: [phone]10-30-2025 08:27-0400Diastolic blood uqvrgkuf47 mm[Hg]Jazz Morales MD Work Phone: [phone]10-30-2025 08:27-0400Systolic blood xaihgere786 mm[Hg]Jazz Morales MD Work Phone: [phone]04-16-2025 10:44-0400Body .5 cmGawiley Sanchez FRUIT HARVESTER MACHINE OPERATOR-CNM Work Phone: [facility] [employer] Yllqik79-04-5407 10:44-0400Body mass index (BMI) [Ratio]22.99 kg/w6BtuokNatalia Sanchez FRUIT HARVESTER MACHINE OPERATOR-CNM Work Phone: [facility]04-16-2025 10:44-0400Body kzawty93.59 kgGawiley Sanchez FRUIT HARVESTER MACHINE OPERATOR-CNM Work Phone: [facility]04-16-2025 10:44-0400Diastolic blood yteoreuk23 mm[Hg]Natalia Sanchez FRUIT HARVESTER MACHINE OPERATOR-CNM Work Phone: [facility]04-16-2025 10:44-0400Systolic blood jsywqurh047 mm[Hg]Natalia Sanchez FRUIT HARVESTER MACHINE OPERATOR-CNM Work Phone: [facility]03-27-2025 09:36-0400Body utguoi836.5 cmLisa Krotzer 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 Work Phone: [facility]03-27-2025 09:36-0400Body mass index (BMI) [Ratio]23.02 kg/m2Lisa Krotzer 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 Work Phone: [facility]03-27-2025 09:36-0400Body elydcs88.68 kgLisa Krotzer 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 Work Phone: [facility]03-27-2025 09:36-0400Diastolic blood ikhnyipa68 mm[Hg]Kennedi Krotzer 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 Work Phone: [facility]03-27-2025 09:36-0400Systolic blood xamnqqrf716 mm[Hg]Kennedi Krotzer 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 Work Phone: [facility]03-06-2025 13:09-0500Body ugdxwj220.5 cmLisa Krotzer 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 Work Phone: [facility]03-06-2025 13:09-0500Body mass index (BMI) [Ratio]22.75 kg/m2Kennedi Swansonzer 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 Work Phone: [facility]03-06-2025 13:09-0500Body sitnba56.86 kgKennedi Swansonzer 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 Work Phone: [facility]03-06-2025 13:-0500Diastolic blood igckncqh63 mm[Hg]Kennedi Peña 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 Work Phone: [facility]03-06-2025 13:0500Systolic blood mmkmzrae736 mm[Hg]Kennedi Peña 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 Work Phone: [facility]10-29-2024 10:24-0400Body .5 cmMatttheresaw Friend PA Work Phone: PensqrMoberly Regional Medical CenterZfeayyfpdq89-74-9809 10:24-0400Body mass index (BMI) [Ratio]22.9 kg/x2Uzmqeye Friend PA Work Phone: noMoberly Regional Medical CenterExnyhbwjym08-72-0205 10:24-0400Body ismfjn48.31 kgMatthew Friend PA Work Phone: noMoberly Regional Medical CenterFejqqxtwtm34-57-4326 08:37-0400Body ikbljr988.[address]10-29-2024 08:37-0400Body mass index (BMI) [Ratio] 21.29 kg/m2Pmh [address] [place], [place] 737[address]10-29-2024 08:37-0400Body aqjong93.[address] [place], [place] 7373710-18-2024 10:56-0400Body .5 cmJr. Stepanic DO Work Phone: noMoberly Regional Medical CenterYqrvijnaip59-42-2158 10:56-0400Body mass index (BMI) [Ratio]21.6 kg/m2Jr. Stepanic DO Work Phone: noMoberly Regional Medical CenterWwjstcoluh55-70-9151 10:56-0400Body giouio29.5 kg Jr. Stepanic DO Work Phone: noMoberly Regional Medical CenterHikmrzfwhx10-64-3901 09:45-0400Body ukesco299.72 cmPegdwight Moore Other [employer] Other 10-21-2023 09:45-0400Body mass index (BMI) [Ratio] 22.44 kg/c9Zdymx Hart Other [employer] Other 10-21-2023 09:45-0400Body euzhkblzney14.4 [degF]Laviniadwight Moore Other [employer] Other 10-21-2023 09:45-0400Body hvriiq66.95 kgPeggrandy Moore Other [employer] Other 10-21-2023 09:45-0400Respiratory rate18 /minPeggrandy Moore Other [employer] Other 10-21-2023 09:45-4176HmY0% (BldA) [Mass fraction]91 % Lavinia Moore Other [employer] Other Encounters Encounter DateEncounter TypeCare ProviderFacilityStart: 03-06-2025 End: 82-16-4959prbnfrvmvhPSKYFNA F OSMANProMedica Fremont HospitalStart: 03-01-2025 End: 78-72-0614Ztnadt outpatient new 30 minutesMohamnikki Morales MD Work Phone: [facility] CentertComment on above: Radial artery aneurysm, right (Primary Dx)Start: 03-01-2025 End: 01-31-9937rckimffgabQUYASWM [facility] PPGStart: 02-15-2025 End: 33-38-7335Powcqhpsz encounterMohamed Prema Morales MD Work Phone: [facility] VascularStart: 01-23-2025 End: 55-65-2988Ukkrfv Mary Ellen Peña 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 Work Phone: [facility] Obstetrics/GynecologyComment on above:BV (bacterial vaginosis) (Primary Dx)Start: 01-12-2025 End: 87-91-6263jtlskveezmOC Angel R. ChawlaFacility:FTMCStart: 12-29-2024 End: 27-46-7937iishifdddeNH Angel R. ChawlaFacility:FTMCStart: 12-27-2024 End: 99-00-7230ubyparhwucOJ Angel R. ChawlaFacility:FTMCStart: 12-27-2024 End: 18-13-7766lczzrkkoshNF Angel R. ChawlaFacility:FTMCStart: 10-04-2024 End: 57-81-8137Vaqktggks encounterMavincenzo WARNER Work Phone: [facility] FB ORTHOPAEDICSComment on above:antibiotic for dental apptStart: 08-17-2024 End: 94-19-8865Lpoxxd Mary Ellen Peña 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 Work Phone: [facility] Obstetrics/GynecologyComment on above:BV (bacterial vaginosis) (Primary Dx)Start: 08-16-2024 End: 33-99-4617chbmykzkiqGQKTR M SHOLEYMorrow County Hospitalca Beltrami HospitalStart: 08-16-2024 End: 76-47-2279Npukrn flowsheetMavincenzo WARNER Work Phone: n[facility] FB ORTHOPAEDICSStart: 08-16-2024 End: 14-52-6753Uoyimj flowsSergio WARNER Work Phone: noms FB ORTHOPAEDICSStart: 08-16-2024 End: 63-61-6994Kiiceu outpatient visit 15 minutesMattmike WARNER Work Phone: noms FB ORTHOPAEDICSComment on above:Acute pain of left knee (Primary Dx); Arthritis of left kneeStart: 08-16-2024 End: 61-68-1798Uppypp outpatient visit 15 minutesNatalia Sanchez FRUIT HARVESTER MACHINE OPERATOR-CNM Work Phone: [facility] Obstetrics/GynecologyComment on above:Vaginal odor (Primary Dx); Vaginal dischargeStart: 08-16-2024 End: 52-73-8915niumugulonYYEGQ Dedra [facility] CENTERSRINIVASThe [facility] Ambulatory PPGStart: 08-05-2024 End: 14-19-0057Egxqvzjrlv hospital visit by Geo Wisemanhc[address] [place], [place] [address]Comment on above:Pure hypercholesterolemia, unspecifiedStart: 08-05-2024 End: 40-25-5649bdlhsjpbtrGSGRPEWDoctors Hospitaltart: 07-28-2024 End: 60-57-3922Vauipz Mary Ellen Peña 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 Work Phone: [facility] Obstetrics/GynecologyComment on above:BV (bacterial vaginosis) (Primary Dx)Start: 07-27-2024 End: 01-48-9860eafxaejyibHQQRNorthwest Health Emergency Department HospitalStart: 07-27-2024 End: 68-25-6630Fdaaxf outpatient visit 15 minutesKennedi Peña 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 Work Phone: [facility] Obstetrics/GynecologyComment on above:Vaginal discharge (Primary Dx); Vaginal odorStart: 07-27-2024 End: 87-62-9683wwxzwzytobIBMY M KROTZERThe University of [facility] Ambulatory PPGStart: 07-26-2024 End: 38-74-5166Oooktl flowsheetPavel WARNER Work Phone: noms FB ORTHOPAEDICSStart: 07-26-2024 End: 66-69-8462Nxgjxdcait WARNER Work Phone: noms FB ORTHOPAEDICSStart: 07-26-2024 End: 33-51-5190Qqevnj outpatient visit 15 minutesPavel WARNER Work Phone: noms FB ORTHOPAEDICSComment on above:Arthritis of left knee (Primary Dx); Acute pain of left kneeStart: 07-07-2024 End: 14-68-4255Dxootz Mary Ellen Peña 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 Work Phone: [facility] Obstetrics/GynecologyComment on above:BV (bacterial vaginosis) (Primary Dx)Start: 07-06-2024 End: 58-82-7677ugmriyjhswSOBLNorthwest Health Emergency Department HospitalStart: 07-06-2024 End: 90-14-6547Daibvt outpatient visit 15 Taty Peña 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 Work Phone: [facility] Obstetrics/GynecologyComment on above:Vaginal discharge (Primary Dx); Vaginal odorStart: 07-06-2024 End: 26-20-2095gtgsesyjxeJJYNSweetwater Hospital Association Ambulatory PPGStart: 06-13-2024 End: 76-36-4838Dbfbjy flowsSergio WARNER Work Phone: [facility] ORTHOPAEDICSStart: 06-13-2024 End: 98-40-9300Bdpynr Garfield WARNER Work Phone: n[facility]IZ ORTHOPAEDICSStart: 06-13-2024 End: 25-61-4911Vdtmwz follow up visit related to original Tristan WARNER Work Phone: noms FB ORTHOPAEDICSComment on above:Status post right knee replacement (Primary Dx)Start: 05-09-2024 End: 63-93-5778Ajcwhw Garfield WARNER Work Phone: noms [facility] ORTHOPAEDICSStart: 05-09-2024 End: 12-38-9778Fscrlr Garfield WARNER Work Phone: noms [facility] ORTHOPAEDICSStart: 05-09-2024 End: 82-08-0923Zscsdb follow up visit related to original Tristan WARNER Work Phone: noms FB ORTHOPAEDICSComment on above:Status post right knee replacement; Acute pain of right kneeStart: 04-11-2024 End: 87-51-5833Zmbyyi Garfield WARNER Work Phone: noms FB ORTHOPAEDICSStart: 04-11-2024 End: 47-42-1512Ftvncb Garfield WARNER Work Phone: noms FB ORTHOPAEDICSStart: 04-11-2024 End: 44-03-8255Xoixma follow up visit related to original Tristan WARNER Work Phone: noms FB ORTHOPAEDICSComment on above:Status post right knee replacement (Primary Dx)Start: 03-28-2024 End: 19-19-3027yjwvhcmpngAKWZKH C STEPANIC JRProMedica Lima HospitalStart: 03-27-2024 End: 82-05-6748Ramregtny encounterJrRavi Neff DO Work Phone: noms CI ORTHOPAEDICSComment on above:surgeryPO scripts Post-operative pain (Primary Dx); NauseaStart: 03-22-2024 End: 91-07-8023sbdfhvmgnwTKPLRC C STEPANIC JRProMedica Lima HospitalStart: 91-15-1419Btjjsfvti for other preprocedural examinationGEORJOHN NEFF JR [facility] HospitalStart: 03-16-2024 End: 09-17-9036Nqtperfxn encounterMattmike WARNER Work Phone: noms CI ORTHOPAEDICSStart: 03-14-2024 End: 90-17-3703Jfiyrp Сергей Chapa PT Work Phone: NOIO FB PTStart: 03-14-2024 End: 39-59-2592Gziymi Сергей Chapa PT Work Phone: noms FB PTStart: 03-14-2024 End: 62-41-5711Yvhtzsrbo encounterMavincenzo WARNER Work Phone: noms CI ORTHOPAEDICSStart: 03-14-2024 End: 57-98-6813otawuvsjomWrqw Bret Chapa PT Work Phone: noms FB PTComment on above:Primary osteoarthritis of right knee (Primary Dx)Start: 02-29-2024 End: 53-73-6426Eyuvwy flowsheetPavel WARNER Work Phone: noms FB ORTHOPAEDICSStart: 02-29-2024 End: 23-08-3321Hyspfj flowsheetPavel WARNER Work Phone: n[facility] FB ORTHOPAEDICSStart: 02-29-2024 End: 05-06-7392Ehafpzmt Result EncounterJr. Elmira Neff DO Work Phone: noms External Department UnsolicitedStart: 02-29-2024 End: 66-20-4401Jexmcmi encounter procedureMavincenzo WARNER Work Phone: noms FB ORTHOPAEDICSComment on above:Primary osteoarthritis of right knee (Primary Dx); Pre-op examinationStart: 02-29-2024 End: 15-76-4946Eixqhjmiqjmrb examination doneMavincenzo WARNER Work Phone: noms HealthcareStart: 02-29-2024 End: 68-17-7229Mslhigi encounter procedurePmh Pre-Admission Testing [address] [place] [address] - Pre AdmitComment on above:Preop examination (Primary Dx); Atrial fibrillation, unspecified type ([facility]-H[facility]); Hypertension, unspecified type; Urinary frequencyStart: 02-29-2024 End: 40-88-4345Korfgglwoejyl examination donePm[address] SystemStart: 02-18-2024 End: 37-22-6383Htcrnm flowsheetJr. Elmira Neff DO Work Phone: noms SWS ORTHOStart: 02-18-2024 End: 16-47-1443Vhyuri flowsheetJr. Elmria Neff DO Work Phone: [facility] ORTHOStart: 02-18-2024 End: 02-35-7811Ccdsze outpatient new 45 minutesJr. Elmira Neff DO Work Phone: noms SWS ORTHOComment on above:Primary osteoarthritis of right knee (Primary Dx); Acute pain of right kneeStart: 02-20-2023 End: 06-84-6004vpecohzastMsknz Moore Other [employer] Other Start: 33-57-8805Uejjgk outpatient new 20 minutesPeggy HartG Urgent Care ClydeStart: 04-01-2022 End: 96-86-8067lvgidzprudRI CHARLES VALONEFacility:E4Gszlg: 47-04-5763txicxhgzjd DR FRANCISCO JAVIER Vasquezcility:Q0Whqto: 08-21-2021 End: 31-96-9630Tiaxzdw encounter Juan BONE JR [facility] Procedures DateProcedureProcedure DetailPerforming ClinicianStart: 93-96-4545Cldnjqmfuwxzyy aspir&/inj major jt/bursa w/o usMatthew Bret WARNER Work Phone: Start: 77-74-8462Vs heart no contrast quant eval coronry calciumChagil Bone DO Work Phone: Start: 70-65-2792Onulhuxlja examination knee 3 views Pavel WARNER Work Phone: Start: 49-89-4399Gktqifijiy examination knee 1/2 views Pavel WARNER Work Phone: Start: 25-78-2467Oqskmqbd blood count with white cell differential, automatedJr. Elmira Neff DO Work Phone: Start: 20-60-1817Qcqteruvey examination knee 1/2 views JrRavi Neff DO Work Phone: Start: 74-39-3050Thawk depression screening assessment Pmh 2 Plan of Treatment DateCare ActivityDetailAuthorStart: 60-29-4495EWjH,Tdap and Td Vaccines (2 - Td or Tdap)DTaP,Tdap and Td Vaccines (2 - Td or Tdap)[facility] SystemStart: 93-55-0050YYwB/Tdap/Td Vaccines (2 - Td or Tdap)DTaP/Tdap/Td Vaccines (2 - Td or Tdap)[facility] PrebleStart: 44-97-6066Wevbb BMI ScreeningAdult BMI ScreeningProMercy Healthca Health SystemStart: 56-64-6868Rrkauap ScreeningTobacco ScreeningProMedica Health SystemStart: 59-16-1776Sjaib BMI ScreeningAdult BMI ScreeningProMedica Health SystemStart: 66-52-5153Gyerpzz ScreeningTobacco ScreeningProMedica Health SystemStart: 14-06-2612Upkdb BMI ScreeningAdult BMI ScreeningMorrow County Hospitalca Health SystemStart: 26-54-2064Jbobhhh ScreeningTobacco ScreeningMorrow County Hospitalca Health SystemStart: 22-52-4231BUNTH-19 Vaccine ( season)COVID-19 Vaccine ( season)[facility] SystemStart: 80-95-4698Bkfmm BMI ScreeningAdult BMI ScreeningProMercy Healthca Health SystemStart: 85-09-0011Qoqekxx ScreeningTobacco ScreeningMorrow County Hospitalca Health SystemStart: 06-13-2025 End: 69-53-1230Geifqxt encounter giimwxigp29/11/2026 1:00 PM EST Office Visit [facility] [address] [place] [address] Pavel Friend PA [address] [address] [facility]THOPAEDICSStart: 85-08-4685Cbfou BMI ScreeningAdult BMI ScreeningProMedica Health SystemStart: 87-59-1162Ftzrqxn ScreeningTobacco ScreeningProMedica Health SystemStart: 03-15-2025 End: 46-88-6370Hbawvxb encounter sgxayoxkn90/13/2025 9:30 AM EST Office Visit [facility] [address] [place] [address] Jazz Morales MD [address], [address] [place] [address] [facility] Hospitaltart: 03-06-2025 End: 25-39-6106Yphizzd encounter yqcaquxoe74/04/2025 9:00 AM EST Appointment [facility] [address] [place] [address] Jazz Morales MD [address], [facility] [address] [place] [address] [facility] VascularStart: 03-01-2025 End: 51-96-5265YB.doppler Upper extremity artery - rightVas art duplex upr single right Vascular Ultrasound Routine Radial artery aneurysm, right Expected: 03/01/2025, Expires: 03/01/2026[facility] Work Phone: Comment on above:Expected: 03/01/2025, Expires: 03/01/2026Start: 57-06-9158Vbjuf BMI ScreeningAdult BMI ScreeningPremier Health SystemStart: 26-51-3069Qokmqyv ScreeningTobacco ScreeningPremier Health SystemStart: 34-16-6193OYFMN-19 Vaccine ( season)COVID-19 Vaccine ( season)[facility] Hospitaltart: 66-71-6814Ufhwsjxuk vaccination Influenza VaccineCentral Carolina Hospitaltart: 97-33-3883OJALL-19 Vaccine ( season)COVID-19 Vaccine ( season)[facility] Start: 08-16-2024 End: 13-27-4716Ioazlonhqtp observation [Identifier] in Unspecified specimen by Gram stainProMedica Work Phone: Comment on above:Expected: 08/16/2024 (Approximate), Expires: 08/16/2025Start: 08-16-2024 End: 39-82-1007Kusji CultureYeast Culture Microbiology Routine Vaginal odor Vaginal discharge Expected: 08/16/2024 (Approximate), Expires: 08/16/2025 [facility] Health SystemComment on above:Expected: 08/16/2024 (Approximate), Expires: 08/16/2025Start: 08-16-2024 End: 79-20-4741Ijeacmd encounter procedureNOMS FB ORTHOPAEDICSComment on above: Acute pain of left knee (Primary Dx)Start: 07-27-2024 End: 74-22-8735Bkyxhvrpptl observation [Identifier] in Unspecified specimen by Gram stainGram stain Microbiology Routine Vaginal discharge Vaginal odor Expected: 07/27/2024 (Approximate), Expires: 07/27/2025[facility] Comment on above:Expected: 07/27/2024 (Approximate), Expires: 07/27/2025Start: 07-27-2024 End: 03-89-0409Akcws CultureYeast Culture Microbiology Routine Vaginal discharge Vaginal odor Expected: 07/27/2024 (Approximate), Expires: 07/27/2025[facility] Work Phone: Comment on above:Expected: 07/27/2024 (Approximate), Expires: 07/27/2025Start: 07-26-2024 End: 96-29-9554Rdseyku encounter buvryglma53/26/2025 11:15 AM EDT Office Visit [facility] [address] [place] [address] Pavel Friend, PA [address] [facility] [address] [place] [address] Acute pain of left kneeNOMS FB ORTHOPAEDICSComment on above: Acute pain of left kneeStart: 07-06-2024 End: 95-66-0836Zibpcuulzcp observation [Identifier] in Unspecified specimen by Gram stainGram stain Microbiology Routine Vaginal discharge Vaginal odor Expected: 07/06/2024 (Approximate), Expires: 07/06/2025[facility] Comment on above:Expected: 07/06/2024 (Approximate), Expires: 07/06/2025Start: 07-06-2024 End: 77-58-4840Omjhg CultureYeast Culture Microbiology Routine Vaginal discharge Vaginal odor Expected: 07/06/2024 (Approximate), Expires: 07/06/2025[facility] Work Phone: Comment on above:Expected: 07/06/2024 (Approximate), Expires: 07/06/2025Start: 06-13-2024 End: 65-11-9141Rauiokn encounter procedureNOMS FB ORTHOPAEDICSComment on above: Status post right knee replacement (Primary Dx)Start: 05-09-2024 End: 85-25-0094Lhlzpgq encounter aokrwkgbb98/07/2025 1:15 PM EST Office Visit [facility] [address] [place] [address] Pavel Friend, PA [address] [facility] [address] [place] [address] [facility] FB ORTHOPAEDICSStart: 92-54-1899Xzkprrkfhf Screening Depression ScreeningCentral Carolina Hospitaltart: 04-11-2024 End: 34-39-5128Spjderx encounter procedureNOMS FB ORTHOPAEDICSComment on above: Status post right knee replacement (Primary Dx)Start: 03-28-2024 End: 58-37-1657Rwffeqjir to same day surgery iswndm0603/28/2024 7:45 AM EST - 03/28/2024 10:45 AM EST Surgery [facility] [address] [place] [address] Elmira Neff Jr., DO [address] [facility] [address] [place] [address] REPLACEMENT TOTAL JOINT KNEE [76447 (CPT )][facility] - SurgeryComment on above:REPLACEMENT TOTAL JOINT KNEE [47092 (CPT )] Start: 03-28-2024 End: 26-87-3380Orllmn kne condyle&platu medial&lat compartmentsREPLACEMENT TOTAL JOINT KNEE right knee degenerative joint disease 03/28/2024 7:45 AM ESTFREMONT SURGERYStart: 03-38-2362Vgiewhmngy hospital visit by qnmugfxuy24/26/2024 7:45 AM EST Hospital Encounter [facility] [address] [place] [address] Elmira Neff Jr., DO [address] [facility] [address] [place] [address] [facility] SurgeryStart: 03-20-2024 End: 32-63-3747Ncayvoicaj RBCCrossmatch RBC Blood Bank Routine Preop examination Atrial fibrillation, unspecified type (CMS-HCC)Hypertension, unspecified type Expected: 03/20/2024, Expires: 02/23/2025Pro[facility] SystemComment on above:Expected: 03/20/2024, Expires: 02/23/2025Start: 03-20-2024 End: 53-20-4620Bpuw and screen(includes indirect jesi)Type and screen(includes indirect jesi) Blood Bank Routine Preop examination Atrial fibrillation, unspecified type (CMS-HCC) Hypertension, unspecified type Expected: 03/20/2024, Expires: 02/23/2025[facility] Work Phone: Comment on above:Expected: 03/20/2024, Expires: 02/23/2025Start: 94-94-8082WNACB-19 Vaccine ( season)COVID-19 Vaccine ( season)[facility] MicroSolar SystemStart: 49-18-7490Ktywqcyjr vaccinationInfluenza Vaccine (#1)[facility] HealthcareStart: 14-41-1390Nrfmqjemdmuqsi of varicella zoster vaccineZoster (Shingles) Vaccine (2 of 2)[facility] [employer] SystemStart: 90-35-5992Ltbk Risk ScreeningFall Risk ScreeningProSelect [facility] SystemStart: 49-20-1651Bzjqazttnipl Vaccine: 65+ Years (1 of 1 - PCV) Pneumococcal Vaccine: 65+ Years (1 of 1 - PCV)[facility] HealthcareStart: 2004 Administration of varicella zoster vaccineZoster (Shingles) Vaccine (1 of 2) [facility] SystemStart: 80-11-4329Yxnbfabwwodz vaccinationPneumococcal Vaccine (1 of 1 - PCV)[facility]: 2004 Pneumococcal Vaccine: 65+ Years (1 of 1 - PCV)Pneumococcal Vaccine: 65+ Years (1 of 1 - PCV)[facility] HealthcareStart: 21-96-5887Wcvhte Vaccines (1 of 2)Zoster Vaccines (1 of 2)[facility]: 25-87-3965Oswhzsnca for malignant neoplasm of breastMammogramNOMS HealthcareStart: 36-06-6075Gvbumrabh C screeningHepatitis C ScreeningGrand [facility] Joint [facility]: 1955 Lipid panelLipid PanelUnGuernsey Memorial Hospital: 02-08-1955Medicare Annual Wellness VisitMedicare Annual Wellness Visit (AWV)[facility]: 08-74-6787Axwowljnx for malignant neoplasm of colonNOMS HealthcareStart: 12-49-8967Zjvrjdykn for osteoporosisBone Density ScanKettering Health PrebleYeast [Presence] in Unspecified specimen by Organism specific cultureYeast Culture Microbiology Routine Vaginal odor Vaginal discharge 08/16/2024 7:40 PM [facility]Gen[facility] Immunizations Immunization DateImmunizationNotesCare NdcgththDeuwiokk95-45-5063uplxsfmxl, high dose seasonal, preservative-freeLisa Krotzer 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 Work Phone: [facility] SystemRsglhz32-85-6255vgofrcqzn virus vaccine, unspecified formulationJr. Stepanic DO Work Phone: [facility] HospitalVjcfkbnbee22-30-0464WEM, recombinant, protein subunit RSVpreF, adjuvant reconstituted, 0.5 mL, PFLisa Krotzer 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 Work Phone: [facility] SystemXsavbj15-20-0849Nkgksovgl Vaccine, Quadrivalent, AdjuvantedLisa Krotzer 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 Work Phone: [facility] SystemJhwndf15-12-6197Yhzfvkvae, High-dose, QuadrivalentLisa Krotzer 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 Work Phone: [facility] SystemGhrfmg91-99-5882gwbwjzeoi A and hepatitis B vaccineLisa Krotzer 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 Work Phone: [facility] SystemKxnbdl96-02-6233spicmhbxq A and hepatitis B vaccineLisa Krotzer 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 Work Phone: [facility] SystemNpnhkj66-31-8910pmpudvxjs A and hepatitis B vaccineLisa Krotzer 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 Work Phone: [facility]04-05-2022tetanus toxoid, reduced diphtheria toxoid, and acellular pertussis vaccine, adsorbedLisa Krotzer 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 Work Phone: [facility] System04-05-2022typhoid capsular polysaccharide vaccineLisa Krotzer 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 Work Phone: [facility] SystemZdfrgh50-20-6208Ukxwlfizf, High-dose, QuadrivalentLisa Krotzer 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 Work Phone: [facility]01-15-2020zoster vaccine, unspecified formulationMoramsey Morales MD Work Phone: [phone]01-12-2010novel vewmhsbac-J7X2-22, preservative-free, injectableLisa Krotzer 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 Work Phone: [facility] Payers DatePayer CategoryPayerPolicy [id number] Health InsuranceMEDICAL MUTUAL [id number] Medical Center Member Subscriber Plan / Payer (Effective 2020-Present) Name: Perla Goodwin Relation to Subscriber: Self Name: Perla Goodwin Payer ID: Not on file Type: Not on file Address: [address] [place] [id number] [id number] [id number] [id number] [id number] 2..1.643207.3.57[id number] 2..1.460747.3.57[id number] 2..1.903546.3.57[id number] 2..1.042912.3.57[id number] 2..1.522216.3.57[id number] 2..1.490168.3.57[id number] 2.16.840.1.538476.3.57[id number] 2.16.840.1.166783.3.57[id number] 2.16.840.1.338737.3.57[id number] 2.16.840.1.292111.3.57[id number] 2..840.1.815972.3.57[id number] 2.840.1.794364.3.57[id number] 2.0.1.940537.3.57[id number] 2.0.1.001620.3.57[id number] 2.0.1.890078.3.57[id number] 2.0.1.548148.3.57[id number] 2.0.1.575811.3.579.2.1286 Social History DateTypeDetailFacilityTobacco smoking statusNo Smoking Status EnteredProMedica Fostoria Community Hospitaltart: 02-18-2024 End: 70-25-0590Fbi Assigned At BirthFemalACMC Healthcare System GlenbeighTobacco smoking status NHISTobacco smoking consumption unknownNOIN HealthcareStart: 94-49-8536Acu assigned at birthNot on fileNOMS HealthcareStart: 54-92-9819Atlfwa identityIdentifies as female gender (finding)[facility] HealthcareStart: 04-21-2023 End: 80-22-3042Ivntlqi smoking status NHISNever smoked tobaccoNOMS Healthcare Start: 04-21-2023 End: 30-75-1246Ldjbldk use and exposureSmokeless tobacco non-userNOMS Healthcare Start: 02-18-2024 End: 39-42-0833Ipatpxm of Social functionNOMS HealthcareStart: 02-29-2024 End: 57-72-8830Jjrcmhdsy beverage intakeCurrent drinker of alcohol (finding) [facility] SystemAdolescent depression screening odrpddwhwm6MhyCbkkxx[address] [place], [place] [address]tart: 86-71-7588Fizhnog CommentsocialAdena [facility] System Start: 07-19-0636AcyHcwpqe (finding)[facility] Hospitaltart: 07-26-2024 End: 58-33-6002Mkblkmls to SARS-CoV-2 (event)Not [facility] Medical Equipment Procedure CodeEquipment CodeEquipment Original TextEquipment IdentifierDates Cement Bn Bio 40gm Rpl [id number] - Sn/A - [id number]: 59-09-9589Pmnzevskg Fem F Kn Rt Lpsflx Gndr Edelmira? Nxgn Cocr Rpl 94282 - Sn/A - [id number]()[id number])N/A, [id number]_imp FDAStart: 52-31-8710Xbaczkbjm Ptlr 35mm Persona Alply Kn Strl Lf - Sn/A - [id number] ()[id number])N/A, [id number]_imp FDAStart: 03-28-2024 Nexgen Complete Knee Solution Legacy. Knee Posterior Stabilized Prolong. Size E F 100mm Height Lps-Flex Articular Surface ()[id number](21)N/A, [id number]_imp FDAStart: 03-28-2024 Plate Tib 06w95fc Nxgn Kn Cmnt Mdlr Stm Prect 6 Tiv Pmma Rpl [id number] + [id number] - Sn/A - [id number])N/A, [id number]_imp [facility] Start: 03-28-2024 Goals DatePatient GoalDesired Activity/StatePersonal health goalComment on above: Evaluation of progress towards goal: going to sisters home todayPersonal health goal Clinical Notes 02-20-2023 to 03-01-2025 Note Date & OyhdEetjDuffcqbb61-76-2565 Evaluation + Plan note* Assessment & Plan Note - Jazz Morales MD - 03/01/2025 8:49 AM EDTAssociated Problem(s): Radial artery aneurysm, right Duplex US to evaluate and see if it is persistent [facility]10-30-2025 Miscellaneous Notes* Assessment & Plan Note - Jazz Morales MD - 03/01/2025 8:49 AM EDTAssociated Problem(s): Radial artery aneurysm, right Duplex US to evaluate and see if it is persistent documented in this encounterACMC Healthcare System10-30-2025 History of Present illness Narrative* Jazz Morales MD - 03/01/2025 8:40 AM EDT Images from the original note were not included. To: FRANCISCO JAVIER BONE JR, DO HPI: Perla Goodwin is a 69 y.o. 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 Of note she had a heart catheterization there. She said the ultrasound was a month ago. She said there was improvement in his symptoms in the swelling is not as prominent anymore. I discussed with her getting duplex ultrasound. To evaluate if it is persistent efforts resolved. Clinically it does not seem to be significant in size at all. Review of Systems: Review of Systems Constitutional: Negative. HENT: Negative. Respiratory: Negative. Cardiovascular: Negative. Gastrointestinal: Negative. Endocrine: Negative. Genitourinary: Negative. Musculoskeletal: Negative. Skin: Negative. Neurological: Negative. Hematological: Negative. Medications: Current Outpatient Medications on File Prior to Visit Medication Sig Dispense Refill aspirin 81 mg chewable tablet Chew 1 tablet (81 mg total) and swallow. calcium carbonate-vitamin D3 (CALCIUM 500 + D) 500 mg(1,250mg) -200 units per tablet Take 1 tablet by mouth in the morning. clopidogreL (PLAVIX) 75 mg tablet Take 1 tablet (75 mg total) by mouth. estradioL (ESTRACE) 0.01 % (0.1 mg/gram) vaginal cream Insert 1 g into the vagina once a week. 42.5g 2 levothyroxine (SYNTHROID, LEVOTHROID) 25 MCG tablet Take 2 tablets (50 mcg total) by mouth in the morning. losartan-hydroCHLOROthiazide (HYZAAR) 100-12.5 mg per tablet Take 1 tablet by mouth. tgfeogcy-zikv-AZ-calcium &mins (THERAGRAN-M) 9 mg iron-400 mcg tablet Take 1 tablet by mouth inthe morning. nitroglycerin (NITROSTAT) 0.4 MG SL tablet DISSOLVE 1 TABLET UNDER THE TONGUE NEEDED FOR CHEST PAIN- MAY REPEAT EVERY 5 MINUTES IF NEEDED ( MAX 3 DOSES.- IF NO RELIEF CALL 911) rosuvastatin (CRESTOR) 20 mg tablet Take 1 tablet (20 mg total) by mouth. valACYclovir (VALTREX) 1000 mg tablet Take 1 tablet (1,000 mg total) by mouth in the morning and 1 tablet (1,000 mg total) before bedtime. One tablet by mouth for 5 days as needed . metoprolol tartrate (LOPRESSOR) 25 mg tablet Take 2 tablets (50 mg total) by mouth in the morning and 2 tablets (50 mg total) before bedtime. (Patient not taking: Reported on 03/01/2025) No current facility-administered medications on file prior to visit. Past Medical History: Past Medical History: Diagnosis Date A-fib ([facility]) Allergic Arthritis Cold sore Disease of thyroid gland Hypothyroidism Hypertension Osteoporosis Scoliosis Skin cancer Urinary frequency Visual impairment Past Surgical History: Past Surgical History: Procedure Laterality Date COLONOSCOPY x2 DENTAL SURGERY gum disease JOINT REPLACEMENT 03/28/25 REPLACEMENT TOTAL JOINT KNEE Right 03/28/2024 Performed by Elmira Neff Jr., DO at [facility] SKIN BIOPSY VARICOSE VEIN SURGERY Social and Family History: Social History Socioeconomic History Marital status: Spouse name: Not on file Number of children: Not on file Years of education: Not on file Highest education level: Not on file Occupational History Not on file Tobacco Use Smoking status: Never Smokeless tobacco: Never Vaping Use Vaping status: Never Used Substance and Sexual Activity Alcohol use: Yes Alcohol/week: 2.0 standard drinks of alcohol Types: 2 Glasses of wine per week Comment: socially Drug use: Never Sexual activity: Yes Partners: Male control/protection: Post-menopausal Other Topics Concern Not on file Social History Narrative Not on file Social Drivers of Health Financial Resource Strain: Not on file Food Insecurity: No Food Insecurity (08/16/2024) Hunger Screening Food Insecurity - Worry: Never True Food Insecurity - Inability: Never True Transportation Needs: Not on file Physical Activity: Not on file Stress: Not on file Social Connections: Not on file Interpersonal Safety: Not on file Housing Instability: Not on file Family History Problem Relation Age of Onset Esophageal cancer Father Colon cancer Mother Breast cancer Mother 50 N/A Recent Labs: Recent and relative labs were reviewed and interpreted and contributed to the assessment and plan below. Vitals: BP 142/71 Ht 171.5 cm (5' 7.5 ) Wt 66.8 kg (147 lb 3.2 oz) BMI 22.71 kg/m Body mass index is 22.71 kg/m . Physical Exam: Physical Exam Constitutional: Appearance: Normal appearance. HENT: Head: Normocephalic and atraumatic. Mouth/Throat: Mouth: Mucous membranes are moist. Eyes: Extraocular Movements: Extraocular movements intact. Pupils: Pupils are equal, round, and reactive to light. Cardiovascular: Rate and Rhythm: Normal rate and regular rhythm. Pulmonary: Effort: Pulmonary effort is normal. Breath sounds: Normal breath sounds. Abdominal: General: Abdomen is flat. Bowel sounds are normal. Palpations: Abdomen is soft. Musculoskeletal: General: Normal range of motion. Cervical back: Normal range of motion. Skin: General: Skin is warm and dry. Neurological: General: No focal deficit present. Mental Status: She is alert and oriented to person, place, and time. Mental status is at baseline. Psychiatric: Mood and Affect: Mood normal. Behavior: Behavior normal. Thought Content: Thought content normal. Judgment: Judgment normal. Recent testing: Recent labs and noninvasive tests have been reviewed. Assessment and Plan: Problem List Radial artery aneurysm, right - Primary Current Assessment & Plan Duplex US to evaluate and see if it is persistent Relevant Orders Vas art duplex upr single right Perla was seen today for new patient. Diagnoses and all orders for this visit: Radial artery aneurysm, right - Vas art duplex upr single right; Future Other orders - [facility] [place], [place] Jazz Morales MD, HARISH, RPVI, FSVS, FACS [facility] This note was created with the assistance of a speech recognition program. While intending to generate a timely document that accurately reflects the content of the visit, no guarantee can be provided that every grammatical or spelling mistake has been or will be identified or corrected. Thank you for your understanding. documented in this [facility]10-16-2025 Miscellaneous Notes* Telephone Encounter - Rosaosmar Higuera - 02/15/2025 11:18 AM EDT Patient left voicemail message to schedule an appt. Attempt to call patient back to let her know we do not have a referral nor any records on her. I did leave detailed voicemail message to provide our phone and fax number and asked her to have recs and referral faxed over and we can give her a call to get scheduled. documented in this [facility]10-16-2025 Telephone encounter Note* Telephone Encounter - Rosa Higuera - 02/15/2025 11:18 AM EDT Patient left voicemail message to schedule an appt. Attempt to call patient back to let her know we do not have a referral nor any records on her. I did leave detailed voicemail message to provide our phone and fax number and asked her to have recs and referral faxed over and we can give her a call to get scheduled. [facility]09-23-2025 Miscellaneous Notes* Telephone Encounter - Dorota Paredes RN - 01/23/2025 10:20 AM EDT Pt called stating that she believes she has BV again. She was tested in July 2024 and was given Flagyl but it did not help. Pt medication was changed to Clindamycin. Pt is going out of the country on [place] and is request the Clindamycin to be sent over to her pharmacy. Please advise. - Dorota Paredes RN 01/23/25 10:22 AM * Telephone Encounter - HEMALATHA Arteaga - 01/23/2025 10:20 AM EDT RX sent to [facility]. * Telephone Encounter - Dorota Paredes RN - 01/23/2025 10:20 AM EDT Called the patient and left a message informing her of this information.- Dorota Paredes RN 01/25/25 9:39 AM documented in this encounterACMC Healthcare System09-23-2025 Telephone encounter Note* Telephone Encounter - Dorota Paredes RN - 01/23/2025 10:20 AM EDT Pt called stating that she believes she has BV again. She was tested in July 2024 and was given Flagyl but it did not help. Pt medication was changed to Clindamycin. Pt is going out of the [place] and is request the Clindamycin to be sent over to her pharmacy. Please advise. - Dorota Paredes RN 01/23/25 10:22 AM [facility] [employer] [id number] Telephone encounter Note* Telephone Encounter - HEMALATHA Arteaga - 01/23/2025 10:20 AM EDT RX sent to [facility]. [facility]09-23-2025 Telephone encounter Note* Telephone Encounter - Dorota Paredes RN - 01/23/2025 10:20 AM EDT Called the patient and left a message informing her of this information.- Dorota Paredes RN 01/25/25 9:39 AM [facility]09-01-2025 NoteOperative Report Left heart catheterization procedure report DATE OF PROCEDURE: December 29, 2024 EMBEDDED HARDWARE ENGINEER Angel Marie MD [facility] INDICATION: Markedly abnormal stress test indicating mid LAD ischemia BRIEF HISTORY: 69-year-old female with history of mixed hyperlipidemia perhaps hypertension with stress evaluationwhich showed mid anterior ischemia this was ordered on the basis of rest angina. PROCEDURE(S) PERFORMED: Left Heart Catheterization Selective Coronary Angiography Moderate Sedation PRE-PROCEDURAL INFORMED CONSENT: The procedure and conscious sedation were discussed in detail withthe patient/next of kin/durable power of including the indications, expected outcomes, potential treatment options based upon the results, alternative treatment options and benefits, risks and possible complications associated with the procedure. The patient/next of kin/durable power of expressed an understanding of the information provided and willingness to proceed. Signed, informed consent forthe procedure was obtained for all of the above. DESCRIPTION OF THE PROCEDURE: In the postabsorptive state, the patient was brought to the Adult Cardiac Formation Fracturing Operator and placed on the table. The planned puncture sites/areas were prepped and draped in usual sterile fashion and a safety time-out was performed. Moderate Sedation was given by the Cardiac Formation Fracturing Operator RN. RIGHT RADIAL ARTERY ACCESS: The puncture site was infiltrated with 1% lidocaine. The modified Seldinger technique was performed to access the right radial artery using a 21G needle radial access kit.A wire was threaded into the radial artery followed by upsizing to a 5/6F slender 10cm sheath. Verapamil 2.5 mg was administered into the sheath. The sheath was then flushed with heparinized saline and IV UFH was administered via peripheral IV by the research laboratory specialist RN after the catheter crossed into the ascending aorta. Selective left and right coronary artery angiography : Under fluoroscopic guidance, a 5 monegasque delaney diagnostic catheter was then advanced over the 0.035 260cm J-tipped guidewire to the level of theaortic valve to engage the left coronary artery. [...] was then pulled back into the ascending a linda for assessment of LV-Ao gradient. The procedure was concluded by removal of all the catheters, wires and sheaths. Accesses were managed as outlined below. No immediate complications COMPLICATIONS: None ESTIMATED BLOOD LOSS: <50cc CONTRAST ADMINISTERED: Please see Adult Cardiac Formation Fracturing Operator Log for further details FINDINGS: SELECTIVE CORONARY [...] 55%. There is no aortic stenosis today plugpullback from left ventricle to aorta. There is [...] coronary artery was engaged with a 6 Romansh EBU 3.5 guiding catheter and 182 cm [...] then removed and a 2.75 x 18 mmXience stent was deployed to the mid LAD stenosis with no real difficulty. This was inflated at 12 insertion at 30 seconds. This was postdilated in the usual fashion. Conclusions: 1 suc (more content not included)...[facility] HospitalComment on above: Result Comment: Electronically Signed By: Cynthia SUGGS, Angel Padron\.br\Date and Time Signed: 01/01/25 16:35 [id number] Telephone encounter Note* Telephone Encounter - TIMMY Liu - 10/04/2024 11:17 AM EDT [id number] Miscellaneous Notes* Telephone Encounter - TIMMY Liu - 10/04/2024 11:17 AM EDT Rx was sent * Telephone Encounter - Brandi Reis - 10/04/2024 11:00 AM EDT Patient called and said that she is has a dental appt next Wed and needs her antibiotic for pre medshe is using [facility] [place]. documented in this encounterRay County Memorial [id number] Telephone encounter Note* Telephone Encounter - Brandi Reis - 10/04/2024 11:00 AM EDT Patient called and said that she is has a dental appt next Wed and needs her antibiotic for pre medshe is using [facility] in [place]. [facility] [id number] History of Present illness Narrative* TIMMY Liu - 08/16/2024 1:30 PM EDTAssociated Order(s): L Inj/Asp: L knee Post-Procedure Diagnose(s): [...] ankle and knee is demonstrated without any significantpain. The right knee has been replaced with [...] is happy with the progress in her rightknee. Treatment plan: She will follow up on a p.r.n. basis with verbal consent to receive injection todayin the left knee for knee arthritis treatment [...] requiring urgent evaluation. Visit was preformed using [employer]-pilot plant operator speech recognition. documented in this encounterRay County Memorial [id number] History of Present illness Narrative* Naatlia Sanchez, ROHAN-CNM - 08/16/2024 10:45 AM EDT HPI: Vaginitis Patient presents for evaluation of [...] past medical history, past social history, past surgicalhistory and problem list. ROS: as noted in [...] - DANIEL ESPAÑA CMA 08/16/24 9:02 AM Natalia Sanchez APRN, IESHA Natalia Sanchez APRN-JOESPH 08/16/24 1828 documented in this encounterACMC Healthcare System03-27-2025 History of Present illness Narrative* Kennedi Peña, ROHAN-[facility] - 07/27/2024 9:45 AM EDT Perla Goodwin is a 69 y.o.female. No [...] HX Past Medical History: Diagnosis Date A-fib ([facility]) Allergic Arthritis Cold sore Disease of thyroid gland Hypothyroidism Hypertension Osteoporosis Scoliosis Skin cancer Urinary frequency Visual impairment SURGICAL HX Past Surgical History: Procedure Laterality Date COLONOSCOPY x2 DENTAL SURGERY gum disease JOINT REPLACEMENT 03/28/25 REPLACEMENT TOTAL JOINT KNEE Right 03/28/2024 Performed by Elmira Neff Jr., DO at [facility] SKIN BIOPSY VARICOSE VEIN SURGERY FAMILY [...] g into the vagina once a week. 42.5g 2 levothyroxine (SYNTHROID, LEVOTHROID) 25 MCG tablet Take 2 tablets (50 mcg total) by mouth in the morning. metoprolol tartrate (LOPRESSOR) 25 mg tablet Take 2 tablets (50 mg total) by mouth in the morning and 2 tablets (50 mg total) before bedtime. bohcvozm-hpav-SA-calcium &mins (THERAGRAN-M) 9 mg iron-400 mcg tablet Take 1 tablet by mouth inthe morning. valACYclovir (VALTREX) 1000 mg tablet Take [...] (due in April) or sooner as needed. FRANCISCO BAUGH APRN-CNP Lisa M Krotzer, APRN-CNP 07/27/24 1002 documented in this encounterACMC Healthcare System03-27-2025 Instructions* Patient Instructions* HEMALATHA Arteaga - 07/27/2024 9:45 AM EDT [...] acid capsules can be bought locally at [employer], [facility], and [facility]. They can also be ordered on [employer]. * Attachments The following attachments cannot be sent through Care Everywhere. * How to Do Kegel Exercises (Salvadorean) documented in this encounterACMC Healthcare System03-26-2025 History of Present illness Narrative* TIMMY Liu - 07/26/2024 11:15 AM EDT Images from the original note were not [...] her right knee replacement but reports some residualstiffness and limited range of motion but overall better than before surgery. Her primary concern is the development of arthritis in her left knee, which she perceives as being in a vuqc-qv-mvab state, particularly along the medial joint line. The majority of her discomfort arises post- activity. She has been managing the pain with intermittent use of Motrin. She has an upcoming international tripand is considering a cortisone injection prior to her departure. If her symptoms persist or worsen,she is open to the possibility of a knee replacement, potentially in the fall, as she has another trip planned for 01/2025. She has been utilizing knee sleeves for compression and expresses gratitudefor the time spent discussing her treatment options. Given the ruzr-bb-jxkc articulation, viscosupplementation, which she has received in the past, will be deferred at this time. She will return a week before her overseas travel for a potential cortisone injection. The use of anti- inflammatory medication and activity modification for knee arthritic [...] for requiring urgent evaluation. documented in this encounterRay County Memorial [id number] History of Present illness Narrative* Kennedi Peña, ROHAN-WIDTH STRIPPER - 07/06/2024 1:15 PM EST Perla Goodwin is a 69 y.o.female. No [...] HX Past Medical History: Diagnosis Date A-fib ([facility]) Allergic Arthritis Cold sore Disease of thyroid gland Hypothyroidism Hypertension Osteoporosis Scoliosis Skin cancer Urinary frequency Visual impairment SURGICAL HX Past Surgical History: Procedure Laterality Date COLONOSCOPY x2 DENTAL SURGERY gum disease JOINT REPLACEMENT 03/28/25 REPLACEMENT TOTAL JOINT KNEE Right 03/28/2024 Performed by Elmira Neff Jr., DO at [facility] SKIN BIOPSY VARICOSE VEIN SURGERY FAMILY [...] g into the vagina once a week. 42.5g 2 levothyroxine (SYNTHROID, LEVOTHROID) 25 MCG tablet Take 2 tablets (50 mcg total) by mouth in the morning. metoprolol tartrate (LOPRESSOR) 25 mg tablet Take 2 tablets (50 mg total) by mouth in the morning and 2 tablets (50 mg total) before bedtime. paafreqq-baoi-BT-calcium &mins (THERAGRAN-M) 9 mg iron-400 mcg tablet Take 1 tablet by mouth inthe morning. valACYclovir (VALTREX) 1000 mg tablet Take [...] (due April 2025) or sooner as needed. ELVIN URBINA, FRANCISCO Peña APRN-HEMALATHA Jewell 07/06/24 1326 documented in this encounterACMC Healthcare System02-11-2025 History of Present illness Narrative* TIMMY Liu - 06/13/2024 1:15 PM EST Images from the original note were not included. HISTORY OF PRESENT ILLNESS: POST OP PT Perla Goodwin is an 69 y.o. @ female. (EST PT) S/P RT TKA (03/28/24), 11 WKS. XRAY 05/09/24 EPIC PHYSICAL THERAPY @ [facility] IN [place] WALKING WELL UNASSISTED. HAS ONE PT VISIT [...] ballotable and compartments were soft to the operativelower extremity. Dorsalis pedis and posterior tibial pulses were present and equal bilaterally. There was no evidence of infection or ascending lymphangitis to operative lower extremity. Sensation tolight touch was intact to all dermatomes to [...] x-ray surveillance. The necessity of dental prophylaxis withantibiotics was discussed and she expressed gratitude for [...] for requiring urgent evaluation. documented in this encounterRay County Memorial [id number] History of Present illness Narrative* TIMMY Liu - 05/09/2024 1:15 PM EST Images from the original note were not included. HISTORY OF PRESENT ILLNESS: POST OP PT Perla Goodwin is an 68 y.o. @ female. PO (6WKS) S/P RT TKA (03/28/24). XRAY TODAY 05/09/24 EPIC PHYSICAL THERAPY @ [facility]IVE [facility]ERAPY IN [place] USING A CANE, MOSTLY DUE TO WEATHER. [...] ballotable and compartments were soft to the operativelower extremity. Dorsalis pedis and posterior tibial pulses were present and equal bilaterally. There was no evidence of infection or ascending lymphangitis to operative lower extremity. Sensation tolight touch was intact to all dermatomes to [...] She has been advised to discontinue her twice- daily aspirin regimen. For pain management and inflammation control,she may utilize Motrin as previously discussed during the bedside consultation. Radiographic imageswere reviewed at the bedside, revealing no complications. [...] for requiring urgent evaluation. documented in this encounterRay County Memorial [id number] History of Present illness Narrative* TIMMY Liu - 04/11/2024 9:00 AM EST Images from the original note were not included. HISTORY OF PRESENT ILLNESS: POST OP PT Perla Goodwin is an 68 y.o. @ female. 1ST PO 14 DAYS S/P RT TKA (03/28/24). PHYSICAL THERAPY @ PROGRESSIVE THERAPY IN [place] WALKING WELL WITH WALKER. PAIN DIFFUSE IN [...] Valgus: negative Other Erythema: absent Scars: present (Isamar present, removed, no dehiscence or drainage) Sensation: [...] ballotable and compartments were soft to the operativelower extremity. Dorsalis pedis and posterior tibial pulses were present and equal bilaterally. There was no evidence of infection or ascending lymphangitis to operative lower extremity. Sensation tolight touch was intact to all dermatomes to [...] stretches were provided, with a recommendation for thrice- daily practice. Follow-up The patient will follow up [...] for requiring urgent evaluation. documented in this [facility]12-10-2024 Instructions* Patient Instructions* TIMMY Liu - 04/11/2024 9:00 AM EST [...] submerging wound pending recheck. documented in this [facility]11-25-2024 Telephone encounter Note* Telephone Encounter - Lila Yun - 03/27/2024 2:37 PM EST I called patient to inform her of this [facility] [id number] Miscellaneous Notes* Telephone Encounter - Lila Yun - 03/27/2024 2:37 PM EST I called patient to inform her of this * Telephone Encounter - Neville Gilmore NP - 03/27/2024 1:[address] Neff has to sign off on them but they should be sent in today * Telephone Encounter - Lila Yun - 03/27/2024 1:05 PM EST Pt called and stated she is having RT TKA sx tmrw 03/28/24 [facility] [place] and they do not have her scripts there for after sx. One is pain medication and Zofran for nauseas. If youcould call these into [facility]. Allergies: muscle relaxers Her call back [phone] documented in this encounterNOIN [id number] Telephone encounter Note* Telephone Encounter - Neville Gilmore NP - 03/27/2024 1:[address] Neff has to sign off on them but they should be sent in today [facility] Work Phone: [phone] 201-526611-25-2024 Telephone encounter Note* Telephone Encounter - Lila Yun - 03/27/2024 1:05 PM EST Pt called and stated she is having RT TKA sx tmrw 03/28/24 and [facility] [place] and they do not have her scripts there for after sx. One is pain medication and Zofran for nauseas. If youcould call these into [facility]. Allergies: muscle relaxers Her call back [phone] [facility] [id number] Telephone encounter Note* Telephone Encounter - Lila Yun - 03/27/2024 1:03 PM EST Spoke to patient and she stated she called insurance and she should be all set and good for her sx tmrw. Disregard this message. [facility] [id number] Miscellaneous Notes* Telephone Encounter - Lila Yun - 03/27/2024 1:03 PM EST Spoke to patient and she stated she called insurance and she should be all set and good for her sx tmrw. Disregard this message. * Telephone Encounter - Lila Yun - 03/27/2024 10:27 AM EST Pt called and stated she is having RT TKA sx tmrw and wanted to make sure her insurance approved this? I did inform her to call her insurance to verify with them if she does not hear back from anyone, she was in understanding. Her call back [phone] documented in this encounterRay County Memorial HospitalIeyecuhjrw74-85-1919 Telephone encounter Note* Telephone Encounter - Lila Yun - 03/27/2024 10:27 AM EST Pt called and stated she is having RT TKA sx tmrw and wanted to make sure her insurance approved this? I did inform her to call her insurance to verify with them if she does not hear back from anyone, she was in understanding. Her call back [phone] [facility] [id number] Telephone encounter Note* Telephone Encounter - Neville Gilmore NP - 03/27/2024 8:56 AM EST Post op pain rx. PDMP reviewed [facility] [id number] Miscellaneous Notes* Telephone Encounter - Neville Gilmore NP - 03/27/2024 8:56 AM EST Post op pain rx. PDMP reviewed documented in this [facility]11-14-2024 Telephone encounter Note* Telephone Encounter - TIMMY Liu - 03/16/2024 1:46 PM EST Increased pain right knee requesting handicap placard before surgery [facility] [id number] Miscellaneous Notes* Telephone Encounter - TIMMY Liu - 03/16/2024 1:46 PM EST Increased pain right knee requesting handicap placard before surgery documented in this [facility]11-12-2024 Telephone encounter Note* Telephone Encounter - TIMMY Liu - 03/14/2024 1:44 PM EST Pt requesting Out therpay rx. For post op service. Pt has family that is director of therapy in [place]. [facility] [id number] Miscellaneous Notes* Telephone Encounter - TIMMY Liu - 03/14/2024 1:44 PM EST Pt requesting Out therpay rx. For post op service. Pt has family that is director of therapy in [place]. documented in this [address]12-2024 History of Present illness Narrative* Jordy Chapa, PT - 03/14/2024 1:00 PM EST Images from the original note were not included. Physical Therapy Physical Therapy Evaluation Visit Patient Name: Perla Goodwin Today's Date: 03/14/2024 Encounter Diagnoses Name Primary? Primary osteoarthritis of right knee Yes Visit number: 1 Rae Goodwin 68 y.o. female presents to physical [...] a PT, also has a PT in [place] she would like to go to outpatient PT right away and skip in the home PT phase. Spoke with PA and gave her a script for outpatient PT to take with her today so shecan make sure outpatient PT is lined up [...] Please sign below. Date: documented in this encounterRay County Memorial [id number] NoteBone length evaluation History: Osteoarthritis, limb length and [...] by Rory Huang MD on 02/29/2024 2:49 [id number] History of Present illness Narrative* TIMMY Liu - 02/29/2024 9:30 AM EDT Images from the original note were not included. GENERAL HISTORY AND PHYSICAL: NAME: Perla Goodwin : 1955 HISTORY OF PRESENT ILLNESS: Perla Goodwin is an 68 y.o. @ female. Here for surgery instructions - (R) TKA 03/28/2024 @[facility] PAST MEDICAL HISTORY: Past Medical History: [...] surgery received. All questions answered and proposed surgeryscheduled. (R) TKA 03/28 @[facility] SX INSTRUCTIONS GIVEN TODAY 02/28 @9:30AM - JUN PAT 02/28 @8:15AM DR. BONE CLEARANCE 03/20 @11:45AM [facility] NOTIFIED NO PREOP PAYMENT / PRECERT ; MEDICARE Follow up for 04/11/24 @ 9:00AM - Jun w/ Storm. documented in this encounterRay County Memorial [id number] Instructions* Patient Instructions* Jennifer Webster RN - 02/29/2024 8:15 AM EDT Preoperative Education Checklist- Joints/Spine Surgery date: 03/28/24 Surgery time: 0745 a.m. Arrival time: 0610 a.m. Return between 03/20-03/27/24 Mon-Fri 7 a.m.-5 p.m. at [facility] for your last blood test. 1. Bring a photo ID and your insurance card with you the day of surgery. You will check in at the main lobby of the [facility]- registration desk is straight ahead as soon as you walkin. Tell them you are here for surgery. 2. If you have a Living Will/Durable Power of Window Cleaner for Health Care that is not on [...] after you have bathed. 5. No nail british virgin islander/acrylic on at least one finger. If you are having a hand, wrist, foot, or leg surgery then ALL nail british virgin islander and artificial/acrylic nails MUST be removed from that hand or foot. 6. Avoid ALL Aspirin and non-steroidal anti-inflammatory drugs (Ibuprofen, Advil, Aleve, Excedrin, Meloxicam, Celebrex, fish/krill oil, etc.) for 7 days prior to surgery as instructed by your surgeonand/or prescribing doctor. Tylenol IS ALLOWED. If you [...] you home when you are discharged from yourhospital stay for your surgery- no driving or [...] please call the Preadmission Testing office at [phone] Mon.-Fri. 7 a.m.-3 p.m. Leave a voicemail [...] 25 mg tablet Take morning of procedure emgxhnrw-geqh-HS-calcium &mins (THERAGRAN-M) 9 mg iron-400 mcg tablet [...] blood clots, an IV, and possibly a DIPPING MACHINE OPERATOR pump and/or a NERVE BLOCK (both used [...] We try to coordinate this care with eachdepartment in order to help you get as much uninterrupted sleep as possible. We also have earplugs and eye masks available by request to promote and enhance your sleep time. While here, you may see one of our Hospitalist physicians if your family doctor does not round on patients at [facility] to see you while you are [...] hospital [facility] who work[facility] the hospital and they will start seeing you the morning after surgery. Therapy from your orthopedic doctor s office will begin seeing you once you are discharged from the hospital- they are not contracted to provide your treatment while you are in the hospital. You may have spoken with a data processing systems project planner at your orthopedic doctor s office, but you will stillreview your discharge plan with our data processing systems project planner from here at the hospital in [...] after surgery- do not stop unless directed stephani your physician. You may also be given [...] is normal. Call your doctor if you noticeany of the following: -Increased redness or hardening [...] water and pat the area dry with aclean towel. -No re-using wash cloths or towels; [...] appointment with your doctor. documented in this encounterMorrow County HospitaliLyngo10-29-2024 Miscellaneous Notes* Perioperative Nursing Note - Jennifer Webster RN - 02/29/2024 8:15 AM EDT Patient called and email verified. QR code sheet emailed to her in order for her to watch her PreopUniversity Total Knee Replacement video. Patient agreed to watch the video prior to her appointmentto see us next week on 02/29/24. * Perioperative Nursing Note - Jennifer Webster RN - 02/29/2024 8:15 AM EDT Preoperative Education Checklist- Joints/Spine Surgery date: 03/28/24 Surgery time: 0745 a.m. Arrival time: 0610 a.m. Return between 03/20-03/27/24 Mon-Fri 7 a.m.-5 p.m. at [facility] for your last blood test. 1. Bring a photo ID and your insurance card with you the day of surgery. You will check in at the main lobby of the [facility]- registration desk is straight ahead as soon as you walkin. Tell them you are here for surgery. 2. If you have a Living Will/Durable Power of Window Cleaner for Health Care that is not on [...] after you have bathed. 5. No nail british virgin islander/acrylic on at least one finger. If you are having a hand, wrist, foot, or leg surgery then ALL nail british virgin islander and artificial/acrylic nails MUST be removed from that hand or foot. 6. Avoid ALL Aspirin and non-steroidal anti-inflammatory drugs (Ibuprofen, Advil, Aleve, Excedrin, Meloxicam, Celebrex, fish/krill oil, etc.) for 7 days prior to surgery as instructed by your surgeonand/or prescribing doctor. Tylenol IS ALLOWED. If you [...] you home when you are discharged from yourhospital stay for your surgery- no driving or [...] please call the Preadmission Testing office at [phone] Mon.-Fri. 7 a.m.-3 p.m. Leave a voicemail [...] 25 mg tablet Take morning of procedure gibdynzp-lmfy-VU-calcium &mins (THERAGRAN-M) 9 mg iron-400 mcg tablet [...] blood clots, an IV, and possibly a DIPPING MACHINE OPERATOR pump and/or a NERVE BLOCK (both used [...] We try to coordinate this care with eachdepartment in order to help you get as much uninterrupted sleep as possible. We also have earplugs and eye masks available by request to promote and enhance your sleep time. While here, you may see one of our Hospitalist physicians if your family doctor does not round on patients at [facility] to see you while you are [...] hospital you will [facility] who workin the hospital and they will start seeing you the morning after surgery. Therapy from your orthopedic doctor s office will begin seeing you once you are discharged from the hospital- they are not contracted to provide your treatment while you are in the hospital. You may have spoken with a data processing systems project planner at your orthopedic doctor s office, but you will stillreview your discharge plan with our data processing systems project planner from here at the hospital in [...] after surgery- do not stop unless directed stephani your physician. You may also be given [...] is normal. Call your doctor if you noticeany of the following: -Increased redness or hardening [...] water and pat the area dry with aclean towel. -No re-using wash cloths or towels; [...] to the follow-up appointment with your doctor. * Perioperative Nursing Note - Jennifer Webster RN - 02/29/2024 8:15 AM EDT CHG wipes and surgical instructions reviewed. Patient verbalized understanding. documented in this encounterACMC Healthcare System10-29-2024 Nurse Note* Perioperative Nursing Note - Jennifer Webster RN - 02/29/2024 8:15 AM EDT Patient called and email verified. QR code sheet emailed to her in order for her to watch her PreopUniversity Total Knee Replacement video. Patient agreed to watch the video prior to her appointmentto see us next week on 02/29/24. [employer] [id number] Nurse Note* Perioperative Nursing Note - Jennifer Webster RN - 02/29/2024 8:15 AM EDT Preoperative Education Checklist- Joints/Spine Surgery date: 03/28/24 Surgery time: 0745 a.m. Arrival time: 0610 a.m. Return between 03/20-03/27/24 Mon-Fri 7 a.m.-5 p.m. at [facility] for your last blood test. 1. Bring a photo ID and your insurance card with you the day of surgery. You will check in at the main lobby of the [facility]- registration desk is straight ahead as soon as you walkin. Tell them you are here for surgery. 2. If you have a Living Will/Durable Power of Window Cleaner for Health Care that is not on [...] after you have bathed. 5. No nail british virgin islander/acrylic on at least one finger. If you are having a hand, wrist, foot, or leg surgery then ALL nail british virgin islander and artificial/acrylic nails MUST be removed from that hand or foot. 6. Avoid ALL Aspirin and non-steroidal anti-inflammatory drugs (Ibuprofen, Advil, Aleve, Excedrin, Meloxicam, Celebrex, fish/krill oil, etc.) for 7 days prior to surgery as instructed by your surgeonand/or prescribing doctor. Tylenol IS ALLOWED. If you [...] you home when you are discharged from yourhospital stay for your surgery- no driving or [...] please call the Preadmission Testing office at [phone] Mon.-Fri. 7 a.m.-3 p.m. Leave a voicemail [...] 25 mg tablet Take morning of procedure berphriw-gpkl-NQ-calcium &mins (THERAGRAN-M) 9 mg iron-400 mcg tablet [...] blood clots, an IV, and possibly a DIPPING MACHINE OPERATOR pump and/or a NERVE BLOCK (both used [...] We try to coordinate this care with eachdepartment in order to help you get as much uninterrupted sleep as possible. We also have earplugs and eye masks available by request to promote and enhance your sleep time. While here, you may see one of our Hospitalist physicians if your family doctor does not round on patients at [facility] to see you while you are [...] hospital [facility] who workin the hospital and they will start seeing you the morning after surgery. Therapy from your orthopedic doctor s office will begin seeing you once you are discharged from the hospital- they are not contracted to provide your treatment while you are in the hospital. You may have spoken with a data processing systems project planner at your orthopedic doctor s office, but you will stillreview your discharge plan with our data processing systems project planner from here at the hospital in [...] after surgery- do not stop unless directed stpehani your physician. You may also be given [...] is normal. Call your doctor if you noticeany of the following: -Increased redness or hardening [...] water and pat the area dry with aclean towel. -No re-using wash cloths or towels; [...] to the follow-up appointment with your doctor. [facility] Nurse Note* Perioperative Nursing Note - Jennifer Webster RN - 02/29/2024 8:15 AM EDT CHG wipes and surgical instructions reviewed. Patient verbalized understanding. [facility]10-18-2024 History of Present illness Narrative* Jr. Elmira Neff, - 02/18/2024 10:00 AM EDT Images from the original note were not [...] INSTABILITY / WEAKNESS ; WEARS ELASTIC KNEE SLEEVE.SOME SWELLING IN THIGH ; ICES / ELEVATES [...] right knee showed severe varus deformity with nsrw-zl-xcad articulation to the medial joint line. There [...] I am acting as scribe for Dr. Neff/mack, PLAN: We have discussed (R) knee xrays with patient at bedside. After examination of her right kneetoday we have discussed both surgical and nonusrgical [...] including the patient's age and longevity of pr osthesis, usual postop course and possible need for [...] failure, liver failure, diabetes, cardiac event in thelast year, sleep apnea, bleeding disorder, excessive tobacco use, or if at the time of surgery the patient is greater than 80 years old, or requires discharged to a ch[facility] facility, the patient may require to have additional inpatient hospital stay following the surgery. Physical therapy is contraindicated in this patient's case because of ceti-qu-zjce articulation of the patient's knee. Elmira Neff D.O. documented in this encounterRay County Memorial [id number] Evaluation note* Encounter Date Diagnosis Assessment Notes Treatment Notes Treatment Clinical Notes Jan, Acute pansinusitis (ICD-10 - J01 .40) rx sent, take as directed. continue symptomatic tx as discussed. no NSAIDs while steroid therapy. advised pt to check with PCP regarding Aspirin for Afib prior to discontinuing. recommended hot steambaths and/or cool mist humidifier. push rest/fluids. continue otc meds prn. reinforced good hand and cough hygiene for infection control. immediate eval if warning s/s of respir distress, intractable fevers, or other emergent symptoms. otherwise f/u with PCP in 3-4 days if s/s persists or worsens despite treatment. Jan,cute bronchitis (ICD-10 - J20.9) see above Jan,ongestion of respiratory tract (ICD-10 - J98.8) [employer] Other Evaluation + Plan note No data available for this section [facility]* Diagnosis Primary osteoarthritis of right knee- Primary Acute pain of right knee documented in this encounter [facility]* Diagnosis Primary osteoarthritis of right knee- Primary Pre-op examination documented in this encounter [facility]* Diagnosis Primary osteoarthritis of right knee- Primary S/P TKR (total knee replacement), right Acute pain of right knee documented in this encounter [facility] Healthcare[facility]* Diagnosis Primary osteoarthritis of right knee- Primary documented in this encounter [facility]* Diagnosis Arthralgia of right knee- Primary documented in this encounter [facility]* Diagnosis Post-operative pain- Primary Other acute postoperative pain Nausea Nausea alone documented in this encounter [facility]* Diagnosis Status post right knee replacement- Primary documented in this encounter [facility] HealthcareEvaluation [facility]* Diagnosis Status post right knee replacement Acute pain of right knee documented in this encounter [facility]* Diagnosis Status post right knee replacement- Primary documented in this encounter [facility]* Diagnosis Preop examination- Primary Unspecified pre-operative examination Atrial fibrillation, unspecified type [place] Hypertension, unspecified type Urinary frequency Preop examination Unspecified pre-operative examination Atrial fibrillation, unspecified type ([facility] Hypertension, unspecified type Preop examination Unspecified pre-operative examination Atrial fibrillation, unspecified type ([facility] Hypertension, unspecified type Preop examination Unspecified pre-operative examination Atrial fibrillation, unspecified type ([facility] Hypertension, unspecified type [facility] Diagnosis Vaginal discharge- Primary Leukorrhea, not specified as infective Vaginal odor Unspecified symptom associated with female genital organs documented [facility]* Diagnosis BV (bacterial vaginosis)- Primary Unspecified vaginitis and vulvovaginitis documented [facility]* Diagnosis Arthritis of left knee- Primary Acute pain of left knee documented in this encounter [facility]* Diagnosis Vaginal discharge- Primary Leukorrhea, not specified as infective Vaginal odor Unspecified symptom associated with female genital organs [facility]* Diagnosis BV (bacterial vaginosis)- Primary Unspecified vaginitis and vulvovaginitis documented in this [facility]* Diagnosis Pure hypercholesterolemia, unspecified documented in this encounter [facility] Work Phone: Evaluation note* Diagnosis Acute pain of left knee- Primary Arthritis of left knee documented in this encounter [facility] HealthcareEvaluation note* Diagnosis Vaginal odor- Primary Unspecified symptom associated with female genital organs Vaginal discharge Leukorrhea, not specified as infective documented in this [facility]* Diagnosis Status post right knee replacement- Primary documented in this encounter [facility]Evaluation [facility]* Diagnosis Radial artery aneurysm, right- Primary Aneurysm of other specified artery documented in this encounter [facility] Narrative - Reported* Type Description Date Medical History HYPERTENSION Medical HistoryHYPERTHYROIDISM [employer] Other Hospital Discharge instructions No data available for this section [facility]* Attachments The following attachments cannot be sent through Care Everywhere. * Vaginal discharge (Salvadorean) * Vaginitis (Salvadorean) documented in this encounterProCo[facility] Health SystemInstructionsNot on file documented in this encounterProCoosa [facility] Health SystemInstructionsNot on file documented in this encounterProCoosa [facility] Health SystemInstructionsNot on file documented in this encounterProCoosa [facility] Health SystemInstructionsNot on file documented in this encounterProCoosa [facility] Health SystemInstructionsNot on file documented in this encounterPremier Health SystemProgress note No data available for this section [facility] HospitalReason for visit Narrative* Consultation (Routine) - AuthorizedSpecialtyDiagnoses / ProceduresReferred By ContactReferred To ContactPhysical Therapy Diagnoses Primary osteoarthritis of right knee Pre-op examination Procedures RI OFFICE/OUTPATIENT NEW HIGH MDM 60 MINUTES Pavel Friend, TIMMY [address] [facility] [address] [place] [address] Phone: tel: fax: Jordy Chapa, PT [address] [place] [address] Phone: tel: fax: Referral IDStatusReasonStart DateExpiration DateVisits RequestedVisits [id number] Consult and Treat /30 [facility] HealthcareReason for visit Narrative* Imaging (Routine) - Authorized SpecialtyDiagnoses / ProceduresReferred By ContactReferred To ContactRadiology Diagnoses Pure hypercholesterolemia, unspecified Procedures CT cardiac scoring wo IV contrast Francisco Javier Bone DO [address] [place] [address] Phone: tel: fax: Referral IDStatUmuangelStart DateExpiration DateVisits RequestedVisits [id number] Perform Procedure [facility] Work Phone: Summary Purpose Family History No Family History Records FoundNo Family History Records FoundNo Family History Records FoundNo Family History Records FoundNo Family History Records FoundNo Family History Records FoundNo Family History Records FoundNo Family History Records FoundNo Family History Records FoundNo Family History Records FoundNo Family History Records FoundNo Family History Records Found Advance Directives No Advanced Directives Records Found Date ActivatedDate VpmvwhwcrnaVrqusdgt56/25/2024 9:00 PM03/28/2024 5:14 PMDate ActivatedDate GpadqpbvnrgSgffwtdu81/25/2024 9:00 PM03/28/2024 5:14 PM Additional Source Comments INFORMATION SOURCE (unrecogn ized section and content) DATE CREATED AUTHOR 07/05/2019 [facility] DATE CREATED AUTHOR AUTHOR'S ORGANIZ ATION 04/04/2022 [facility] DATE CREATED AUTHOR AUTHOR'S ORGANIZ ATION 08/12/2024 [facility] DATE CREATED AUTHOR AUTHOR'S ORGANIZ ATION 08/21/2024 [facility] DATE CREATED AUTHOR AUTHOR'S ORGANIZ ATION 12/29/2024 [facility] DATE CREATED AUTHOR AUTHOR'S ORGANIZ ATION 12/31/2024 [facility] DATE CREATED AUTHOR AUTHOR'S ORGANIZ ATION 01/02/2025 [facility] DATE CREATED AUTHOR AUTHOR'S ORGANIZ ATION 01/16/2025 [facility] DATE CREATED AUTHOR AUTHOR'S ORGANIZ ATION 03/02/2025 [facility] DATE CREATED AUTHOR AUTHOR'S ORGANIZ ATION 03/07/2025 [facility] REASON FOR VISIT (unrecogniz ed section and content) ReasonCommentsPainReasonCommentsPainReasonOnset PbeqXlppqvdklyflivd46/25/2024 ReasonOnset DateCommentsPO xjtyvpo9903/27/2024easonCommentsPost-opReasonComments Follow-upReasonCommentsVaginal DischargeReasonCommentsPainReasonCommentsVaginal DischargeWith an odorReasonOnset DateCommentsantibiotic for dental appt 10/04/2024ReasonCommentsNew PatientSpecialtyDiagnoses / ProceduresReferred By ContactReferred To ContactVascular Surgery Diagnoses Abnormal ultrasound Angel Marie MD [address] [place] [id number] Phone: tel: fax: [address] [place] [address] Phone: tel:[phone] fax: Referral IDStatusReasonStart DateExpiration DateVisits RequestedVisits [id number] Review Specialty Services Required Care Teams (unrecognized sec tion and content) Team MemberRelationshipSpecialtyStart DateEnd Date Francisco Javier Bone DO [address] [place] [id number] PCP - GeneralInternal Medicine08/05/24Team MemberRelationshipSpecialtyStart Date End Date Francisco Javier Bone Jr., DO [facility] [place], [place] [id number] PCP - GeneralInternal Kphthqnb68/15/21Team MemberRelationshipSpecialtyStart Date End Date Francisco Javier Bone MD [address] [place] [address] [phone] [facility] Sojtwusa88/22/24 FOR RECORDS PERTAINING TO PATIENTS WHO ARE [...] BE BASED ON THE PRIMARY CLINICAL RECORDS. [facility]. provides no warranty or guarantee of the accuracy or completeness of information in this document.
[2025-03-22 09:22] LABS: Alanine Aminotransferase 21 U/L (14-59); Albumin Globulin Ratio 1.3; Albumin Level 3.6 g/dL (3.4-5.0); Alkaline Phosphatase 59 U/L (46-116); Anion Gap 8.5; Aspartate Amino Transferase 18 U/L (15-37); Blood Urea Nitrogen 27.0 mg/dL (7.0-18.0); Calcium 9.1 mg/dL (8.5-10.1); Carbon Dioxide 32.5 mmol/L (21.0-32.0); Chloride 105 mmol/L (98-107); Cholesterol 126 mg/dL (<=200); Estimated GFR (African America >60 (>=60 mL/min/1.73m^2); Estimated GFR (Non-African Ame 58 (>=60 mL/min/1.73m^2); Globulin 2.8 g/dL; Glucose 91 mg/dL (74-106); HDL Cholesterol 55 mg/dL (40-60); Potassium 4.0 mmol/L (3.5-5.1); Sodium 142 mmol/L (136-145); Total Protein 6.4 g/dL (6.4-8.2); Triglycerides 37 mg/dL (<=150); VLDL CHOLESTEROL 7.4 mg/dL
== END 2025-03-22 08:49 | disposition home or self-care (01) ==
LOC: LAB 08:50
PROVIDERS: PCP Internal Medicine; Visit Provider Internal Medicine
DX: E78.5 Hyperlipidemia, unspecified (principal); I10 Essential (primary) hypertension; Z79.899 Other long term (current) drug therapy
CPT/HCPCS: 36415; 80053; 80061

== ENCOUNTER 2025-04-25 09:29 | Outpatient (OUT) | payer MEDICARE, OTHER, SELFPAY ==
--- OUTSIDE RECORDS SUMMARY | 2025-04-13 10:45 | XMS_ITS | Encounter Summary ---
Author Organization [facility] Address [address] [place] [address] Care Team Providers Care Railroad Signal Technician Name Role Phone Francisco Javier Mckeon MD Primary Care Provider + [phone] Reason for Referral * Consultation (Routine) - AuthorizedSpecialtyDiagnoses / ProceduresReferred By ContactReferred To ContactPodiatry Diagnoses Tendonitis, Achilles, right Procedures IA OFFICE/OUTPATIENT NEW HIGH MDM 60 MINUTES Pavel Friend PA [address] [place] [address] Phone: tel: fax: Dania Novoa, DPM [address] [place] [address] Phone: tel: fax: Referral IDStatusReasonStart DateExpiration DateVisits RequestedVisits [id number] Specialty Services Required Scheduling Instructions Please call pt to schedule.. will be trialing boot and formal therapy. * Consultation (Routine) - AuthorizedSpecialtyDiagnoses / ProceduresReferred By ContactReferred To ContactPhysical Therapy Diagnoses Tendonitis, Achilles, right Procedures IA OFFICE/OUTPATIENT NEW HIGH MDM 60 MINUTES Pavel Friend PA [address] [place] [address] Phone: tel: [facility]: [facility] [address] [place] [address] Referral IDStatusReasonStart DateExpiration DateVisits RequestedVisits [id number] Consult and Treat 56/010 Reason for Visit * ReasonCommentsPain Encounter Details DateTypeDepartmentCare Team (Latest Contact Info)Eyedxotlggz87/12/2025 10:45 AM ESTOffice Visit [facility] [address] [facility] [place] [address] Pavel Friend PA [address] [place] [address] Acute pain of right knee (Primary Dx); History of total knee replacement, right; Tendonitis, Achilles, right; Acute right ankle pain Social History Tobacco UseTypesPacks/DayYears UsedDateSmoking Tobacco: NeverSmokeless Tobacco: NeverAlcohol UseStandard Drinks/WeekCommentsYes2 (1 standard drink = 0.6 oz pure alcohol)CommentsUnknownSex and Gender InformationValueDate RecordedSex Assigned at BirthNot on fileLegal KpiBcukhi17/11/2024 9:23 AM EDTGender Identity Lydtln9202/12/2024 9:27 AM EDTSexual OrientationNot on filedocumented as of this encounter Progress Notes * TIMMY Liu - 04/13/2025 10:45 AM ESTAssociated Order(s): Cast / Splint / Fx Post-Procedure Diagnose(s): Tendonitis, Achilles, right Images from the original note were not included. Orthopedic Office note: NAME: Perla Torres : 1955 EST PT RECHECK RT KNEE PAIN- RT TKA (03/28/24)- S/P PREDNISONE 03/16/25; MINIMAL TEMP RELIEF- WEARING A JELLY INSERT IN SHOE PT CONTINUES TO STRUGGLE WITH TENDONITIS IN RT ANKLE AND BELIEVES THIS IS CAUSING HER TO WALK DIFFERENTLY RECENT HEART STENT 12/29/24; ON PLAVIX/ASA 81MG XRAY RT KNEE EPIC 03/16/25 XRAY 05/09/24 EPIC PREDNISONE 03/16/25 PHYSICAL THERAPY @ [facility] [place] (P/O) CONTINUES TO HAVE PAIN LATERAL KNEE- +SWELLING- NOTES SWELLING TO TOUCH - DENIES INSTABILITY- DIFFICULTY WITH STAIRS- +TYLENOL/VOLTAREN GEL Physical Exam General Appearance: Normal. Respiratory: No acute distress. Musculoskeletal: Right knee: Well-healed surgical scar, no effusion, no joint warmth or erythema. Excellent passive and active range of motion with full extension and approximately 125 to 130 degreesof flexion. No pain with MCL or LCL stressing. No appreciable laxity. Lateral retinaculum in the distal IT band insertion: Tenderness, compartment soft, no pain with hip internal and external motion.Calf: Soft and nontender. Negative Homans' sign. Mid Achilles tendon: Notable visible thickening, Hernandez's test intact, pain localized. Distal insertion on the calcaneus: No pain. Achilles: Discomfort with ambulation toe flexion, extension intact, ankle dorsiflexion and plantar flexion maintain 5out of 5 despite persistent pain. Patella: Negative patellar tilt. Anterior gonzales: No tenderness. Anterior drawer: Negative for pain or laxity. Skin: Warm and dry, no rash. Neurological: Normal. Knee Musculoskeletal Exam Gait Gait is normal. Inspection Leg length disparity: no discrepancy Right Erythema: none Effusion: none Edema: none Ecchymosis: none Deformity: none Alignment: normal Previous incision: anterolateral Incision: well-healed Palpation Right Right knee palpation is unremarkable. Increased warmth: none Masses: none Tenderness: present Tenderness comment: distal IT Lateral retinaculum: mild Range of Motion Right Right knee range [...] Lymphadenopathy: none Orders Placed This Encounter Procedures Cast / Splint / Fx This order was created via procedure documentation Ambulatory referral to Physical Therapy Standing Status: Future Expected Date: 04/13/2025 Expiration Date: 10/12/2025 Referral Priority: Routine Referral Type: Consultation Referral Reason: Consult and Treat Referral Location: [facility] Requested Specialty: Physical Therapy Number of Visits Requested: 1 Ambulatory referral to Podiatry Standing Status: Future Expected Date: 04/13/2025 Expiration Date: 10/12/2025 Referral Priority: Routine Referral Type: Consultation Referral Reason: Specialty Services Required Referred to Provider: Bishnu Bedoya DPM Requested Specialty: Podiatry Number of Visits Requested: 1 Cast / Splint / Fx Date/Time: 04/13/2025 11:25 AM Performed by: TIMMY Liu Authorized by: TIMMY Liu Consent given by: patient Timeout: Immediately prior to procedure a time out was called to verify the correct patient, procedure, equipment, director decision support and site/side marked as required Injury Location details: right ankle Pre-procedure assessment neurovascularly intact Range of motion: normal Procedure Manipulation performed? no manipulation performed Immobilization: splint Splint/Brace type: cam boot Post-procedure assessment neurovascularly intact Range of motion: unchanged Patient tolerance: patient tolerated the procedure well with no immediate complications Comments A right L4361 Walking Boot, Pneumatic and/or Vacuum, With or Without Joints, Prefabricated, Off theShelf was dispensed and applied at this visit. Due to the patient's diagnosis and related symptoms this is medically necessary for treatment. The function of this device is to restrict and limit motion, provide stabilization, immobilization, and compression to the affected area. The goals and function-of this device were explained in detail to the patient. Upon gait analysis, the device appeared to be fitting well and the patient states that the device is comfortable at this time. The patient was shown and told in detail how to properly wear and care for the device. They were able to apply the device properly themselves and able to ambulate without distress. At the time the device was dispensed, it was suitable for the condition and was not substandard. No guarantees were given and precautions were reviewed. Written instructions and warranty information was given along with the list of the current Durable Medical Equipment Supplier Guidelines. The patient was given a patient education sheet regarding signs and symptoms of a DVT and was instructed to call the doctor immediately if they experience any symptoms. Results ICD-10-CM 1. Acute pain of right knee M25.561 amoxicillin (Amoxil) 500 MG tablet 2. History of total knee replacement, right Z96.651 amoxicillin (Amoxil) 500 MG tablet 3. Tendonitis, Achilles, right M76.61 Ambulatory referral to Physical Therapy Ambulatory referral to Podiatry Cast / Splint / Fx 4. Acute right ankle pain M25.571 Assessment & Plan Right Achilles tendinitis She feels her lateral knee discomfort is coming from her changing gait with this tendinitis. Conservative measures were discussed, including topical stretching, ice, and heat. Given persistent symptoms, a transition into a boot was recommended. She will try to wear this during most periods of weightbearing activity and may remove it to work on range of motion and prevent calf or ankle stiffness. Topical medication and a referral to podiatry for potential other treatment options or possible surgical interventions were discussed. She will be placed in formal therapy due to persistent symptoms. After boot application, her pain significantly improved with ambulation. Caution with ambulation to avoid falls due to change in gait was discussed. If pain continues despite boot application, she mayuse crutches and be nonweightbearing. She expressed gratitude and had no further concerns or questions. Treatment plan: Conservative measures including topical stretching, ice, and heat. Transition into a boot during most periods of weightbearing activity, with removal to work on range of motion and prevent calf or ankle stiffness. Topical medication. Referral to podiatry for potential other treatment options or possible surgical interventions. Formal therapy due to persistent symptoms. Use of crutches and nonweightbearing if pain continues despite boot application. Clinical decision making: Caution with ambulation to avoid falls due to change in gait. Questions answered in laymen terms at the bedside. The diagnosis, home exercise plan and any ongoing restrictions/ recommendations reviewed. If unable to be reached in office, I recommend evaluation at nearest Emergency Room if any symptoms worsened or new symptoms develop for requiring urgent evaluation. Visit was preformed using [employer]-aerial applicator pilot speech recognition. documented in this encounter Plan of Treatment DateTypeDepartmentCare Team (Latest Contact Info)Vmpyrtzjztv98/08/2026 9:00 AM ESTOffice Visit [facility] [address] [place] [address] Dania Novoa DPM [address] [place], [place] [id number] 06/13/2025 1:00 PM ESTOffice Visit [facility] [address] [place] [address] Pavel Friend PA [address] [facility] [place] [address] NameTypePriorityAssociated DiagnosesOrder ScheduleAmbulatory referral to Physical TherapyOutpatient ReferralRoutine Tendonitis, Achilles, right Expected: 04/13/2025 (Approximate), Expires: 10/12/2025mbulatory referral to PodiatryOutpatient ReferralRoutine Tendonitis, Achilles, right Expected: 04/13/2025 (Approximate), Expires: 10/12/2025documented as of this encounter Procedures Procedure NamePriorityDate/TimeAssociated DiagnosisCommentsCAST / SPLINT / FX Kvbbldx7204/13/2025 11:25 AM EST Tendonitis, Achilles, right documented in this encounter Results * Cast / Splint / Fx (04/13/2025 11:25 AM EST) Narrative Pavel Friend PA - 04/13/2025 11:25 AM EST TIMMY Liu 04/13/2025 10:55 PM Cast / Splint / Fx Date/Time: 04/13/2025 11:25 AM Performed by: TIMMY Liu Authorized by: TIMMY Liu Consent given by: patient Timeout: Immediately prior to procedure a time out was called to verify the correct patient, procedure, equipment, director decision support and site/side marked as required Injury Location details: right ankle Pre-procedure assessment neurovascularly intact Range of motion: normal ?? Procedure Manipulation performed? no manipulation performed Immobilization: splint Splint/Brace type: cam boot Post-procedure assessment neurovascularly intact Range of motion: unchanged Patient tolerance: patient tolerated the procedure well with no immediate complications Comments A right L4361 Walking Boot, Pneumatic and/or Vacuum, With or Without Joints, Prefabricated, Off the Shelf was dispensed and applied at this visit. Due to the patient's diagnosis and related symptoms this is medically necessary for treatment. The function of this device is to restrict and limit motion, provide stabilization, immobilization, and compression to the affected area. The goals and function-of this device were explained in detail to the patient. Upon gait analysis, the device appeared to be fitting well and the patient states that the device is comfortable at this time. The patient was shown and told in detail how to properly wear and care for the device. They were able to apply the device properly themselves and able to ambulate without distress. At the time the device was dispensed, it was suitable for the condition and was not substandard. No guarantees were given and precautions were reviewed. Written instructions and warranty information was given along with the list of the current Durable Medical Equipment Supplier Guidelines. The patient was given a patient education sheet regarding signs and symptoms of a DVT and was instructed to call the doctor immediately if they experience any symptoms. ?? Authorizing ProviderResult TypeResult StatusMatthesurinder Queen [facility]/BEDSIDE ORDERABLESFinal Result documented in this encounter Visit Diagnoses Diagnosis Acute pain of right knee- Primary History of total knee replacement, right Tendonitis, Achilles, right Acute right ankle pain documented in this encounter Care Teams Team MemberRelationshipSpecialtyStart DateEnd Date Francisco Javier Mckeon MD [address] [place] [address] PCP - GeneralInternal Xayrulpn88/22/24documented as of this encounter
--- OUTSIDE RECORDS SUMMARY | 2025-04-24 13:15 | XMS_ITS | Encounter Summary ---
Author Organization [facility] Address [id number] [place] [address] Care Team Providers Care Cargo Checker Name Role Phone Linda Adler DO, Charles L Primary Care Provider Reason for Visit * ReasonCommentsGynecologic Exam Encounter Details DateTypeDepartmentCare Team (Latest Contact Info)Pnlwzgtwuky43/23/2025 1:15 PM ESTOffice Visit [facility] [address] [place] [address] Encounter for breast and pelvic examination (Primary Dx); Standardized adult depression screening tool completed; Vaginal atrophy Social History Tobacco UseTypesPacks/DayYears UsedDateSmoking Tobacco: NeverSmokeless Tobacco: NeverAlcohol UseStandard Drinks/WeekCommentsYes2 (1 standard drink = 0.6 oz pure alcohol)sociallyPHQ-2AnswerDate RecordedTotal Pbxdd724/20/2023AUDIT-CAnswerDate RecordedQ1: How often do you have a drink containing alcohol?Never04/24/2025Q2: How many drinks containing alcohol do you have on a typical day when you are drinking?Patient does not drink04/24/2025Q3: How often do you have six or more drinks on one occasion?Never04/24/2025Hunger ScreeningAnswerDate RecordedWithin the past 12 months we worried whether our food would run out before we got money to buy more.Never True04/24/2025Within the past 12 months the food we bought just didn't last and we didn't have money to get more.Never True04/24/2025 CommentsNoSex and Gender InformationValueDate RecordedSex Assigned at BirthNot on fileLegal FwiGxlxff40/14/2021 1:08 PM ESTGender IdentityNot on file Sexual OrientationNot on filedocumented as of this encounter Last Filed Vital Signs Vital SignReadingTime TakenCommentsBlood Onpxtxzr645/9004/24/2025 12:58 PM EST Pulse--Temperature--Respiratory Rate--Oxygen Saturation--Inhaled Oxygen Concentration--Jouhbj38.8 kg (149 lb 6.4 oz)04/24/2025 12:58 PM RXQSeuvcq083.5 cm (5' 7.5 )04/24/2025 12:58 PM ESTBody Mass Index23.0504/24/2025 12:58 PM EST documented in this encounter Functional Status * BPAnswerDate of FosykiyriyTjsoxr783/9004/24/2025 12:58 PM Ara Crews MA * HeightAnswerDate of PwrdoqwikpZuustg57.512 12:58 PM Ara Crews MA * WeightAnswerDate of IwavzzgqunOdjhut8487.412 12:58 PM Ara Crews MA * Food InsecurityQuestionAnswerDate of AssessmentAuthorWithin the past 12 months the food we bought just didn't last and we didn't have money to get more.Never True04/24/2025 1:09 PM Ara Crews MAWithin the past 12 months we worried whether our food would run out before we got money to buy more.Never True04/24/2025 1:09 PM Ara Crews MA * BEE (kcal)AnswerDate of MszabuuwnnEvjkjh879787/23/2025 12:58 PM Ara Bo MA * BSA (Calculated - sq m)AnswerDate of AssessmentAuthor1.8106/25/2024 12:58 PM Ara Crews MA * BMI (Calculated)AnswerDate of CwqkugjwzeTvgzbj4414 12:58 PM Ara Bo MA * AUDIT-C ScoreAnswerDate of XvxrwshbteHpzdra764 1:10 PM Ara Crews MA * Alcohol UseQuestionAnswerDate of AssessmentAuthorQ1: How often do you have a drink containing alcohol?Never04/24/2025 1:10 PM Ara Crews MAQ2: How many drinks containing alcohol do you have on a typical day when you are drinking?Patient does not drink04/24/2025 1:10 PM Ara Crews MA Q3: How often do you have six or more drinks on one occasion?Never04/24/2025 1:10 PM Ara Crews MA * Weight in (lb) to have BMI = 25AnswerDate of MqrcbteiftLotvjd434.7106/25/2024 12:58 PM Ara Crews MA * BPAnswerDate of IjdisgncptBnkwhx773/ 12:58 PM Ara Crews MA * HeightAnswerDate of KdgyzqdxzhGqlnqz70.512 12:58 PM Ara Crews MA * WeightAnswerDate of AchazkxmvhNmtqzh8067.412 12:58 PM Ara Crews MA * BEE (kcal)AnswerDate of MagpwpwnuqZqikxc485482 12:58 PM Ara Bo MA * BSA (Calculated - sq m)AnswerDate of AssessmentAuthor1.8106/25/2024 12:58 PM Ara Crews MA * BMI (Calculated)AnswerDate of NdfhfvqotsChgcmr6932/23/2025 12:58 PM Ara Bo MA * Weight in (lb) to have BMI = 25AnswerDate of YbvgjoexzqHxedwg158.7106/25/2024 12:58 PM Ara Crews MA documented as of this encounter Mental Status * BPAnswerEntry VdxeFrbuyw597/9004/24/2025 12:58 PM Ara Crews MA documented in this encounter Patient Instructions * Attachments The following attachments cannot be sent through Care Everywhere. * Calcium and vitamin D for bone health (Scottish) * Osteoporosis and osteopenia (low bone mass) (Scottish) documented in this encounter Progress Notes * Kennedi Colmenares Leno, LOG BRANDER-VOCATIONAL REHAB CONSULTANT - 04/24/2025 1:15 PM EST Subjective Perla Torres is a pleasant 69 y.o. female who presents for medicare pelvic and clinical breast examscreening for cancer. The patient has no complaints today. The patient is sexually active. Denies painful intercourse or pelvic pain. Patient denies post-menopausal vaginal bleeding.. Patient denies domestic violence. Complaints today: none The patient is not taking hormone replacement therapy. Hot flashes - None Bladder issues - None Bowel issues - None History of abnormal Pap smear: no Last pap: 04/16/21 Family history of uterine or ovarian cancer: yes - ovarian maternal cousin Regular self breast exam: yes Last mammogram: scheduled tomorrow at [facility] Family history of breast cancer: yes - mother Family history of colon cancer: yes - mother Family history of pancreatic or prostate cancer: no Working no : retired How many children? None Smoker no Dexa Scan: thinks last year at [facility], patient is receiving prolia shots every 6 months to help make her bones stronger. 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 The following portions of the patient's history were reviewed and updated as appropriate: allergies, current medications, past family history, past medical history, past social history, past surgicalhistory, problem list, and medication reconciliation was completed including current medication andpost discharge medication. Review of Systems Constitutional: Negative. Respiratory: Negative. Negative for chest tightness and shortness of breath. Cardiovascular: Negative. Negative for chest pain and palpitations. Gastrointestinal: Negative. Negative for constipation, diarrhea, nausea and vomiting. Endocrine: Negative. Genitourinary: Negative. Negative for dyspareunia, pelvic pain and vaginal bleeding. Musculoskeletal: Negative. Skin: Negative. Allergic/Immunologic: Negative. Neurological: Negative. Hematological: Negative. Psychiatric/Behavioral: Negative. Objective Vitals: 04/24/25 1258 BP: 140/90 Body mass index is 23.05 kg/m??. Physical Exam Vitals and nursing note reviewed. Constitutional: Appearance: Normal appearance. HENT: Head: Normocephalic and atraumatic. Cardiovascular: Rate and Rhythm: Normal rate and regular rhythm. Pulses: Normal pulses. Heart sounds: Normal heart sounds. Pulmonary: Effort: Pulmonary effort is normal. Breath sounds: Normal breath sounds. Chest: Breasts: Breasts are symmetrical. Right: Normal. No mass, skin change or tenderness. Left: Normal. No mass, skin change or tenderness. Abdominal: General: Bowel sounds are normal. Palpations: Abdomen is soft. Genitourinary: General: Normal vulva. Labia: Right: No rash or lesion. Left: No rash or lesion. Vagina: Normal. Cervix: Normal. Uterus: Normal. Not enlarged and not tender. Adnexa: Right adnexa normal and left adnexa normal. Right: No mass, tenderness or fullness. Left: No mass, tenderness or fullness. Musculoskeletal: General: Normal range of motion. Cervical back: Normal range of motion and neck supple. Skin: General: Skin is warm and dry. Neurological: Mental Status: She is alert and oriented to person, place, and time. Psychiatric: Mood and Affect: Mood normal. Speech: Speech normal. Behavior: Behavior normal. Thought Content: Thought content normal. Judgment: Judgment normal. Perla was seen today for gynecologic exam. Diagnoses and all orders for this visit: Encounter for breast and pelvic examination Standardized adult depression screening tool completed Vaginal atrophy - estradioL (ESTRACE) 0.01 % (0.1 mg/gram) vaginal cream; Insert 1 g into the vagina once a week. 1. Recommend breast self-awareness. Notify provider for any breast changes or concerns 2. Discussed taking a multivitamin. 3. Discussed Calcium and Vitamin D for prevention of osteoporosis. 4. Discussed need for yearly mammograms, scheduled for tomorrow at [facility]. 5. Patient to discuss colon cancer screening recommendations with PCP. 6. Educational material provided. 7. Questions answered. 8. Return for Medicare pelvic / breast exam and / or PRN. DIOMEDES Goodson, LOG BRANDER-HEMALATHA Jewell 04/24/25 1332 documented in this encounter Miscellaneous Notes * Medical Student - Felisa Cantor - 04/24/2025 1:15 PM EST Disclaimer: This note is intended for educational purposes only. It does not constitute a patient visit and is not to be used or relied on for treatment, billing, or any other purposes. It has been created solely for to enable the student to practice documentation to achieve the expected level of competency in charting and receive feedback regarding same. This note is not a part of the legal medical record. documented in this encounter Plan of Treatment Not on file documented as of this encounter Goals GoalPatient Goal TypeAssociated ProblemsRecent ProgressPatient-Stated?Author home Nataliia Wagner LSW Note: Evaluation of progress towards goal: going to sisters home today Autogenerated Goal Care PlanAutogenerated ProblemNoPotts, Elizabethdocumented as of this encounter Visit Diagnoses Diagnosis Encounter for breast and pelvic examination- Primary Standardized adult depression screening tool completed Vaginal atrophy Postmenopausal atrophic vaginitis documented in this encounter Additional Health Concerns Active ProblemsNoted DateDiagnosed DateAutogenerated Nqssgoo30/22/2025Assessment Noted TimePHQ-9 Depression Total Score: 2:30 PM ESTdocumented as of this encounter Care Teams Team MemberRelationshipSpecialtyStart DateEnd Date Francisco Javier Mckeon Jr., [address] [place] [address] PCP - GeneralInternal Nfqcbfuu09/15/21documented as of this encounter
--- OUTSIDE RECORDS SUMMARY | 2025-04-25 09:32 | XMS_ITS | Encounter Summary ---
Author Organization [facility] Address [address] [place] [address] Care Team Providers Care Shale Miner Name Role Phone Francisco Javier Mckeon MD Primary Care Provider [phone] Reason for Visit * ReasonOnset DateCommentsHandicap Cupqsvv0204/13/2025 Encounter Details DateTypeDepartmentCare Team (Latest Contact Info)Ecthcdkexmu76/12/2025Telephone [facility] [address] [place] [address] Pavel Friend, PA [address] [place] [address] Handicap Placard Social History Tobacco UseTypesPacks/DayYears UsedDateSmoking Tobacco: NeverSmokeless Tobacco: NeverAlcohol UseStandard Drinks/WeekCommentsYes2 (1 standard drink = 0.6 oz pure alcohol)CommentsUnknownSex and Gender InformationValueDate RecordedSex Assigned at BirthNot on fileLegal TteLwuxhs66/11/2024 9:23 AM EDTGender Identity Hipdta3702/12/2024 9:27 AM EDTSexual OrientationNot on filedocumented as of this encounter Miscellaneous Notes * Telephone Encounter - Mary Ann Hernandez - 04/16/2025 10:26 AM EST I called and let patient know, 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 * Telephone Encounter - TIMMY Liu - 04/13/2025 3:52 PM EST Rx in system, attempted to print from home.. please notify pt. * Telephone Encounter - Mary Ann Hernandez - 04/13/2025 2:23 PM EST Patient called requesting a handicap placard so she does not have to walk so far. Please advise documented in this encounter Plan of Treatment DateTypeDepartmentCare Team (Latest Contact Info)Dbrbxiwmyls74/08/2026 9:00 AM ESTOffice Visit [facility] [address] [place] [address] Dania Novoa, DPM [address] [facility] [place], [place] [address] 06/13/2025 1:00 PM ESTOffice Visit [facility] [address] [place] [address] Pavel Friend PA [address] [place] [address] documented as of this encounter Visit Diagnoses Diagnosis Tendonitis, Achilles, right- Primary documented in this encounter Care Teams Team MemberRelationshipSpecialtyStart DateEnd Date Francisco Javier Mckeon MD [address] [place] [address] PCP - GeneralInternal Nfycondi09/22/24documented as of this encounter
--- OUTSIDE RECORDS SUMMARY | 2025-04-25 09:32 | XMS_ITS | Encounter Summary ---
Author Organization [facility] Address [address] [place] [address] Care Team Providers Care Target Protection Specialist Name Role Phone Francisco Javier Mckeon MD Primary Care Provider [phone] Encounter Details DateTypeDepartmentCare Team (Latest Contact Info)Nhjldhsiifw77/12/2025amboo flowsheet [facility] [address] [place] [address] Pavel Friend, PA [address] [place] [address] Social History Tobacco UseTypesPacks/DayYears UsedDateSmoking Tobacco: NeverSmokeless Tobacco: NeverAlcohol UseStandard Drinks/WeekCommentsYes2 (1 standard drink = 0.6 oz pure alcohol)CommentsUnknownSex and Gender InformationValueDate RecordedSex Assigned at BirthNot on fileLegal GfdWkylxw67/11/2024 9:23 AM EDTGender Identity Mgsoaq9602/12/2024 9:27 AM EDTSexual OrientationNot on filedocumented as of this encounter Plan of Treatment DateTypeDepartmentCare Team (Latest Contact Info)Uelcqpvbxbs51/08/2026 9:00 AM ESTOffice Visit [facility] [address] [place] [address] Dania Novoa, DPM [address] [place] [address] 06/13/2025 1:00 PM ESTOffice Visit [facility] [address] [place] [address] Pavel Friend PA [address] [facility] [address] documented as of this encounter Visit Diagnoses Not on filedocumented in this encounter Care Teams Team MemberRelationshipSpecialtyStart DateEnd Date Francisco Javier Mckeon MD [facility] [place] [address] PCP - GeneralInternal Oywogxzt92/22/24documented as of this encounter
--- OUTSIDE RECORDS SUMMARY | 2025-04-25 09:32 | XMS_ITS | Clinical Summary ---
Author Organization [facility] Address [address] [place] [address] Phone Care Team Providers Care Learning Support Teacher Name Role Phone Francisco Javier Mckeon DO Primary Care Provider + [phone] Social History Tobacco UseTypesPacks/DayYears UsedDateSmoking Tobacco: Never Assessed CommentsUnknownSex and Gender InformationValueDate RecordedSex Assigned at Not on fileLegal WotTgfclk53/26/2022 5:05 AM ESTGender IdentityNot on fileSexual OrientationNot on file Plan of Treatment Health MaintenanceDue DateLast DoneCommentsCT Wwmqbfsvzlfr72/08/1955Colonoscopy 5Colorectal Cancer Lbvxvejbf94/08/1955FIT-DNA (Cologuard)1954FIT 1954Lipid Panel1954Medicare Annual Wellness Visit (AWV)1954 Iktqjcvhxdkdy69/08/1955MMR Vaccines (1 of 1 - Standard series)1955 Hepatitis C Gsmqwretc94/08/8280Wzqaghphj89/08/1995Pneumococcal Vaccine (1 of 1 - PCV)2004Zoster Vaccines (1 of 2)2004Bone Density Scan2019 COVID-19 Vaccine (5 - 2024- season)/, 08/27/2023, 02/27/2022, Additional history existsInfluenza Vaccine (#1), 03/09/2023, 02/10/2022, Additional history existsDTaP/Tdap/Td Vaccines (2 - Td or Tdap)/08/2021Hepatitis A VaccinesAged Out02/04/2022, 09/03/2021, 08/05/2021No longer eligible based on patient's age to complete this topic Hepatitis B ZwlbkfzqFeqtveuze01/05/2022, 09/03/2021, 2RSV High Risk: (Elderly (60+) or Population)Czogztama00/01/2023HIB VaccinesAged OutNo longer eligible based on patient's [...] TypeRelation to PatientDate of BirthPhoneBilling AddressPersonal/FamilyOther [address] [place] [address] * Guarantor: INSTITUTIONAL,BILLING PARAccount TypeRelation to PatientDate of BirthPhoneBilling AddressPersonal/FamilyOther [address] [facility] [place] [address] Care Teams Team MemberRelationshipSpecialtyStart DateEnd Date Francisco Javier Mckeon DO [address] [place] [address] PCP - GeneralInternal Medicine08/05/24
--- OUTSIDE RECORDS SUMMARY | 2025-04-25 09:32 | XMS_ITS | Clinical Summary ---
Author Organization [facility] Address [address] [place] [address] Care Team Providers Care Fire Hydrant Operator Name Role Phone Francisco Javier Mckeon MD Primary Care Provider + [phone] Allergies Active AllergyReactionsCriticalityNoted DateCommentsCyclobenzaprineAnaphylaxis High03/28/20244508ZzbvhHodfkwrwqucIrag18/18/2024 1. ALL MUSCLE RELAXERS 2. DENIES METAL [...] tablet Take 81 mg by mouth DailyActive amoxicillin (Amoxil) 500 MG tablet Indications:Acute pain of right knee,History of total knee replacement, right4 tabs PO once 30-60 mins before procedure with food 4 tablet 5Active predniSONE (Deltasone) 20 MG tablet Indications:Acute pain of right knee,Tendonitis, Achilles, rightTake 2 tablets (40 mg) by mouth Daily for 5 days, THEN 1 tablet (20 mg) Daily for 5 days. Take withfood. 15 tablet Expired Active Problems ProblemNoted DateDiagnosed DatePrimary osteoarthritis of right knee03/14/2024 A-fib05/03/2022 Encounters DateTypeDepartmentCare SbwbYykzeqaxxqc29/12/2025 10:45 AM ESTOffice Visit [facility] [address] [place] [address] Pavel Friend PA Acute pain of right knee (Primary Dx); History of total knee replacement, right; Tendonitis, Achilles, right; Acute right ankle pain04/13/2025Telephone [facility] [address] [place] [address] Pavel Friend PA Handicap Asdxmxy6604/13/2025amboo flowsheet [facility] [address] [place] [address] Pavel Friend PA 04/13/20250248Ilbdpb71/06/2085Vfqfnb65/14/2025 8:45 AM ESTAncillary Procedure [facility] [address] [place] [address] 03/16/2025 8:30 AM ESTOffice Visit [facility] [address] [place] [address] Pavel Friend PA Acute pain of right knee (Primary Dx); History of total knee replacement, right; Tendonitis, Achilles, right03/16/2025amboo flowsheet [facility] [address] [place] [address] Pavel Friend PA 03/16/20254809Xbzkch76/12/2025Travelfrom Last 3 Months Immunizations ImmunizationAdministration DatesNext DueHep A / Hep B1,09/03/2021, 08/05/2021Influenza, High Dose Seasonal, Preservative Free02/12/2024Influenza, High-dose Seasonal, Quadrivalent, Preservative Free02/10/2022,01/28/2021 Influenza, Seasonal, Quadrivalent, Hydeikdosw42/07/2023Novel fatparivs-C6V4-39, preservative-free05/14/2009RSV, recombinant, protein subunit RSVpreF, adjuvant reconstitu, 120mcg/0.5mL, PF (Arexvy)04/02/2023Tdap08/05/2021Typhoid, ViCPs 08/05/2021 Social History Tobacco UseTypesPacks/DayYears UsedDateSmoking Tobacco: NeverSmokeless Tobacco: Never Tobacco Cessation:Counseling Given: Not Answered Alcohol UseStandard Drinks/WeekCommentsYes2 (1 standard drink = 0.6 oz pure alcohol)CommentsUnknownSex and Gender InformationValueDate RecordedSex Assigned at BirthNot on fileLegal FcwKpkskd30/11/2024 9:23 AM EDTGender Identity Paeqyx4802/12/2024 9:27 AM EDTSexual OrientationNot on file Last Filed Vital Signs Vital SignReadingTime TakenCommentsBlood Pressure--Pulse--Temperature-- Respiratory Rate--Oxygen Saturation--Inhaled Oxygen Concentration--Jhwmmd30.3 kg (148 lb 6.4 oz)02/29/2024 10:24 AM QNITkcumh739.5 cm (5' 7.5 )02/29/2024 10:24 AM EDTBody Mass Index22.91 10:24 AM EDT Plan of Treatment DateTypeDepartmentCare Team (Latest Contact Info)Aqzoigcztjx19/08/2026 9:00 AM ESTOffice Visit [facility] [address] [place] [address] Dania Novoa DPM [address] [place] [address] 06/13/2025 1:00 PM ESTOffice Visit [facility] [address] [place] [address] Pavel Friend, PA [address] [place] [address] Health MaintenanceDue DateLast DoneCommentsCT Neotyleuyhzv04/08/1955Colonoscopy 5Colorectal Cancer Wxszretdz16/08/1955FIT-DNA1954FIT1954 FOBT1954 3495Rrmjlklxjjnum54/08/9947Gxpoumlvq30/08/1995Pneumococcal Vaccine: 65+ Years (2 of 2 - PPSV23)/Influenza Vaccine (#1)2025 02/12/2024, 03/09/2023, 02/10/2022, Additional history existsCOVID-19 Vaccine (2024- season)/, 03/02/2024, 08/27/2023, Additional history exists Procedures Procedure NamePriorityDate/TimeAssociated DiagnosisCommentsCAST / SPLINT / FX Fgskdmk0804/13/2025 11:25 AM EST Tendonitis, Achilles, right XR KNEE 1-2 VIEWS AMYLMMicyjvi27/14/2025 8:41 AM EST Acute pain of right knee from Last 3 Months Results * Cast / Splint / Fx (04/13/2025 11:25 AM EST) Narrative Pavel Friend PA - 04/13/2025 11:25 AM EST TIMMY Liu 04/13/2025 10:55 PM Cast / Splint / Fx Date/Time: 04/13/2025 11:25 AM Performed by: TIMMY Liu Authorized by: TIMMY Liu Consent given by: patient Timeout: Immediately prior to procedure a time out was called to verify the correct patient, procedure, equipment, student support counselor and site/side marked as required Injury Location [...] experience any symptoms. ?? Authorizing ProviderResult TypeResult Syeda Friend PAIN CLINIC/BEDSIDE ORDERABLESFinal Result * XR knee 1 or 2 views [...] right total knee arthroplasty Authorizing ProviderResult TypeResult Syeda Friend PAIMG XR PROCEDURES Final Result from Last 3 Months Insurance Care Teams Team MemberRelationshipSpecialtyStart DateEnd Date Francisco Javier Mckeon MD [facility] [place] [address] PCP - GeneralInternal Auudhnkd27/22/24
--- OUTSIDE RECORDS SUMMARY | 2025-04-25 09:32 | XMS_ITS | Encounter Summary ---
Author Organization [employer] tem Address [facility] [id number] [address] [place] [address] Care Team Providers Care Electrocardiographic Technician Name Role Phone Linda Adler DO, Charles L Primary Care Provider Encounter Details DateTypeDepartmentCare Team (Latest Contact Info)Zpddmeldfba84/21/2025Travel Social History Tobacco UseTypesPacks/DayYears UsedDateSmoking Tobacco: NeverSmokeless Tobacco: NeverAlcohol UseStandard Drinks/WeekCommentsYes2 (1 standard drink = 0.6 oz pure alcohol)sociallyPHQ-2AnswerDate RecordedTotal Gprht57906/22/2022Hunger Screening AnswerDate RecordedWithin the past 12 months we worried whether our food would run out before we got money to buy more.Never True08/16/2024Within the past 12 months the food we bought just didn't last and we didn't have money to get more. Never True08/16/2024CommentsNoSex and Gender InformationValueDate RecordedSex Assigned at BirthNot on fileLegal AawOuvlau31/14/2021 1:08 PM EST Gender IdentityNot on fileSexual [...] Additional Health Concerns Active ProblemsNoted DateDiagnosed DateAutogenerated Dxqytqh88/22/2025Assessment Noted TimePHQ-9 Depression Total Score: 2:30 PM ESTdocumented as of this encounter Care Teams Team MemberRelationshipSpecialtyStart DateEnd Date Francisco Javier Mckeon Jr., [facility] [place] [address] PCP - GeneralInternal Ecwhztxv06/15/21documented as of this encounter
--- OUTSIDE RECORDS SUMMARY | 2025-04-25 09:32 | XMS_ITS | Encounter Summary ---
Author Organization [facility] Address [address] [place] [address] Care Team Providers Care Plug Assembler Name Role Phone Francisco Javier Mckeon MD Primary Care Provider [phone] Encounter Details DateTypeDepartmentCare Team (Latest Contact Info)Axygzkkpcyx09/12/2025Travel Social History Tobacco UseTypesPacks/DayYears UsedDateSmoking Tobacco: NeverSmokeless Tobacco: NeverAlcohol UseStandard Drinks/WeekCommentsYes2 (1 standard drink = 0.6 oz pure alcohol)CommentsUnknownSex and Gender InformationValueDate RecordedSex Assigned at BirthNot on fileLegal FcyKdvyjy53/11/2024 9:23 AM EDTGender Identity Kqyqmm2302/12/2024 9:27 AM EDTSexual OrientationNot on filedocumented as of this encounter Plan of Treatment DateTypeDepartmentCare Team (Latest Contact Info)Qvcgliiwmnv97/08/2026 9:00 AM ESTOffice Visit [facility] [address] [place] [address] Dania Novoa, DPM [address] [place], [place] [address] 06/13/2025 1:00 PM ESTOffice Visit [facility] [address] [place] [address] Pavel Friend, TIMMY [address] [place] [address] documented as of this encounter Visit Diagnoses Not on filedocumented in this encounter Care Teams Team MemberRelationshipSpecialtyStart DateEnd Date Francisco Javier Mckeon MD [facility] [place] [address] PCP - GeneralInternal Cphuvhfo19/22/24documented as of this encounter
--- OUTSIDE RECORDS SUMMARY | 2025-04-25 09:32 | XMS_ITS | Clinical Summary ---
Author Organization [employer] tem Address [id number] [address] [place] [address] Care Team Providers Care Clarity Developer Name Role Phone Linda Adler DO, Charles L Primary Care Provider Allergies Active AllergyReactionsCriticalityNoted DateCommentsCyclobenzaprineAnaphylaxis High03/28/20245983EurflXosbgirpsyeZgsf81/15/2021 Muscle Relaxers Medications MedicationSigDispense QuantityRefillsLast FilledStart DateEnd DateStatus valACYclovir (VALTREX) 1000 mg tablet Take 1 tablet (1,000 mg total) by mouth in the morning and 1 tablet (1,000 mg total) before bedtime. One tablet by mouth for 5 days as needed .Active calcium carbonate-vitamin D3 (CALCIUM 500 + D) 500 mg(1,250mg) -200 units per tablet Take 1 tablet by mouth in the morning.Active vbjupmzj-crcp-IE-calcium &mins (THERAGRAN-M) 9 mg iron-400 mcg tablet Take 1 tablet by mouth in the morning.Active aspirin 81 mg chewable tablet Chew 1 tablet (81 mg total) and swallow.5Active clopidogreL (PLAVIX) 75 mg tablet Take 1 tablet (75 mg total) by mouth.Active nitroglycerin (NITROSTAT) 0.4 MG SL tablet DISSOLVE 1 TABLET UNDER THE TONGUE NEEDED FOR CHEST PAIN- MAY REPEAT EVERY 5 MINUTES IF NEEDED (MAX 3 DOSES.- IF NO RELIEF CALL 911)5Active rosuvastatin (CRESTOR) 20 mg tablet Take 1 tablet (20 mg total) by mouth.Active amoxicillin (AMOXIL) 500 MG tablet 4 tabs PO once 30-60 mins before procedure with food5Active mupirocin (BACTROBAN) 2 % ointment APPLY TO THE AFFECTED AREA topically TWICE DAILY until clear5Active losartan (COZAAR) 50 mg tablet Take 2 tablets (100 mg total) by mouth.Active levothyroxine (SYNTHROID, LEVOTHROID) 50 MCG tablet TAKE 1 TABLET BY MOUTH EVERY MORNING BEFORE A MEALActive estradioL (ESTRACE) 0.01 % (0.1 mg/gram) vaginal cream Indications:Vaginal atrophyInsert 1 g into the vagina once a week. 42.5 g 5Active levothyroxine (SYNTHROID, LEVOTHROID) 25 MCG tablet Take 2 tablets (50 mcg total) by mouth in the morning.04/24/2025Discontinued (Duplicate order) metoprolol tartrate (LOPRESSOR) 25 mg tablet Take 2 tablets (50 mg total) by mouth in the morning and 2 tablets (50 mg total) before bedtime.04/24/2025Discontinued(Therapy completed) estradioL (ESTRACE) 0.01 % (0.1 mg/gram) vaginal cream Indications:Vaginal atrophyInsert 1 g into the vagina once a week. 42.5 g Discontinued(Reorder) losartan-hydroCHLOROthiazide (HYZAAR) 100-12.5 mg per tablet Take 1 tablet by mouth.04/24/2025Discontinued(Therapy completed) Active Problems ProblemNoted DateDiagnosed DateRadial artery aneurysm, right03/01/2025 Assessment & Plan (03/01/2025 8:49 AM EDT): Duplex US to evaluate and see if it is persistent Right knee pain03/27/2024 Encounters DateTypeDepartmentCare OwzdLlodbxkojdj51/23/2025 1:15 PM ESTOffice Visit [facility] [place] [address] Encounter for breast and pelvic examination (Primary Dx); Standardized adult depression screening tool completed; Vaginal tnlmnlj5604/22/20252197Xlzdkj60/13/2025 9:30 AM ESTOffice Visit [facility] [address] [place] [address] Jazz Morales MD Radial artery aneurysm, right (Primary Dx)03/13/20258139Itrahl51/04/2025 8:49 AM EST - 03/06/2025 11:59 PM ESTHospital Encounter [facility] [address] [place] [address] Jazz Morales MD Radial artery aneurysm, right Discharge Disposition: Home03/05/20255517Yvcoet82/30/2025 8:40 AM EDTOffice Visit [facility] [address] [place] [address] Jazz Morales MD Radial artery aneurysm, right (Primary Dx)02/27/20255891Toecdv33/16/2025Telephone [facility] [address] [place] [address] Jazz Morales MD from Last 3 Months Immunizations ImmunizationAdministration DatesNext MdaW6V2 Inj Preservative Free05/14/2009Hep A / Hep B1,09/03/2021,08/05/2021Influenza High Dose Preservative Free IM02/12/2024Influenza Vaccine, Quadrivalent, Ttrlibjkad73/07/2023Influenza, High-dose, Pidqbjjtaslx59/11/2022,1RSV, recombinant, protein subunit RSVpreF, adjuvant reconstituted, 0.5 mL, PF04/02/2023Tdap08/05/2021Typhoid, ViCPS08/05/2021 Family History Medical HistoryRelationNameCommentsOvarian cancerCousinEsophageal cancerFather Breast cancerMotherKate ShelleyN/AColon cancerMotherKate ShelleyProstate cancer Neg HxUterine cancerNeg HxRelationNameStatusCommentsCousinAliveFatherDeceased MotherKate ShelleyDeceased Social History Tobacco UseTypesPacks/DayYears UsedDateSmoking Tobacco: NeverSmokeless Tobacco: Never Tobacco Cessation:Counseling Given: Not Answered Alcohol UseStandard Drinks/WeekCommentsYes2 (1 standard drink = 0.6 oz pure alcohol)sociallyPHQ-2AnswerDate RecordedTotal Yitth53406/22/2022UDIT-CAnswerDate RecordedQ1: How often do you have a [...] InformationValueDate RecordedSex Assigned at BirthNot on fileLegal VgiKscinx97/14/2021 1:08 PM ESTGender IdentityNot on file Sexual OrientationNot on file Last Filed Vital Signs Vital SignReadingTime TakenCommentsBlood Aetqgkew577/9004/24/2025 12:58 PM EST Gswyo96157/13/2025 9:29 AM XRLGxkagzzxvie07.9 ??C (98.4 ??F)03/28/2024 11:36 AM ESTRespiratory Qgny251705/28/2023 11:36 AM ESTOxygen Uubozrwyus56%03/28/2024 11:36 AM ESTInhaled Oxygen Concentration--Jiuasq03.8 kg (149 lb 6.4 oz)04/24/2025 12:58 PM WJIGmpqtm875.5 cm (5' 7.5 )04/24/2025 12:58 PM ESTBody Mass Index23.05 04/24/2025 12:58 PM EST Plan of Treatment Health MaintenanceDue DateLast OjqmGbwhnlvqUyucrqrvb39/08/1995Fall Risk Qoacxpnmk25/08/2020Zoster (Shingles) Vaccine (2 of 2)/ Depression Fjficzgfa88Influenza Mkaptku00/04/2024, 03/09/2023, 02/10/2022, Additional history existsCOVID-19 Vaccine ( season)/, 03/02/2024, 08/27/2023, Additional history exists Adult BMI Kyxnboqkj53Tobacco Wbpvdtdew02 DTaP,Tdap and Td Vaccines (2 - Td or Tdap)/2RSV ( or age 60+ yrs)Fkttypeja94/01/2023 Goals GoalPatient Goal TypeAssociated ProblemsRecent ProgressPatient-Stated?Author home Nataliia Wagner LSW Note: Evaluation of progress towards goal: going to sisters home today Autogenerated Goal Care PlanAutogenerated ProblemNoPotts, [employer] ImplantedTypeAreaManufacturerDevice IdentifierShelf Expiration DateModel / Serial / LotCement Bn Bio 40gm Rpl [id number] - Sn/A - [id number] Implanted:Qty: 2 on 03/28/2024 by Jake Neff Jr., [facility] KneeZimmer [id number] / N/A / [id number] Fem F Kn Rt Lpsflx Gndr Edelmira? Nxgn Cocr Rpl [id number] - Sn/A - [id number] Implanted:Qty: 1 on 03/28/2024 by Jake Neff Jr., DO at [facility] ImplantRight: KneeZimmer Biomet [id number]/157079-8937-110-27 / N/A / [id number] Ptlr 35mm Persona Alply Kn Strl Lf - Sn/A - [id number] Implanted:Qty: 1 on 03/28/2024 by Jake Neff Jr., DO at [facility] ImplantRight: KneeZimmer Biomet [id number]/[id number] / N/A / [id number] Complete Knee Solution Legacy. Knee Posterior Stabilized Prolong. Size E F 100mm Height Lps-Flex Articular Surface Implanted:Qty: 1 on 03/28/2024 [facility] Im[facility]Right: KneeZimmer [id number] 05011169-00-23 / N/A / [id number] Tib 90u81vy Nxgn Kn Cmnt Mdlr Stm Prect 6 Tiv Pmma Rpl [id number] + [id number] - Sn/A - [id number] Implanted:Qty: 1 on 03/28/2024 by [facility] Jr[facility] KneeZimmer [id number] / N/A / [id number]rzlzZchfjv IdentifierShelf Expiration DateModel / Serial / LotScrew Gd 48mm Qd-Spr Hex Hd Mis Strl - Sn/A - [id number] Explanted:Qty: 1 on 03/28/2024 by [facility] [id number] / N/A / [id number] Gd 48mm Qd-Spr Hex Hd Mis Strl - Sn/A - [id number] Explanted:Qty: 1 on 03/28/2024 by [facility]ff Jr., [facility]: KneeZimmer [id number]/11/203400-0168-501-48 / N/A / [id number] Bn 35mm 6.5mm St Hip Actb Trlg Strl Rpl [id number]+32 - Sn/A - [id number] Explanted:Qty: 1 on 03/28/2024 by Jake Neff Jr., DO [facility]: Adin [id number] 71-3303-159-35 / N/A / [id number] Bn 35mm 6.5mm St Hip Actb Trlg Strl Rpl [id number]+32 - Sn/A - [id number] Explanted:Qty: 1 on 03/28/2024 by [facility] Jr[facility] Adin [id number] 35-7299-141-35 / N/A / [id number] Procedures Procedure NamePriorityDate/TimeAssociated DiagnosisCommentsVASC ARTERIAL DUPLEX UPPER SINGLE JDIZWMpnjmar42/04/2025 9:20 AM EST Radial artery aneurysm, right [...] encapsulated vascularized mass with feeder connection to [place] arteries. Hypoechoic encapsulated area without color flow [...] of encapsulatedvascularized mass with feeder connection to [place] arteries. Hypoechoic encapsulated area without color flow [...] advised Authorizing ProviderResult TypeResult StatusMohamed F Andrew [facility]ASCULAR ORDERABLESFinal Result from Last 3 Months Additional Health Concerns Active ProblemsNoted DateDiagnosed DateAutogenerated Yvrjyeg1701/22/2025 Insurance Advance Directives * Full Code (Latest Code Status on File) Date ActivatedDate DiqtczodfipNnjhbilr38/25/2024 9:00 PM03/28/2024 5:14 PM Care Teams Team MemberRelationshipSpecialtyStart DateEnd Date Francisco Javier Mckeon Jr., DO [facility] [place] [address] PCP - GeneralInternal Fzrhzmii87/15/21
--- NOTE | 2025-04-25 10:00 | MM_ITS ---
Patient Name: MARICEL GOODWIN MR#: [id number] : 1955 Exam Date: 04/25/2025 Ordering Doctor: DR FAZAL BONE D.O. RADIOLOGY REPORT PROCEDURE: MM TOMOSYNTHESIS SCREENING BI COMPARISON: MM TOMOSYNTHESIS SCREENING BI, 04/24/2024. MM TOMOSYNTHESIS SCREENING BI, 04/08/2023. MG MAMM SCREEN 3D WILLIE CAD, 04/01/2022. MG MAMM WILLIE SCRN W CAD DIG, 06/01/2013. INDICATIONS: Screening Calculator Name NCI Breast Cancer Risk Assessment Tool 5 Year Breast Cancer Risk 3.10% Lifetime Breast Cancer Risk 8.90% Personal Breast Cancer No Personal Ovarian Cancer No Treatments None Family Cancers Father with esophageal cancer at age 75; Mother with breast cancer at age 55. LOCATION: [facility] BREAST COMPOSITION: The breasts are heterogeneously dense, which may obscure small masses. FINDINGS: DIAGNOSTIC CATEGORY 1--NEGATIVE. RIGHT BREAST: No significant suspicious finding. LEFT BREAST: No significant suspicious finding. RECOMMENDATIONS: ROUTINE MAMMOGRAM AND CLINICAL EVALUATION IN 12 MONTHS. Dictated by: Kennedy Dietrich MD on 04/25/2025 at 12:50 Approved by: Kennedy Dietrich MD on 04/25/2025 at 12:54
== END 2025-04-25 09:30 | disposition home or self-care (01) ==
LOC: MAMMO 09:29
PROVIDERS: PCP Internal Medicine; Visit Provider Internal Medicine
DX: Z12.31 Encounter for screening mammogram for malignant neoplasm of breast (principal); Z80.3 Family history of malignant neoplasm of breast; Z80.8 Family history of malignant neoplasm of other organs or systems
CPT/HCPCS: 77063; 77067